=== PATIENT | female | born 1935 | race Caucasian/White ===

== ENCOUNTER 2017-03-23 18:06 | Inpatient (IN) | payer MEDICARE, MEDICAID ==
[~2017-03-23] VITALS: Ht 167.6 cm; Wt 71.2 kg
[2017-03-23 18:52] LABS: BASOPHILS % (AUTO) 0.8 % (0.0-2.0); EOSINOPHILS % (AUTO) 0.3 % (0.0-3.0); MEAN CORPUSCULAR HEMOGLOBIN 31.3 PG (27.0-31.0); MEAN CORPUSCULAR HGB CONC 31.7 G/DL (32.0-36.0); MEAN CORPUSCULAR VOLUME 99 FL (80-99); MEAN PLATELET VOLUME 10.7 FL (6.5-10.1); MONOCYTES % (AUTO) 7.9 % (1.0-10.0); PLATELET COUNT 183 K/UL (150-450); RED BLOOD COUNT 4.87 M/UL (4.20-5.40); RED CELL DISTRIBUTION WIDTH 14.2 % (11.6-14.8); WHITE BLOOD COUNT 17.3 K/UL (4.8-10.8)
[2017-03-23 19:10] LABS: TROPONIN I < 0.30 ng/mL (<=0.30)
--- NOTE | 2017-03-23 19:18 | Emergency Room Report ---
History of Present Illness General Chief Complaint: Dyspnea/Respdistress Source: Medical Record Present Illness HPI 81-year-old female presents ED for evaluation. Patient resides in halfway. Per EMS patient noted to be hypoxic on remainder. O2 sat and EKGs. Patient placed on nasal cannula and then simple mask with O2 saturations improving. EMS noted crackles in both lungs. States that she is currently being treated for pneumonia at the halfway. Upon arrival patient showing no signs of distress. Denies any chest pain or shortness of breath. Denies any fevers or chills. No aggravating or relieving factors. Denies any other associated symptoms Allergies: Coded Allergies: No Known Allergies (Unverified , 03/23/17) Patient History Past Medical History: CHF, AFib Past Surgical History: none Pertinent Family History: none Social History: Denies: alcohol use, drug use, smoking Last Menstrual Period: n/a Now: No Immunizations: UTD Reviewed Nursing Documentation: PMH: Agreed, PSxH: Agreed Nursing Documentation-PMH Past Medical History: No History, Except For Hx Cardiac Problems: Yes - CHF, afib, Hypothyroidism Review of Systems All Other Systems: negative except mentioned in HPI Physical Exam Vital Signs Date Time Temp Pulse Resp B/P Pulse Ox O2 Delivery O2 Flow Rate FiO2 03/23/17 17:58 98.4 93 20 90/63 97 Room Air Sp02 EP Interpretation: reviewed, normal General Appearance: no apparent distress, alert, GCS 15, non-toxic Head: normocephalic Eyes: bilateral eye PERRL, bilateral eye normal inspection ENT: normal ENT inspection Neck: normal inspection Respiratory: crackles Cardiovascular #1: tachycardia Gastrointestinal: normal inspection Rectal: deferred Genitourinary: no CVA tenderness Musculoskeletal: normal inspection Neurologic: alert, oriented x3, responsive, motor strength/tone normal, sensory intact, speech normal Psychiatric: normal inspection Skin: normal inspection Lymphatic: normal inspection Medical Decision Making Diagnostic Impression: Primary Impression: Pneumonia Qualified Codes: J18.1 - Lobar pneumonia, unspecified organism Additional Impressions: Atrial fibrillation Qualified Codes: I48.91 - Unspecified atrial fibrillation CHF (congestive heart failure) Qualified Codes: I50.9 - Heart failure, unspecified ER Course Hospital Course 49-year-old M presenting to ED with crackles, hypoxia Differential diagnoses include: Pneumonia, CHF exacerbation, pneumothorax, fluid overload Clinical course Patient placed on stretcher. On patient monitor with hypoxia on room air and tachycardia. After initial history and physical, I ordered labs, IV fluids, EKG , chest x-ray, blood cultures, UA. Labs -leukocytosis noted, hemoglobin/hematocrit stable, elecrolytes okay, lactate okay, troponins negative, BNP elevated CXR - R middle lobe infiltrate EKG - afib, no ischemic changes Antibiotics given. Patient given Lopressor and IV fluids were tachycardia improving. Patient initially mildly hypotensive improved with IV fluids Case discussed with Dr. Call and he agreed to the patient to his service for further care and support I feel this is a highly complex case requiring extensive working including EKG/ Rhythm strip, Xray/CT/US, Blood/urine lab work, repeat exams while in ED, and administration of strong opiates/narcotics for pain control, admission to hospital or close patient follow up. Diagnosis - pneumonia, atrial fibrillation, CHF Patient admitted to telemetry in serious condition Labs Test 03/23/17 18:30 03/23/17 19:33 White Blood Count 17.3 K/UL (4.8-10.8) Red Blood Count 4.87 M/UL (4.20-5.40) Hemoglobin 15.2 G/DL (12.0-16.0) Hematocrit 48.0 % (37.0-47.0) Mean Corpuscular Volume 99 FL (80-99) Mean Corpuscular Hemoglobin 31.3 PG (27.0-31.0) Mean Corpuscular Hemoglobin Concent 31.7 G/DL (32.0-36.0) Red Cell Distribution Width 14.2 % (11.6-14.8) Platelet Count 183 K/UL (150-450) Mean Platelet Volume 10.7 FL (6.5-10.1) Neutrophils (%) (Auto) 83.0 % (45.0-75.0) Lymphocytes (%) (Auto) 8.0 % (20.0-45.0) Monocytes (%) (Auto) 7.9 % (1.0-10.0) Eosinophils (%) (Auto) 0.3 % (0.0-3.0) Basophils (%) (Auto) 0.8 % (0.0-2.0) Sodium Level 139 mEQ/L (135-145) Potassium Level 5.1 mEQ/L (3.4-4.9) Chloride Level 94 mEQ/L (98-107) Carbon Dioxide Level 30 mEQ/L (20-30) Anion Gap 15 (5-15) Blood Urea Nitrogen 18 mg/dL (7-23) Creatinine 0.9 mg/dL (0.5-0.9) Estimat Glomerular Filtration Rate mL/min (>60) Glucose Level 105 mg/dL (74-106) Lactic Acid Level 1.20 mmol/L (0.66-2.22) Calcium Level 8.9 mg/dL (8.6-10.2) Total Bilirubin 0.8 mg/dL (0.0-1.2) Aspartate Amino Transf (AST/SGOT) 16 U/L (5-40) Alanine Aminotransferase (ALT/SGPT) 6 U/L (3-33) Alkaline Phosphatase 83 U/L (35-104) Total Creatine Kinase 17 U/L (26-140) Creatine Kinase MB 1.0 ng/mL (< 3.8) Creatine Kinase MB Relative Index 5.8 Troponin I < 0.30 ng/mL (<=0.30) Pro-B-Type Natriuretic Peptide 3910 pg/mL (0-450) Total Protein 8.4 g/dL (6.6-8.7) Albumin 3.2 g/dL (3.5-5.2) Globulin 5.2 g/dL Albumin/Globulin Ratio 0.6 (1.0-2.7) Urine Color Yellow Urine Appearance Very cloudy Urine pH 6 (4.5-8.0) Urine Specific [place] 1.015 (1.005-1.035) Urine Protein 2+ (NEGATIVE) Urine Glucose (UA) Negative (NEGATIVE) Urine Ketones Negative (NEGATIVE) Urine Occult Blood 4+ (NEGATIVE) Urine Nitrite Negative (NEGATIVE) Urine Bilirubin Negative (NEGATIVE) Urine Urobilinogen Normal MG/DL (0.0-1.0) Urine Leukocyte Esterase 3+ (NEGATIVE) Urine RBC Tntc /HPF (0 - 2) Urine WBC Tntc /HPF (0 - 2) Urine Squamous Epithelial Cells Moderate /LPF (NONE/OCC) Urine Bacteria Many /HPF (NONE) EKG Diagnostic Results Rate: tachycardiac Rhythm: other - aflutter ST Segments: no acute changes ASA given to the pt in ED: No Rhythm Strip Diag. Results EP Interpretation: yes Rhythm: no PVC's, no ectopy Chest X-Ray Diagnostic Results Chest X-Ray Ordered: Yes # of Views/Limited/Complete: 1 View Interpretation: no pneumothorax, no acute cardiopulmonary disease, other - R mid lung inifltrate Indication: Shortness of Breath Impression: Other - pneumonia Date Electronically Signed: Mar 23, 2017 Time Electronically Signed: 19:17 Interpreting ER Physician: Inocencio Velazquez MD Last Vital Signs Date Time Temp Pulse Resp B/P Pulse Ox O2 Delivery O2 Flow Rate FiO2 03/23/17 17:58 98.4 93 20 90/63 97 Room Air Status: improved Disposition: ADMITTED INPATIENT Condition: Serious INOCENCIO VELAZQUEZ M.D. Mar 23, 2017 19:17
[2017-03-23 19:25] LABS: ALANINE AMINOTRANSFERASE 6 U/L (3-33); ALBUMIN/GLOBULIN RATIO 0.6 (1.0-2.7); ANION GAP 15 (5-15); ASPARTATE AMINO TRANSFERASE 16 U/L (5-40); CALCIUM 8.9 mg/dL (8.6-10.2); CARBON DIOXIDE 30 mEQ/L (20-30); CHLORIDE 94 mEQ/L (98-107); CREATININE 0.9 mg/dL (0.5-0.9); HEMOLYSIS 18; POTASSIUM 5.1 mEQ/L (3.4-4.9); SODIUM 139 mEQ/L (135-145); TOTAL PROTEIN 8.4 g/dL (6.6-8.7)
[2017-03-23 20:00] VITALS: BP 91/76
[2017-03-23] MEDS ORDERED: DuoNeb 0.5-3(2.5)mg/3ml neb HHN PRN (20:30)
[2017-03-23] MEDS ORDERED: Nitroglycerin Subl 0.4mg tab (Bottle Of 25) SL PRN (20:30)
[2017-03-23] MEDS ORDERED: Miralax 17gm pkt ORAL PRN (20:30)
[2017-03-23] MEDS ORDERED: Promethazine/Codeine 5ml UD ORAL PRN (20:30)
[2017-03-23] MEDS ORDERED: Mylanta II UD 30ml ORAL PRN (20:30)
[2017-03-23] MEDS ORDERED: POTASSIUM CHLO10 MEQ ORAL (20:48)
[2017-03-23] MEDS ORDERED: ENALAPRIL MALE2.5 MG ORAL (20:48)
[2017-03-23] MEDS ORDERED: MULTIVITAMINS1 EA14 PO (20:48)
[2017-03-23] MEDS ORDERED: DUONEB 0.5-3(2.53 ML HHN (20:48)
[2017-03-23] MEDS ORDERED: FUROSEMIDE40 MG ORAL (20:48)
[2017-03-23] MEDS ORDERED: METOPROLOL TART50 M1 ORAL (20:48)
[2017-03-23] MEDS ORDERED: LEVOTHYROXINE25 MCG ORAL (20:48)
[2017-03-23] MEDS ORDERED: TYLENOL325 MG ORAL (20:48)
[2017-03-23 20:49] LABS: APPEARANCE,URINE VERY CLOUDY; KETONES,URINE NEGATIVE (NEGATIVE); LEUKOCYTE ESTERASE ,URINE 3+ (NEGATIVE); NITRITE,URINE NEGATIVE (NEGATIVE); PH,URINE 6 (4.5-8.0); PROTEIN,URINE 2+ (NEGATIVE); UROBILINOGEN,URINE NORMAL MG/DL (0.0-1.0)
[2017-03-23] MEDS ORDERED: Metoprolol 5mg/5ml Inj IVP ONE (21:00)
[2017-03-23 21:19] LABS: RBC,URINE TNTC /HPF (0 - 2); WBC,URINE TNTC /HPF (0 - 2)
[2017-03-23 21:20] LABS: BACTERIA,URINE MANY /HPF; SQUAMOUS EPITHELIAL CELL,UR MODERATE /LPF (NONE/OCC)
[2017-03-23 21:44] VITALS: BP 96/78
[2017-03-23] MEDS: Heparin 5000 units/ml inj SUBQ SCH (23:09)
[2017-03-23] MEDS: Vancomycin 1gm/D5W 275ml IVPB SCH ×2 (23:10)
[2017-03-23 23:31] VITALS: BP 95/63
[2017-03-24 01:05] VITALS: BP_SYST 88; BP_SYST 90; BP_DIAS 70; BP_DIAS 71
[2017-03-24 04:00] VITALS: BP 114/65
[2017-03-24] MEDS: Levothyroxine 25mcg tab ORAL SCH (05:50)
[2017-03-24 08:00] VITALS: BP 105/66
[2017-03-24] MEDS: Cefepime HCl 1 GM in D5W 55 ML IV SCH (08:59)
[2017-03-24] MEDS: Metoprolol 50mg tab ORAL SCH ×2 (09:00→20:58)
[2017-03-24] MEDS: Heparin 5000 units/ml inj SUBQ SCH ×2 (09:01→20:58)
--- NOTE | 2017-03-24 09:31 | Diagnostic Imaging Report ---
Indications: SOB Technique: Portable AP chest Findings: Comparison: None Focal irregular airspace opacities are present in the right midlung. Asymmetric soft tissue fullness right hilum. Increased interstitial markings throughout both lungs, most prominent in the bases. Heart size, peripheral pulmonary vasculature within normal limits. No obvious pleural abnormalities. Thoracic aorta calcified, mildly elongated. Bones diffusely demineralized. Thoracic kyphosis is exaggerated. Surgical clips project over abdominal left upper quadrant. Fixation screws bridge old, healed fracture proximal aspect left humerus, incompletely imaged. IMPRESSION: Right midlung airspace opacities, nonspecific, may represent multifocal pneumonia Right hilar soft tissue fullness, nonspecific, may represent prominent pulmonary artery. Mass/adenopathy not excludable. Recommend followup to resolution, contrast-enhanced thoracic CT scan persists Bilateral interstitial disease with bibasal predominance, nonspecific, acuity indeterminate. No supportive evidence of active congestive heart failure. Aortosclerosis Prior ORIF left humerus Prior lower left chest wall/left upper abdominal surgery
[2017-03-24] MEDS ORDERED: Digoxin 0.5mg/2ml Inj IVP ONE (10:15)
[2017-03-24 11:10] LABS: ABG ALLEN TEST POSITIVE; ABG BASE EXCESS 3.2; ABG PCO2 42.3 mmHg (35.0-45.0)
[2017-03-24 11:45] LABS: BASOPHILS % (AUTO) 1.2 % (0.0-2.0); EOSINOPHILS % (AUTO) 0.3 % (0.0-3.0); LYMPHOCYTES % (AUTO) 7.4 % (20.0-45.0); MEAN CORPUSCULAR HEMOGLOBIN 31.5 PG (27.0-31.0); MEAN CORPUSCULAR HGB CONC 31.5 G/DL (32.0-36.0); MEAN CORPUSCULAR VOLUME 100 FL (80-99); MEAN PLATELET VOLUME 10.2 FL (6.5-10.1); MONOCYTES % (AUTO) 7.3 % (1.0-10.0); NEUTROPHILS % (AUTO) 83.8 % (45.0-75.0); PLATELET COUNT 122 K/UL (150-450); RED BLOOD COUNT 4.44 M/UL (4.20-5.40); RED CELL DISTRIBUTION WIDTH 14.1 % (11.6-14.8)
[2017-03-24 12:00] VITALS: BP 107/62
--- NOTE | 2017-03-24 12:06 | History and Physical ---
History of Present Illness General Date patient seen: Mar 24, 2017 Time patient seen: 09:15 Reason for Hospitalization: Dyspnea/Respdistress Present Illness HPI 81-year-old female, resident of SNF, with hx of A fib, CHF, hypothryofiism presented to ED for evaluation. Patient noted to be hypoxemic in SNF. Patient was placed on simple mask with O2 saturations improving. Patient was currently being treated for pneumonia at the residential. Upon arrival hypoxemic, tachycardic, afebrile, blood pressure low-90/63 Workup in ED revealed leukocytosis-17,3. lactic acid WNL stable lytes and GG UA with evidence of UTI CXR -Right midlung airspace opacities, nonspecific, may represent multifocal pneumonia Right hilar soft tissue fullness, nonspecific, may represent prominent pulmonary artery. Mass/adenopathy not excludable ECG with A fib, rate 128 pro BNP -3910 Lopressor IV given IV fluids provided, BP improved with IVF patient pancultured and started on empiric abx patient admitted to tele for further management Allergies: Coded Allergies: No Known Allergies (Unverified , 03/23/17) Medication History Scheduled Enalapril Maleate* (Enalapril Maleate*), 2.5 MG ORAL EVERY 12 HOURS, (Reported) Furosemide* (Lasix*), 40 MG ORAL DAILY, (Reported) Levothyroxine Sodium* (Levothyroxine Sodium*), 25 MCG ORAL DAILY, (Reported) Metoprolol Tartrate* (Metoprolol Tartrate*), 50 MG ORAL EVERY 12 HOURS, ( Reported) Potassium Chloride* (K-Dur*), 10 MEQ ORAL DAILY, (Reported) Scheduled PRN Acetaminophen (Tylenol), 650 MG ORAL Q6H PRN for Prn Pain/Headache/Temp > 101, ( Reported) Miscellaneous Medications Ipratropium/Albuterol Sulfate (DuoNeb 0.5-3(2.5)mg/3ml), 3 ML HHN, (Reported) Multivitamin (Multivitamins), 1 EACH PO, (Reported) Patient History History Provided By: Medical Record Healthcare decision maker N Resuscitation status Full Code Advanced Directive on File No Past Medical/Surgical History Past Medical/Surgical History: (1) Hypothyroidism (2) Atrial fibrillation (3) CHF (congestive heart failure) Review of Systems ROS Narrative unable to obtain due to ALOC Physical Exam General Appearance: other - elderly, bedridden, weak, awake, female in mild distress Lines, tubes and drains: peripheral HEENT: normocephalic, atraumatic, anicteric Neck: non-tender, supple Respiratory/Chest: chest wall non-tender, no accessory muscle use, crackles/ rales, rhonchi - bilaterally - few scattered bialterally Cardiovascular/Chest: normal peripheral pulses, no JVD, other - A flutter 128 Abdomen: normal bowel sounds, non tender, soft Extremities: non-tender Neurologic: abnormal gait, alert, responsive - porrly but follows commands Musculoskeletal: atrophy - BLE Last 24 Hour Vital Signs Date Time Temp Pulse Resp B/P Pulse Ox O2 Delivery O2 Flow Rate FiO2 03/24/17 10:10 127 03/24/17 09:00 109 105/66 03/24/17 08:21 109 24 94 Nasal Cannula 03/24/17 08:15 109 20 94 Nasal Cannula 2.0 03/24/17 08:00 97.3 119 20 105/66 96 Nasal Cannula 2.0 03/24/17 06:47 Nasal Cannula 2.0 03/24/17 06:46 94 Nasal Cannula 2.0 03/24/17 06:45 109 24 Nasal Cannula 2.0 03/24/17 04:00 97.9 112 20 114/65 90 Nasal Cannula 2.5 03/24/17 04:00 115 03/24/17 01:05 97.2 120 20 90/70 96 Nasal Cannula 2.0 03/24/17 00:00 119 03/23/17 23:31 96.3 107 20 95/63 91 Nasal Cannula 2.0 03/23/17 22:02 98.4 118 20 96/78 97 Room Air 03/23/17 21:44 98.4 118 20 96/78 97 Room Air 03/23/17 21:07 120 71/48 03/23/17 20:00 98.4 122 20 91/76 97 Room Air 03/23/17 18:10 122 23 Room Air 03/23/17 17:58 98.4 93 20 90/63 97 Room Air Intake and Output 03/23/17 03/24/17 19:00 07:00 Intake Total 2367.416 ml Balance 2367.416 ml Intake IV Total 367.416 ml Other 2000 ml # Voids 2 Laboratory Tests Test 03/23/17 18:30 03/23/17 19:33 03/24/17 11:05 03/24/17 11:30 White Blood Count 17.3 K/UL (4.8-10.8) H 11.0 K/UL (4.8-10.8) H Red Blood Count 4.87 M/UL (4.20-5.40) 4.44 M/UL (4.20-5.40) Hemoglobin 15.2 G/DL (12.0-16.0) 14.0 G/DL (12.0-16.0) Hematocrit 48.0 % (37.0-47.0) H 44.6 % (37.0-47.0) Mean Corpuscular Volume 99 FL (80-99) 100 FL (80-99) H Mean Corpuscular Hemoglobin 31.3 PG (27.0-31.0) H 31.5 PG (27.0-31.0) H Mean Corpuscular Hemoglobin Concent 31.7 G/DL (32.0-36.0) L 31.5 G/DL (32.0-36.0) L Red Cell Distribution Width 14.2 % (11.6-14.8) 14.1 % (11.6-14.8) Platelet Count 183 K/UL (150-450) 122 K/UL (150-450) L Mean Platelet Volume 10.7 FL (6.5-10.1) H 10.2 FL (6.5-10.1) H Neutrophils (%) (Auto) 83.0 % (45.0-75.0) H 83.8 % (45.0-75.0) H Lymphocytes (%) (Auto) 8.0 % (20.0-45.0) L 7.4 % (20.0-45.0) L Monocytes (%) (Auto) 7.9 % (1.0-10.0) 7.3 % (1.0-10.0) Eosinophils (%) (Auto) 0.3 % (0.0-3.0) 0.3 % (0.0-3.0) Basophils (%) (Auto) 0.8 % (0.0-2.0) 1.2 % (0.0-2.0) Sodium Level 139 mEQ/L (135-145) Potassium Level 5.1 mEQ/L (3.4-4.9) H Chloride Level 94 mEQ/L (98-107) L Carbon Dioxide Level 30 mEQ/L (20-30) Anion Gap 15 (5-15) Blood Urea Nitrogen 18 mg/dL (7-23) Creatinine 0.9 mg/dL (0.5-0.9) Estimat Glomerular Filtration Rate mL/min (>60) Glucose Level 105 mg/dL (74-106) Lactic Acid Level 1.20 mmol/L (0.66-2.22) Calcium Level 8.9 mg/dL (8.6-10.2) Total Bilirubin 0.8 mg/dL (0.0-1.2) Aspartate Amino Transf (AST/SGOT) 16 U/L (5-40) Alanine Aminotransferase (ALT/SGPT) 6 U/L (3-33) Alkaline Phosphatase 83 U/L (35-104) Total Creatine Kinase 17 U/L (26-140) L Creatine Kinase MB 1.0 ng/mL (< 3.8) Creatine Kinase MB Relative Index 5.8 Troponin I < 0.30 ng/mL (<=0.30) Pro-B-Type Natriuretic Peptide 3910 pg/mL (0-450) H Total Protein 8.4 g/dL (6.6-8.7) Albumin 3.2 g/dL (3.5-5.2) L Globulin 5.2 g/dL Albumin/Globulin Ratio 0.6 (1.0-2.7) L Urine Color Yellow Urine Appearance Very cloudy Urine pH 6 (4.5-8.0) Urine Specific [place] 1.015 (1.005-1.035) Urine Protein 2+ (NEGATIVE) H Urine Glucose (UA) Negative (NEGATIVE) Urine Ketones Negative (NEGATIVE) Urine Occult Blood 4+ (NEGATIVE) H Urine Nitrite Negative (NEGATIVE) Urine Bilirubin Negative (NEGATIVE) Urine Urobilinogen Normal MG/DL (0.0-1.0) Urine Leukocyte Esterase 3+ (NEGATIVE) H Urine RBC Tntc /HPF (0 - 2) H Urine WBC Tntc /HPF (0 - 2) H Urine Squamous Epithelial Cells Moderate /LPF (NONE/OCC) H Urine Bacteria Many /HPF (NONE) H Arterial Blood pH 7.435 (7.350-7.450) Arterial Blood Partial Pressure CO2 42.3 mmHg (35.0-45.0) Arterial Blood Partial Pressure O2 60.4 mmHg (75.0-100.0) L Arterial Blood HCO3 27.8 mmol/L (22.0-26.0) H Arterial Blood Oxygen Saturation 91.8 % (92.0-98.0) L Arterial Blood Base Excess 3.2 Tee Test Positive Height (Feet): 5 Height (Inches): 6.00 Weight (Pounds): 130 Medications Current Medications Medications (Trade) Dose Ordered Sig/Rita Route PRN Reason Start Time Stop Time Status Last Admin Dose Admin Acetaminophen (Tylenol) 650 mg Q4H PRN ORAL fever 03/23/17 20:30 04/22/17 20:29 Al Hydroxide/Mg Hydroxide (Mylanta II) 30 ml Q6H PRN ORAL dyspepsia 03/23/17 20:30 04/22/17 20:29 Albuterol/ Ipratropium 3 ml 3 ml EVERY 4 HOURS PRN HHN Shortness of Breath 03/23/17 20:30 03/28/17 20:29 03/24/17 08:15 Cefepime HCl/ Dextrose (Maxipime/D5W) 55 ml @ 110 mls/hr Q24H IV 03/24/17 09:00 03/31/17 08:59 03/24/17 08:59 Heparin Sodium (Porcine) (Heparin 5000 units/ml) 5,000 units EVERY 12 HOURS SUBQ 03/23/17 22:00 04/22/17 21:59 03/24/17 09:01 Levothyroxine Sodium (Synthroid) 25 mcg DAILY@0630 ORAL 03/24/17 06:30 04/23/17 06:29 03/24/17 05:50 Metoprolol Tartrate 50 mg 50 mg EVERY 12 HOURS ORAL 03/24/17 09:00 04/23/17 08:59 Nitroglycerin (Ntg) 0.4 mg Q5M PRN SL Prn Chest Pain 03/23/17 20:30 04/22/17 20:29 Ondansetron HCl (Zofran) 4 mg Q6H PRN IVP Nausea & Vomiting 03/23/17 20:30 04/22/17 20:29 Polyethylene Glycol (Miralax) 17 gm DAILYPRN PRN ORAL Constipation 03/23/17 20:30 04/22/17 20:29 Promethazine HCl/ Codeine (Phenergan with Codeine) 5 ml Q4H PRN ORAL For Cough 03/23/17 20:30 04/22/17 20:29 Temazepam (Restoril) 15 mg HSPRN PRN ORAL Insomnia 03/23/17 20:30 03/30/17 20:29 Vancomycin HCl (Vanco rx to dose) 1 ea DAILY PRN MISC Per rx protocol 03/23/17 20:30 04/22/17 20:29 Vancomycin HCl/ Dextrose (Vancomycin/D5W) 275 ml @ 183.708 mls/hr Q24H IVPB 03/23/17 23:00 03/28/17 22:59 03/23/17 23:10 Assessment/Plan Assessment/Plan ASSESSMENT acute hypoxemic respiratory failure sepsis PNA possible aspiration PNA r/o mass UTI Afib/flutter with RVR CHF hypothyroidism PLAN OF CARE tele o2 HHN to keep sat above 92% ABG with evidence of hypoxemia on NC, placed on VM CXR with evidence of multifocal PNA, possible mass CT chest today swallow eval today ECHO today cardio eval Digoxin 0.125 IVP x 1 if no improvement in HR may need to go to ICU for gtt broad spectrum abx, ID consult fup with cx check TSH DVT prophylaxis venous Duplex BLE case discussed and evaluated by supervising physician Mathew Welsh)Tsiha NP Mar 24, 2017 12:06
[2017-03-24 12:15] LABS: ANION GAP 14 (5-15); CALCIUM 8.2 mg/dL (8.6-10.2); CARBON DIOXIDE 27 mEQ/L (20-30); CHLORIDE 96 mEQ/L (98-107); CREATININE 0.7 mg/dL (0.5-0.9); HEMOLYSIS 3; PHOSPHORUS 2.8 mg/dL (2.5-4.8); POTASSIUM 4.5 mEQ/L (3.4-4.9); SODIUM 137 mEQ/L (135-145)
[2017-03-24] MEDS ORDERED: NS 250 ML IVPB ONE (15:30)
[2017-03-24 16:00] VITALS: BP 119/79
--- NOTE | 2017-03-24 17:48 | Cardiology Progress Note ---
Assessment/Plan Assessment/Plan tachycardia (multifactorial infection , hypoxemia , meds, others realted ) hypotesnion (responded to volume perm afib on anticoagulation respiratory insuf hs fo coaguloapthy due to Coumadin hs of "diastolic dysfunction " dementia hypothyroid hs bb not given due to hypotension bp improved with bolus of ivf to resuem bb watch ofr worsenign of bronchospasm protime in am continue anticoagulation with couamdin I WILL BE AWAY 03/25-03/[address] WILL SEE PT [id number] Objective Last 24 Hour Vital Signs Date Time Temp Pulse Resp B/P Pulse Ox O2 Delivery O2 Flow Rate FiO2 03/24/17 16:00 97.9 127 20 119/79 97 Nasal Cannula 2.0 03/24/17 12:00 97.6 129 20 107/62 92 Nasal Cannula 2.0 03/24/17 10:10 127 03/24/17 09:00 109 105/66 03/24/17 08:21 109 24 94 Nasal Cannula 03/24/17 08:15 109 20 94 Nasal Cannula 2.0 03/24/17 08:00 97.3 119 20 105/66 96 Nasal Cannula 2.0 03/24/17 06:47 Nasal Cannula 2.0 03/24/17 06:46 94 Nasal Cannula 2.0 03/24/17 06:45 109 24 Nasal Cannula 2.0 03/24/17 04:00 97.9 112 20 114/65 90 Nasal Cannula 2.5 03/24/17 04:00 115 03/24/17 01:05 97.2 120 20 90/70 96 Nasal Cannula 2.0 03/24/17 00:00 119 03/23/17 23:31 96.3 107 20 95/63 91 Nasal Cannula 2.0 03/23/17 22:02 98.4 118 20 96/78 97 Room Air 03/23/17 21:44 98.4 118 20 96/78 97 Room Air 03/23/17 21:07 120 71/48 03/23/17 20:00 98.4 122 20 91/76 97 Room Air 03/23/17 18:10 122 23 Room Air 03/23/17 17:58 98.4 93 20 90/63 97 Room Air Intake and Output 03/23/17 03/24/17 19:00 07:00 Intake Total 2367.416 ml Balance 2367.416 ml Intake IV Total 367.416 ml Other 2000 ml # Voids 2 Laboratory Tests Test 03/23/17 18:30 03/23/17 19:33 03/24/17 11:05 03/24/17 11:30 White Blood Count 17.3 K/UL (4.8-10.8) H 11.0 K/UL (4.8-10.8) H Red Blood Count 4.87 M/UL (4.20-5.40) 4.44 M/UL (4.20-5.40) Hemoglobin 15.2 G/DL (12.0-16.0) 14.0 G/DL (12.0-16.0) Hematocrit 48.0 % (37.0-47.0) H 44.6 % (37.0-47.0) Mean Corpuscular Volume 99 FL (80-99) 100 FL (80-99) H Mean Corpuscular Hemoglobin 31.3 PG (27.0-31.0) H 31.5 PG (27.0-31.0) H Mean Corpuscular Hemoglobin Concent 31.7 G/DL (32.0-36.0) L 31.5 G/DL (32.0-36.0) L Red Cell Distribution Width 14.2 % (11.6-14.8) 14.1 % (11.6-14.8) Platelet Count 183 K/UL (150-450) 122 K/UL (150-450) L Mean Platelet Volume 10.7 FL (6.5-10.1) H 10.2 FL (6.5-10.1) H Neutrophils (%) (Auto) 83.0 % (45.0-75.0) H 83.8 % (45.0-75.0) H Lymphocytes (%) (Auto) 8.0 % (20.0-45.0) L 7.4 % (20.0-45.0) L Monocytes (%) (Auto) 7.9 % (1.0-10.0) 7.3 % (1.0-10.0) Eosinophils (%) (Auto) 0.3 % (0.0-3.0) 0.3 % (0.0-3.0) Basophils (%) (Auto) 0.8 % (0.0-2.0) 1.2 % (0.0-2.0) Sodium Level 139 mEQ/L (135-145) 137 mEQ/L (135-145) Potassium Level 5.1 mEQ/L (3.4-4.9) H 4.5 mEQ/L (3.4-4.9) Chloride Level 94 mEQ/L (98-107) L 96 mEQ/L (98-107) L Carbon Dioxide Level 30 mEQ/L (20-30) 27 mEQ/L (20-30) Anion Gap 15 (5-15) 14 (5-15) Blood Urea Nitrogen 18 mg/dL (7-23) 15 mg/dL (7-23) Creatinine 0.9 mg/dL (0.5-0.9) 0.7 mg/dL (0.5-0.9) Estimat Glomerular Filtration Rate mL/min (>60) mL/min (>60) Glucose Level 105 mg/dL (74-106) 93 mg/dL (74-106) Lactic Acid Level 1.20 mmol/L (0.66-2.22) Calcium Level 8.9 mg/dL (8.6-10.2) 8.2 mg/dL (8.6-10.2) L Total Bilirubin 0.8 mg/dL (0.0-1.2) Aspartate Amino Transf (AST/SGOT) 16 U/L (5-40) Alanine Aminotransferase (ALT/SGPT) 6 U/L (3-33) Alkaline Phosphatase 83 U/L (35-104) Total Creatine Kinase 17 U/L (26-140) L Creatine Kinase MB 1.0 ng/mL (< 3.8) Creatine Kinase MB Relative Index 5.8 Troponin I < 0.30 ng/mL (<=0.30) Pro-B-Type Natriuretic Peptide 3910 pg/mL (0-450) H Total Protein 8.4 g/dL (6.6-8.7) Albumin 3.2 g/dL (3.5-5.2) L 2.6 g/dL (3.5-5.2) L Globulin 5.2 g/dL Albumin/Globulin Ratio 0.6 (1.0-2.7) L Urine Color Yellow Urine Appearance Very cloudy Urine pH 6 (4.5-8.0) Urine Specific [place] 1.015 (1.005-1.035) Urine Protein 2+ (NEGATIVE) H Urine Glucose (UA) Negative (NEGATIVE) Urine Ketones Negative (NEGATIVE) Urine Occult Blood 4+ (NEGATIVE) H Urine Nitrite Negative (NEGATIVE) Urine Bilirubin Negative (NEGATIVE) Urine Urobilinogen Normal MG/DL (0.0-1.0) Urine Leukocyte Esterase 3+ (NEGATIVE) H Urine RBC Tntc /HPF (0 - 2) H Urine WBC Tntc /HPF (0 - 2) H Urine Squamous Epithelial Cells Moderate /LPF (NONE/OCC) H Urine Bacteria Many /HPF (NONE) H Arterial Blood pH 7.435 (7.350-7.450) Arterial Blood Partial Pressure CO2 42.3 mmHg (35.0-45.0) Arterial Blood Partial Pressure O2 60.4 mmHg (75.0-100.0) L Arterial Blood HCO3 27.8 mmol/L (22.0-26.0) H Arterial Blood Oxygen Saturation 91.8 % (92.0-98.0) L Arterial Blood Base Excess 3.2 Tee Test Positive Phosphorus Level 2.8 mg/dL (2.5-4.8) TERE BEGUM Mar 24, 2017 17:48
[2017-03-24] MEDS: Levalbuterol Inh UD 1.25mg/0.5ml HHN SCH (19:08)
[2017-03-24 20:00] VITALS: BP 135/67
--- NOTE | 2017-03-24 20:57 | Consultation ---
SB JADE M.D. Mar 24, 2017 20:57
--- NOTE | 2017-03-24 22:30 | Wound Care Consultation ---
Wound Assessment Wound Assessment #1: Wound Present on Admission: Yes New Wound: No Status Change of Wound: No Wound Location Body Site: perineal area - and sacral area Wound Type: chemical burn Rachel Test: Does not Rachel Percent of Wound Starbuck/Red: 50 Percent of Wound Purple/Maroon: 50 Wound Drainage Amount: None Wound Drainage Odor: None/Absent Tissue Surrounding Wound: Erythemic Wound General Appearance: Reddened Wound Assessment #2: Wound Number: #2 Wound Present on Admission: Yes New Wound: No Status Change of Wound: No Wound Location Body Site Modif: mid Wound Location Body Site: sacral Wound Type: pressure ulcer Rachel Test: Does not Rachel Pressure Ulcer Stage: deep tissue injury Wound Thickness: Full Thickness Wound Length: 2.0 Wound Width: 2.0 Wound Depth: utd Percent of Wound Purple/Maroon: 100 Wound Drainage Amount: None Wound Drainage Odor: None/Absent Tissue Surrounding Wound: Erythemic Wound General Appearance: Reddened - purple Wound Assessment #3: Wound Number: #1 Wound Present on Admission: Yes New Wound: No Status Change of Wound: No Wound Location Body Site Modif: right Wound Location Body Site: heel Wound Type: pressure ulcer Rachel Test: Does not Rachel Pressure Ulcer Stage: deep tissue injury Wound Thickness: Full Thickness Wound Length: 3.5 Wound Width: 4.5 Wound Depth: utd Percent of Wound Purple/Maroon: 100 Wound Drainage Amount: None Wound Drainage Odor: None/Absent Tissue Surrounding Wound: Intact Wound General Appearance: Reddened - purple Wound Assessment #4: Wound Number: #4 Wound Present on Admission: Yes New Wound: No Status Change of Wound: No Wound Location Body Site Modif: left Wound Location Body Site: heel Wound Type: pressure ulcer Rachel Test: Does not Rachel Pressure Ulcer Stage: I Wound Length: 2.5 Wound Width: 2.0 Percent of Wound Starbuck/Red: 100 Wound Drainage Amount: None Wound Drainage Odor: None/Absent Tissue Surrounding Wound: Intact Wound General Appearance: Reddened Wound Assessment #5: Wound Number: #5 Wound Present on Admission: Yes New Wound: No Status Change of Wound: No Wound Type: other - red and scaly patches on different parts of Pt's body Rashes: Psoriasis - possible Wound Thickness: Partial Thickness Percent of Wound Starbuck/Red: 100 Wound Drainage Amount: None Wound Drainage Odor: None/Absent Tissue Surrounding Wound: Intact Wound General Appearance: Reddened, Open to air Wound Comment #1 Perineal area chemical burn that extended to sacral area with red and purplish discoloration #2 Right heel DTI pressure ulcer #3 Left heel stage I pressure ulcer #4 Sacral DTI pressure ulcer #5 Rashes on different part of Pt's body with scaly red patches Recommendation -Local wound treatment per protocol -Call MD for dermatology consult -Turn and reposition -Keep clean and dry -Optimize nutrition -Low air loss overlay mattress -Offload both heels -Heel protector on both heels -Assess and f/u accordingly for any changes RADHA TEIXEIRA RN Mar 24, 2017 22:30
--- NOTE | 2017-03-24 22:55 | Consultation ---
Consult Note Consult Note ID Dic # [id number] SB JADE M.D. Mar 24, 2017 22:55
[2017-03-24] MEDS: Vancomycin 1gm/D5W 275ml IVPB SCH ×2 (23:12)
--- NOTE | 2017-03-24 23:45 | Consultation ---
DATE OF CONSULTATION: 03/24/2017 CARDIOLOGY CONSULTATION: REFERRING PHYSICIAN: Jose Angel Call M.D. REASON FOR REFERRAL: Palpitations, tachycardia, and hypotension. HISTORY OF PRESENT ILLNESS: This is an elderly female, somewhat of a poor historian. The patient apparently resides in a facility and transferred to the acute care hospital. The patient with history of dementia and Alzheimer's, who apparently complained of shortness of breath at the facility stating that she had saturation of 88% on nasal cannula. Blood oxygen saturating 90 to 94%, put the patient on face mask prior to transfer to the emergency room, oxygen saturation per paramedics was 97 to 98% at that time. The patient denied any pain. No weakness, dizziness, nausea, or vomiting. The patient's blood pressure was 98/59, down to 90/63 at the time of her presentation to the hospital. The patient does have some chest pain that she can not describe. She indicates she has been having for approximately one year. She does have shortness of breath. Does not have any PND. She cannot describe any exacerbating or relieving factors for the chest pain or nor described pain itself and no where the pain exactly is. She sleeps with head of bed elevated although not completely clear to me if that is accurate. [facility] that she had been complaining of some shortness of breath evaluation yesterday . PAST MEDICAL HISTORY: According to the [facility] records is positive for history of atrial fibrillation, chronic systolic congestive heart failure, sepsis, respiratory failure, pneumonia, dementia, coagulopathy, psoriasis, cystitis, and hypothyroidism. She was recently seen at the [facility]. I believe she does have history of hypertension as well. MEDICATIONS: Nevertheless her medications at the facility include Coumadin, digoxin, enalapril , hydralazine, metoprolol, Remeron, Tylenol, and Lasix. REVIEW OF SYSTEMS: Gastrointestinal: She denies any nausea, vomiting, diarrhea, or constipation. Genitourinary: She denies. Pulmonary: She denies. Constitutional: She denies. Neurologic: She denies. PHYSICAL EXAMINATION: GENERAL: Elderly female in no respiratory distress, kind of confused . VITAL SIGNS: Her blood pressure had been in the 90s when I received a phone call. Administered 250 mL of normal saline apparently, subsequently increased to 119. Her heart rate however remains rapid with heart rates in the 109 to 127, temperature 97.6 degrees, and saturations 92 to 97% on two liters. NECK: Supple. No jugular venous distention. LUNGS: Some inspiratory and expiratory wheezes. No crackles noted. CARDIAC: Irregularly irregular. No RV lift heaves or thrills noted. ABDOMEN: Soft and nontender. Positive bowel sounds. EXTREMITIES: There is no clubbing, cyanosis, nor is there any edema. NEUROLOGICAL: She is awake and responsive, but confused. LABORATORY AND DIAGNOSTIC DATA: Her white count is 11 down from 17.3, hemoglobin 14, and platelet count of 122,000. ABG, pH is 7.4, pCO2 42, pO2 64, bicarb 28, and saturation of 92%. Sodium is 137, potassium 4.5, chloride 96, bicarbonate 27, BUN 15, creatinine 0.7, and glucose of 93. Calcium is 8.3. Troponin at least one occasion less than 0.3 and a proBNP of 3900. Albumin is down to 2. Urinalysis too numerous to count RBCs and WBCs. Her chest x-ray shows right middle lung airspace opacities nonspecific may represent multifocal pneumonia right hilar soft tissue fullness nonspecific bilateral interstitial disease and bilateral prominence is nonspecific, indeterminate, ORIF of left humerus prior lower left chest wall upper abdominal surgery of some reason. EKG shows basically atrial fibrillation/flutter with variable block with nonspecific T-wave changes. Her convalescent hospital records reviewed and notation by a nurse practitioner, Safia indicates that the patient had in the convalescent facility blood pressure of 134/68 with a heart rate of 89 with a 98.2 degrees temperature. ASSESSMENT: 1. Permanent atrial fibrillation. 2. Tachycardia. 3. Respiratory insufficiency. 4. Chronic diastolic dysfunction and failure. 5. Hypothyroidism. 6. Hypertension. Dr. Call, this patient was seen in cardiac consultation. The patient has received some normal saline for hypotension, which she did respond to. Her tachycardia is still present. She had been on beta-blockers, which has not been administered because of hypotension and I suspect once her blood pressure is better, her beta-blockers can be resumed. However, care must be taken as the patient had some bronchospastic component to her respirations to make sure that may not use of beta beta-blockers. She is on empiric antibiotics. Her echocardiogram here has shown normal left ventricular systolic function. The ejection fraction is 60%. She has received some albuterol, which is likely can worsens her tachycardia as well. Set of cardiac enzymes will be ordered and further recommendations depending on how she does over the next few hours. Oh Currie M.D. DR: Melina JOB#: [id number] CC:
--- NOTE | 2017-03-25 | Consultation ---
DATE OF CONSULTATION: INFECTIOUS DISEASE CONSULTATION CONSULTING PHYSICIAN: Rahat Jensen M.D. REQUESTING PHYSICIAN: Jose Angel Call M.D. REASON FOR CONSULTATION: Evaluation of the patient for pneumonia and antibiotic management. HISTORY OF PRESENT ILLNESS: The patient is an 81-year-old female with multiple medical problems, as listed below, who came to the hospital with shortness of breath, however, no significant pneumonia. The patient has been admitted with the impression of pneumonia and an Infectious Disease consultation has been requested for further evaluation of the patient and antibiotic management. PAST MEDICAL HISTORY: 1. Atrial fibrillation. 2. Congestive heart failure. 3. Hyperthyroidism. MEDICATIONS: Cefepime and vancomycin. ALLERGIES: No known drug allergies. SOCIAL HISTORY: The patient lives in a penitentiary. FAMILY HISTORY: Unavailable. REVIEW OF SYSTEMS: Limited. Much of the information I was able to get as mentioned above.HEENT: No recent change in vision or hearing. Pulmonary: As mentioned above. Cardiovascular: No chest pain or palpitations. Gastrointestinal/Abdomen: No nausea or vomiting. Genitourinary: No dysuria. PHYSICAL EXAMINATION: VITAL SIGNS: Temperature 98.1 degrees, blood pressure 135/57, pulse 86, and respiratory rate 18. HEENT: Mild pale conjunctiva. No icterus. NECK: No lymphadenopathy. CHEST: Coarse breathing sounds. HEART: S1 and S2. ABDOMEN: Soft and nontender. EXTREMITIES: No cyanosis. NEUROLOGIC: Awake. LABORATORY DATA: White blood cells 11, at the time of admission was 17, hemoglobin 14, and platelets 122,000. UA, too numerous to count white blood cells and too numerous to count red blood cells. ALT, AST, and alkaline phosphatase are unremarkable. Chest x-ray shows right mid lung air space opacity and right hilar soft tissue fullness. ASSESSMENT: The patient is an 81-year-old female with medical problems as listed below. Also the patient has, 1. Leukocytosis. 2. Sepsis. 3. Pneumonia. PLAN: 1. We will continue the patient on IV vancomycin and Zosyn. 2. Monitor CBC. 3. Monitor BMP. 4. Monitor cultures (blood, sputum, and urine). 5. Monitor chest x-ray. 6. Based on the patient's clinical course and labs, we will do further recommendations. Thank you, Dr. Call, for allowing me to participate in the care of this patient. I will follow the patient with you during this hospitalization. Rahat Jensen M.D. DR: EUGENIA JOB#: [id number] CC:
[2017-03-25 00:04] VITALS: BP 103/66
[2017-03-25 04:00] VITALS: BP 107/74
[2017-03-25] MEDS: Levothyroxine 25mcg tab ORAL SCH (06:32)
[2017-03-25 06:48] LABS: BASOPHILS % (AUTO) 1.6 % (0.0-2.0); EOSINOPHILS % (AUTO) 0.9 % (0.0-3.0); LYMPHOCYTES % (AUTO) 8.3 % (20.0-45.0); MEAN CORPUSCULAR HEMOGLOBIN 33.2 PG (27.0-31.0); MEAN CORPUSCULAR HGB CONC 32.7 G/DL (32.0-36.0); MEAN CORPUSCULAR VOLUME 102 FL (80-99); MEAN PLATELET VOLUME 11.7 FL (6.5-10.1); MONOCYTES % (AUTO) 9.7 % (1.0-10.0); NEUTROPHILS % (AUTO) 79.6 % (45.0-75.0); PLATELET COUNT 146 K/UL (150-450); RED BLOOD COUNT 4.17 M/UL (4.20-5.40); RED CELL DISTRIBUTION WIDTH 14.2 % (11.6-14.8); WHITE BLOOD COUNT 12.3 K/UL (4.8-10.8)
[2017-03-25 07:15] LABS: TROPONIN I < 0.30 ng/mL (<=0.30)
[2017-03-25] MEDS: Levalbuterol Inh UD 1.25mg/0.5ml HHN SCH ×3 (07:22→19:17)
[2017-03-25 07:25] LABS: ANION GAP 12 (5-15); CALCIUM 8.2 mg/dL (8.6-10.2); CARBON DIOXIDE 28 mEQ/L (20-30); CHLORIDE 101 mEQ/L (98-107); CREATININE 0.6 mg/dL (0.5-0.9); HEMOLYSIS 2; POTASSIUM 4.7 mEQ/L (3.4-4.9); SODIUM 141 mEQ/L (135-145)
[2017-03-25 08:00] VITALS: BP 100/75
[2017-03-25] MEDS ORDERED: NS 275ml ONE ×2 (09:07→16:00)
[2017-03-25] MEDS ORDERED: Tubing IV Secondary IV ONE (09:07)
--- NOTE | 2017-03-25 09:22 | Diagnostic Imaging Report ---
Indication: Shortness of breath Technique: CT of the chest utilizing automated exposure control with intravenous contrast. Axial, sagittal and coronal reconstructions were obtained. CT dose: Total DLP 673 mGycm; CTDI vol 16.4 mGy Comparison: Chest x-ray from earlier the same day Findings: There is an area of irregular consolidative opacification involving the right upper lobe which extends to the right hilum. There is also septal thickening and a small area of consolidation within the right lower lobe. Moderate pulmonary emphysema is present. There is atelectasis in the left lower lobe. Trace right pleural fluid is present. Nonspecific mediastinal lymph nodes are seen measuring up to 1.5 cm in the precarinal location. The heart is enlarged. Atherosclerotic changes are present with coronary artery calcifications. There is a tiny hiatal hernia. There is a 2 cm hypodense probable cyst within the left lobe of the liver. A 6 mm hypodensity is also seen within the liver series 5 image 53 2 small to characterize. There is a new left renal cyst in the upper pole. Probable vascular calcification is noted in the left kidney. Degenerative changes of the spine are noted. T12 and T11 compression deformities are present. Impression: Irregular consolidative opacities involving the right upper lobe extending to the right hilum. Although findings may be on the basis of infection/pneumonia, possibility of underlying neoplasm cannot be excluded. Followup to resolution or further evaluation recommended. Interstitial and consolidative probable infectious/inflammatory process also noted in the right lower lobe. Trace right pleural fluid. Bilateral lower lobe atelectasis. Pulmonary emphysema. Cardiomegaly and atherosclerotic changes. Compression deformities of T11 and T12. Other findings as above. The CT scanner at [facility] is accredited by the [employer] and the scans are performed using protocols designed to limit radiation exposure to as low as reasonably achievable to attain images of sufficient resolution adequate for diagnostic evaluation.
[2017-03-25] MEDS: Cefepime HCl 1 GM in D5W 55 ML IV SCH (09:32)
[2017-03-25] MEDS: Metoprolol 50mg tab ORAL SCH ×2 (09:33→21:25)
[2017-03-25] MEDS: Heparin 5000 units/ml inj SUBQ SCH ×2 (09:34→21:25)
--- NOTE | 2017-03-25 09:49 | Diagnostic Imaging Report ---
Indication: Shortness of breath Technique: XRAY CHEST 1 V Comparison: 03/23/17 Findings: Cardiac silhouette is stable. Atherosclerotic changes are seen. Lungs are hyperinflated consistent with emphysema. Right upper lobe/hilar infiltrate or mass are again noted. Interstitial opacities are seen in the right base. Osseous structures are stable. Impression: No significant change from 03/23/17.
[2017-03-25 12:00] VITALS: BP 132/74
--- NOTE | 2017-03-25 14:18 | Pulmonology Progress Note ---
Assessment/Plan Assessment/Plan ASSESSMENT acute hypoxemic respiratory failure sepsis PNA possible aspiration PNA r/o pulmonary mass UTI Afib/flutter with RVR permanent A fib CHF with chronic diastolic dysfunction hypothyroidism hypotension -resolved PLAN OF CARE tele O2 HHN to keep sat above 92% ABG with evidence of hypoxemia on NC, placed on VM CXR with evidence of multifocal PNA, possible mass CT chest noted, possibility of mass not excluded will need follow up CT chest after Rx CXR today 03/25 - again demonstrated hyperinflated lungs , consistent with emphysema. Right upper lobe/hilar infiltrate or mass are again noted. Interstitial opacities are seen in the right base. swallow eval noted diet as per quality of life per ST VSS on Monday strict aspiration precautions ECHO with preserved EF 60% and RVSP of 38 c/w moderate pulmonary HTN, also evidence of moderate TR cardio follows BP initially responded to IVF rate control with BB ( watch respiratory status), BB with holding parameters broad spectrum abx, ID follows fup with cx TSH WNL, continue current dose of Synthroid DVT prophylaxis venous Duplex BLE case discussed and evaluated by supervising physician Subjective Allergies: Coded Allergies: No Known Allergies (Unverified , 03/23/17) Subjective still with leukocytosis, afebrile on O2 via NC, sat stable clinically with some improvement Objective Last 24 Hour Vital Signs Date Time Temp Pulse Resp B/P Pulse Ox O2 Delivery O2 Flow Rate FiO2 03/25/17 13:27 119 22 98 Nasal Cannula 3.0 28 03/25/17 13:17 79 20 90 Nasal Cannula 3.0 03/25/17 12:00 98.2 107 18 132/74 Nasal Cannula 2.0 89 03/25/17 11:50 118 03/25/17 09:33 118 100/75 03/25/17 08:00 97.3 118 20 100/75 94 Room Air 03/25/17 07:39 124 03/25/17 07:31 120 22 92 Nasal Cannula 3.0 28 03/25/17 07:20 124 20 79 Room Air 03/25/17 07:20 Nasal Cannula 3.0 03/25/17 07:18 93 Nasal Cannula 3.0 03/25/17 04:00 116 03/25/17 04:00 97.0 123 24 107/74 95 Nasal Cannula 4.0 03/25/17 00:04 98.1 97 15 103/66 93 Nasal Cannula 3.0 03/25/17 00:00 102 03/24/17 20:58 127 135/67 03/24/17 20:00 128 03/24/17 20:00 98.1 127 36 135/67 94 Nasal Cannula 3.0 03/24/17 19:14 95 24 94 Nasal Cannula 2.0 28 03/24/17 19:09 83 20 92 Nasal Cannula 2.0 03/24/17 19:09 Nasal Cannula 2.0 03/24/17 19:08 92 Nasal Cannula 2.0 03/24/17 19:08 83 22 Nasal Cannula 2.0 03/24/17 16:00 97.9 127 20 119/79 97 Nasal Cannula 2.0 03/24/17 16:00 127 Intake and Output 03/24/17 03/25/17 19:00 07:00 Intake Total 720 ml Balance 720 ml Intake Oral 720 ml # Voids 2 2 Objective General Appearance: elderly, bedridden, weak, awake, female in NAD Lines, tubes and drains: peripheral HEENT: normocephalic, atraumatic, anicteric Neck: non-tender, supple Respiratory/Chest: chest wall non-tender, no accessory muscle use, some crackles at bases, few scattered rhonchi bilaterally Cardiovascular/Chest: normal peripheral pulses, no JVD, A flutter Abdomen: normal bowel sounds, non tender, soft Extremities: non-tender Neurologic: abnormal gait, alert, awake, responsive Musculoskeletal: atrophy - BLE Microbiology Date/Time Source Procedure Growth Status 03/23/17 21:00 Rectum VRE Culture - Final NO VANCOMYCIN RESISTANT ENTEROCOCCUS ... Complete Laboratory Tests 03/25/17 04:30: White Blood Count 12.3H, Red Blood Count 4.17L, Hemoglobin 13.8, Hematocrit 42.4 , Mean Corpuscular Volume 102H, Mean Corpuscular Hemoglobin 33.2H, Mean Corpuscular Hemoglobin Concent 32.7, Red Cell Distribution Width 14.2, Platelet Count 146L, Mean Platelet Volume 11.7H, Neutrophils (%) (Auto) 79.6H, Lymphocytes (%) (Auto) 8.3L, Monocytes (%) (Auto) 9.7, Eosinophils (%) (Auto) 0.9, Basophils (%) (Auto) 1.6, Sodium Level 141, Potassium Level 4.7, Chloride Level 101, Carbon Dioxide Level 28, Anion Gap 12, Blood Urea Nitrogen 13, Creatinine 0.6, Estimat Glomerular Filtration Rate , Glucose Level 85, Calcium Level 8.2L, Troponin I < 0.30, Pro-B-Type Natriuretic Peptide [Pending], Thyroid Stimulating Hormone (TSH) 1.430 Current Medications Medications (Trade) Dose Ordered Sig/Rita Route PRN Reason Start Time Stop Time Status Last Admin Dose Admin Acetaminophen (Tylenol) 650 mg Q4H PRN ORAL fever 03/23/17 20:30 04/22/17 20:29 Al Hydroxide/Mg Hydroxide (Mylanta II) 30 ml Q6H PRN ORAL dyspepsia 03/23/17 20:30 04/22/17 20:29 Cefepime HCl/ Dextrose (Maxipime/D5W) 55 ml @ 110 mls/hr Q24H IV 03/24/17 09:00 03/31/17 08:59 03/25/17 09:32 Clotrimazole (Lotrimin) 1 applic EVERY 12 HOURS TOPIC 03/25/17 09:00 04/24/17 08:59 03/25/17 09:34 Heparin Sodium (Porcine) (Heparin 5000 units/ml) 5,000 units EVERY 12 HOURS SUBQ 03/23/17 22:00 04/22/17 21:59 03/25/17 09:34 Levalbuterol HCl (Xopenex) 1.25 mg TIDRT HHN 03/24/17 19:00 03/29/17 18:59 03/25/17 13:20 Levothyroxine Sodium (Synthroid) 25 mcg DAILY@0630 ORAL 03/24/17 06:30 04/23/17 06:29 03/25/17 06:32 Metoprolol Tartrate 50 mg 50 mg EVERY 12 HOURS ORAL 03/24/17 09:00 04/23/17 08:59 03/25/17 09:33 Nitroglycerin (Ntg) 0.4 mg Q5M PRN SL Prn Chest Pain 03/23/17 20:30 04/22/17 20:29 Ondansetron HCl (Zofran) 4 mg Q6H PRN IVP Nausea & Vomiting 03/23/17 20:30 04/22/17 20:29 Polyethylene Glycol (Miralax) 17 gm DAILYPRN PRN ORAL Constipation 03/23/17 20:30 04/22/17 20:29 Promethazine HCl/ Codeine 5 ml 5 ml Q4H PRN ORAL For Cough 03/23/17 20:30 04/22/17 20:29 Temazepam (Restoril) 15 mg HSPRN PRN ORAL Insomnia 03/23/17 20:30 03/30/17 20:29 Vancomycin HCl (Vanco rx to dose) 1 ea DAILY PRN MISC Per rx protocol 03/23/17 20:30 04/22/17 20:29 Vancomycin HCl/ Dextrose (Vancomycin/D5W) 275 ml @ 183.708 mls/hr Q24H IVPB 03/23/17 23:00 03/28/17 22:59 03/24/17 23:12 Mathew (Riley)Tisha NP Mar 25, 2017 14:17
[2017-03-25 16:00] VITALS: BP 118/90
--- NOTE | 2017-03-25 19:22 | Infectious Diseases Prog Note ---
Assessment/Plan Assessment/Plan A: pt is an 81 yold F aw Pna r/o pulmonary mass sepsis Leukocytosis improving Probable UTI UCx : GNR Afib/flutter CHF hypothyroidism PLAN cont pt on Cefepime and Vanco d# 2 / 7 Monitor CBC Monitor BMP Monitor Cxray Monitor Culture Subjective Allergies: Coded Allergies: No Known Allergies (Unverified , 03/23/17) Subjective SOB improving Objective Vital Signs Last 24 Hour Vital Signs Date Time Temp Pulse Resp B/P Pulse Ox O2 Delivery O2 Flow Rate FiO2 03/25/17 16:00 125 20 118/90 94 Room Air 03/25/17 15:13 122 03/25/17 13:27 119 22 98 Nasal Cannula 3.0 28 03/25/17 13:17 79 20 90 Nasal Cannula 3.0 03/25/17 12:00 98.2 107 18 132/74 Nasal Cannula 2.0 89 03/25/17 11:50 118 03/25/17 09:33 118 100/75 03/25/17 08:00 97.3 118 20 100/75 94 Room Air 03/25/17 07:39 124 03/25/17 07:31 120 22 92 Nasal Cannula 3.0 28 03/25/17 07:20 124 20 79 Room Air 03/25/17 07:20 Nasal Cannula 3.0 03/25/17 07:18 93 Nasal Cannula 3.0 03/25/17 04:00 116 03/25/17 04:00 97.0 123 24 107/74 95 Nasal Cannula 4.0 03/25/17 00:04 98.1 97 15 103/66 93 Nasal Cannula 3.0 03/25/17 00:00 102 03/24/17 20:58 127 135/67 03/24/17 20:00 128 03/24/17 20:00 98.1 127 36 135/67 94 Nasal Cannula 3.0 Height (Feet): 5 Height (Inches): 6.00 Weight (Pounds): 130 HEENT: anicteric Respiratory/Chest: no accessory muscle use Cardiovascular: regularly irregular Abdomen: non distended Microbiology Date/Time Source Procedure Growth Status 03/23/17 18:17 Blood Blood Culture - Preliminary NO GROWTH AFTER 24 HOURS Resulted 03/23/17 18:17 Blood Blood Culture - Preliminary NO GROWTH AFTER 24 HOURS Resulted 03/23/17 21:00 Nasal Nares MRSA Culture - Final Staphylococcus Aureus - Mrsa Complete 03/23/17 19:33 Urine,Clean Catch Urine Culture - Preliminary Gram Negative Bacillus 1 Resulted 03/23/17 21:00 Rectum VRE Culture - Final NO VANCOMYCIN RESISTANT ENTEROCOCCUS ... Complete Laboratory Tests Test 03/25/17 04:30 White Blood Count 12.3 K/UL (4.8-10.8) H Red Blood Count 4.17 M/UL (4.20-5.40) L Hemoglobin 13.8 G/DL (12.0-16.0) Hematocrit 42.4 % (37.0-47.0) Mean Corpuscular Volume 102 FL (80-99) H Mean Corpuscular Hemoglobin 33.2 PG (27.0-31.0) H Mean Corpuscular Hemoglobin Concent 32.7 G/DL (32.0-36.0) Red Cell Distribution Width 14.2 % (11.6-14.8) Platelet Count 146 K/UL (150-450) L Mean Platelet Volume 11.7 FL (6.5-10.1) H Neutrophils (%) (Auto) 79.6 % (45.0-75.0) H Lymphocytes (%) (Auto) 8.3 % (20.0-45.0) L Monocytes (%) (Auto) 9.7 % (1.0-10.0) Eosinophils (%) (Auto) 0.9 % (0.0-3.0) Basophils (%) (Auto) 1.6 % (0.0-2.0) Sodium Level 141 mEQ/L (135-145) Potassium Level 4.7 mEQ/L (3.4-4.9) Chloride Level 101 mEQ/L (98-107) Carbon Dioxide Level 28 mEQ/L (20-30) Anion Gap 12 (5-15) Blood Urea Nitrogen 13 mg/dL (7-23) Creatinine 0.6 mg/dL (0.5-0.9) Estimat Glomerular Filtration Rate mL/min (>60) Glucose Level 85 mg/dL (74-106) Calcium Level 8.2 mg/dL (8.6-10.2) L Troponin I < 0.30 ng/mL (<=0.30) Pro-B-Type Natriuretic Peptide 2762 pg/mL (0-450) H Thyroid Stimulating Hormone (TSH) 1.430 uIU/mL (0.300-4.500) Current Medications Medications (Trade) Dose Ordered Sig/Rita Route PRN Reason Start Time Stop Time Status Last Admin Dose Admin Acetaminophen (Tylenol) 650 mg Q4H PRN ORAL fever 03/23/17 20:30 04/22/17 20:29 Al Hydroxide/Mg Hydroxide (Mylanta II) 30 ml Q6H PRN ORAL dyspepsia 03/23/17 20:30 04/22/17 20:29 Cefepime HCl/ Dextrose (Maxipime/D5W) 55 ml @ 110 mls/hr Q24H IV 03/24/17 09:00 03/31/17 08:59 03/25/17 09:32 Clotrimazole (Lotrimin) 1 applic EVERY 12 HOURS TOPIC 03/25/17 09:00 04/24/17 08:59 03/25/17 09:34 Heparin Sodium (Porcine) (Heparin 5000 units/ml) 5,000 units EVERY 12 HOURS SUBQ 03/23/17 22:00 04/22/17 21:59 03/25/17 09:34 Levalbuterol HCl (Xopenex) 1.25 mg TIDRT HHN 03/24/17 19:00 03/29/17 18:59 03/25/17 13:20 Levothyroxine Sodium (Synthroid) 25 mcg DAILY@0630 ORAL 03/24/17 06:30 04/23/17 06:29 03/25/17 06:32 Metoprolol Tartrate 50 mg 50 mg EVERY 12 HOURS ORAL 03/24/17 09:00 04/23/17 08:59 03/25/17 09:33 Nitroglycerin (Ntg) 0.4 mg Q5M PRN SL Prn Chest Pain 03/23/17 20:30 04/22/17 20:29 Ondansetron HCl (Zofran) 4 mg Q6H PRN IVP Nausea & Vomiting 03/23/17 20:30 04/22/17 20:29 Polyethylene Glycol (Miralax) 17 gm DAILYPRN PRN ORAL Constipation 03/23/17 20:30 04/22/17 20:29 Promethazine HCl/ Codeine 5 ml 5 ml Q4H PRN ORAL For Cough 03/23/17 20:30 04/22/17 20:29 Temazepam (Restoril) 15 mg HSPRN PRN ORAL Insomnia 03/23/17 20:30 03/30/17 20:29 Vancomycin HCl (Vanco rx to dose) 1 ea DAILY PRN MISC Per rx protocol 03/23/17 20:30 04/22/17 20:29 Vancomycin HCl/ Dextrose (Vancomycin/D5W) 275 ml @ 183.708 mls/hr Q24H IVPB 03/23/17 23:00 03/28/17 22:59 03/24/17 23:12 SB JADE M.D. Mar 25, 2017 19:22
[2017-03-25 20:00] VITALS: BP 148/92
--- NOTE | 2017-03-25 21:57 | Cardiology Progress Note ---
Assessment/Plan Problem List: (1) Atrial fibrillation (2) CHF (congestive heart failure) (3) Hypothyroidism (4) Pneumonia Status: stable, progressing Status Narrative Permanent AF - RVR. Pt refusing telemetry CHF - diastolic dysfunction, chronic pneumonia/ aspiration Assessment/Plan Continue metoprolol - inc dose for better rate control Would favor anticoagulation if no contraindication Management of pneumonia per primary team Subjective ROS Limited/Unobtainable: No Subjective c/o being hungry. No dyspnea, chest pain or palpitations Objective Last 24 Hour Vital Signs Date Time Temp Pulse Resp B/P Pulse Ox O2 Delivery O2 Flow Rate FiO2 03/25/17 21:25 100 148/92 03/25/17 20:00 98.2 100 20 148/92 93 Nasal Cannula 3.0 03/25/17 20:00 98.2 100 20 148/92 93 Nasal Cannula 4.0 03/25/17 19:25 84 18 97 Nasal Cannula 3.0 32 03/25/17 19:17 81 18 93 Nasal Cannula 3.0 32 03/25/17 19:16 93 Nasal Cannula 3.0 32 03/25/17 19:16 Nasal Cannula 3.0 32 03/25/17 16:00 125 20 118/90 94 Room Air 03/25/17 15:13 122 03/25/17 13:27 119 22 98 Nasal Cannula 3.0 28 03/25/17 13:17 79 20 90 Nasal Cannula 3.0 03/25/17 12:00 98.2 107 18 132/74 Nasal Cannula 2.0 89 03/25/17 11:50 118 03/25/17 09:33 118 100/75 03/25/17 08:00 97.3 118 20 100/75 94 Room Air 03/25/17 07:39 124 03/25/17 07:31 120 22 92 Nasal Cannula 3.0 28 03/25/17 07:20 124 20 79 Room Air 03/25/17 07:20 Nasal Cannula 3.0 03/25/17 07:18 93 Nasal Cannula 3.0 03/25/17 04:00 116 03/25/17 04:00 97.0 123 24 107/74 95 Nasal Cannula 4.0 03/25/17 00:04 98.1 97 15 103/66 93 Nasal Cannula 3.0 03/25/17 00:00 102 General Appearance: WD/WN, alert EENT: PERRL/EOMI Neck: non-tender, supple, no JVD Rhythm: Afib Cardiovascular: no gallop/murmur, tachycardia, irregularly irregular Respiratory/Chest: lungs clear Abdomen: non tender, soft, no mass Extremities: non-tender, no swelling Intake and Output 03/24/17 03/25/17 19:00 07:00 Intake Total 720 ml Balance 720 ml Intake Oral 720 ml # Voids 2 2 Laboratory Tests Test 03/25/17 04:30 White Blood Count 12.3 K/UL (4.8-10.8) H Red Blood Count 4.17 M/UL (4.20-5.40) L Hemoglobin 13.8 G/DL (12.0-16.0) Hematocrit 42.4 % (37.0-47.0) Mean Corpuscular Volume 102 FL (80-99) H Mean Corpuscular Hemoglobin 33.2 PG (27.0-31.0) H Mean Corpuscular Hemoglobin Concent 32.7 G/DL (32.0-36.0) Red Cell Distribution Width 14.2 % (11.6-14.8) Platelet Count 146 K/UL (150-450) L Mean Platelet Volume 11.7 FL (6.5-10.1) H Neutrophils (%) (Auto) 79.6 % (45.0-75.0) H Lymphocytes (%) (Auto) 8.3 % (20.0-45.0) L Monocytes (%) (Auto) 9.7 % (1.0-10.0) Eosinophils (%) (Auto) 0.9 % (0.0-3.0) Basophils (%) (Auto) 1.6 % (0.0-2.0) Sodium Level 141 mEQ/L (135-145) Potassium Level 4.7 mEQ/L (3.4-4.9) Chloride Level 101 mEQ/L (98-107) Carbon Dioxide Level 28 mEQ/L (20-30) Anion Gap 12 (5-15) Blood Urea Nitrogen 13 mg/dL (7-23) Creatinine 0.6 mg/dL (0.5-0.9) Estimat Glomerular Filtration Rate mL/min (>60) Glucose Level 85 mg/dL (74-106) Calcium Level 8.2 mg/dL (8.6-10.2) L Troponin I < 0.30 ng/mL (<=0.30) Pro-B-Type Natriuretic Peptide 2762 pg/mL (0-450) H Thyroid Stimulating Hormone (TSH) 1.430 uIU/mL (0.300-4.500) Microbiology Date/Time Source Procedure Growth Status 03/23/17 18:17 Blood Blood Culture - Preliminary NO GROWTH AFTER 24 HOURS Resulted 03/23/17 18:17 Blood Blood Culture - Preliminary NO GROWTH AFTER 24 HOURS Resulted 03/23/17 21:00 Nasal Nares MRSA Culture - Final Staphylococcus Aureus - Mrsa Complete 03/23/17 19:33 Urine,Clean Catch Urine Culture - Preliminary Gram Negative Bacillus 1 Resulted 03/23/17 21:00 Rectum VRE Culture - Final NO VANCOMYCIN RESISTANT ENTEROCOCCUS ... Complete KERRIE DAWSON Mar 25, 2017 21:57
[2017-03-25] MEDS: Vancomycin 1gm/D5W 275ml IVPB SCH ×2 (23:19)
[2017-03-26] VITALS (7 sets, daily range): BP systolic 95–124; BP diastolic 50–85
[2017-03-26] MEDS: Levothyroxine 25mcg tab ORAL SCH (05:52)
[2017-03-26 07:15] LABS: ANION GAP 11 (5-15); CALCIUM 8.3 mg/dL (8.6-10.2); CARBON DIOXIDE 27 mEQ/L (20-30); CHLORIDE 101 mEQ/L (98-107); CREATININE 0.6 mg/dL (0.5-0.9); HEMOLYSIS 3; POTASSIUM 4.3 mEQ/L (3.4-4.9); SODIUM 139 mEQ/L (135-145)
[2017-03-26 07:24] LABS: BASOPHILS % (AUTO) 1.7 % (0.0-2.0); EOSINOPHILS % (AUTO) 1.1 % (0.0-3.0); LYMPHOCYTES % (AUTO) 10.1 % (20.0-45.0); MEAN CORPUSCULAR HEMOGLOBIN 31.9 PG (27.0-31.0); MEAN CORPUSCULAR HGB CONC 31.8 G/DL (32.0-36.0); MEAN CORPUSCULAR VOLUME 101 FL (80-99); MEAN PLATELET VOLUME 10.1 FL (6.5-10.1); MONOCYTES % (AUTO) 8.4 % (1.0-10.0); NEUTROPHILS % (AUTO) 78.7 % (45.0-75.0); PLATELET COUNT 140 K/UL (150-450); RED BLOOD COUNT 4.41 M/UL (4.20-5.40); WHITE BLOOD COUNT 11.2 K/UL (4.8-10.8)
[2017-03-26] MEDS: Levalbuterol Inh UD 1.25mg/0.5ml HHN SCH ×3 (07:42→19:00)
[2017-03-26] MEDS ORDERED: Metoprolol 25mg tab ORAL SCH (09:00)
[2017-03-26] MEDS ORDERED: Metoprolol 50mg tab ORAL SCH (09:00)
[2017-03-26] MEDS: Cefepime HCl 1 GM in D5W 55 ML IV SCH (09:37)
[2017-03-26] MEDS: Heparin 5000 units/ml inj SUBQ SCH ×2 (09:38→21:54)
--- NOTE | 2017-03-26 09:39 | Infectious Diseases Prog Note ---
Assessment/Plan Assessment/Plan A; Sepsis UTI Pneumonia/ lung mass Emphysema MRSA colonization AF P: Continue Cefepime & Vancomycin Subjective ROS Limited/Unobtainable: Yes Respiratory: Reports: dry cough Neurologic: Reports: confusion Allergies: Coded Allergies: No Known Allergies (Unverified , 03/23/17) Objective Vital Signs Last 24 Hour Vital Signs Date Time Temp Pulse Resp B/P Pulse Ox O2 Delivery O2 Flow Rate FiO2 03/26/17 08:28 97.0 128 20 124/85 97 Nasal Cannula 3.0 03/26/17 07:49 Nasal Cannula 3.0 32 03/26/17 07:48 128 22 96 Nasal Cannula 3.0 32 03/26/17 07:36 122 25 81 Room Air 21 03/26/17 07:35 81 Room Air 21 03/26/17 04:00 97.9 60 20 102/63 99 Nasal Cannula 3.0 03/26/17 04:00 125 03/26/17 00:00 112 03/26/17 00:00 98.0 100 20 98/60 91 Nasal Cannula 3.0 03/25/17 21:25 100 148/92 03/25/17 20:00 98.2 100 20 148/92 93 Nasal Cannula 3.0 03/25/17 20:00 98.2 100 20 148/92 93 Nasal Cannula 4.0 03/25/17 19:25 84 18 97 Nasal Cannula 3.0 32 03/25/17 19:17 81 18 93 Nasal Cannula 3.0 32 03/25/17 19:16 93 Nasal Cannula 3.0 32 03/25/17 19:16 Nasal Cannula 3.0 32 03/25/17 16:00 125 20 118/90 94 Room Air 03/25/17 15:13 122 03/25/17 13:27 119 22 98 Nasal Cannula 3.0 28 03/25/17 13:17 79 20 90 Nasal Cannula 3.0 03/25/17 12:00 98.2 107 18 132/74 Nasal Cannula 2.0 89 03/25/17 11:50 118 Height (Feet): 5 Height (Inches): 6.00 Weight (Pounds): 130 HEENT: mucous membranes moist Respiratory/Chest: decreased breath sounds, other - O2 by cannula Cardiovascular: tachycardia Abdomen: soft, non tender Extremities: no edema Neurologic/Psychiatric: disoriented Microbiology Date/Time Source Procedure Growth Status 03/23/17 18:17 Blood Blood Culture - Preliminary NO GROWTH AFTER 48 HOURS Resulted 03/23/17 18:17 Blood Blood Culture - Preliminary NO GROWTH AFTER 48 HOURS Resulted 03/23/17 21:00 Nasal Nares MRSA Culture - Final Staphylococcus Aureus - Mrsa Complete 03/23/17 19:33 Urine,Clean Catch Urine Culture - Final Providencia Stuartii Complete 03/23/17 21:00 Rectum VRE Culture - Final NO VANCOMYCIN RESISTANT ENTEROCOCCUS ... Complete Laboratory Tests Test 03/26/17 06:10 White Blood Count 11.2 K/UL (4.8-10.8) H Red Blood Count 4.41 M/UL (4.20-5.40) Hemoglobin 14.1 G/DL (12.0-16.0) Hematocrit 44.3 % (37.0-47.0) Mean Corpuscular Volume 101 FL (80-99) H Mean Corpuscular Hemoglobin 31.9 PG (27.0-31.0) H Mean Corpuscular Hemoglobin Concent 31.8 G/DL (32.0-36.0) L Red Cell Distribution Width 14.0 % (11.6-14.8) Platelet Count 140 K/UL (150-450) L Mean Platelet Volume 10.1 FL (6.5-10.1) Neutrophils (%) (Auto) 78.7 % (45.0-75.0) H Lymphocytes (%) (Auto) 10.1 % (20.0-45.0) L Monocytes (%) (Auto) 8.4 % (1.0-10.0) Eosinophils (%) (Auto) 1.1 % (0.0-3.0) Basophils (%) (Auto) 1.7 % (0.0-2.0) Sodium Level 139 mEQ/L (135-145) Potassium Level 4.3 mEQ/L (3.4-4.9) Chloride Level 101 mEQ/L (98-107) Carbon Dioxide Level 27 mEQ/L (20-30) Anion Gap 11 (5-15) Blood Urea Nitrogen 13 mg/dL (7-23) Creatinine 0.6 mg/dL (0.5-0.9) Estimat Glomerular Filtration Rate mL/min (>60) Glucose Level 92 mg/dL (74-106) Calcium Level 8.3 mg/dL (8.6-10.2) L Current Medications Medications (Trade) Dose Ordered Sig/Rita Route PRN Reason Start Time Stop Time Status Last Admin Dose Admin Acetaminophen (Tylenol) 650 mg Q4H PRN ORAL fever 03/23/17 20:30 04/22/17 20:29 Al Hydroxide/Mg Hydroxide (Mylanta II) 30 ml Q6H PRN ORAL dyspepsia 03/23/17 20:30 04/22/17 20:29 Cefepime HCl/ Dextrose (Maxipime/D5W) 55 ml @ 110 mls/hr Q24H IV 03/24/17 09:00 03/31/17 08:59 03/25/17 09:32 Clotrimazole (Lotrimin) 1 applic EVERY 12 HOURS TOPIC 03/25/17 09:00 04/24/17 08:59 03/25/17 21:26 Heparin Sodium (Porcine) (Heparin 5000 units/ml) 5,000 units EVERY 12 HOURS SUBQ 03/23/17 22:00 04/22/17 21:59 03/25/17 21:25 Levalbuterol HCl (Xopenex) 1.25 mg TIDRT HHN 03/24/17 19:00 03/29/17 18:59 03/26/17 07:42 Levothyroxine Sodium 25 mcg 25 mcg DAILY@0630 ORAL 03/24/17 06:30 04/23/17 06:29 03/26/17 05:52 Metoprolol Tartrate (Lopressor) 25 mg Q12HR ORAL 03/26/17 09:00 04/25/17 08:59 Metoprolol Tartrate (Lopressor) 50 mg EVERY 12 HOURS ORAL 03/26/17 09:00 04/25/17 08:59 Nitroglycerin (Ntg) 0.4 mg Q5M PRN SL Prn Chest Pain 03/23/17 20:30 04/22/17 20:29 Ondansetron HCl (Zofran) 4 mg Q6H PRN IVP Nausea & Vomiting 03/23/17 20:30 04/22/17 20:29 Polyethylene Glycol (Miralax) 17 gm DAILYPRN PRN ORAL Constipation 03/23/17 20:30 04/22/17 20:29 Promethazine HCl/ Codeine 5 ml 5 ml Q4H PRN ORAL For Cough 03/23/17 20:30 04/22/17 20:29 Temazepam (Restoril) 15 mg HSPRN PRN ORAL Insomnia 03/23/17 20:30 03/30/17 20:29 Vancomycin HCl (Vanco rx to dose) 1 ea DAILY PRN MISC Per rx protocol 03/23/17 20:30 04/22/17 20:29 Vancomycin HCl/ Dextrose (Vancomycin/D5W) 275 ml @ 183.708 mls/hr Q24H IVPB 03/23/17 23:00 03/28/17 22:59 03/25/17 23:19 ANA MARIA SALAZAR Mar 26, 2017 09:39
--- NOTE | 2017-03-26 10:19 | Pulmonology Progress Note ---
Assessment/Plan Assessment/Plan ASSESSMENT acute hypoxemic respiratory failure sepsis PNA possible aspiration PNA r/o pulmonary mass UTI Afib/flutter with RVR permanent A fib CHF with chronic diastolic dysfunction hypothyroidism hypotension -resolved PLAN OF CARE keep on tele sicne rate still not controlled O2 HHN to keep sat above 92% ABG with evidence of hypoxemia on NC, placed on VM CXR with evidence of multifocal PNA, possible mass CT chest noted, possibility of mass not excluded will need follow up CT chest after Rx CXR 03/25 - again demonstrated hyperinflated lungs , consistent with emphysema. Right upper lobe/hilar infiltrate or mass are again noted. Interstitial opacities are seen in the right base. swallow eval noted diet as per quality of life per ST VSS on Monday strict aspiration precautions ECHO with preserved EF 60% and RVSP of 38 c/w moderate pulmonary HTN, also evidence of moderate TR cardio follows BP initially responded to IVF rate control with BB ( watch respiratory status), BB with holding parameters , decrease dose to 12.5 ( JAQUI on the low side) abx, ID follows urine cx + Providencia, blood cx prelaminary negative TSH WNL, continue current dose of Synthroid DVT prophylaxis venous Duplex BLE case discussed and evaluated by supervising physician Subjective Allergies: Coded Allergies: No Known Allergies (Unverified , 03/23/17) Subjective still with mild leukocytosis, afebrile on O2 3L via NC, sat stable clinically with some improvement HR still in 130-140 Objective Last 24 Hour Vital Signs Date Time Temp Pulse Resp B/P Pulse Ox O2 Delivery O2 Flow Rate FiO2 03/26/17 08:28 97.0 128 20 124/85 97 Nasal Cannula 3.0 03/26/17 07:49 Nasal Cannula 3.0 32 03/26/17 07:48 128 22 96 Nasal Cannula 3.0 32 03/26/17 07:36 122 25 81 Room Air 21 03/26/17 07:35 81 Room Air 21 03/26/17 04:00 97.9 60 20 102/63 99 Nasal Cannula 3.0 03/26/17 04:00 125 03/26/17 00:00 112 03/26/17 00:00 98.0 100 20 98/60 91 Nasal Cannula 3.0 03/25/17 21:25 100 148/92 03/25/17 20:00 98.2 100 20 148/92 93 Nasal Cannula 3.0 03/25/17 20:00 98.2 100 20 148/92 93 Nasal Cannula 4.0 03/25/17 19:25 84 18 97 Nasal Cannula 3.0 32 03/25/17 19:17 81 18 93 Nasal Cannula 3.0 32 03/25/17 19:16 93 Nasal Cannula 3.0 32 03/25/17 19:16 Nasal Cannula 3.0 32 03/25/17 16:00 125 20 118/90 94 Room Air 03/25/17 15:13 122 03/25/17 13:27 119 22 98 Nasal Cannula 3.0 28 03/25/17 13:17 79 20 90 Nasal Cannula 3.0 03/25/17 12:00 98.2 107 18 132/74 Nasal Cannula 2.0 89 03/25/17 11:50 118 Intake and Output 03/25/17 03/26/17 19:00 07:00 Intake Total 55 ml 275 ml Balance 55 ml 275 ml IV Total 55 ml 275 ml # Voids 2 Objective General Appearance: elderly, bedridden, weak, awake, female in NAD Lines, tubes and drains: peripheral HEENT: normocephalic, atraumatic, anicteric Neck: non-tender, supple Respiratory/Chest: chest wall non-tender, no accessory muscle use, some crackles at bases, few scattered rhonchi bilaterally Cardiovascular/Chest: normal peripheral pulses, no JVD, regular irregular with RVR Abdomen: normal bowel sounds, non tender, soft Extremities: non-tender Neurologic: abnormal gait, alert, awake, responsive Musculoskeletal: atrophy - BLE Microbiology Date/Time Source Procedure Growth Status 03/23/17 18:17 Blood Blood Culture - Preliminary NO GROWTH AFTER 48 HOURS Resulted 03/23/17 18:17 Blood Blood Culture - Preliminary NO GROWTH AFTER 48 HOURS Resulted 03/23/17 21:00 Nasal Nares MRSA Culture - Final Staphylococcus Aureus - Mrsa Complete 03/23/17 19:33 Urine,Clean Catch Urine Culture - Final Providencia Stuartii Complete 03/23/17 21:00 Rectum VRE Culture - Final NO VANCOMYCIN RESISTANT ENTEROCOCCUS ... Complete Laboratory Tests 03/26/17 06:10: White Blood Count 11.2H, Red Blood Count 4.41, Hemoglobin 14.1, Hematocrit 44.3 , Mean Corpuscular Volume 101H, Mean Corpuscular Hemoglobin 31.9H, Mean Corpuscular Hemoglobin Concent 31.8L, Red Cell Distribution Width 14.0, Platelet Count 140L, Mean Platelet Volume 10.1, Neutrophils (%) (Auto) 78.7H, Lymphocytes (%) (Auto) 10.1L, Monocytes (%) (Auto) 8.4, Eosinophils (%) (Auto) 1.1, Basophils (%) (Auto) 1.7, Sodium Level 139, Potassium Level 4.3, Chloride Level 101, Carbon Dioxide Level 27, Anion Gap 11, Blood Urea Nitrogen 13, Creatinine 0.6, Estimat Glomerular Filtration Rate , Glucose Level 92, Calcium Level 8.3L Current Medications Medications (Trade) Dose Ordered Sig/Rita Route PRN Reason Start Time Stop Time Status Last Admin Dose Admin Acetaminophen (Tylenol) 650 mg Q4H PRN ORAL fever 03/23/17 20:30 04/22/17 20:29 Al Hydroxide/Mg Hydroxide (Mylanta II) 30 ml Q6H PRN ORAL dyspepsia 03/23/17 20:30 04/22/17 20:29 Cefepime HCl/ Dextrose (Maxipime/D5W) 55 ml @ 110 mls/hr Q24H IV 03/24/17 09:00 03/31/17 08:59 03/26/17 09:37 Clotrimazole (Lotrimin) 1 applic EVERY 12 HOURS TOPIC 03/25/17 09:00 04/24/17 08:59 03/26/17 09:36 Heparin Sodium (Porcine) (Heparin 5000 units/ml) 5,000 units EVERY 12 HOURS SUBQ 03/23/17 22:00 04/22/17 21:59 03/25/17 21:25 Levalbuterol HCl (Xopenex) 1.25 mg TIDRT HHN 03/24/17 19:00 03/29/17 18:59 03/26/17 07:42 Levothyroxine Sodium 25 mcg 25 mcg DAILY@0630 ORAL 03/24/17 06:30 04/23/17 06:29 03/26/17 05:52 Metoprolol Tartrate (Lopressor) 25 mg Q12HR ORAL 03/26/17 09:00 04/25/17 08:59 Metoprolol Tartrate (Lopressor) 50 mg EVERY 12 HOURS ORAL 03/26/17 09:00 04/25/17 08:59 Nitroglycerin (Ntg) 0.4 mg Q5M PRN SL Prn Chest Pain 03/23/17 20:30 04/22/17 20:29 Ondansetron HCl (Zofran) 4 mg Q6H PRN IVP Nausea & Vomiting 03/23/17 20:30 04/22/17 20:29 Polyethylene Glycol (Miralax) 17 gm DAILYPRN PRN ORAL Constipation 03/23/17 20:30 04/22/17 20:29 Promethazine HCl/ Codeine 5 ml 5 ml Q4H PRN ORAL For Cough 03/23/17 20:30 04/22/17 20:29 Temazepam (Restoril) 15 mg HSPRN PRN ORAL Insomnia 03/23/17 20:30 03/30/17 20:29 Vancomycin HCl (Vanco rx to dose) 1 ea DAILY PRN MISC Per rx protocol 03/23/17 20:30 04/22/17 20:29 Vancomycin HCl/ Dextrose (Vancomycin/D5W) 275 ml @ 183.708 mls/hr Q24H IVPB 03/23/17 23:00 03/28/17 22:59 03/25/17 23:19 Mathew (Riley)Tihsa NP Mar 26, 2017 10:19
[2017-03-26] MEDS ORDERED: Metoprolol Tartrate 12.5mg TAB ORAL SCH (12:00)
--- NOTE | 2017-03-26 13:23 | Cardiology Progress Note ---
Assessment/Plan Problem List: (1) Atrial fibrillation (2) CHF (congestive heart failure) (3) Hypothyroidism (4) Pneumonia Status: stable, unchanged Status Narrative Permanent AF - RVR. Pt now back on telemetry. Rapid ventricular rates, to the 120s noted. She also has expir wheezes CHF - diastolic dysfunction, chronic pneumonia/ aspiration Assessment/Plan Will change metoprolol to diltiazem, given wheezing and inability to titrate b blockers due to bP will also give digoxin x1 today for rate control ? anticoagulation. Subjective ROS Limited/Unobtainable: No Subjective Ms. Maloney is alert/ confused. No c/o dyspnea or palpitations Objective Last 24 Hour Vital Signs Date Time Temp Pulse Resp B/P Pulse Ox O2 Delivery O2 Flow Rate FiO2 03/26/17 12:42 119 22 99 Nasal Cannula 3.0 32 03/26/17 12:34 118 22 96 Nasal Cannula 3.0 32 03/26/17 11:53 125 121/65 03/26/17 11:38 97.5 119 20 104/75 98 Nasal Cannula 3.0 03/26/17 08:28 97.0 128 20 124/85 97 Nasal Cannula 3.0 03/26/17 07:49 Nasal Cannula 3.0 32 03/26/17 07:48 128 22 96 Nasal Cannula 3.0 32 03/26/17 07:36 122 25 81 Room Air 21 03/26/17 07:35 81 Room Air 21 03/26/17 04:00 97.9 60 20 102/63 99 Nasal Cannula 3.0 03/26/17 04:00 125 03/26/17 00:00 112 03/26/17 00:00 98.0 100 20 98/60 91 Nasal Cannula 3.0 03/25/17 21:25 100 148/92 03/25/17 20:00 98.2 100 20 148/92 93 Nasal Cannula 3.0 03/25/17 20:00 98.2 100 20 148/92 93 Nasal Cannula 4.0 03/25/17 19:25 84 18 97 Nasal Cannula 3.0 32 03/25/17 19:17 81 18 93 Nasal Cannula 3.0 32 03/25/17 19:16 93 Nasal Cannula 3.0 32 03/25/17 19:16 Nasal Cannula 3.0 32 03/25/17 16:00 125 20 118/90 94 Room Air 03/25/17 15:13 122 03/25/17 13:27 119 22 98 Nasal Cannula 3.0 28 General Appearance: WD/WN, no apparent distress, alert EENT: PERRL/EOMI Neck: non-tender, supple, no JVD Rhythm: Afib Cardiovascular: no gallop/murmur, tachycardia, irregularly irregular Respiratory/Chest: other - few expir wheezes bilat Abdomen: normal bowel sounds, non tender, soft Extremities: no swelling Intake and Output 03/25/17 03/26/17 19:00 07:00 Intake Total 55 ml 275 ml Balance 55 ml 275 ml IV Total 55 ml 275 ml # Voids 2 Laboratory Tests Test 03/26/17 06:10 White Blood Count 11.2 K/UL (4.8-10.8) H Red Blood Count 4.41 M/UL (4.20-5.40) Hemoglobin 14.1 G/DL (12.0-16.0) Hematocrit 44.3 % (37.0-47.0) Mean Corpuscular Volume 101 FL (80-99) H Mean Corpuscular Hemoglobin 31.9 PG (27.0-31.0) H Mean Corpuscular Hemoglobin Concent 31.8 G/DL (32.0-36.0) L Red Cell Distribution Width 14.0 % (11.6-14.8) Platelet Count 140 K/UL (150-450) L Mean Platelet Volume 10.1 FL (6.5-10.1) Neutrophils (%) (Auto) 78.7 % (45.0-75.0) H Lymphocytes (%) (Auto) 10.1 % (20.0-45.0) L Monocytes (%) (Auto) 8.4 % (1.0-10.0) Eosinophils (%) (Auto) 1.1 % (0.0-3.0) Basophils (%) (Auto) 1.7 % (0.0-2.0) Sodium Level 139 mEQ/L (135-145) Potassium Level 4.3 mEQ/L (3.4-4.9) Chloride Level 101 mEQ/L (98-107) Carbon Dioxide Level 27 mEQ/L (20-30) Anion Gap 11 (5-15) Blood Urea Nitrogen 13 mg/dL (7-23) Creatinine 0.6 mg/dL (0.5-0.9) Estimat Glomerular Filtration Rate mL/min (>60) Glucose Level 92 mg/dL (74-106) Calcium Level 8.3 mg/dL (8.6-10.2) L Microbiology Date/Time Source Procedure Growth Status 03/23/17 18:17 Blood Blood Culture - Preliminary NO GROWTH AFTER 48 HOURS Resulted 03/23/17 18:17 Blood Blood Culture - Preliminary NO GROWTH AFTER 48 HOURS Resulted 03/23/17 21:00 Nasal Nares MRSA Culture - Final Staphylococcus Aureus - Mrsa Complete 03/23/17 19:33 Urine,Clean Catch Urine Culture - Final Providencia Stuartii Complete 03/23/17 21:00 Rectum VRE Culture - Final NO VANCOMYCIN RESISTANT ENTEROCOCCUS ... Complete KERRIE DAWSON Mar 26, 2017 13:23
[2017-03-26] MEDS ORDERED: Digoxin 0.5mg/2ml Inj IVP ONE (13:30)
--- NOTE | 2017-03-26 18:06 | Cardiology Report ---
APPROVED REPORT EXAM: Two-dimensional and M-mode echocardiogram with Doppler and color Doppler. INDICATION Left Ventricular Function. Technically difficult study due to poor parasternal acoustical windows. M-mode measurements of left ventricle not obtainable due to cardiac position (angle) Normal left ventricular chamber size, systolic function and wall motion to extent visualized. Left ventricular ejection fraction estimated to be 60%. Study quality precludes accurate assessment of regional wall motion. Left ventricular hypertrophy. No evidence of pericardial effusion. Anterior Echo-free space, may be due to pericardial fat or effusion. Left atrial enlargement. Right atrial enlargement. Right ventricular chamber sizes are within normal limits. Moderate focal aortic valve sclerosis with adequate cusp excursion. Thickened mitral valve leaflets with normal excursion. Mitral annulus and aortic root calcification. Pulmonic valve not well visualized. Normal tricuspid valve structure. IVC at normal size with physiologic collapse. A color flow and spectral Doppler study was performed and revealed: No aortic regurgitation. Mild mitral regurgitation. Mitral diastolic velocities suggest reduced left ventricular relaxation c/w impaired relaxation grade one diastolic dysfunction. Moderate tricuspid regurgitation. Tricuspid systolic velocities suggests peak right ventricular systolic pressure of 38mmHg consistent with moderate, pulmonary hypertension.
--- NOTE | 2017-03-26 18:36 | Cardiology Report ---
APPROVED REPORT EKG Measurement Heart [id number] P100 [id number] Atrial flutter with variable AV block Nonspecific ST and T wave abnormality Abnormal ECG
[2017-03-26] MEDS ORDERED: Ipratropium 0.02% Inh Soln 2.5ml UD ONE (20:43)
[2017-03-27] VITALS (15 sets, daily range): BP systolic 87–118; BP diastolic 50–94
[2017-03-27] MEDS: Vancomycin 1gm/D5W 275ml IVPB SCH ×2 (00:24)
[2017-03-27] MEDS: Levothyroxine 25mcg tab ORAL SCH (06:02)
[2017-03-27] MEDS: Levalbuterol Inh UD 1.25mg/0.5ml HHN SCH ×2 (07:45→13:32)
[2017-03-27] MEDS: Cefepime HCl 1 GM in D5W 55 ML IV SCH (08:34)
--- NOTE | 2017-03-27 08:42 | Diagnostic Imaging Report ---
Indications: Shortness of breath Technique: Portable AP chest Findings: Comparison: 03/25/17 Focal mixed interstitial and alveolar opacity persists in the right upper lung. Upward retraction of the right minor fissure suggesting right upper lobe volume loss persists. Increased interstitial markings persist in both lung bases, questionably more prominent on the right. Heart size, peripheral pulmonary vasculature remain within normal limits. Mild blunting of right costophrenic angle persists; left remain sharp. IMPRESSION: Stable right upper lung opacity with volume loss, may be chronic in nature. Superimposed pneumonia must be suspected, however. Questionable increase in parenchymal opacity right lung base may be due to difference in positioning. Focal infiltrate not excludable. Stable background bibasal interstitial prominence, nonspecific, likely chronic Stable suggestion of small right pleural effusion versus thickening
[2017-03-27 08:54] LABS: BASOPHILS % (AUTO) 1.1 % (0.0-2.0); EOSINOPHILS % (AUTO) 1.3 % (0.0-3.0); LYMPHOCYTES % (AUTO) 8.4 % (20.0-45.0); MEAN CORPUSCULAR HEMOGLOBIN 31.4 PG (27.0-31.0); MEAN CORPUSCULAR HGB CONC 31.7 G/DL (32.0-36.0); MEAN CORPUSCULAR VOLUME 99 FL (80-99); MONOCYTES % (AUTO) 8.1 % (1.0-10.0); NEUTROPHILS % (AUTO) 81.1 % (45.0-75.0); PLATELET COUNT 160 K/UL (150-450); RED BLOOD COUNT 4.54 M/UL (4.20-5.40); RED CELL DISTRIBUTION WIDTH 13.6 % (11.6-14.8); WHITE BLOOD COUNT 10.9 K/UL (4.8-10.8)
--- NOTE | 2017-03-27 09:08 | Infectious Diseases Prog Note ---
Assessment/Plan Assessment/Plan A: pt is an 81 yold F aw Pna 03/27 : cxray : Stable right upper lung opacity with volume loss r/o pulmonary mass Sepsis Leukocytosis , SP Probable UTI UCx : [facility] st. Afebrile Afib/flutter CHF hypothyroidism PLAN cont pt on Cefepime and Vanco d# 4 / 7 Monitor CBC Monitor BMP Monitor Cxray Subjective Allergies: Coded Allergies: No Known Allergies (Unverified , 03/23/17) Subjective feeling better Objective Vital Signs Last 24 Hour Vital Signs Date Time Temp Pulse Resp B/P Pulse Ox O2 Delivery O2 Flow Rate FiO2 03/27/17 08:30 102 91/55 03/27/17 08:00 97.9 66 18 88/54 Nasal Cannula 2.0 93 03/27/17 07:49 90 20 95 Nasal Cannula 2.0 28 03/27/17 07:44 89 20 95 Nasal Cannula 3.0 03/27/17 07:44 95 Nasal Cannula 3.0 32 03/27/17 07:44 Nasal Cannula 3.0 32 03/27/17 06:03 107 118/67 03/27/17 04:00 88 03/27/17 03:43 96.5 107 19 118/67 95 Room Air 03/27/17 00:25 114 109/74 03/27/17 00:00 102 03/26/17 23:22 98.2 114 21 109/74 96 Room Air 03/26/17 20:00 81 03/26/17 19:53 97.9 84 20 105/50 94 Room Air 03/26/17 19:30 Nasal Cannula 3.0 32 03/26/17 19:30 Nasal Cannula 3.0 32 03/26/17 19:30 88 Nasal Cannula 3.0 32 03/26/17 19:30 125 03/26/17 18:06 107 109/70 03/26/17 16:00 118 03/26/17 15:34 97.3 125 20 95/59 97 Nasal Cannula 3.0 03/26/17 14:45 118 03/26/17 12:42 119 22 99 Nasal Cannula 3.0 32 03/26/17 12:34 118 22 96 Nasal Cannula 3.0 32 03/26/17 12:00 128 03/26/17 11:53 125 121/65 03/26/17 11:38 97.5 119 20 104/75 98 Nasal Cannula 3.0 Height (Feet): 5 Height (Inches): 6.00 Weight (Pounds): 130 HEENT: anicteric Respiratory/Chest: normal breath sounds Cardiovascular: regularly irregular Abdomen: non distended Laboratory Tests Test 03/26/17 21:15 03/27/17 08:35 Vancomycin Level Trough 13.1 ug/mL (5.0-12.0) H White Blood Count 10.9 K/UL (4.8-10.8) H Red Blood Count 4.54 M/UL (4.20-5.40) Hemoglobin 14.3 G/DL (12.0-16.0) Hematocrit 45.0 % (37.0-47.0) Mean Corpuscular Volume 99 FL (80-99) Mean Corpuscular Hemoglobin 31.4 PG (27.0-31.0) H Mean Corpuscular Hemoglobin Concent 31.7 G/DL (32.0-36.0) L Red Cell Distribution Width 13.6 % (11.6-14.8) Platelet Count 160 K/UL (150-450) Mean Platelet Volume 11.0 FL (6.5-10.1) H Neutrophils (%) (Auto) 81.1 % (45.0-75.0) H Lymphocytes (%) (Auto) 8.4 % (20.0-45.0) L Monocytes (%) (Auto) 8.1 % (1.0-10.0) Eosinophils (%) (Auto) 1.3 % (0.0-3.0) Basophils (%) (Auto) 1.1 % (0.0-2.0) Sodium Level Pending Potassium Level Pending Chloride Level Pending Carbon Dioxide Level Pending Blood Urea Nitrogen Pending Creatinine Pending Estimat Glomerular Filtration Rate Pending Glucose Level Pending Calcium Level Pending Current Medications Medications (Trade) Dose Ordered Sig/Rita Route PRN Reason Start Time Stop Time Status Last Admin Dose Admin Acetaminophen (Tylenol) 650 mg Q4H PRN ORAL fever 03/23/17 20:30 04/22/17 20:29 Al Hydroxide/Mg Hydroxide (Mylanta II) 30 ml Q6H PRN ORAL dyspepsia 03/23/17 20:30 04/22/17 20:29 Cefepime HCl/ Dextrose (Maxipime/D5W) 55 ml @ 110 mls/hr Q24H IV 03/24/17 09:00 03/31/17 08:59 03/27/17 08:34 Clotrimazole (Lotrimin) 1 applic EVERY 12 HOURS TOPIC 03/25/17 09:00 04/24/17 08:59 03/27/17 08:34 Diltiazem HCl (Cardizem) 30 mg EVERY 6 HOURS ORAL 03/26/17 18:00 04/25/17 17:59 03/27/17 06:03 Heparin Sodium (Porcine) (Heparin 5000 units/ml) 5,000 units EVERY 12 HOURS SUBQ 03/23/17 22:00 04/22/17 21:59 03/26/17 21:54 Levalbuterol HCl (Xopenex) 1.25 mg TIDRT HHN 03/24/17 19:00 03/29/17 18:59 03/27/17 07:45 Levothyroxine Sodium 25 mcg 25 mcg DAILY@0630 ORAL 03/24/17 06:30 04/23/17 06:29 03/27/17 06:02 Nitroglycerin (Ntg) 0.4 mg Q5M PRN SL Prn Chest Pain 03/23/17 20:30 04/22/17 20:29 Ondansetron HCl (Zofran) 4 mg Q6H PRN IVP Nausea & Vomiting 03/23/17 20:30 04/22/17 20:29 Polyethylene Glycol (Miralax) 17 gm DAILYPRN PRN ORAL Constipation 03/23/17 20:30 04/22/17 20:29 Promethazine HCl/ Codeine 5 ml 5 ml Q4H PRN ORAL For Cough 03/23/17 20:30 04/22/17 20:29 Temazepam (Restoril) 15 mg HSPRN PRN ORAL Insomnia 03/23/17 20:30 03/30/17 20:29 Vancomycin HCl (Vanco rx to dose) 1 ea DAILY PRN MISC Per rx protocol 03/23/17 20:30 04/22/17 20:29 Vancomycin HCl/ Dextrose (Vancomycin/D5W) 275 ml @ 183.708 mls/hr Q24H IVPB 03/23/17 23:00 03/28/17 22:59 03/27/17 00:24 SB JADE M.D. Mar 27, 2017 09:08
[2017-03-27] MEDS: Heparin 5000 units/ml inj SUBQ SCH ×2 (09:14→20:55)
[2017-03-27 09:21] LABS: ANION GAP 13 (5-15); CALCIUM 8.1 mg/dL (8.6-10.2); CARBON DIOXIDE 24 mEQ/L (20-30); CHLORIDE 99 mEQ/L (98-107); CREATININE 0.6 mg/dL (0.5-0.9); HEMOLYSIS 99; POTASSIUM 4.9 mEQ/L (3.4-4.9); SODIUM 136 mEQ/L (135-145)
--- NOTE | 2017-03-27 14:06 | Pulmonolgy Critical Care Note ---
Critical Care - Asmt/Plan Problems: (1) Sepsis (2) Acute encephalopathy (3) Atrial fibrillation (4) Hypothyroidism (5) CHF (congestive heart failure) Respiratory: monitor respiratory rate, adjust FIO2, CXR Cardiac: continue to monitor HR/BP Renal: F/U I&O Infectious Disease: check cultures Gastrointestinal: continue feedings/current rate Endocrine: monitor blood sugar Hematologic: monitor H/H Neurologic: PRN Ativan Notes Reviewed: cardio, ID Discussed with: nurses, consultants, machine adjuster leader case trimmanager human capital - Objective Last 24 Hour Vital Signs Date Time Temp Pulse Resp B/P Pulse Ox O2 Delivery O2 Flow Rate FiO2 03/27/17 13:32 84 18 95 Nasal Cannula 3.0 03/27/17 12:00 97.7 111 18 87/51 96 Nasal Cannula 2.0 03/27/17 12:00 111 87/51 03/27/17 08:30 102 91/55 03/27/17 08:00 97.9 66 18 88/54 Nasal Cannula 2.0 93 03/27/17 08:00 73 03/27/17 07:49 90 20 95 Nasal Cannula 2.0 28 03/27/17 07:44 89 20 95 Nasal Cannula 3.0 03/27/17 07:44 95 Nasal Cannula 3.0 32 03/27/17 07:44 Nasal Cannula 3.0 32 03/27/17 06:03 107 118/67 03/27/17 04:00 88 03/27/17 03:43 96.5 107 19 118/67 95 Room Air 03/27/17 00:25 114 109/74 03/27/17 00:00 102 03/26/17 23:22 98.2 114 21 109/74 96 Room Air 03/26/17 20:00 81 03/26/17 19:53 97.9 84 20 105/50 94 Room Air 03/26/17 19:30 Nasal Cannula 3.0 32 03/26/17 19:30 Nasal Cannula 3.0 32 03/26/17 19:30 88 Nasal Cannula 3.0 32 03/26/17 19:30 125 03/26/17 18:06 107 109/70 03/26/17 16:00 118 03/26/17 15:34 97.3 125 20 95/59 97 Nasal Cannula 3.0 03/26/17 14:45 118 Status: awake Condition: critical Neck: full ROM Lungs: clear Heart: HR/BP unstable Abdomen: soft, non-tender Extremities: no C/C/E, edema Critical Care - Subjective ROS Limited/Unobtainable: No ICU Day: 1 Intubation Day: 1 Condition: critical EKG Rhythm: Atrial Fibrillation FI02: 93 Sputum Amount: None I&O: Intake and Output 03/26/17 03/27/17 19:00 07:00 Intake Total 415 ml 275 ml Balance 415 ml 275 ml Intake Oral 360 ml IV Total 55 ml 275 ml # Voids 3 3 CXR: RUL infiltrate unchanged. Labs: Laboratory Tests Test 03/26/17 21:15 03/27/17 08:35 Vancomycin Level Trough 13.1 ug/mL (5.0-12.0) H White Blood Count 10.9 K/UL (4.8-10.8) H Red Blood Count 4.54 M/UL (4.20-5.40) Hemoglobin 14.3 G/DL (12.0-16.0) Hematocrit 45.0 % (37.0-47.0) Mean Corpuscular Volume 99 FL (80-99) Mean Corpuscular Hemoglobin 31.4 PG (27.0-31.0) H Mean Corpuscular Hemoglobin Concent 31.7 G/DL (32.0-36.0) L Red Cell Distribution Width 13.6 % (11.6-14.8) Platelet Count 160 K/UL (150-450) Mean Platelet Volume 11.0 FL (6.5-10.1) H Neutrophils (%) (Auto) 81.1 % (45.0-75.0) H Lymphocytes (%) (Auto) 8.4 % (20.0-45.0) L Monocytes (%) (Auto) 8.1 % (1.0-10.0) Eosinophils (%) (Auto) 1.3 % (0.0-3.0) Basophils (%) (Auto) 1.1 % (0.0-2.0) Sodium Level 136 mEQ/L (135-145) Potassium Level 4.9 mEQ/L (3.4-4.9) Chloride Level 99 mEQ/L (98-107) Carbon Dioxide Level 24 mEQ/L (20-30) Anion Gap 13 (5-15) Blood Urea Nitrogen 9 mg/dL (7-23) Creatinine 0.6 mg/dL (0.5-0.9) Estimat Glomerular Filtration Rate mL/min (>60) Glucose Level 95 mg/dL (74-106) Calcium Level 8.1 mg/dL (8.6-10.2) LIU BELL Mar 27, 2017 14:06
[2017-03-27] MEDS ORDERED: Digoxin 0.5mg/2ml Inj IVP ONE (17:30)
[2017-03-27] MEDS ORDERED: Nitroglycerin Subl 0.4mg tab (Bottle Of 25) SL PRN (18:15)
[2017-03-27] MEDS ORDERED: Amiodarone 900 MG in D5W 500ml 482 ML IV SCH ×4 (18:30)
[2017-03-27] MEDS ORDERED: Promethazine/Codeine 5ml UD ORAL PRN (20:30)
[2017-03-27] MEDS ORDERED: Mylanta II UD 30ml ORAL PRN (20:30)
[2017-03-27] MEDS ORDERED: Miralax 17gm pkt ORAL PRN (20:30)
--- NOTE | 2017-03-27 21:48 | Cardiology Progress Note ---
Assessment/Plan Assessment/Plan atrial flutter/fib with RVR acute CHF, diastolic Hypotension emp[hysema and lung lesions, uncertain if there is pneumonia heart rate control will be achieved by IV Digoxin and Amiodarone there is very low change of cardioversion with IV amiodarone and pt is not anticoagulated will administer amiodarone in order to control the rate issue of antiocagulation will be addressed with PCP stop respiratory therapy to avoid futher HR acceleation Subjective Subjective the patient was transferred to ICU because of fast HR she is a fib/flutter she is confused has wheezing and has chest pain Objective Last 24 Hour Vital Signs Date Time Temp Pulse Resp B/P Pulse Ox O2 Delivery O2 Flow Rate FiO2 03/27/17 21:30 108 28 91/66 96 Nasal Cannula 4.0 03/27/17 21:00 100 25 105/50 96 Nasal Cannula 4.0 03/27/17 20:36 98 03/27/17 20:30 95 28 93/58 95 Nasal Cannula 4.0 03/27/17 20:19 Nasal Cannula 4.0 03/27/17 20:18 92 Nasal Cannula 4.0 03/27/17 20:00 98.8 98 30 95/61 93 Nasal Cannula 4.0 03/27/17 18:03 145 117/94 03/27/17 18:00 146 21 117/94 96 Nasal Cannula 2.0 03/27/17 17:49 147 03/27/17 17:00 145 28 100/53 97 Nasal Cannula 2.0 03/27/17 16:00 98.6 144 28 100/78 90 Nasal Cannula 3.0 03/27/17 13:32 84 18 95 Nasal Cannula 3.0 03/27/17 12:00 97.7 111 18 87/51 96 Nasal Cannula 2.0 03/27/17 12:00 111 87/51 03/27/17 12:00 126 03/27/17 08:30 102 91/55 03/27/17 08:00 97.9 66 18 88/54 Nasal Cannula 2.0 93 03/27/17 08:00 73 03/27/17 07:49 90 20 95 Nasal Cannula 2.0 28 03/27/17 07:44 89 20 95 Nasal Cannula 3.0 03/27/17 07:44 95 Nasal Cannula 3.0 32 03/27/17 07:44 Nasal Cannula 3.0 32 03/27/17 06:03 107 118/67 03/27/17 04:00 88 03/27/17 03:43 96.5 107 19 118/67 95 Room Air 03/27/17 00:25 114 109/74 03/27/17 00:00 102 03/26/17 23:22 98.2 114 21 109/74 96 Room Air General Appearance: severe distress, agitated EENT: PERRL/EOMI Neck: JVD Rhythm: Afib - RVR Cardiovascular: tachycardia Respiratory/Chest: rhonchi - bilaterally, expiratory wheezing, inspiratory wheezing Abdomen: soft Extremities: trace edema Intake and Output 03/26/17 03/27/17 19:00 07:00 Intake Total 415 ml 275 ml Balance 415 ml 275 ml Intake Oral 360 ml IV Total 55 ml 275 ml # Voids 3 3 Laboratory Tests Test 03/27/17 08:35 White Blood Count 10.9 K/UL (4.8-10.8) H Red Blood Count 4.54 M/UL (4.20-5.40) Hemoglobin 14.3 G/DL (12.0-16.0) Hematocrit 45.0 % (37.0-47.0) Mean Corpuscular Volume 99 FL (80-99) Mean Corpuscular Hemoglobin 31.4 PG (27.0-31.0) H Mean Corpuscular Hemoglobin Concent 31.7 G/DL (32.0-36.0) L Red Cell Distribution Width 13.6 % (11.6-14.8) Platelet Count 160 K/UL (150-450) Mean Platelet Volume 11.0 FL (6.5-10.1) H Neutrophils (%) (Auto) 81.1 % (45.0-75.0) H Lymphocytes (%) (Auto) 8.4 % (20.0-45.0) L Monocytes (%) (Auto) 8.1 % (1.0-10.0) Eosinophils (%) (Auto) 1.3 % (0.0-3.0) Basophils (%) (Auto) 1.1 % (0.0-2.0) Sodium Level 136 mEQ/L (135-145) Potassium Level 4.9 mEQ/L (3.4-4.9) Chloride Level 99 mEQ/L (98-107) Carbon Dioxide Level 24 mEQ/L (20-30) Anion Gap 13 (5-15) Blood Urea Nitrogen 9 mg/dL (7-23) Creatinine 0.6 mg/dL (0.5-0.9) Estimat Glomerular Filtration Rate mL/min (>60) Glucose Level 95 mg/dL (74-106) Calcium Level 8.1 mg/dL (8.6-10.2) HOMA WHIPPLE Mar 27, 2017 21:48
--- NOTE | 2017-03-27 22:41 | Diagnostic Imaging Report ---
APPROVED REPORT CPT Code: 21013 Present Symptoms Comments: Pain RIGHT LEG: Venous imaging reveals a patent deep venous system. There is no evidence of thrombus within the femoral or tibial segments. The greater saphenous vein is also within normal limits. Doppler indicates normal spontaneous flow within these segments. The right popliteal vein was not imaged, due pain. LEFT LEG: Venous imaging reveals a patent deep venous system. There is no evidence of thrombus within the femoral, popliteal or tibial segments. The greater saphenous vein is also within normal limits. Doppler indicates normal spontaneous flow within these segments.
[2017-03-28] VITALS (27 sets, daily range): BP systolic 75–129; BP diastolic 44–93
[2017-03-28 04:55] LABS: EOSINOPHILS % (AUTO) 2.1 % (0.0-3.0); LYMPHOCYTES % (AUTO) 7.7 % (20.0-45.0); MEAN CORPUSCULAR HEMOGLOBIN 31.5 PG (27.0-31.0); MEAN CORPUSCULAR HGB CONC 31.5 G/DL (32.0-36.0); MEAN CORPUSCULAR VOLUME 100 FL (80-99); MEAN PLATELET VOLUME 9.4 FL (6.5-10.1); MONOCYTES % (AUTO) 12.2 % (1.0-10.0); NEUTROPHILS % (AUTO) 76.1 % (45.0-75.0); PLATELET COUNT 158 K/UL (150-450); RED BLOOD COUNT 4.03 M/UL (4.20-5.40); RED CELL DISTRIBUTION WIDTH 13.5 % (11.6-14.8); WHITE BLOOD COUNT 10.1 K/UL (4.8-10.8)
[2017-03-28 05:18] LABS: ALANINE AMINOTRANSFERASE 7 U/L (3-33); ALBUMIN/GLOBULIN RATIO 0.4 (1.0-2.7); ANION GAP 14 (5-15); ASPARTATE AMINO TRANSFERASE 15 U/L (5-40); CALCIUM 8.1 mg/dL (8.6-10.2); CARBON DIOXIDE 25 mEQ/L (20-30); CHLORIDE 97 mEQ/L (98-107); CREATININE 0.5 mg/dL (0.5-0.9); HEMOLYSIS 2; POTASSIUM 4.1 mEQ/L (3.4-4.9); SODIUM 136 mEQ/L (135-145); TOTAL PROTEIN 6.2 g/dL (6.6-8.7)
[2017-03-28] MEDS ORDERED: Levothyroxine 25mcg tab ORAL SCH (06:30)
[2017-03-28] MEDS ORDERED: Cefepime HCl 1 GM in D5W 55 ML IV SCH (09:00)
[2017-03-28] MEDS: Heparin 5000 units/ml inj SUBQ SCH (09:02)
--- NOTE | 2017-03-28 09:13 | Pulmonolgy Critical Care Note ---
Critical Care - Asmt/Plan Problems: (1) Atrial fibrillation (2) Sepsis (3) Acute encephalopathy (4) Lung mass (5) CHF (congestive heart failure) (6) Hypothyroidism Respiratory: monitor respiratory rate, adjust FIO2, CXR, other - CT chest to evaluate RUL mass Cardiac: continue to monitor HR/BP Renal: F/U I&O, check electrolytes Infectious Disease: check cultures Gastrointestinal: continue feedings/current rate Endocrine: monitor blood sugar, continue sliding scale insulin Hematologic: monitor H/H, transfuse if hgb<8.5 Neurologic: PRN Ativan, PRN Morphine, keep patient comfortable Affect: PRN ativan Time Spent (Minutes): 40 Notes Reviewed: cardio, ID Discussed with: nurses, consultants, supervisor case loadingassistant merchandise manager - Objective Last 24 Hour Vital Signs Date Time Temp Pulse Resp B/P Pulse Ox O2 Delivery O2 Flow Rate FiO2 03/28/17 08:00 79 23 112/84 95 Nasal Cannula 4.0 03/28/17 08:00 73 03/28/17 05:30 76 27 88/59 97 Nasal Cannula 4.0 03/28/17 05:15 86 110/51 03/28/17 05:00 86 27 110/51 97 Nasal Cannula 4.0 03/28/17 04:30 81 27 97/49 97 Nasal Cannula 4.0 03/28/17 04:00 78 27 97/49 96 Nasal Cannula 4.0 03/28/17 04:00 76 03/28/17 04:00 78 26 104/81 97 Nasal Cannula 4.0 03/28/17 03:30 98.4 82 28 97/45 95 Nasal Cannula 4.0 03/28/17 03:30 76 28 100/47 9 Nasal Cannula 4.0 03/28/17 03:00 76 28 100/47 97 Nasal Cannula 4.0 03/28/17 02:30 76 28 75/52 98 Nasal Cannula 4.0 03/28/17 02:00 76 28 96/52 97 Nasal Cannula 4.0 03/28/17 01:30 81 23 95/65 97 Nasal Cannula 4.0 03/28/17 01:00 82 23 96/61 97 Nasal Cannula 4.0 03/28/17 00:30 80 24 99/44 97 Nasal Cannula 4.0 03/28/17 00:00 98.7 101 25 104/65 97 Nasal Cannula 4.0 03/28/17 00:00 99 97/70 03/28/17 00:00 113 03/27/17 23:30 101 21 97/70 97 Nasal Cannula 4.0 03/27/17 23:00 100 22 95/72 95 Nasal Cannula 4.0 03/27/17 22:30 115 26 101/61 96 Nasal Cannula 4.0 03/27/17 22:00 115 25 94/68 94 Nasal Cannula 4.0 03/27/17 21:30 108 28 91/66 96 Nasal Cannula 4.0 03/27/17 21:00 100 25 105/50 96 Nasal Cannula 4.0 03/27/17 20:36 98 03/27/17 20:30 95 28 93/58 95 Nasal Cannula 4.0 03/27/17 20:19 Nasal Cannula 4.0 03/27/17 20:18 92 Nasal Cannula 4.0 03/27/17 20:00 98.8 98 30 95/61 93 Nasal Cannula 4.0 03/27/17 18:03 145 117/94 03/27/17 18:00 146 21 117/94 96 Nasal Cannula 2.0 03/27/17 17:49 147 03/27/17 17:00 145 28 100/53 97 Nasal Cannula 2.0 03/27/17 16:00 98.6 144 28 100/78 90 Nasal Cannula 3.0 03/27/17 13:32 84 18 95 Nasal Cannula 3.0 03/27/17 12:00 97.7 111 18 87/51 96 Nasal Cannula 2.0 03/27/17 12:00 111 87/51 03/27/17 12:00 126 Status: awake Condition: critical, improving HEENT: atraumatic Neck: full ROM Lungs: rales, rhonchi, wheezing Heart: irregular Abdomen: soft, non-tender, active bowel sounds, feeding tube Extremities: edema Decubiti: location Critical Care - Subjective ROS Limited/Unobtainable: No ICU Day: 2 Condition: critical EKG Rhythm: Sinus Rhythm FI02: 93 Sputum Amount: None Secretions: small Drips: amiodarone drip I&O: Intake and Output 03/27/17 03/28/17 19:00 07:00 Intake Total 350 ml 617.366 ml Output Total 0 ml 0 ml Balance 350 ml 617.366 ml Intake Oral 240 ml 0 ml IV Total 110 ml 617.366 ml Output Urine Total 0 ml 0 ml # Voids 2 4 CXR: RUL mass Labs: Laboratory Tests Test 03/28/17 04:05 White Blood Count 10.1 K/UL (4.8-10.8) Red Blood Count 4.03 M/UL (4.20-5.40) L Hemoglobin 12.7 G/DL (12.0-16.0) Hematocrit 40.3 % (37.0-47.0) Mean Corpuscular Volume 100 FL (80-99) H Mean Corpuscular Hemoglobin 31.5 PG (27.0-31.0) H Mean Corpuscular Hemoglobin Concent 31.5 G/DL (32.0-36.0) L Red Cell Distribution Width 13.5 % (11.6-14.8) Platelet Count 158 K/UL (150-450) Mean Platelet Volume 9.4 FL (6.5-10.1) Neutrophils (%) (Auto) 76.1 % (45.0-75.0) H Lymphocytes (%) (Auto) 7.7 % (20.0-45.0) L Monocytes (%) (Auto) 12.2 % (1.0-10.0) H Eosinophils (%) (Auto) 2.1 % (0.0-3.0) Basophils (%) (Auto) 2.0 % (0.0-2.0) Sodium Level 136 mEQ/L (135-145) Potassium Level 4.1 mEQ/L (3.4-4.9) Chloride Level 97 mEQ/L (98-107) L Carbon Dioxide Level 25 mEQ/L (20-30) Anion Gap 14 (5-15) Blood Urea Nitrogen 8 mg/dL (7-23) Creatinine 0.5 mg/dL (0.5-0.9) Estimat Glomerular Filtration Rate mL/min (>60) Glucose Level 90 mg/dL (74-106) Calcium Level 8.1 mg/dL (8.6-10.2) L Total Bilirubin 0.6 mg/dL (0.0-1.2) Aspartate Amino Transf (AST/SGOT) 15 U/L (5-40) Alanine Aminotransferase (ALT/SGPT) 7 U/L (3-33) Alkaline Phosphatase 71 U/L (35-104) Pro-B-Type Natriuretic Peptide 3015 pg/mL (0-450) H Total Protein 6.2 g/dL (6.6-8.7) L Albumin 2.0 g/dL (3.5-5.2) L Globulin 4.2 g/dL Albumin/Globulin Ratio 0.4 (1.0-2.7) L LIU HYDE Mar 28, 2017 09:13
--- NOTE | 2017-03-28 11:35 | Diagnostic Imaging Report ---
Indication: DYSPNEA Technique: One view of the chest Comparison: 03/27/2017 Findings: Right upper lobe airspace and reticular interstitial opacity persists, unchanged. CT of the right infrahilar opacity is likewise persists, unchanged. Left lung and pleural space are clear. Heart size is normal. There is thoracic scoliotic deformity. There are left upper quadrant surgical clips Impression: Unchanged, over one day, findings as above.
--- NOTE | 2017-03-28 13:06 | Infectious Diseases Prog Note ---
Assessment/Plan Assessment/Plan A: pt is an 81 yold F aw Pna 03/27 : cxray : Stable right upper lung opacity with volume loss r/o pulmonary mass Sepsis Leukocytosis , SP Probable UTI UCx : Provid[facility] st. Afebrile Afib/flutter CHF hypothyroidism PLAN cont pt on Cefepime and Vanco d# 5 / 7 Monitor CBC Monitor BMP Monitor Cxray Subjective Constitutional: Denies: anorexia, chills, drenching sweats, fatigue, fever, no symptoms, other Allergies: Coded Allergies: No Known Allergies (Unverified , 03/23/17) Subjective transferred to ICU due RVR Objective Vital Signs Last 24 Hour Vital Signs Date Time Temp Pulse Resp B/P Pulse Ox O2 Delivery O2 Flow Rate FiO2 03/28/17 12:11 81 129/59 03/28/17 12:00 98.6 80 19 129/59 100 Nasal Cannula 4.0 03/28/17 12:00 80 03/28/17 10:00 66 27 98/70 100 Nasal Cannula 4.0 03/28/17 09:00 63 26 112/84 99 Nasal Cannula 4.0 03/28/17 08:00 79 23 112/84 95 Nasal Cannula 4.0 03/28/17 08:00 73 03/28/17 05:30 76 27 88/59 97 Nasal Cannula 4.0 03/28/17 05:15 86 110/51 03/28/17 05:00 86 27 110/51 97 Nasal Cannula 4.0 03/28/17 04:30 81 27 97/49 97 Nasal Cannula 4.0 03/28/17 04:00 78 27 97/49 96 Nasal Cannula 4.0 03/28/17 04:00 76 03/28/17 04:00 78 26 104/81 97 Nasal Cannula 4.0 03/28/17 03:30 98.4 82 28 97/45 95 Nasal Cannula 4.0 03/28/17 03:30 76 28 100/47 9 Nasal Cannula 4.0 03/28/17 03:00 76 28 100/47 97 Nasal Cannula 4.0 03/28/17 02:30 76 28 75/52 98 Nasal Cannula 4.0 03/28/17 02:00 76 28 96/52 97 Nasal Cannula 4.0 03/28/17 01:30 81 23 95/65 97 Nasal Cannula 4.0 03/28/17 01:00 82 23 96/61 97 Nasal Cannula 4.0 03/28/17 00:30 80 24 99/44 97 Nasal Cannula 4.0 03/28/17 00:00 98.7 101 25 104/65 97 Nasal Cannula 4.0 03/28/17 00:00 99 97/70 03/28/17 00:00 113 03/27/17 23:30 101 21 97/70 97 Nasal Cannula 4.0 03/27/17 23:00 100 22 95/72 95 Nasal Cannula 4.0 03/27/17 22:30 115 26 101/61 96 Nasal Cannula 4.0 03/27/17 22:00 115 25 94/68 94 Nasal Cannula 4.0 03/27/17 21:30 108 28 91/66 96 Nasal Cannula 4.0 03/27/17 21:00 100 25 105/50 96 Nasal Cannula 4.0 03/27/17 20:36 98 03/27/17 20:30 95 28 93/58 95 Nasal Cannula 4.0 03/27/17 20:19 Nasal Cannula 4.0 03/27/17 20:18 92 Nasal Cannula 4.0 03/27/17 20:00 98.8 98 30 95/61 93 Nasal Cannula 4.0 03/27/17 18:03 145 117/94 03/27/17 18:00 146 21 117/94 96 Nasal Cannula 2.0 03/27/17 17:49 147 03/27/17 17:00 145 28 100/53 97 Nasal Cannula 2.0 03/27/17 16:00 98.6 144 28 100/78 90 Nasal Cannula 3.0 03/27/17 13:32 84 18 95 Nasal Cannula 3.0 Height (Feet): 5 Height (Inches): 6.00 Weight (Pounds): 151 HEENT: anicteric Respiratory/Chest: normal breath sounds Cardiovascular: regular rhythm Abdomen: no organomegaly Laboratory Tests Test 03/28/17 04:05 White Blood Count 10.1 K/UL (4.8-10.8) Red Blood Count 4.03 M/UL (4.20-5.40) L Hemoglobin 12.7 G/DL (12.0-16.0) Hematocrit 40.3 % (37.0-47.0) Mean Corpuscular Volume 100 FL (80-99) H Mean Corpuscular Hemoglobin 31.5 PG (27.0-31.0) H Mean Corpuscular Hemoglobin Concent 31.5 G/DL (32.0-36.0) L Red Cell Distribution Width 13.5 % (11.6-14.8) Platelet Count 158 K/UL (150-450) Mean Platelet Volume 9.4 FL (6.5-10.1) Neutrophils (%) (Auto) 76.1 % (45.0-75.0) H Lymphocytes (%) (Auto) 7.7 % (20.0-45.0) L Monocytes (%) (Auto) 12.2 % (1.0-10.0) H Eosinophils (%) (Auto) 2.1 % (0.0-3.0) Basophils (%) (Auto) 2.0 % (0.0-2.0) Sodium Level 136 mEQ/L (135-145) Potassium Level 4.1 mEQ/L (3.4-4.9) Chloride Level 97 mEQ/L (98-107) L Carbon Dioxide Level 25 mEQ/L (20-30) Anion Gap 14 (5-15) Blood Urea Nitrogen 8 mg/dL (7-23) Creatinine 0.5 mg/dL (0.5-0.9) Estimat Glomerular Filtration Rate mL/min (>60) Glucose Level 90 mg/dL (74-106) Calcium Level 8.1 mg/dL (8.6-10.2) L Total Bilirubin 0.6 mg/dL (0.0-1.2) Aspartate Amino Transf (AST/SGOT) 15 U/L (5-40) Alanine Aminotransferase (ALT/SGPT) 7 U/L (3-33) Alkaline Phosphatase 71 U/L (35-104) Pro-B-Type Natriuretic Peptide 3015 pg/mL (0-450) H Total Protein 6.2 g/dL (6.6-8.7) L Albumin 2.0 g/dL (3.5-5.2) L Globulin 4.2 g/dL Albumin/Globulin Ratio 0.4 (1.0-2.7) L Current Medications Medications (Trade) Dose Ordered Sig/Rita Route PRN Reason Start Time Stop Time Status Last Admin Dose Admin Acetaminophen (Tylenol) 650 mg Q4H PRN ORAL fever 03/27/17 20:30 04/26/17 20:29 Al Hydroxide/Mg Hydroxide (Mylanta II) 30 ml Q6H PRN ORAL dyspepsia 03/27/17 20:30 04/26/17 20:29 Amiodarone HCl 900 mg/Dextrose 500 ml @ 0 mls/hr Q24H IV 03/27/17 18:30 03/28/17 18:29 03/27/17 19:10 Cefepime HCl 1 gm/ Dextrose 55 ml @ 110 mls/hr Q24H IV 03/28/17 09:00 04/04/17 08:59 03/28/17 08:30 Clotrimazole (Lotrimin) 1 applic EVERY 12 HOURS TOPIC 03/27/17 21:00 04/26/17 20:59 03/28/17 08:30 Diltiazem HCl (Cardizem) 30 mg EVERY 6 HOURS ORAL 03/28/17 00:00 04/27/17 00:00 03/28/17 12:11 Heparin Sodium (Porcine) (Heparin 5000 units/ml) 5,000 units EVERY 12 HOURS SUBQ 03/27/17 21:00 04/26/17 20:59 03/28/17 09:02 Levothyroxine Sodium (Synthroid) 25 mcg DAILY@0630 ORAL 03/28/17 06:30 04/27/17 06:29 03/28/17 05:15 Nitroglycerin (Ntg) 0.4 mg Q5M PRN SL Prn Chest Pain 03/27/17 18:15 04/26/17 18:14 Ondansetron HCl (Zofran) 4 mg Q6H PRN IVP Nausea & Vomiting 03/27/17 20:30 04/26/17 20:29 Pantoprazole (Protonix) 40 mg EVERY 12 HOURS ORAL 03/28/17 10:30 04/27/17 10:29 03/28/17 10:30 Polyethylene Glycol (Miralax) 17 gm DAILYPRN PRN ORAL Constipation 03/27/17 20:30 04/26/17 20:29 Promethazine HCl/ Codeine (Phenergan with Codeine) 5 ml Q4H PRN ORAL For Cough 03/27/17 20:30 04/26/17 20:29 Temazepam (Restoril) 15 mg HSPRN PRN ORAL Insomnia 03/27/17 20:30 04/03/17 20:29 Vancomycin HCl (Vanco rx to dose) 1 ea DAILY PRN MISC Per rx protocol 03/28/17 09:00 04/27/17 08:59 Vancomycin HCl/ Dextrose (Vancomycin/D5W) 275 ml @ 183.708 mls/hr Q24H IVPB 03/27/17 23:00 04/01/17 22:59 03/28/17 00:00 SB JADE M.D. Mar 28, 2017 13:06
[2017-03-28 17:21] LABS: INR 2.2 (0.9-1.1); PROTHROMBIN TIME 23.6 SEC (9.30-11.50)
[2017-03-28] MEDS ORDERED: Warfarin Sodium 2mg ORAL SCH (19:30)
[2017-03-28] MEDS ORDERED: Amiodarone 150mg/ml 3ml Amp IVPB ONE (20:00)
[2017-03-28] MEDS ORDERED: Amiodarone 900 MG in D5W 500ml 482 ML IV SCH (20:30)
[2017-03-28] MEDS ORDERED: Enoxaparin Sodium 300mg/3ml vial SUBQ SCH (21:00)
--- NOTE | 2017-03-28 22:23 | Cardiology Progress Note ---
Assessment/Plan Problem List: (1) Atrial fibrillation (2) CHF (congestive heart failure) (3) Hypothyroidism (4) Pneumonia Status: stable, progressing Status Narrative Permanent AF - RVR w/ CHF requiring ICU transfer yesterday Now on IV amiodarone w/ reasonable rate control. Assessment/Plan Continue iv amiodarone today, and change to po tomorow if stable. Start lovenox/ warfarin for CVA prevention in AF Can transfer to telemetry. Subjective ROS Limited/Unobtainable: No Subjective Cardiology for Dr. Currie Events noted. Pt transferred to ICU for rapid AF and CHF. Diuresed and rate- controlled w/ amiodarone IV No c/o of palpitations, chest pain currently. Objective Last 24 Hour Vital Signs Date Time Temp Pulse Resp B/P Pulse Ox O2 Delivery O2 Flow Rate FiO2 03/28/17 22:00 98 28 102/72 93 Nasal Cannula 4.0 03/28/17 21:00 96 27 100/61 93 Nasal Cannula 4.0 03/28/17 20:00 98.2 100 27 105/56 93 Nasal Cannula 4.0 03/28/17 20:00 103 03/28/17 19:59 Nasal Cannula 4.0 03/28/17 19:58 96 Nasal Cannula 4.0 03/28/17 19:00 100 27 98/52 96 Nasal Cannula 4.0 03/28/17 18:01 129 114/93 03/28/17 18:00 129 27 117/93 96 Nasal Cannula 4.0 03/28/17 17:00 115 23 108/78 96 Nasal Cannula 4.0 03/28/17 16:00 97.5 98 25 122/83 98 Nasal Cannula 4.0 03/28/17 16:00 117 03/28/17 15:00 117 25 106/57 97 Nasal Cannula 4.0 03/28/17 14:00 74 27 121/52 97 Nasal Cannula 4.0 03/28/17 13:00 88 27 113/64 95 Nasal Cannula 4.0 03/28/17 12:11 81 129/59 03/28/17 12:00 98.6 80 19 129/59 100 Nasal Cannula 4.0 03/28/17 12:00 80 03/28/17 10:00 66 27 98/70 100 Nasal Cannula 4.0 03/28/17 09:00 63 26 112/84 99 Nasal Cannula 4.0 03/28/17 08:00 79 23 112/84 95 Nasal Cannula 4.0 03/28/17 08:00 73 03/28/17 05:30 76 27 88/59 97 Nasal Cannula 4.0 03/28/17 05:15 86 110/51 03/28/17 05:00 86 27 110/51 97 Nasal Cannula 4.0 03/28/17 04:30 81 27 97/49 97 Nasal Cannula 4.0 03/28/17 04:00 78 27 97/49 96 Nasal Cannula 4.0 03/28/17 04:00 76 03/28/17 04:00 78 26 104/81 97 Nasal Cannula 4.0 03/28/17 03:30 98.4 82 28 97/45 95 Nasal Cannula 4.0 03/28/17 03:30 76 28 100/47 9 Nasal Cannula 4.0 03/28/17 03:00 76 28 100/47 97 Nasal Cannula 4.0 03/28/17 02:30 76 28 75/52 98 Nasal Cannula 4.0 03/28/17 02:00 76 28 96/52 97 Nasal Cannula 4.0 03/28/17 01:30 81 23 95/65 97 Nasal Cannula 4.0 03/28/17 01:00 82 23 96/61 97 Nasal Cannula 4.0 03/28/17 00:30 80 24 99/44 97 Nasal Cannula 4.0 03/28/17 00:00 98.7 101 25 104/65 97 Nasal Cannula 4.0 03/28/17 00:00 99 97/70 03/28/17 00:00 113 03/27/17 23:30 101 21 97/70 97 Nasal Cannula 4.0 03/27/17 23:00 100 22 95/72 95 Nasal Cannula 4.0 03/27/17 22:30 115 26 101/61 96 Nasal Cannula 4.0 General Appearance: WD/WN, alert EENT: PERRL/EOMI Neck: supple, no JVD Rhythm: Afib Cardiovascular: tachycardia, irregularly irregular Respiratory/Chest: rhonchi - bilaterally, expiratory wheezing Abdomen: normal bowel sounds Extremities: no swelling Intake and Output 03/27/17 03/28/17 19:00 07:00 Intake Total 350 ml 617.366 ml Output Total 0 ml 0 ml Balance 350 ml 617.366 ml Intake Oral 240 ml 0 ml IV Total 110 ml 617.366 ml Output Urine Total 0 ml 0 ml # Voids 2 4 Laboratory Tests Test 03/28/17 04:05 03/28/17 16:53 White Blood Count 10.1 K/UL (4.8-10.8) Red Blood Count 4.03 M/UL (4.20-5.40) L Hemoglobin 12.7 G/DL (12.0-16.0) Hematocrit 40.3 % (37.0-47.0) Mean Corpuscular Volume 100 FL (80-99) H Mean Corpuscular Hemoglobin 31.5 PG (27.0-31.0) H Mean Corpuscular Hemoglobin Concent 31.5 G/DL (32.0-36.0) L Red Cell Distribution Width 13.5 % (11.6-14.8) Platelet Count 158 K/UL (150-450) Mean Platelet Volume 9.4 FL (6.5-10.1) Neutrophils (%) (Auto) 76.1 % (45.0-75.0) H Lymphocytes (%) (Auto) 7.7 % (20.0-45.0) L Monocytes (%) (Auto) 12.2 % (1.0-10.0) H Eosinophils (%) (Auto) 2.1 % (0.0-3.0) Basophils (%) (Auto) 2.0 % (0.0-2.0) Sodium Level 136 mEQ/L (135-145) Potassium Level 4.1 mEQ/L (3.4-4.9) Chloride Level 97 mEQ/L (98-107) L Carbon Dioxide Level 25 mEQ/L (20-30) Anion Gap 14 (5-15) Blood Urea Nitrogen 8 mg/dL (7-23) Creatinine 0.5 mg/dL (0.5-0.9) Estimat Glomerular Filtration Rate mL/min (>60) Glucose Level 90 mg/dL (74-106) Calcium Level 8.1 mg/dL (8.6-10.2) L Total Bilirubin 0.6 mg/dL (0.0-1.2) Aspartate Amino Transf (AST/SGOT) 15 U/L (5-40) Alanine Aminotransferase (ALT/SGPT) 7 U/L (3-33) Alkaline Phosphatase 71 U/L (35-104) Pro-B-Type Natriuretic Peptide 3015 pg/mL (0-450) H Total Protein 6.2 g/dL (6.6-8.7) L Albumin 2.0 g/dL (3.5-5.2) L Globulin 4.2 g/dL Albumin/Globulin Ratio 0.4 (1.0-2.7) L Prothrombin Time 23.6 SEC (9.30-11.50) H Prothromb Time International Ratio 2.2 (0.9-1.1) H KERRIE DAWSON Mar 28, 2017 22:23
[2017-03-28] MEDS: Vancomycin 1 GM in D5W 275 ML IVPB SCH ×3 (22:58)
[2017-03-29] VITALS (8 sets, daily range): BP systolic 93–121; BP diastolic 44–69
[2017-03-29] MEDS ORDERED: Nitroglycerin Subl 0.4mg tab (Bottle Of 25) SL PRN (03:15)
[2017-03-29] MEDS ORDERED: Mylanta II UD 30ml ORAL PRN (03:29)
[2017-03-29] MEDS ORDERED: Miralax 17gm pkt ORAL PRN (03:31)
[2017-03-29] MEDS ORDERED: Promethazine/Codeine 5ml UD ORAL PRN (03:32)
[2017-03-29] MEDS ORDERED: Amiodarone 900 MG in D5W 500ml 482 ML IV SCH ×2 (04:10→11:00)
[2017-03-29] MEDS ORDERED: Levothyroxine 25mcg tab ORAL SCH (06:30)
[2017-03-29] MEDS ORDERED: Cefepime HCl 1 GM in D5W 55 ML IV SCH (09:00)
[2017-03-29] MEDS ORDERED: Enoxaparin Sodium 300mg/3ml vial SUBQ SCH (09:00)
--- NOTE | 2017-03-29 12:55 | Pulmonology Progress Note ---
Assessment/Plan Problems: (1) Acute encephalopathy (2) Sepsis (3) Pneumonia (4) Hypothyroidism (5) CHF (congestive heart failure) (6) Atrial fibrillation (7) Aspiration pneumonia (8) Lung mass Assessment/Plan improving heart rate controlled ct of chest pending one more day of abx transfer to telemetry. Subjective Interval Events: no new complains Allergies: Coded Allergies: No Known Allergies (Unverified , 03/23/17) Objective Last 24 Hour Vital Signs Date Time Temp Pulse Resp B/P Pulse Ox O2 Delivery O2 Flow Rate FiO2 03/29/17 12:34 95 121/55 03/29/17 08:00 92 03/29/17 08:00 97.2 70 20 102/58 92 Nasal Cannula 03/29/17 07:53 95 Nasal Cannula 4.0 03/29/17 07:53 Nasal Cannula 4.0 03/29/17 06:29 112 141/70 03/29/17 04:15 88 03/29/17 04:00 98.9 98 20 98/65 97 Room Air 03/29/17 02:00 85 30 106/59 97 Nasal Cannula 4.0 03/29/17 01:00 83 26 101/49 96 Nasal Cannula 4.0 03/29/17 00:00 93 03/29/17 00:00 98.1 92 21 103/53 94 Nasal Cannula 4.0 03/29/17 00:00 96 85/49 03/28/17 23:00 91 30 106/53 92 Nasal Cannula 4.0 03/28/17 22:00 98 28 102/72 93 Nasal Cannula 4.0 03/28/17 21:00 96 27 100/61 93 Nasal Cannula 4.0 03/28/17 20:00 98.2 100 27 105/56 93 Nasal Cannula 4.0 03/28/17 20:00 103 03/28/17 19:59 Nasal Cannula 4.0 03/28/17 19:58 96 Nasal Cannula 4.0 03/28/17 19:00 100 27 98/52 96 Nasal Cannula 4.0 03/28/17 18:01 129 114/93 03/28/17 18:00 129 27 117/93 96 Nasal Cannula 4.0 03/28/17 17:00 115 23 108/78 96 Nasal Cannula 4.0 03/28/17 16:00 97.5 98 25 122/83 98 Nasal Cannula 4.0 03/28/17 16:00 117 03/28/17 15:00 117 25 106/57 97 Nasal Cannula 4.0 03/28/17 14:00 74 27 121/52 97 Nasal Cannula 4.0 03/28/17 13:00 88 27 113/64 95 Nasal Cannula 4.0 Intake and Output 03/28/17 03/29/17 19:00 07:00 Intake Total 889.86 ml 583.550 ml Output Total 1 ml Balance 889.86 ml 582.550 ml Intake Oral 590 ml 150 ml IV Total 299.86 ml 433.550 ml Output Urine Total 1 ml # Voids 1 1 General Appearance: WD/WN HEENT: normocephalic, atraumatic Respiratory/Chest: chest wall non-tender, lungs clear Cardiovascular: normal peripheral pulses, normal rate Abdomen: normal bowel sounds, no organomegaly Extremities: no cyanosis Skin: no rash, no lesions Laboratory Tests 03/28/17 16:53: Prothrombin Time 23.6H, Prothromb Time International Ratio 2.2H Current Medications Medications (Trade) Dose Ordered Sig/Rita Route PRN Reason Start Time Stop Time Status Last Admin Dose Admin Acetaminophen (Tylenol) 650 mg Q4H PRN ORAL fever 03/29/17 03:29 04/28/17 03:28 Al Hydroxide/Mg Hydroxide (Mylanta II) 30 ml Q6H PRN ORAL dyspepsia 03/29/17 03:29 04/28/17 03:28 Amiodarone HCl/ Dextrose (Cordarone/D5W 500ml) 500 ml @ 16.66 mls/ hr Q24H IV 03/29/17 11:00 03/30/17 10:59 03/29/17 12:33 Cefepime HCl 1 gm/ Dextrose 55 ml @ 110 mls/hr Q24H IV 03/29/17 09:00 04/05/17 08:59 03/29/17 08:57 Clotrimazole (Lotrimin) 1 applic EVERY 12 HOURS TOPIC 03/29/17 09:00 04/28/17 08:59 03/29/17 08:58 Diltiazem HCl (Cardizem) 30 mg EVERY 6 HOURS ORAL 03/29/17 06:00 04/28/17 05:59 03/29/17 12:34 Enoxaparin Sodium (Lovenox) 70 mg EVERY 12 HOURS SUBQ 03/29/17 09:00 04/28/17 08:59 03/29/17 09:02 Levothyroxine Sodium (Synthroid) 25 mcg DAILY@0630 ORAL 03/29/17 06:30 04/28/17 06:29 03/29/17 06:29 Nitroglycerin (Ntg) 0.4 mg Q5M PRN SL Prn Chest Pain 03/29/17 03:15 04/28/17 03:14 Ondansetron HCl (Zofran) 4 mg Q6H PRN IVP Nausea & Vomiting 03/29/17 03:31 04/28/17 03:30 Pantoprazole (Protonix) 40 mg EVERY 12 HOURS ORAL 03/29/17 09:00 04/28/17 08:59 03/29/17 08:57 Polyethylene Glycol (Miralax) 17 gm DAILYPRN PRN ORAL Constipation 03/29/17 03:31 04/28/17 03:30 Promethazine HCl/ Codeine (Phenergan with Codeine) 5 ml Q4H PRN ORAL For Cough 03/29/17 03:32 04/28/17 03:31 Temazepam (Restoril) 15 mg HSPRN PRN ORAL Insomnia 03/29/17 03:32 04/05/17 03:31 Vancomycin HCl (Vanco rx to dose) 1 ea DAILY PRN MISC Per rx protocol 03/29/17 09:00 04/28/17 08:59 Vancomycin HCl/ Dextrose (Vancomycin/D5W) 275 ml @ 183.708 mls/hr Q24H IVPB 03/29/17 23:00 04/03/17 22:59 Warfarin Sodium 1 ea 1 ea DAILY PRN MISC Per rx protocol 03/29/17 09:00 04/28/17 08:59 LIU HYDE Mar 29, 2017 12:55
--- NOTE | 2017-03-29 13:07 | Infectious Diseases Prog Note ---
Assessment/Plan Assessment/Plan A: pt is an 81 yold F aw Pna 03/27 : cxray : Stable right upper lung opacity with volume loss r/o pulmonary mass Sepsis Leukocytosis , SP Probable UTI UCx : [facility]. Afebrile Afib/flutter CHF hypothyroidism PLAN cont pt on Cefepime and Vanco d# 6 / 7 Monitor CBC Monitor BMP Monitor Cxray Subjective Constitutional: Denies: anorexia, chills, drenching sweats, fatigue, fever, no symptoms, other Allergies: Coded Allergies: No Known Allergies (Unverified , 03/23/17) Subjective transferred out of ICU Objective Vital Signs Last 24 Hour Vital Signs Date Time Temp Pulse Resp B/P Pulse Ox O2 Delivery O2 Flow Rate FiO2 03/29/17 12:34 95 121/55 03/29/17 08:00 92 03/29/17 08:00 97.2 70 20 102/58 92 Nasal Cannula 03/29/17 07:53 95 Nasal Cannula 4.0 03/29/17 07:53 Nasal Cannula 4.0 03/29/17 06:29 112 141/70 03/29/17 04:15 88 03/29/17 04:00 98.9 98 20 98/65 97 Room Air 03/29/17 02:00 85 30 106/59 97 Nasal Cannula 4.0 03/29/17 01:00 83 26 101/49 96 Nasal Cannula 4.0 03/29/17 00:00 93 03/29/17 00:00 98.1 92 21 103/53 94 Nasal Cannula 4.0 03/29/17 00:00 96 85/49 03/28/17 23:00 91 30 106/53 92 Nasal Cannula 4.0 03/28/17 22:00 98 28 102/72 93 Nasal Cannula 4.0 03/28/17 21:00 96 27 100/61 93 Nasal Cannula 4.0 03/28/17 20:00 98.2 100 27 105/56 93 Nasal Cannula 4.0 03/28/17 20:00 103 03/28/17 19:59 Nasal Cannula 4.0 03/28/17 19:58 96 Nasal Cannula 4.0 03/28/17 19:00 100 27 98/52 96 Nasal Cannula 4.0 03/28/17 18:01 129 114/93 03/28/17 18:00 129 27 117/93 96 Nasal Cannula 4.0 03/28/17 17:00 115 23 108/78 96 Nasal Cannula 4.0 03/28/17 16:00 97.5 98 25 122/83 98 Nasal Cannula 4.0 03/28/17 16:00 117 03/28/17 15:00 117 25 106/57 97 Nasal Cannula 4.0 03/28/17 14:00 74 27 121/52 97 Nasal Cannula 4.0 Height (Feet): 5 Height (Inches): 6.00 Weight (Pounds): 157 HEENT: anicteric Respiratory/Chest: normal breath sounds Cardiovascular: regular rhythm Abdomen: no organomegaly Laboratory Tests Test 03/28/17 16:53 Prothrombin Time 23.6 SEC (9.30-11.50) H Prothromb Time International Ratio 2.2 (0.9-1.1) H Current Medications Medications (Trade) Dose Ordered Sig/Rita Route PRN Reason Start Time Stop Time Status Last Admin Dose Admin Acetaminophen (Tylenol) 650 mg Q4H PRN ORAL fever 03/29/17 03:29 04/28/17 03:28 Al Hydroxide/Mg Hydroxide (Mylanta II) 30 ml Q6H PRN ORAL dyspepsia 03/29/17 03:29 04/28/17 03:28 Amiodarone HCl/ Dextrose (Cordarone/D5W 500ml) 500 ml @ 16.66 mls/ hr Q24H IV 03/29/17 11:00 03/30/17 10:59 03/29/17 12:33 Cefepime HCl 1 gm/ Dextrose 55 ml @ 110 mls/hr Q24H IV 03/29/17 09:00 04/05/17 08:59 03/29/17 08:57 Clotrimazole (Lotrimin) 1 applic EVERY 12 HOURS TOPIC 03/29/17 09:00 04/28/17 08:59 03/29/17 08:58 Diltiazem HCl (Cardizem) 30 mg EVERY 6 HOURS ORAL 03/29/17 06:00 04/28/17 05:59 03/29/17 12:34 Enoxaparin Sodium (Lovenox) 70 mg EVERY 12 HOURS SUBQ 03/29/17 09:00 04/28/17 08:59 03/29/17 09:02 Levothyroxine Sodium (Synthroid) 25 mcg DAILY@0630 ORAL 03/29/17 06:30 04/28/17 06:29 03/29/17 06:29 Nitroglycerin (Ntg) 0.4 mg Q5M PRN SL Prn Chest Pain 03/29/17 03:15 04/28/17 03:14 Ondansetron HCl (Zofran) 4 mg Q6H PRN IVP Nausea & Vomiting 03/29/17 03:31 04/28/17 03:30 Pantoprazole (Protonix) 40 mg EVERY 12 HOURS ORAL 03/29/17 09:00 04/28/17 08:59 03/29/17 08:57 Polyethylene Glycol (Miralax) 17 gm DAILYPRN PRN ORAL Constipation 03/29/17 03:31 04/28/17 03:30 Promethazine HCl/ Codeine (Phenergan with Codeine) 5 ml Q4H PRN ORAL For Cough 03/29/17 03:32 04/28/17 03:31 Temazepam (Restoril) 15 mg HSPRN PRN ORAL Insomnia 03/29/17 03:32 04/05/17 03:31 Vancomycin HCl (Vanco rx to dose) 1 ea DAILY PRN MISC Per rx protocol 03/29/17 09:00 04/28/17 08:59 Vancomycin HCl/ Dextrose (Vancomycin/D5W) 275 ml @ 183.708 mls/hr Q24H IVPB 03/29/17 23:00 04/03/17 22:59 Warfarin Sodium 1 ea 1 ea DAILY PRN MISC Per rx protocol 03/29/17 09:00 04/28/17 08:59 SB JADE M.D. Mar 29, 2017 13:07
--- NOTE | 2017-03-29 15:34 | Cardiology Report ---
APPROVED REPORT EKG Measurement Heart [id number] Atrial flutter with variable AV block Nonspecific ST and T wave abnormality Abnormal ECG
[2017-03-29] MEDS ORDERED: Tubing IV Secondary IV ONE (16:32)
[2017-03-29] MEDS ORDERED: NS 275ml ONE (16:32)
--- NOTE | 2017-03-29 21:18 | Cardiology Progress Note ---
Assessment/Plan Problem List: (1) Atrial fibrillation (2) CHF (congestive heart failure) (3) Hypothyroidism (4) Pneumonia Status: stable, progressing Status Narrative Permanent AF - RVR w/ CHF Treated w/ iv amiodarone w/ good rate control Warfarin started yesterday - INR in therapeutic range currently Assessment/Plan will change amiodarone to po Low dose warfarin followup labs,, including coags, in am Subjective ROS Limited/Unobtainable: No Subjective Cardiology for Dr. Currie Events noted. :Pt transferred out of ICU c/o fatigue. no palpitations Objective Last 24 Hour Vital Signs Date Time Temp Pulse Resp B/P Pulse Ox O2 Delivery O2 Flow Rate FiO2 03/29/17 17:54 100 119/69 03/29/17 16:00 98.2 100 22 119/69 96 Nasal Cannula 3.0 03/29/17 16:00 96 03/29/17 12:34 95 121/55 03/29/17 12:00 97.5 95 20 121/55 92 Nasal Cannula 03/29/17 12:00 92 03/29/17 08:00 92 03/29/17 08:00 97.2 70 20 102/58 92 Nasal Cannula 03/29/17 07:53 95 Nasal Cannula 4.0 03/29/17 07:53 Nasal Cannula 4.0 03/29/17 06:29 112 141/70 03/29/17 04:15 88 03/29/17 04:00 98.9 98 20 98/65 97 Room Air 03/29/17 02:00 85 30 106/59 97 Nasal Cannula 4.0 03/29/17 01:00 83 26 101/49 96 Nasal Cannula 4.0 03/29/17 00:00 93 03/29/17 00:00 98.1 92 21 103/53 94 Nasal Cannula 4.0 03/29/17 00:00 96 85/49 03/28/17 23:00 91 30 106/53 92 Nasal Cannula 4.0 03/28/17 22:00 98 28 102/72 93 Nasal Cannula 4.0 General Appearance: WD/WN, no apparent distress, alert EENT: PERRL/EOMI Neck: supple, no JVD Rhythm: Afib Cardiovascular: normal rate, no gallop/murmur, irregularly irregular Respiratory/Chest: lungs clear Abdomen: non tender, soft Extremities: no swelling Intake and Output 03/28/17 03/29/17 19:00 07:00 Intake Total 889.86 ml 583.550 ml Output Total 1 ml Balance 889.86 ml 582.550 ml Intake Oral 590 ml 150 ml IV Total 299.86 ml 433.550 ml Output Urine Total 1 ml # Voids 1 1 KERRIE DAWSON Mar 29, 2017 21:18
[2017-03-29] MEDS ORDERED: Amiodarone 200mg tab ORAL SCH (21:30)
[2017-03-29] MEDS ORDERED: Vancomycin 1 GM in D5W 275 ML IVPB SCH (23:00)
[2017-03-30] VITALS (7 sets, daily range): BP systolic 88–151; BP diastolic 36–67
[2017-03-30] MEDS ORDERED: Nitroglycerin Subl 0.4mg tab (Bottle Of 25) SL PRN (02:00)
[2017-03-30] MEDS ORDERED: Mylanta II UD 30ml ORAL PRN (03:30)
[2017-03-30] MEDS ORDERED: Promethazine/Codeine 5ml UD ORAL PRN (03:45)
[2017-03-30] MEDS ORDERED: Miralax 17gm pkt ORAL PRN (03:45)
[2017-03-30 06:23] LABS: PROTHROMBIN TIME 32.2 SEC (9.30-11.50)
[2017-03-30] MEDS ORDERED: Levothyroxine 25mcg tab ORAL SCH (06:30)
[2017-03-30] MEDS ORDERED: Amiodarone 200mg tab ORAL SCH (09:00)
[2017-03-30] MEDS ORDERED: Cefepime HCl 1 GM in D5W 55 ML IV SCH (09:00)
[2017-03-30 09:15] LABS: LYMPHOCYTES % (AUTO) 7.9 % (20.0-45.0); MEAN CORPUSCULAR HGB CONC 31.7 G/DL (32.0-36.0); MEAN CORPUSCULAR VOLUME 101 FL (80-99); MEAN PLATELET VOLUME 8.6 FL (6.5-10.1); MONOCYTES % (AUTO) 10.6 % (1.0-10.0); NEUTROPHILS % (AUTO) 78.5 % (45.0-75.0); PLATELET COUNT 214 K/UL (150-450); RED BLOOD COUNT 4.39 M/UL (4.20-5.40); RED CELL DISTRIBUTION WIDTH 13.4 % (11.6-14.8); WHITE BLOOD COUNT 10.9 K/UL (4.8-10.8)
[2017-03-30 09:26] LABS: ALANINE AMINOTRANSFERASE 7 U/L (3-33); ALBUMIN/GLOBULIN RATIO 0.7 (1.0-2.7); ANION GAP 12 (5-15); ASPARTATE AMINO TRANSFERASE 16 U/L (5-40); CALCIUM 8.4 mg/dL (8.6-10.2); CARBON DIOXIDE 26 mEQ/L (20-30); CHLORIDE 95 mEQ/L (98-107); CREATININE 0.7 mg/dL (0.5-0.9); HEMOLYSIS 14; POTASSIUM 4.7 mEQ/L (3.4-4.9); SODIUM 133 mEQ/L (135-145); TOTAL PROTEIN 6.1 g/dL (6.6-8.7)
--- NOTE | 2017-03-30 10:26 | Diagnostic Imaging Report ---
Indications: Shortness of breath, lung mass Technique: Continuous helical CT imaging of the thorax and upper abdomen was performed with automatic exposure control following intravenous administration of nonionic iodine contrast, on a Siemens sensation [address] scanner. Axial, coronal, and sagittal images were reconstructed at 5 mm slice thickness. CTDI volume(s): 8, 122, 23 mGy Total DLP: 936 mGy-cm Findings: Comparison: 03/24/17 Parenchymal consolidative opacities have increased and become more confluent in the right upper and lower lobes. Subsegmental parenchymal consolidation and volume loss in left lung base has also mildly increased. Background bilateral emphysematous changes, right lung base calcified granuloma unchanged. Small right pleural effusion has increased. Heart remains enlarged with particular enlargement of the atria. Enlargement of the central pulmonary arteries again noted. No obvious central intraluminal filling defects, unchanged. Prominent arterial mural calcifications again noted, including coronary artery involvement. Fixation hardware in proximal aspect of left humerus diffuse vertebral degenerative changes, T11 and T12 vertebral body compression fractures with kyphotic angulation deformity, left hepatic lobe cyst, left renal cortical cysts and several nonobstructing stone versus sinus vascular calcification all again noted. IMPRESSION: Increase in right upper and lower lobe parenchymal consolidation compatible with progression of pneumonia. Underlying neoplasm not excludable. Consider bronchoscopy for further evaluation. Increased in associated small right pleural effusion Increase in left lung base subsegmental atelectasis Stable chronic changes as described
--- NOTE | 2017-03-30 13:09 | Pulmonology Progress Note ---
Assessment/Plan Problems: (1) Acute encephalopathy (2) Sepsis (3) Pneumonia (4) Hypothyroidism (5) CHF (congestive heart failure) (6) Atrial fibrillation (7) Aspiration pneumonia (8) Lung mass Assessment/Plan improving heart rate controlled ct of chest showed increasing infiltrate, possible malignancy d/w Dr. Jensen, he will adjust the abx d/w Dr. Cartagena, he wants the pt be transferred to [facility], Heart rate controlled. Subjective ROS Limited/Unobtainable: No Constitutional: Reports: no symptoms HEENT: Repors: no symptoms Respiratory: Reports: no symptoms Cardiovascular: Reports: no symptoms Allergies: Coded Allergies: No Known Allergies (Unverified , 03/23/17) Objective Last 24 Hour Vital Signs Date Time Temp Pulse Resp B/P Pulse Ox O2 Delivery O2 Flow Rate FiO2 03/30/17 12:54 81 105/36 03/30/17 12:00 96.6 81 18 105/36 Nasal Cannula 03/30/17 08:00 69 03/30/17 08:00 96.0 67 18 111/57 Nasal Cannula 2.0 89 03/30/17 06:21 84 112/63 03/30/17 04:00 71 03/30/17 04:00 98.2 78 22 127/65 97 Nasal Cannula 2.0 03/30/17 02:00 97.2 116 22 113/67 93 Nasal Cannula 2.0 03/30/17 00:00 84 03/30/17 00:00 97.7 91 22 151/55 94 Nasal Cannula 3.0 03/29/17 23:24 91 151/55 03/29/17 20:18 Nasal Cannula 3.0 32 03/29/17 20:18 96 Nasal Cannula 3.0 32 03/29/17 20:00 97.9 90 22 93/44 94 Nasal Cannula 3.0 03/29/17 20:00 93 03/29/17 17:54 100 119/69 03/29/17 16:00 98.2 100 22 119/69 96 Nasal Cannula 3.0 03/29/17 16:00 96 Intake and Output 03/29/17 03/30/17 19:00 07:00 Intake Total 1086.4 ml 275.003 ml Balance 1086.4 ml 275.003 ml Intake Oral 1020 ml IV Total 66.4 ml 275.003 ml # Voids 2 General Appearance: WD/WN HEENT: normocephalic, anicteric Respiratory/Chest: chest wall non-tender, normal breath sounds Breasts: no masses Cardiovascular: normal peripheral pulses, normal rate Abdomen: normal bowel sounds, no organomegaly Genitourinary: normal external genitalia Extremities: no cyanosis 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 Lymphatic: no neck adenopathy Laboratory Tests 03/30/17 05:15: White Blood Count 10.9H, Red Blood Count 4.39, Hemoglobin 14.0, Hematocrit 44.4 , Mean Corpuscular Volume 101H, Mean Corpuscular Hemoglobin 32.0H, Mean Corpuscular Hemoglobin Concent 31.7L, Red Cell Distribution Width 13.4, Platelet Count 214, Mean Platelet Volume 8.6, Neutrophils (%) (Auto) 78.5H, Lymphocytes (%) (Auto) 7.9L, Monocytes (%) (Auto) 10.6H, Eosinophils (%) (Auto) 2.0, Basophils (%) (Auto) 1.0, Prothrombin Time 32.2H, Prothromb Time International Ratio 3.0H, Sodium Level 133L, Potassium Level 4.7, Chloride Level 95L, Carbon Dioxide Level 26, Anion Gap 12, Blood Urea Nitrogen 12, Creatinine 0.7, Estimat Glomerular Filtration Rate , Glucose Level 86, Calcium Level 8.4L, Total Bilirubin 0.5, Aspartate Amino Transf (AST/SGOT) 16, Alanine Aminotransferase (ALT/SGPT) 7, Alkaline Phosphatase 79, Total Protein 6.1L, Albumin 2.6L, Globulin 3.5, Albumin/Globulin Ratio 0.7L Current Medications Medications (Trade) Dose Ordered Sig/Rita Route PRN Reason Start Time Stop Time Status Last Admin Dose Admin Acetaminophen (Tylenol) 650 mg Q4H PRN ORAL fever 03/30/17 03:30 04/29/17 03:29 Al Hydroxide/Mg Hydroxide (Mylanta II) 30 ml Q6H PRN ORAL dyspepsia 03/30/17 03:30 04/29/17 03:29 Amiodarone HCl (Cordarone) 200 mg EVERY 12 HOURS ORAL 03/30/17 09:00 04/29/17 08:59 03/30/17 08:29 Cefepime HCl 1 gm/ Dextrose 55 ml @ 110 mls/hr Q24H IV 03/30/17 09:00 03/30/17 23:59 03/30/17 08:41 Clotrimazole (Lotrimin) 1 applic EVERY 12 HOURS TOPIC 03/30/17 09:00 04/29/17 08:59 03/30/17 08:40 Diltiazem HCl (Cardizem) 30 mg EVERY 6 HOURS ORAL 03/30/17 06:00 04/29/17 05:59 03/30/17 12:54 Levothyroxine Sodium (Synthroid) 25 mcg DAILY@0630 ORAL 03/30/17 06:30 04/29/17 06:29 03/30/17 06:21 Nitroglycerin (Ntg) 0.4 mg Q5M PRN SL Prn Chest Pain 03/30/17 02:00 04/29/17 01:59 Ondansetron HCl (Zofran) 4 mg Q6H PRN IVP Nausea & Vomiting 03/30/17 03:45 04/29/17 03:44 Pantoprazole (Protonix) 40 mg EVERY 12 HOURS ORAL 03/30/17 09:00 04/29/17 08:59 03/30/17 08:30 Polyethylene Glycol (Miralax) 17 gm DAILYPRN PRN ORAL Constipation 03/30/17 03:45 04/29/17 03:44 Promethazine HCl/ Codeine (Phenergan with Codeine) 5 ml Q4H PRN ORAL For Cough 03/30/17 03:45 04/29/17 03:44 Temazepam (Restoril) 15 mg HSPRN PRN ORAL Insomnia 03/30/17 03:45 04/06/17 03:44 Vancomycin HCl (Vanco rx to dose) 1 ea DAILY PRN MISC Per rx protocol 03/30/17 09:00 04/29/17 08:59 Vancomycin HCl/ Dextrose (Vancomycin/D5W) 275 ml @ 183.708 mls/hr Q24H IVPB 03/30/17 23:00 03/30/17 23:59 Warfarin Sodium (Coumadin per pharmacy) 1 ea DAILY PRN MISC Per rx protocol 03/30/17 09:00 04/29/17 08:59 LIU HYDE Mar 30, 2017 13:09
[2017-03-30] MEDS ORDERED: MEROPENEM1 GM IV (16:18)
[2017-03-30] MEDS ORDERED: PACERONE200 MG ORAL (16:18)
[2017-03-30] MEDS ORDERED: CARDIZEM30 MG ORAL (16:18)
[2017-03-30] MEDS ORDERED: NS 275ml ONE (19:50)
[2017-03-30] MEDS ORDERED: Vancomycin 1 GM in D5W 275 ML IVPB SCH (23:00)
--- NOTE | 2017-03-31 11:50 | Discharge Summary ---
Discharge Summary Hospital Course Date of Admission Mar 23, 2017 at 19:36 Date of Discharge Mar 30, 2017 at 19:51 Admitting Diagnosis SOB/pneumonia HPI Kaelyn Maloney is a 81 year old female who was admitted on Mar 23, 2017 at 19: 36 for Shortness Of Breath,Pneumonia Hospital Course [id number] Discharge Discharge Disposition Patient was discharged to SNF/Subacute Facility(03) Discharge Diagnoses: Veronica Andrews NP Mar 31, 2017 11:50
[2017-03-31] MEDS ORDERED: COLACE100 MG ORAL (16:14)
[2017-03-31] MEDS ORDERED: PROTONIX40 MG ORAL (16:14)
[2017-03-31] MEDS ORDERED: ECOTRIN325 MG ORAL (16:14)
--- NOTE | 2017-04-01 01:00 | Discharge Summary 2 SIG ---
DATE OF ADMISSION: 03/23/2017 DATE OF DISCHARGE: 03/30/2017 CONSULTANTS: 1. Rahat Jensen M.D. 2. Oh Currie M.D. BRIEF HOSPITAL COURSE: The patient is an 81-year-old female, who is a [facility] with history of atrial fibrillation, congestive heart failure, and hypothyroidism, presented to ED for evaluation as the patient was noted to be hypoxemic at the [facility]. The patient is currently being treated for pneumonia at the SNF, however, continued to desaturate. On evaluation at ED, laboratories showed elevated WBC. BNP was elevated to 3910. Chest x-ray revealed right middle lobe infiltrate. She was initially mildly hypotensive, but improved with IV fluids. Tachycardia improved and was started on IV antibiotics. She was then admitted to telemetry for pneumonia, atrial fibrillation, and congestive heart failure. Chest CT done showed irregular opacities on the right upper lobe extending to the right hilum. She was started on IV vancomycin and Zosyn. Urine culture showed growth of Providencia. ABG done showed evidence of hypoxemia on nasal cannula. She was placed on Ventimask. Subsequent chest x-rays demonstrated hyperinflated lungs and a right upper lobe/hilar infiltrate or mass. She continued to have rapid ventricular rates. Metoprolol was changed to diltiazem. She was also given a dose of digoxin. The patient continued to have rapid heart rate and was eventually transferred to ICU and was placed on amiodarone drip. She was also eventually started on anticoagulation with Lovenox and warfarin. Heart rate improved. Amiodarone was changed to p.o. Chest CT with contrast done showed increase in right upper and lower lobe parenchymal consolidation and possible malignancy. The patient was planned to transfer to LTAC, however, family refused. She was eventually discharged back to [facility]. FINAL DIAGNOSES: 1. Sepsis. 2. Pneumonia. 3. Possible pulmonary mass. 4. Probable urinary tract infection. 5. Permanent atrial fibrillation with rapid ventricular response and congestive heart failure. 6. Hypothyroidism 7. Acute on chronic diastolic congestive heart failure. 8. Emphysema. 9. Aspiration pneumonia. 10. Acute metabolic encephalopathy. 11. Acute hypoxemic respiratory failure. Jose Angel Call M.D. I have been assigned to dictate discharge summary on this account and I was not involved in the patient's management. Veronica Andrews N.P. DR: ROSI JOB#: [id number] CC: ROGERS
== END 2017-03-30 19:51 | DRG 871 ==
LOC: EDBD 18:06 → EMR 18:40 → 2E 19:36 → EDBEDREQ 20:15 → ICU 03-27 16:06 → 2W 03-29 03:00 → 2E 03-30 01:58
DX: A41.9 Sepsis, unspecified organism (principal); J69.0 Pneumonitis due to inhalation of food and vomit; J96.01 Acute respiratory failure with hypoxia; J18.9 Pneumonia, unspecified organism; I50.33 Acute on chronic diastolic (congestive) heart failure; G93.41 Metabolic encephalopathy; I48.92 Unspecified atrial flutter; N39.0 Urinary tract infection, site not specified; G30.9 Alzheimer's disease, unspecified; F02.80 Dementia in other diseases classified elsewhere, unspecified severity, without behavioral disturbance, psychotic disturbance, mood disturbance, and anxiety; E03.9 Hypothyroidism, unspecified; Z79.01 Long term (current) use of anticoagulants; I48.2 Chronic atrial fibrillation; I10 Essential (primary) hypertension; Z22.322 Carrier or suspected carrier of Methicillin resistant Staphylococcus aureus; J43.9 Emphysema, unspecified
CPT/HCPCS: 36415; 36600; 71010; 71260; 80048; 80053; 80069; 80202; 81003; 82378; 82550; 82553; 82803; 83605; 83880; 84443; 84484; 85025; 85610; 87040; 87070; 87081; 87086; 87181; 87205; 93005; 93306; 93970; 94640; 94664; 94760; J7620

== ENCOUNTER 2017-03-31 15:25 | Inpatient (IN) | payer MEDICARE, MEDICAID ==
[~2017-03-31] VITALS: Ht 165.1 cm; Wt 72.6 kg
[~2017-03-31 15:25] MED LIST: CARDIZEM30 MG ORAL; DUONEB 0.5-3(2.53 ML HHN; ENALAPRIL MALE2.5 MG ORAL; FUROSEMIDE40 MG ORAL; LEVOTHYROXINE25 MCG ORAL; MEROPENEM1 GM IV; METOPROLOL TART50 M1 ORAL; MULTIVITAMINS1 EA14 PO; PACERONE200 MG ORAL; POTASSIUM CHLO10 MEQ ORAL; TYLENOL325 MG ORAL
--- NOTE | 2017-03-31 15:40 | Emergency Room Report ---
History of Present Illness General Chief Complaint: Dyspnea/Respdistress Source: Patient, EMS Present Illness HPI The [facility] his her oxygen saturation dropped to 80%. She was discharged yesterday from this facility with diagnosis of pneumonia. She is currently on IV antibiotics. She is a history of lung mass and congestive heart failure in addition to the diagnosis of pneumonia. The patient denies any complaints. She initially refused to come to the hospital but then was convinced to come in and out. She denies any chest pain or shortness of breath. She is coughing. Paramedics she saturation of 95% on 10 L by mask. The rhonchi and did not treated with albuterol. POLST is full code. This is a problem list before she was discharged: Problems: (1) Acute encephalopathy (2) Sepsis (3) Pneumonia (4) Hypothyroidism (5) CHF (congestive heart failure) (6) Atrial fibrillation (7) Aspiration pneumonia (8) Lung mass Allergies: Coded Allergies: No Known Allergies (Unverified , 03/23/17) Patient History Limited by: medical condition Past Medical History: see triage record, old chart reviewed Social History Narrative SNF, born in [place] Reviewed Nursing Documentation: PMH: Agreed, PSxH: Agreed Nursing Documentation-PMH Past Medical History: No History, Except For Hx Cardiac Problems: Yes - CHF, afib, Hypothyroidism Hx Cancer: No Review of Systems All Other Systems: negative except mentioned in HPI Physical Exam Vital Signs Date Time Temp Pulse Resp B/P Pulse Ox O2 Delivery O2 Flow Rate FiO2 03/31/17 15:25 98.2 62 20 113/74 97 Non-Rebreather 12.0 Sp02 EP Interpretation: reviewed, normal General Appearance: well appearing, mild distress, other - GCS = 14, Chronically Ill Head: normocephalic, atraumatic, other - wig Eyes: bilateral eye normal inspection ENT: moist mucus membranes Neck: supple Respiratory: crackles, rales, wheezing, expiration, other - tachypnea Cardiovascular #1: regular rate, rhythm Cardiovascular #2: 2+ radial (R) Gastrointestinal: normal inspection, normal bowel sounds, non tender, no mass, non-distended Genitourinary: no CVA tenderness Musculoskeletal: back normal, no calf tenderness Neurologic: alert, oriented - X1 Psychiatric: depressed affect Skin: normal inspection, warm/dry Medical Decision Making Diagnostic Impression: Primary Impression: Pneumonia Qualified Codes: J18.1 - Lobar pneumonia, unspecified organism Additional Impressions: Sepsis Qualified Codes: A41.9 - Sepsis, unspecified organism Lung mass ER Course Patient discharged yesterday with pneumonia presenting with significant hypoxia. DDx: pneumonia, mass, pneumothorax, bronchospasm. Sats helped with O2 and albuterol. Evaluated and treated for sepsis with labs, EKG and CXR. IV hydration gentle and h/o CHF. Antibiotics begun. Labs with leukocytosis, elevated INR, min renal insufficiency. Xray with RUL infiltrate. Improved with treatment. Admit tele Dr. Call. Laboratory Tests Test 03/31/17 16:55 White Blood Count 14.6 K/UL (4.8-10.8) H Red Blood Count 4.42 M/UL (4.20-5.40) Hemoglobin 14.1 G/DL (12.0-16.0) Hematocrit 44.2 % (37.0-47.0) Mean Corpuscular Volume 100 FL (80-99) H Mean Corpuscular Hemoglobin 31.9 PG (27.0-31.0) H Mean Corpuscular Hemoglobin Concent 32.0 G/DL (32.0-36.0) Red Cell Distribution Width 13.8 % (11.6-14.8) Platelet Count 239 K/UL (150-450) Mean Platelet Volume 8.3 FL (6.5-10.1) Neutrophils (%) (Auto) % (45.0-75.0) Lymphocytes (%) (Auto) % (20.0-45.0) Monocytes (%) (Auto) % (1.0-10.0) Eosinophils (%) (Auto) % (0.0-3.0) Basophils (%) (Auto) % (0.0-2.0) Differential Total Cells Counted 100 Neutrophils % (Manual) 88 % (45-75) H Lymphocytes % (Manual) 3 % (20-45) L Monocytes % (Manual) 9 % (1-10) Eosinophils % (Manual) 0 % (0-3) Basophils % (Manual) 0 % (0-2) Band Neutrophils 0 % (0-8) Platelet Estimate Adequate Platelet Morphology Normal Red Blood Cell Morphology Normal Prothrombin Time 43.2 SEC (9.30-11.50) H Prothrombin Time INR 4.1 (0.9-1.1) H PTT 47 SEC (23-33) H Sodium Level 134 mEQ/L (135-145) L Potassium Level 4.2 mEQ/L (3.4-4.9) Chloride Level 92 mEQ/L (98-107) L Carbon Dioxide Level 25 mEQ/L (20-30) Anion Gap 17 (5-15) H Blood Urea Nitrogen 15 mg/dL (7-23) Creatinine 1.0 mg/dL (0.5-0.9) H Estimate Glomerular Filtration Rate mL/min (>60) Glucose Level 118 mg/dL (74-106) H Lactic Acid Level 2.20 mmol/L (0.66-2.22) Calcium Level 8.8 mg/dL (8.6-10.2) Total Bilirubin 0.4 mg/dL (0.0-1.2) Aspartate Amino Transferase (AST) 18 U/L (5-40) Alanine Aminotransferase (ALT) 7 U/L (3-33) Alkaline Phosphatase 79 U/L (35-104) Total Creatine Kinase 19 U/L (26-140) L Troponin I < 0.30 ng/mL (<=0.30) Pro-B-Type Natriuretic Peptide 5952 pg/mL (0-450) H Total Protein 7.0 g/dL (6.6-8.7) Albumin 2.5 g/dL (3.5-5.2) L Globulin 4.5 g/dL Albumin/Globulin Ratio 0.5 (1.0-2.7) L EKG Diagnostic Results Rate: normal Rhythm: other - a flutter with variable block ST Segments: no acute changes Rhythm Strip Diag. Results EP Interpretation: yes Rhythm: no PVC's, no ectopy, other - a flutter with variable block Chest X-Ray Diagnostic Results Chest X-Ray Ordered: Yes # of Views/Limited/Complete: 1 View EP Interpretation: Yes Interpretation: no effusion, no pneumothorax, other - RUL infiltrate Indication: Shortness of Breath Impression: Other Interpreting ER Provider: van Last Vital Signs Date Time Temp Pulse Resp B/P Pulse Ox O2 Delivery O2 Flow Rate FiO2 03/31/17 15:25 98.2 62 20 113/74 97 Non-Rebreather 12.0 Status: improved Disposition: ADMITTED INPATIENT Condition: Serious Van,Reg M.D. Mar 31, 2017 15:40
[2017-03-31] MEDS ORDERED: Albuterol ud Inhalation HHN ONE (15:45)
[2017-03-31] MEDS ORDERED: Ipratropium 0.02% Inh Soln 2.5ml UD HHN ONE (15:45)
[2017-03-31] MEDS ORDERED: Piperacillin/Tazobactam 4.5 GM in NS 110 ML IV ONE (15:45)
[2017-03-31] MEDS ORDERED: Vancomycin 1 GM in NS 275 ML IV ONE (15:45)
[2017-03-31] MEDS ORDERED: COLACE100 MG ORAL (16:14)
[2017-03-31] MEDS ORDERED: ECOTRIN325 MG ORAL (16:14)
[2017-03-31] MEDS ORDERED: PROTONIX40 MG ORAL (16:14)
--- NOTE | 2017-03-31 16:43 | Diagnostic Imaging Report ---
Indication: COUGH, shortness of breath Technique: One view of the chest Comparison: 03/28/2017 Findings: There is increasing infiltrate in the right upper lobe. Persistent interstitial opacities are seen in the right lower lobe. There is increasing reticulonodular disease in the left upper lobe. The left lung and pleural space remain clear except for some left basilar atelectasis. Heart size is normal. Surgical hardware seen in the left shoulder Impression: Increasing right upper lobe infiltrate, consistent with pneumonia Increasing left upper lobe reticulonodular disease, may indicate developing infiltrates Persistent nonspecific right lower lobe interstitial disease
[2017-03-31] MEDS ORDERED: Zosyn 4.5gm inj ONE (17:33)
[2017-03-31 17:40] LABS: ALANINE AMINOTRANSFERASE 7 U/L (3-33); ALBUMIN/GLOBULIN RATIO 0.5 (1.0-2.7); ANION GAP 17 (5-15); ASPARTATE AMINO TRANSFERASE 18 U/L (5-40); CALCIUM 8.8 mg/dL (8.6-10.2); CARBON DIOXIDE 25 mEQ/L (20-30); CHLORIDE 92 mEQ/L (98-107); HEMOLYSIS 11; MEAN CORPUSCULAR HEMOGLOBIN 31.9 PG (27.0-31.0); MEAN CORPUSCULAR VOLUME 100 FL (80-99); MEAN PLATELET VOLUME 8.3 FL (6.5-10.1); PLATELET COUNT 239 K/UL (150-450); POTASSIUM 4.2 mEQ/L (3.4-4.9); RED BLOOD COUNT 4.42 M/UL (4.20-5.40); RED CELL DISTRIBUTION WIDTH 13.8 % (11.6-14.8); SODIUM 134 mEQ/L (135-145); TROPONIN I < 0.30 ng/mL (<=0.30); WHITE BLOOD COUNT 14.6 K/UL (4.8-10.8)
[2017-03-31 17:45] LABS: REFLEX LACTIC ACID YES OR NO YES
[2017-03-31 17:52] LABS: INR 4.1 (0.9-1.1); PROTHROMBIN TIME 43.2 SEC (9.30-11.50)
[2017-03-31] MEDS ORDERED: Vancomycin 1gm inj IVPB ONE (17:53)
[2017-03-31 17:59] LABS: BAND NEUTROPHILS % (MANUAL) 0 % (0-8); BASOPHILS % (MANUAL) 0 % (0-2); EOSINOPHILS % (MANUAL) 0 % (0-3); LYMPHOCYTES % (MANUAL) 3 % (20-45); NEUTROPHILS % (MANUAL) 88 % (45-75); PLATELET ESTIMATE ADEQUATE; PLATELET MORPHOLOGY NORMAL; TOTAL CELLS COUNTED 100
[2017-03-31 19:00] VITALS: BP 91/61
[2017-03-31] MEDS ORDERED: DuoNeb 0.5-3(2.5)mg/3ml neb HHN PRN (19:00)
[2017-03-31] MEDS ORDERED: Miralax 17gm pkt ORAL PRN (19:00)
[2017-03-31] MEDS ORDERED: LORazepam Inj 2mg/ml 1ml IV PRN (19:00)
[2017-03-31] MEDS ORDERED: Morphine Sulfate 4mg/ml Inj IVP PRN (19:00)
[2017-03-31 21:05] VITALS: BP 117/61
[2017-03-31] MEDS: Amiodarone 200mg tab ORAL SCH (21:44)
[2017-03-31] MEDS: Heparin 5000 units/ml inj SUBQ SCH (21:49)
[2017-03-31] MEDS ORDERED: Cefepime HCl 2 GM in D5W 110 ML IV SCH (22:30)
--- NOTE | 2017-03-31 22:57 | History and Physical ---
History of Present Illness General Reason for Hospitalization: Dyspnea/Respdistress Present Illness Allergies: Coded Allergies: No Known Allergies (Unverified , 03/23/17) Medication History Scheduled Amiodarone Hcl* (Pacerone*), 200 MG ORAL EVERY 12 HOURS Aspirin* (Ecotrin*), 81 MG ORAL DAILY, (Reported) Diltiazem HCl (Diltiazem 12Hr ER), 30 MG ORAL EVERY 6 HOURS Docusate Sodium* (Colace*), 100 MG ORAL DAILY, (Reported) Enalapril Maleate* (Enalapril Maleate*), 2.5 MG ORAL EVERY 12 HOURS, (Reported) Furosemide* (Lasix*), 40 MG ORAL DAILY, (Reported) Levothyroxine Sodium* (Levothyroxine Sodium*), 25 MCG ORAL DAILY, (Reported) Meropenem (Meropenem), 1 GM IV DAILY Metoprolol Tartrate* (Metoprolol Tartrate*), 50 MG ORAL EVERY 12 HOURS, ( Reported) Pantoprazole* (Protonix*), 40 MG ORAL DAILY, (Reported) Potassium Chloride* (K-Dur*), 10 MEQ ORAL DAILY, (Reported) Scheduled PRN Acetaminophen (Tylenol), 650 MG ORAL Q6H PRN for Prn Pain/Headache/Temp > 101, ( Reported) Miscellaneous Medications Ipratropium/Albuterol Sulfate (DuoNeb 0.5-3(2.5)mg/3ml), 3 ML HHN, (Reported) Multivitamin (Multivitamins), 1 EACH PO, (Reported) Patient History Healthcare decision maker N Resuscitation status Advanced Directive on File Physical Exam Last 24 Hour Vital Signs Date Time Temp Pulse Resp B/P Pulse Ox O2 Delivery O2 Flow Rate FiO2 03/31/17 21:05 98.6 103 20 117/61 96 Non-Rebreather 15.0 03/31/17 19:55 95 19 95/63 95 Nasal Cannula 4.0 03/31/17 19:00 98.2 105 20 91/61 95 Nasal Cannula 4.0 03/31/17 16:21 97 18 97 Nasal Cannula 3.0 03/31/17 16:20 96 19 97 Simple Mask 15.0 03/31/17 16:00 65 20 Non-Rebreather 12.0 03/31/17 15:25 98.2 62 20 113/74 97 Non-Rebreather 12.0 Laboratory Tests Test 03/31/17 16:55 White Blood Count 14.6 K/UL (4.8-10.8) H Red Blood Count 4.42 M/UL (4.20-5.40) Hemoglobin 14.1 G/DL (12.0-16.0) Hematocrit 44.2 % (37.0-47.0) Mean Corpuscular Volume 100 FL (80-99) H Mean Corpuscular Hemoglobin 31.9 PG (27.0-31.0) H Mean Corpuscular Hemoglobin Concent 32.0 G/DL (32.0-36.0) Red Cell Distribution Width 13.8 % (11.6-14.8) Platelet Count 239 K/UL (150-450) Mean Platelet Volume 8.3 FL (6.5-10.1) Neutrophils (%) (Auto) % (45.0-75.0) Lymphocytes (%) (Auto) % (20.0-45.0) Monocytes (%) (Auto) % (1.0-10.0) Eosinophils (%) (Auto) % (0.0-3.0) Basophils (%) (Auto) % (0.0-2.0) Differential Total Cells Counted 100 Neutrophils % (Manual) 88 % (45-75) H Lymphocytes % (Manual) 3 % (20-45) L Monocytes % (Manual) 9 % (1-10) Eosinophils % (Manual) 0 % (0-3) Basophils % (Manual) 0 % (0-2) Band Neutrophils 0 % (0-8) Platelet Estimate Adequate Platelet Morphology Normal Red Blood Cell Morphology Normal Prothrombin Time 43.2 SEC (9.30-11.50) H Prothromb Time International Ratio 4.1 (0.9-1.1) H Activated Partial Thromboplast Time 47 SEC (23-33) H Sodium Level 134 mEQ/L (135-145) L Potassium Level 4.2 mEQ/L (3.4-4.9) Chloride Level 92 mEQ/L (98-107) L Carbon Dioxide Level 25 mEQ/L (20-30) Anion Gap 17 (5-15) H Blood Urea Nitrogen 15 mg/dL (7-23) Creatinine 1.0 mg/dL (0.5-0.9) H Estimat Glomerular Filtration Rate mL/min (>60) Glucose Level 118 mg/dL (74-106) H Lactic Acid Level 2.20 mmol/L (0.66-2.22) Calcium Level 8.8 mg/dL (8.6-10.2) Total Bilirubin 0.4 mg/dL (0.0-1.2) Aspartate Amino Transf (AST/SGOT) 18 U/L (5-40) Alanine Aminotransferase (ALT/SGPT) 7 U/L (3-33) Alkaline Phosphatase 79 U/L (35-104) Total Creatine Kinase 19 U/L (26-140) L Troponin I < 0.30 ng/mL (<=0.30) Pro-B-Type Natriuretic Peptide 5952 pg/mL (0-450) H Total Protein 7.0 g/dL (6.6-8.7) Albumin 2.5 g/dL (3.5-5.2) L Globulin 4.5 g/dL Albumin/Globulin Ratio 0.5 (1.0-2.7) L Height (Feet): 5 Height (Inches): 5.00 Weight (Pounds): 160 Medications Current Medications Medications (Trade) Dose Ordered Sig/Rita Route PRN Reason Start Time Stop Time Status Last Admin Dose Admin Acetaminophen (Tylenol) 650 mg Q4H PRN ORAL FEVER 03/31/17 19:00 04/30/17 18:59 Albuterol/ Ipratropium 3 ml 3 ml Q4H PRN HHN Shortness of Breath 03/31/17 19:00 04/05/17 18:59 Amiodarone HCl (Cordarone) 200 mg EVERY 12 HOURS ORAL 03/31/17 21:00 04/30/17 20:59 03/31/17 21:44 Cefepime HCl 2 gm/ Dextrose 110 ml @ 220 mls/hr Q24H IV 03/31/17 22:30 04/07/17 22:29 Dextrose STAT PRN IV Hypoglycemia 03/31/17 19:00 04/30/17 18:59 Diltiazem HCl (Cardizem) 30 mg EVERY 6 HOURS ORAL 04/01/17 00:00 05/01/17 00:00 Heparin Sodium (Porcine) (Heparin 5000 units/ml) 5,000 units EVERY 12 HOURS SUBQ 03/31/17 21:00 04/30/17 20:59 03/31/17 21:49 Levothyroxine Sodium 25 mcg 25 mcg ACBREAKFAST ORAL 04/01/17 06:30 05/01/17 06:29 Lorazepam (Ativan 2mg/ml 1ml) 2 mg Q2H PRN IV For Anxiety 03/31/17 19:00 04/07/17 18:59 Meropenem/Sodium Chloride (Merrem/Sodium Chloride) 110 ml @ 220 mls/hr ONCE ONCE IVPB 03/31/17 23:30 03/31/17 23:59 Morphine Sulfate (Morphine Sulfate) 4 mg Q4H PRN IVP Severe Pain (Pain Scale 7-10) 03/31/17 19:00 04/07/17 18:59 Ondansetron HCl (Zofran) 4 mg Q6H PRN IVP Nausea & Vomiting 03/31/17 19:00 04/30/17 18:59 Polyethylene Glycol (Miralax) 17 gm DAILYPRN PRN ORAL Constipation 03/31/17 19:00 04/30/17 18:59 Sodium Chloride (0.45% NS 1000ml) 1,000 ml @ 50 mls/hr Q20H IV 03/31/17 20:30 04/30/17 20:29 03/31/17 21:44 Vancomycin HCl/ Dextrose (Vancomycin/D5W) 275 ml @ 183.3 mls/ hr Q24H IVPB 04/01/17 18:00 04/06/17 17:59 LIU HYDE Mar 31, 2017 22:57
[2017-03-31] MEDS ORDERED: Meropenem 1 GM in NS 110 ML IVPB ONE (23:30)
[2017-04-01] VITALS (14 sets, daily range): BP systolic 90–117; BP diastolic 54–74
[2017-04-01] MEDS ORDERED: Cefepime 2gm ONE (01:23)
[2017-04-01] MEDS: Levothyroxine 25mcg tab ORAL SCH ×2 (06:22→06:30)
[2017-04-01 08:33] LABS: BASOPHILS % (AUTO) 0.6 % (0.0-2.0); EOSINOPHILS % (AUTO) 0.9 % (0.0-3.0); LYMPHOCYTES % (AUTO) 4.7 % (20.0-45.0); MEAN CORPUSCULAR HEMOGLOBIN 32.4 PG (27.0-31.0); MEAN CORPUSCULAR HGB CONC 31.6 G/DL (32.0-36.0); MEAN CORPUSCULAR VOLUME 103 FL (80-99); MONOCYTES % (AUTO) 11.3 % (1.0-10.0); NEUTROPHILS % (AUTO) 82.6 % (45.0-75.0); PLATELET COUNT 226 K/UL (150-450); RED BLOOD COUNT 3.94 M/UL (4.20-5.40); RED CELL DISTRIBUTION WIDTH 14.1 % (11.6-14.8); WHITE BLOOD COUNT 14.2 K/UL (4.8-10.8)
[2017-04-01 08:46] LABS: ANION GAP 16 (5-15); CALCIUM 8.6 mg/dL (8.6-10.2); CARBON DIOXIDE 25 mEQ/L (20-30); CHLORIDE 98 mEQ/L (98-107); CREATININE 0.8 mg/dL (0.5-0.9); HEMOLYSIS 6; PHOSPHORUS 4.4 mg/dL (2.5-4.8); POTASSIUM 4.4 mEQ/L (3.4-4.9); SODIUM 139 mEQ/L (135-145)
[2017-04-01] MEDS: Amiodarone 200mg tab ORAL SCH ×2 (10:10→20:55)
[2017-04-01] MEDS: Heparin 5000 units/ml inj SUBQ SCH ×2 (10:11→20:59)
--- NOTE | 2017-04-01 11:48 | Cardiology Progress Note ---
Subjective Subjective [id number] Objective Last 24 Hour Vital Signs Date Time Temp Pulse Resp B/P Pulse Ox O2 Delivery O2 Flow Rate FiO2 04/01/17 10:30 102 20 96 Facial 80 04/01/17 08:51 122 26 97 Nasal Cannula 4.0 04/01/17 08:40 118 26 94 Nasal Cannula 4.0 04/01/17 08:00 98.2 123 17 99/54 98 Room Air 04/01/17 07:55 118 26 Nasal Cannula 4.0 04/01/17 07:54 Nasal Cannula 4.0 04/01/17 07:53 94 Nasal Cannula 4.0 04/01/17 06:00 123 99/72 04/01/17 04:00 98.1 123 28 99/72 96 Non-Rebreather 15.0 04/01/17 03:54 122 04/01/17 00:00 109 94/67 04/01/17 00:00 97.5 100 26 94/67 97 Simple Mask 03/31/17 23:50 118 03/31/17 21:05 98.6 103 20 117/61 96 Non-Rebreather 15.0 03/31/17 19:55 95 19 95/63 95 Nasal Cannula 4.0 03/31/17 19:00 98.2 105 20 91/61 95 Nasal Cannula 4.0 03/31/17 16:21 97 18 97 Nasal Cannula 3.0 03/31/17 16:20 96 19 97 Simple Mask 15.0 03/31/17 16:00 65 20 Non-Rebreather 12.0 03/31/17 15:25 98.2 62 20 113/74 97 Non-Rebreather 12.0 Intake and Output 03/31/17 04/01/17 19:00 07:00 Intake Total 659 ml Balance 659 ml Intake IV Total 659 ml Other 0 ml Laboratory Tests Test 03/31/17 16:55 04/01/17 07:20 White Blood Count 14.6 K/UL (4.8-10.8) H 14.2 K/UL (4.8-10.8) H Red Blood Count 4.42 M/UL (4.20-5.40) 3.94 M/UL (4.20-5.40) L Hemoglobin 14.1 G/DL (12.0-16.0) 12.8 G/DL (12.0-16.0) Hematocrit 44.2 % (37.0-47.0) 40.4 % (37.0-47.0) Mean Corpuscular Volume 100 FL (80-99) H 103 FL (80-99) H Mean Corpuscular Hemoglobin 31.9 PG (27.0-31.0) H 32.4 PG (27.0-31.0) H Mean Corpuscular Hemoglobin Concent 32.0 G/DL (32.0-36.0) 31.6 G/DL (32.0-36.0) L Red Cell Distribution Width 13.8 % (11.6-14.8) 14.1 % (11.6-14.8) Platelet Count 239 K/UL (150-450) 226 K/UL (150-450) Mean Platelet Volume 8.3 FL (6.5-10.1) 8.0 FL (6.5-10.1) Neutrophils (%) (Auto) % (45.0-75.0) 82.6 % (45.0-75.0) H Lymphocytes (%) (Auto) % (20.0-45.0) 4.7 % (20.0-45.0) L Monocytes (%) (Auto) % (1.0-10.0) 11.3 % (1.0-10.0) H Eosinophils (%) (Auto) % (0.0-3.0) 0.9 % (0.0-3.0) Basophils (%) (Auto) % (0.0-2.0) 0.6 % (0.0-2.0) Differential Total Cells Counted 100 Neutrophils % (Manual) 88 % (45-75) H Lymphocytes % (Manual) 3 % (20-45) L Monocytes % (Manual) 9 % (1-10) Eosinophils % (Manual) 0 % (0-3) Basophils % (Manual) 0 % (0-2) Band Neutrophils 0 % (0-8) Platelet Estimate Adequate Platelet Morphology Normal Red Blood Cell Morphology Normal Prothrombin Time 43.2 SEC (9.30-11.50) H Prothromb Time International Ratio 4.1 (0.9-1.1) H Activated Partial Thromboplast Time 47 SEC (23-33) H Sodium Level 134 mEQ/L (135-145) L 139 mEQ/L (135-145) Potassium Level 4.2 mEQ/L (3.4-4.9) 4.4 mEQ/L (3.4-4.9) Chloride Level 92 mEQ/L (98-107) L 98 mEQ/L (98-107) Carbon Dioxide Level 25 mEQ/L (20-30) 25 mEQ/L (20-30) Anion Gap 17 (5-15) H 16 (5-15) H Blood Urea Nitrogen 15 mg/dL (7-23) 14 mg/dL (7-23) Creatinine 1.0 mg/dL (0.5-0.9) H 0.8 mg/dL (0.5-0.9) Estimat Glomerular Filtration Rate mL/min (>60) mL/min (>60) Glucose Level 118 mg/dL (74-106) H 90 mg/dL (74-106) Lactic Acid Level 2.20 mmol/L (0.66-2.22) Calcium Level 8.8 mg/dL (8.6-10.2) 8.6 mg/dL (8.6-10.2) Total Bilirubin 0.4 mg/dL (0.0-1.2) Aspartate Amino Transf (AST/SGOT) 18 U/L (5-40) Alanine Aminotransferase (ALT/SGPT) 7 U/L (3-33) Alkaline Phosphatase 79 U/L (35-104) Total Creatine Kinase 19 U/L (26-140) L Troponin I < 0.30 ng/mL (<=0.30) Pro-B-Type Natriuretic Peptide 5952 pg/mL (0-450) H Total Protein 7.0 g/dL (6.6-8.7) Albumin 2.5 g/dL (3.5-5.2) L 2.1 g/dL (3.5-5.2) L Globulin 4.5 g/dL Albumin/Globulin Ratio 0.5 (1.0-2.7) L Phosphorus Level 4.4 mg/dL (2.5-4.8) HOMA MONREAL Apr 01, 2017 11:48
[2017-04-01 11:58] LABS: ABG PCO2 63.5 mmHg (35.0-45.0)
[2017-04-01 11:59] LABS: ABG ALLEN TEST POSITIVE
[2017-04-01] MEDS ORDERED: Digoxin 0.5mg/2ml Inj IVP ONE (12:00)
[2017-04-01 12:22] LABS: INR 3.6 (0.9-1.1); PROTHROMBIN TIME 38.1 SEC (9.30-11.50)
[2017-04-01] MEDS ORDERED: Metoprolol 5mg/5ml Inj IVPB SCH (14:00)
[2017-04-01] MEDS ORDERED: LORazepam Inj 2mg/ml 1ml IV PRN (15:00)
[2017-04-01] MEDS ORDERED: Miralax 17gm pkt ORAL PRN (15:00)
[2017-04-01] MEDS ORDERED: DuoNeb 0.5-3(2.5)mg/3ml neb HHN PRN (15:00)
[2017-04-01] MEDS ORDERED: Morphine Sulfate 4mg/ml Inj IVP PRN (15:00)
[2017-04-01] MEDS ORDERED: DOPamine 400mg/250ml 250 ML IV ONE (15:53)
--- NOTE | 2017-04-01 16:45 | Consultation ---
DATE OF CONSULTATION: 04/01/2017 CARDIOLOGY CONSULTATION IDENTIFICATION DATA: This is an 81-year-old female. REASON FOR ADMISSION: Altered mental status and rapid atrial fibrillation. HISTORY OF PRESENT ILLNESS: The patient was actually readmitted. She was here last week. She came in with rapid atrial fibrillation. She has also had questionable massive infiltrate on a chest x-ray, and she was treated with heart rate control and also amiodarone had to be added for the rate control, not for the rhythm control, and she apparently was discharged and she came back with lethargy and elevated white count. It is difficult to get the full history from the patient. She at the present time is lethargic and has a BiPAP on. The patient is unable to give the history. She is arousable for a couple of minutes and then she falls back asleep. So, it is hard to tell whether she has chest pain or shortness of breath. She apparently came from a custodial facility. She was discharged with diagnosis of pneumonia. PAST MEDICAL HISTORY: Significant for hypothyroidism. As I mentioned, a lesion in her right lung. She probably has baseline dementia and now she is encephalopathic. She had rapid ventricular rate with atrial fibrillation last week. The patient is not answering the question whether she was a smoker. The patient again unclear whether she was a smoker or drinker. PHYSICAL EXAMINATION: GENERAL: The patient is lethargic. She has a BiPAP on. She is arousable and then she goes back to lethargy and she is not answering appropriately to the questions. VITAL SIGNS: Her blood pressure was 100/60, the heart rate was 120, her temperature was 98.2, her oxygen saturation is 100% and on BiPAP is 99%. HEENT: PERRLA. EOMI. NECK: Neck veins are approximately 8 cm. She has a supple neck. LUNGS: She has scattered wheezing. HEART: Irregular with accentuated P2. BREASTS: No masses. ABDOMEN: Soft and nontender. Bowel sounds are present. EXTREMITIES: Lower extremities, no edema. Distal pulses palpable. Extremities are warm with good capillary refill. NEUROLOGIC: She is not answering appropriate questions. She appears to move all extremities. She withdrawals to pain and she has good reflexes. DIAGNOSTIC AND LABORATORY DATA: Her EKG shows atrial flutter with a rate about 100 beats per minute without acute ST or T elevation. Her chest x-ray show that she has persistent right middle lobe infiltrate and she also has probably new infiltrate in the right upper lobe. Right upper lobe has a infiltrate and left upper lobe probably also has some shadow. Her laboratory data significant for white count 14.2 today, hemoglobin 12.8, and platelets 226,000. Her electrolytes significant for anion gap 16, otherwise unremarkable. Her INR yesterday is 4.1, and on 03/30/2017 it was 3, and on 03/28/2017 it was 2.2. Her medications prior to admission reviewed, but I do not see presence of Coumadin on these medications, so I am not sure whether she was taking Coumadin or not. They are not on discharge medications. IMPRESSION AND RECOMMENDATION: 1. Atrial fibrillation with rapid ventricular rate. The patient received amiodarone earlier. The heart rate is running somewhere between 100 and 120 not as fast as she used to run on previous admission. We are going to give her IV metoprolol p.r.n. and also limit amount of bronchodilators and give her one dose of digoxin. 2. INR elevated. I am pretty sure that she was taking Coumadin. I do not see it in the previous orders however and we are going to check INR today and if it is still elevated she probably need vitamin K because she has a high risk of bleeding in the setting of being very elderly and multiple medical problems. 3. She does not seem like she is in acute heart failure. It is more towards her fluid depletion, actually she received a bolus today and we are going to just watch her volume status by physical assessment and chest x-ray. Troponin is going to be traced. So far one troponin was negative. 4. The patient also probably has pneumonia and sepsis and she is going to be treated by primary and Pulmonology for that. Thank you very much for your consultation. I will follow this patient with you. Marlee Hollingsworth M.D. DR: MACY JOB#: [id number] CC:
[2017-04-01] MEDS ORDERED: Vancomycin 1 GM in D5W 275 ML IVPB SCH (18:00)
[2017-04-01] MEDS: Vancomycin 1 GM in D5W 275 ML IVPB SCH (18:03)
--- NOTE | 2017-04-01 18:52 | Pulmonolgy Critical Care Note ---
Critical Care - Asmt/Plan Problems: (1) Acute encephalopathy (2) Sepsis (3) Pneumonia (4) Lung mass (5) Aspiration pneumonia (6) Atrial fibrillation Respiratory: monitor respiratory rate, adjust FIO2 Cardiac: continue to monitor HR/BP Renal: F/U I&O Infectious Disease: check cultures, continue antibiotics Gastrointestinal: hold feedings Endocrine: monitor blood sugar Hematologic: monitor H/H Neurologic: PRN Ativan Affect: PRN ativan Prophylaxis: Protonix Disposition: keep in ICU Discussed with: nurses, consultants, case repaireraccounting office manager - Objective Last 24 Hour Vital Signs Date Time Temp Pulse Resp B/P Pulse Ox O2 Delivery O2 Flow Rate FiO2 04/01/17 18:03 83 110/62 04/01/17 18:00 88 20 110/62 99 Nasal Cannula 4.0 04/01/17 17:00 84 20 102/57 99 Nasal Cannula 4.0 04/01/17 16:00 98.0 87 20 90/62 99 Nasal Cannula 4.0 04/01/17 15:00 85 20 91/58 99 Bi-pap 50 04/01/17 14:20 04/01/17 14:01 80 113/71 04/01/17 14:00 71 20 91/59 99 Bi-pap 50 04/01/17 13:21 90 04/01/17 13:20 98.1 81 17 104/66 98 Non-Rebreather 100 04/01/17 13:19 92 21 100 Facial 50 04/01/17 12:04 50 04/01/17 12:00 96 04/01/17 11:56 97 04/01/17 10:30 102 20 96 Facial 80 04/01/17 08:51 122 26 97 Nasal Cannula 4.0 04/01/17 08:40 118 26 94 Nasal Cannula 4.0 04/01/17 08:00 124 04/01/17 08:00 98.2 123 17 99/54 98 Room Air 04/01/17 07:55 118 26 Nasal Cannula 4.0 04/01/17 07:54 Nasal Cannula 4.0 04/01/17 07:53 94 Nasal Cannula 4.0 04/01/17 06:00 123 99/72 04/01/17 04:00 98.1 123 28 99/72 96 Non-Rebreather 15.0 04/01/17 03:54 122 04/01/17 00:00 109 94/67 04/01/17 00:00 97.5 100 26 94/67 97 Simple Mask 03/31/17 23:50 118 03/31/17 21:05 98.6 103 20 117/61 96 Non-Rebreather 15.0 03/31/17 19:55 95 19 95/63 95 Nasal Cannula 4.0 03/31/17 19:00 98.2 105 20 91/61 95 Nasal Cannula 4.0 Status: awake Condition: critical HEENT: atraumatic Lungs: clear Heart: HR/BP stable Abdomen: soft, non-tender Extremities: no C/C/E, edema Critical Care - Subjective ROS Limited/Unobtainable: Yes ICU Day: 1 Interval Events: on and off bipap EKG Rhythm: Sinus Rhythm FI02: 50 Sputum Amount: Small I&O: Intake and Output 03/31/17 04/01/17 19:00 07:00 Intake Total 659 ml Balance 659 ml IV Total 659 ml Other 0 ml CXR: unchanged Labs: Laboratory Tests Test 04/01/17 07:20 04/01/17 11:45 04/01/17 11:50 White Blood Count 14.2 K/UL (4.8-10.8) H Red Blood Count 3.94 M/UL (4.20-5.40) L Hemoglobin 12.8 G/DL (12.0-16.0) Hematocrit 40.4 % (37.0-47.0) Mean Corpuscular Volume 103 FL (80-99) H Mean Corpuscular Hemoglobin 32.4 PG (27.0-31.0) H Mean Corpuscular Hemoglobin Concent 31.6 G/DL (32.0-36.0) L Red Cell Distribution Width 14.1 % (11.6-14.8) Platelet Count 226 K/UL (150-450) Mean Platelet Volume 8.0 FL (6.5-10.1) Neutrophils (%) (Auto) 82.6 % (45.0-75.0) H Lymphocytes (%) (Auto) 4.7 % (20.0-45.0) L Monocytes (%) (Auto) 11.3 % (1.0-10.0) H Eosinophils (%) (Auto) 0.9 % (0.0-3.0) Basophils (%) (Auto) 0.6 % (0.0-2.0) Sodium Level 139 mEQ/L (135-145) Potassium Level 4.4 mEQ/L (3.4-4.9) Chloride Level 98 mEQ/L (98-107) Carbon Dioxide Level 25 mEQ/L (20-30) Anion Gap 16 (5-15) H Blood Urea Nitrogen 14 mg/dL (7-23) Creatinine 0.8 mg/dL (0.5-0.9) Estimat Glomerular Filtration Rate mL/min (>60) Glucose Level 90 mg/dL (74-106) Calcium Level 8.6 mg/dL (8.6-10.2) Phosphorus Level 4.4 mg/dL (2.5-4.8) Albumin 2.1 g/dL (3.5-5.2) L Prothrombin Time 38.1 SEC (9.30-11.50) H Prothromb Time International Ratio 3.6 (0.9-1.1) H Arterial Blood pH 7.319 (7.350-7.450) Arterial Blood Partial Pressure CO2 63.5 mmHg (35.0-45.0) *H Arterial Blood Partial Pressure O2 92.3 mmHg (75.0-100.0) Arterial Blood HCO3 31.9 mmol/L (22.0-26.0) H Arterial Blood Oxygen Saturation 96.5 % (92.0-98.0) Arterial Blood Base Excess 4.0 Tee Test Positive LIU HYDE Apr 01, 2017 18:52
[2017-04-01] MEDS: Metoprolol 5mg/5ml Inj IVPB SCH (22:19)
[2017-04-01] MEDS: Meropenem 1 GM in NS 110 ML IVPB SCH (22:30)
--- NOTE | 2017-04-01 22:30 | Consultation ---
Consult Note Consult Note [id number] Assessment/Plan A: pt is an 81 yold F aw Pna : cxray : worsening of Pna r/o pulmonary mass Sepsis Leukocytosis hx of UTI UCx : [facility]. Afebrile Afib/flutter CHF hypothyroidism PLAN cot pt on IV Vanco , Merrem and Levaquin d# 1 / 7 03/29 SP Cefepime and Vanco d# 6 Monitor CBC Monitor BMP Monitor Cxray monitor Cx ( Bl, Ur ,SP ) BiPAP legionella Ag, Ab SB JADE M.D. Apr 01, 2017 22:30
[2017-04-01] MEDS ORDERED: Cefepime HCl 2 GM in D5W 110 ML IV SCH (23:00)
[2017-04-02] VITALS (24 sets, daily range): BP systolic 88–118; BP diastolic 40–79
--- NOTE | 2017-04-02 02:15 | Consultation ---
DATE OF CONSULTATION: INFECTIOUS DISEASES CONSULTATION CONSULTING PHYSICIAN: Rahat Jensen M.D. REQUESTING PHYSICIAN: Jose Angel Call M.D. REASON FOR CONSULTATION: Evaluation of the patient for sepsis, pneumonia, and antibiotic management. HISTORY OF PRESENT ILLNESS: The patient is an 81-year-old female, who was admitted to this medical center, was treated for pneumonia. The patient was transferred to the SNF. However, the patient was brought back due to desaturation and the patient was placed on BiPAP and transferred to ICU. Infectious Disease consultation has been requested for further evaluation of the patient and antibiotic management. The patient has also recent CT scan that showed increased right upper and lower lobe parenchymal consolidation and underlying cancer could be ruled out. PAST MEDICAL HISTORY: 1. History of recent pneumonia. 2. History of recent sepsis. 3. History of urinary tract infection. 4. Atrial fibrillation. 5. Atrial flutter. 6. CHF. 7. Hypothyroidism. MEDICATIONS: Cefepime and IV vancomycin. FAMILY HISTORY: Noncontributory. REVIEW OF SYSTEMS: Limited because the patient is on BiPAP. Much of the information I was able to gather is as mentioned above. PHYSICAL EXAMINATION: VITAL SIGNS: Temperature 98 degrees, blood pressure 94/60, pulse 86, and respirations 18. HEENT: Mild pale conjunctivae. No icterus. NECK: No lymphadenopathy. CHEST: Coarse breathing sounds. HEART: S1 and S2. ABDOMEN: Soft and nontender. EXTREMITIES: No cyanosis at this time. NEUROLOGIC: Awake and alert. LABORATORY AND DIAGNOSTIC DATA: White blood cells 14.2, hemoglobin 12, and platelets 226,000. UA from a week ago shows too numerous red blood cells, too numerous to count white blood cells. BUN 14, creatinine 0.8. ALT, AST, and alkaline phosphatase are unremarkable. ASSESSMENT: 1. The patient is an 81-year-old female, who was admitted to this medical center due to shortness of breath and progression of the infiltrates, multiple pneumonia. 2. Sepsis. 3. Leukocytosis. PLAN: 1. We will continue the patient on IV vancomycin, meropenem, Levaquin, day #10/15. 2. Monitor CBC. 3. Monitor BMP. 4. Monitor cultures (sputum and blood). 5. Monitor chest x-ray. 6. Continue ventilator support. 7. Based on the patient's clinical course and laboratories, we will defer recommendation. Thank you, Dr. Call, for allowing me to participate in the care of this patient. I will follow the patient with you during this hospitalization. Rahat Jensen M.D. DR: Georgina JOB#: [id number] CC:
[2017-04-02] MEDS ORDERED: Meropenem 1gm vial ONE (05:10)
[2017-04-02] MEDS: Metoprolol 5mg/5ml Inj IVPB SCH ×3 (06:00→21:42)
[2017-04-02] MEDS: Meropenem 1 GM in NS 110 ML IVPB SCH ×3 (06:02→21:39)
[2017-04-02] MEDS: Levothyroxine 25mcg tab ORAL SCH (06:02)
[2017-04-02 07:42] LABS: BASOPHILS % (AUTO) 0.9 % (0.0-2.0); LYMPHOCYTES % (AUTO) 5.6 % (20.0-45.0); MEAN CORPUSCULAR HEMOGLOBIN 32.1 PG (27.0-31.0); MEAN CORPUSCULAR HGB CONC 31.4 G/DL (32.0-36.0); MEAN CORPUSCULAR VOLUME 102 FL (80-99); MEAN PLATELET VOLUME 8.8 FL (6.5-10.1); NEUTROPHILS % (AUTO) 81.5 % (45.0-75.0); PLATELET COUNT 215 K/UL (150-450); RED BLOOD COUNT 4.08 M/UL (4.20-5.40); RED CELL DISTRIBUTION WIDTH 13.8 % (11.6-14.8); WHITE BLOOD COUNT 10.7 K/UL (4.8-10.8)
--- NOTE | 2017-04-02 08:01 | Infectious Diseases Prog Note ---
Assessment/Plan Assessment/Plan ASSESSMENT: 81 y/o female with: Multilobar PNA - SCx, UAgs pending - CXR 03/31: Increasing RUL infiltrate, consistent with pneumonia. Increasing ZENA reticulonodular disease, may indicate developing infiltrates. Persistent nonspecific RLL interstitial disease Sepsis Leukocytosis, afebrile - repeat CBC pending hx of UTI UCx : P.stuartii Acute hypoxic respiratory failure / BiPAP--> high flow oxygen Lethargy ?hypercarbia Afib/flutter CHF hypothyroidism ID resident NKDA Full Code PLAN: continue empiric IV Vanco , Merrem and Levaquin d# 2 / 7 ( 03/29 SP Cefepime and Vanco d# 6 ) check ABG f/u cultures, UAgs Monitor CBC, temperatures Monitor BMP Monitor Cxray BiPAP prn Subjective Allergies: Coded Allergies: No Known Allergies (Unverified , 03/23/17) Subjective remains afebrile on high flow O2 Objective Vital Signs Last 24 Hour Vital Signs Date Time Temp Pulse Resp B/P Pulse Ox O2 Delivery O2 Flow Rate FiO2 04/02/17 07:24 86 26 Non-Rebreather 100 04/02/17 07:24 Non-Rebreather 100 04/02/17 06:03 85 98/47 04/02/17 06:00 81 98/46 04/02/17 06:00 83 20 101/53 98 Non-Rebreather 100 04/02/17 05:00 80 20 98/47 95 Non-Rebreather 100 04/02/17 04:00 98.4 84 20 110/55 95 Non-Rebreather 100 04/02/17 04:00 94 04/02/17 03:00 83 22 107/49 100 Non-Rebreather 100 04/02/17 02:00 75 20 107/49 94 Bi-pap 4.0 50 04/02/17 01:09 79 20 97 Facial 50 04/02/17 01:00 90 20 96/62 98 Bi-pap 50 04/02/17 00:00 50 04/02/17 00:00 92 04/02/17 00:00 98.4 95 20 110/76 98 Bi-pap 50 04/01/17 23:59 95 109/59 04/01/17 23:01 88 20 98 Facial 50 04/01/17 23:00 97 20 109/59 99 Bi-pap 50 04/01/17 22:19 92 105/66 04/01/17 22:00 92 20 108/66 99 Nasal Cannula 4.0 04/01/17 21:00 92 20 117/74 99 Bi-pap 50 04/01/17 20:51 85 20 98 Facial 50 04/01/17 20:00 50 04/01/17 20:00 93 04/01/17 20:00 98.0 98 20 94/60 99 Bi-pap 50 04/01/17 19:32 96 26 96 Facial 50 04/01/17 19:30 Bi-pap 50 04/01/17 19:29 92 28 Nasal Cannula 4.0 36 04/01/17 19:00 98 20 94/62 99 Nasal Cannula 4.0 04/01/17 18:03 83 110/62 04/01/17 18:00 88 20 110/62 99 Nasal Cannula 4.0 04/01/17 17:00 84 20 102/57 99 Nasal Cannula 4.0 04/01/17 16:00 98.0 87 20 90/62 99 Nasal Cannula 4.0 04/01/17 15:00 85 20 91/58 99 Bi-pap 50 04/01/17 14:20 04/01/17 14:01 80 113/71 04/01/17 14:00 71 20 91/59 99 Bi-pap 50 04/01/17 13:21 90 04/01/17 13:20 98.1 81 17 104/66 98 Non-Rebreather 100 04/01/17 13:19 92 21 100 Facial 50 04/01/17 12:04 50 04/01/17 12:00 96 04/01/17 11:56 97 04/01/17 10:30 102 20 96 Facial 80 04/01/17 08:51 122 26 97 Nasal Cannula 4.0 04/01/17 08:40 118 26 94 Nasal Cannula 4.0 04/01/17 08:00 124 04/01/17 08:00 98.2 123 17 99/54 98 Room Air 04/01/17 07:55 118 26 Nasal Cannula 4.0 Height (Feet): 5 Height (Inches): 5.00 Weight (Pounds): 160 General Appearance: no acute distress Respiratory/Chest: decreased breath sounds Cardiovascular: normal rate, regular rhythm Abdomen: normal bowel sounds, soft, non tender, non distended Microbiology Date/Time Source Procedure Growth Status 03/31/17 16:55 Blood Blood Culture - Preliminary NO GROWTH AFTER 24 HOURS Resulted 03/31/17 16:40 Blood Blood Culture - Preliminary NO GROWTH AFTER 24 HOURS Resulted Laboratory Tests Test 04/01/17 11:45 04/01/17 11:50 04/02/17 04:29 Prothrombin Time 38.1 SEC (9.30-11.50) H Prothromb Time International Ratio 3.6 (0.9-1.1) H Arterial Blood pH 7.319 (7.350-7.450) Arterial Blood Partial Pressure CO2 63.5 mmHg (35.0-45.0) *H Arterial Blood Partial Pressure O2 92.3 mmHg (75.0-100.0) Arterial Blood HCO3 31.9 mmol/L (22.0-26.0) H Arterial Blood Oxygen Saturation 96.5 % (92.0-98.0) Arterial Blood Base Excess 4.0 Tee Test Positive White Blood Count Pending Red Blood Count Pending Hemoglobin Pending Hematocrit Pending Mean Corpuscular Volume Pending Mean Corpuscular Hemoglobin Pending Mean Corpuscular Hemoglobin Concent Pending Red Cell Distribution Width Pending Platelet Count Pending Mean Platelet Volume Pending Neutrophils (%) (Auto) Pending Lymphocytes (%) (Auto) Pending Monocytes (%) (Auto) Pending Eosinophils (%) (Auto) Pending Basophils (%) (Auto) Pending Sodium Level Pending Potassium Level Pending Chloride Level Pending Carbon Dioxide Level Pending Blood Urea Nitrogen Pending Creatinine Pending Estimat Glomerular Filtration Rate Pending Glucose Level Pending Calcium Level Pending Phosphorus Level Pending Magnesium Level Pending Total Bilirubin Pending Aspartate Amino Transf (AST/SGOT) Pending Alanine Aminotransferase (ALT/SGPT) Pending Alkaline Phosphatase Pending Total Protein Pending Albumin Pending Globulin Pending Current Medications Medications (Trade) Dose Ordered Sig/Rita Route PRN Reason Start Time Stop Time Status Last Admin Dose Admin Acetaminophen (Tylenol) 650 mg Q4H PRN ORAL FEVER 04/01/17 15:00 05/01/17 14:59 Albuterol/ Ipratropium (DuoNeb 0.5-3(2.5)mg/3ml) 3 ml BIDPRN PRN HHN Shortness of Breath 04/01/17 15:00 04/06/17 14:59 Amiodarone HCl (Cordarone) 200 mg EVERY 12 HOURS ORAL 04/01/17 21:00 05/01/17 20:59 04/01/17 20:55 Dextrose (Dextrose 50%) STAT PRN IV Hypoglycemia 04/01/17 15:00 05/01/17 14:59 Diltiazem HCl (Cardizem) 30 mg EVERY 6 HOURS ORAL 04/01/17 18:00 05/01/17 17:59 04/02/17 06:03 Heparin Sodium (Porcine) (Heparin 5000 units/ml) 5,000 units EVERY 12 HOURS SUBQ 04/01/17 21:00 05/01/17 20:59 04/01/17 20:59 Levofloxacin 150 ml @ 100 mls/hr Q24H IVPB 04/01/17 22:30 04/08/17 22:29 04/01/17 22:30 Levothyroxine Sodium (Synthroid) 25 mcg ACBREAKFAST ORAL 04/02/17 06:30 05/02/17 06:29 04/02/17 06:02 Lorazepam (Ativan 2mg/ml 1ml) 2 mg Q2H PRN IV For Anxiety 04/01/17 15:00 04/08/17 14:59 Meropenem/Sodium Chloride (Merrem/Sodium Chloride) 110 ml @ 220 mls/hr Q8HR IVPB 04/01/17 22:30 04/06/17 22:29 04/02/17 06:02 Metoprolol Tartrate (Lopressor) 2.5 mg EVERY 8 HOURS IVPB 04/01/17 22:00 05/01/17 21:59 04/02/17 06:00 Morphine Sulfate (Morphine Sulfate) 4 mg Q4H PRN IVP Severe Pain (Pain Scale 7-10) 04/01/17 15:00 04/08/17 14:59 Ondansetron HCl (Zofran) 4 mg Q6H PRN IVP Nausea & Vomiting 04/01/17 15:00 05/01/17 14:59 Polyethylene Glycol (Miralax) 17 gm DAILYPRN PRN ORAL Constipation 04/01/17 15:00 05/01/17 14:59 Sodium Chloride 1,000 ml @ 50 mls/hr Q20H IV 04/01/17 15:00 05/01/17 14:59 04/01/17 16:46 Vancomycin HCl 1 ea 1 ea DAILY PRN MISC PER RX PROTOCOL 04/01/17 19:30 05/01/17 19:29 Vancomycin HCl/ Dextrose (Vancomycin/D5W) 275 ml @ 183.3 mls/ hr Q24H IVPB 04/01/17 18:00 04/06/17 17:59 04/01/17 18:03 JULIA HILL Apr 02, 2017 08:01
[2017-04-02 08:02] LABS: ALANINE AMINOTRANSFERASE 5 U/L (3-33); ALBUMIN/GLOBULIN RATIO 0.5 (1.0-2.7); ANION GAP 12 (5-15); ASPARTATE AMINO TRANSFERASE 13 U/L (5-40); CALCIUM 8.6 mg/dL (8.6-10.2); CARBON DIOXIDE 28 mEQ/L (20-30); CHLORIDE 96 mEQ/L (98-107); CREATININE 0.6 mg/dL (0.5-0.9); HEMOLYSIS 4; MAGNESIUM 1.6 mg/dL (1.7-2.5); PHOSPHORUS 2.7 mg/dL (2.5-4.8); POTASSIUM 3.8 mEQ/L (3.4-4.9); SODIUM 136 mEQ/L (135-145)
[2017-04-02 08:39] LABS: ABG ALLEN TEST POSITIVE; ABG BASE EXCESS -6.8
[2017-04-02] MEDS: Heparin 5000 units/ml inj SUBQ SCH ×2 (08:41→20:42)
[2017-04-02] MEDS: Amiodarone 200mg tab ORAL SCH ×2 (08:43→20:40)
[2017-04-02] MEDS ORDERED: Tubing IV Secondary IV ONE ×2 (09:37→10:04)
[2017-04-02] MEDS ORDERED: 1/2 NS 1000ml IV ONE ×2 (09:37→10:04)
--- NOTE | 2017-04-02 10:51 | Diagnostic Imaging Report ---
Indications: DYSPNEA Technique: Portable AP chest Findings: Comparison: 03/31/17 Right upper lobe consolidative opacity persists. Increased interstitial markings persist in both lower lungs. Discrete curvilinear density interface has developed over the left hilar and infrahilar regions. Mild blunting of the costophrenic angles persists. IMPRESSION: Stable right upper lobe opacity compatible with but not specific for pneumonia Stable nonspecific bibasal interstitial disease/infiltrates Small bibasal pleural effusions not excludable Development of left hilar/infrahilar density interface may represent atelectasis
[2017-04-02] MEDS ORDERED: DuoNeb 0.5-3(2.5)mg/3ml neb HHN PRN (12:00)
--- NOTE | 2017-04-02 12:01 | Pulmonolgy Critical Care Note ---
Critical Care - Asmt/Plan Problems: (1) Acute encephalopathy (2) Sepsis (3) Pneumonia (4) Lung mass (5) Aspiration pneumonia (6) Atrial fibrillation Respiratory: monitor respiratory rate, adjust FIO2, CXR Cardiac: continue to monitor HR/BP Renal: F/U I&O, keep IV fluid Infectious Disease: check cultures Gastrointestinal: continue feedings/current rate Endocrine: monitor blood sugar Neurologic: PRN Ativan Affect: PRN ativan Prophylaxis: Protonix, Heparin Notes Reviewed: ID Discussed with: nurses, consultants, pillowcase cleanerresource efficiency manager - Objective Last 24 Hour Vital Signs Date Time Temp Pulse Resp B/P Pulse Ox O2 Delivery O2 Flow Rate FiO2 04/02/17 11:23 84 21 98 Facial 50 04/02/17 11:00 83 17 100/79 99 Non-Rebreather 100 04/02/17 10:00 64 23 91/54 98 Non-Rebreather 100 04/02/17 09:13 92 21 97 Facial 50 04/02/17 09:10 50 04/02/17 09:00 86 23 91/42 98 Non-Rebreather 100 04/02/17 08:00 98.2 88 20 88/40 98 Non-Rebreather 100 04/02/17 08:00 88 04/02/17 07:24 86 26 Non-Rebreather 100 04/02/17 07:24 Non-Rebreather 100 04/02/17 07:00 86 20 90/48 98 Non-Rebreather 100 04/02/17 06:03 85 98/47 04/02/17 06:00 81 98/46 04/02/17 06:00 83 20 101/53 98 Non-Rebreather 100 04/02/17 05:00 80 20 98/47 95 Non-Rebreather 100 04/02/17 04:00 98.4 84 20 110/55 95 Non-Rebreather 100 04/02/17 04:00 94 04/02/17 03:00 83 22 107/49 100 Non-Rebreather 100 04/02/17 02:00 75 20 107/49 94 Bi-pap 4.0 50 04/02/17 01:09 79 20 97 Facial 50 04/02/17 01:00 90 20 96/62 98 Bi-pap 50 04/02/17 00:00 50 04/02/17 00:00 92 04/02/17 00:00 98.4 95 20 110/76 98 Bi-pap 50 04/01/17 23:59 95 109/59 04/01/17 23:01 88 20 98 Facial 50 04/01/17 23:00 97 20 109/59 99 Bi-pap 50 04/01/17 22:19 92 105/66 04/01/17 22:00 92 20 108/66 99 Nasal Cannula 4.0 04/01/17 21:00 92 20 117/74 99 Bi-pap 50 04/01/17 20:51 85 20 98 Facial 50 04/01/17 20:00 50 04/01/17 20:00 93 04/01/17 20:00 98.0 98 20 94/60 99 Bi-pap 50 04/01/17 19:32 96 26 96 Facial 50 04/01/17 19:30 Bi-pap 50 04/01/17 19:29 92 28 Nasal Cannula 4.0 36 04/01/17 19:00 98 20 94/62 99 Nasal Cannula 4.0 04/01/17 18:03 83 110/62 04/01/17 18:00 88 20 110/62 99 Nasal Cannula 4.0 04/01/17 17:00 84 20 102/57 99 Nasal Cannula 4.0 04/01/17 16:00 98.0 87 20 90/62 99 Nasal Cannula 4.0 04/01/17 15:00 85 20 91/58 99 Bi-pap 50 04/01/17 14:20 04/01/17 14:01 80 113/71 04/01/17 14:00 71 20 91/59 99 Bi-pap 50 04/01/17 13:21 90 04/01/17 13:20 98.1 81 17 104/66 98 Non-Rebreather 100 04/01/17 13:19 92 21 100 Facial 50 04/01/17 12:04 50 Status: awake Condition: critical HEENT: atraumatic Neck: full ROM Lungs: clear Heart: HR/BP stable, HR/BP unstable Abdomen: soft, active bowel sounds, feeding tube Extremities: no C/C/E Decubiti: location, stage Micro: Microbiology Date/Time Source Procedure Growth Status 03/31/17 16:55 Blood Blood Culture - Preliminary NO GROWTH AFTER 24 HOURS Resulted 03/31/17 16:40 Blood Blood Culture - Preliminary NO GROWTH AFTER 24 HOURS Resulted Critical Care - Subjective ROS Limited/Unobtainable: Yes ICU Day: 2 Intubation Day: on bipap Interval Events: couldn't tolerate off bipap FI02: 50 Sputum Amount: None I&O: Intake and Output 04/01/17 04/02/17 19:00 07:00 Intake Total 125 ml 920 ml Balance 125 ml 920 ml Intake Oral 0 ml 0 ml IV Total 125 ml 920 ml # Voids 180 530 CXR: no change Labs: Laboratory Tests Test 04/02/17 04:29 04/02/17 08:04 White Blood Count 10.7 K/UL (4.8-10.8) Red Blood Count 4.08 M/UL (4.20-5.40) L Hemoglobin 13.1 G/DL (12.0-16.0) Hematocrit 41.8 % (37.0-47.0) Mean Corpuscular Volume 102 FL (80-99) H Mean Corpuscular Hemoglobin 32.1 PG (27.0-31.0) H Mean Corpuscular Hemoglobin Concent 31.4 G/DL (32.0-36.0) L Red Cell Distribution Width 13.8 % (11.6-14.8) Platelet Count 215 K/UL (150-450) Mean Platelet Volume 8.8 FL (6.5-10.1) Neutrophils (%) (Auto) 81.5 % (45.0-75.0) H Lymphocytes (%) (Auto) 5.6 % (20.0-45.0) L Monocytes (%) (Auto) 10.0 % (1.0-10.0) Eosinophils (%) (Auto) 2.0 % (0.0-3.0) Basophils (%) (Auto) 0.9 % (0.0-2.0) Sodium Level 136 mEQ/L (135-145) Potassium Level 3.8 mEQ/L (3.4-4.9) Chloride Level 96 mEQ/L (98-107) L Carbon Dioxide Level 28 mEQ/L (20-30) Anion Gap 12 (5-15) Blood Urea Nitrogen 13 mg/dL (7-23) Creatinine 0.6 mg/dL (0.5-0.9) Estimat Glomerular Filtration Rate mL/min (>60) Glucose Level 75 mg/dL (74-106) Calcium Level 8.6 mg/dL (8.6-10.2) Phosphorus Level 2.7 mg/dL (2.5-4.8) Magnesium Level 1.6 mg/dL (1.7-2.5) L Total Bilirubin 0.5 mg/dL (0.0-1.2) Aspartate Amino Transf (AST/SGOT) 13 U/L (5-40) Alanine Aminotransferase (ALT/SGPT) 5 U/L (3-33) Alkaline Phosphatase 68 U/L (35-104) Total Protein 6.0 g/dL (6.6-8.7) L Albumin 2.1 g/dL (3.5-5.2) L Globulin 3.9 g/dL Albumin/Globulin Ratio 0.5 (1.0-2.7) L Arterial Blood pH 7.310 (7.350-7.450) Arterial Blood Partial Pressure CO2 39.0 mmHg (35.0-45.0) Arterial Blood Partial Pressure O2 58.2 mmHg (75.0-100.0) L Arterial Blood HCO3 19.0 mmol/L (22.0-26.0) L Arterial Blood Oxygen Saturation 89.0 % (92.0-98.0) L Arterial Blood Base Excess -6.8 Tee Test Positive LIU HYDE Apr 02, 2017 12:01
[2017-04-02] MEDS: Vancomycin 1 GM in D5W 275 ML IVPB SCH (17:21)
[2017-04-02] MEDS ORDERED: D5 1/2NS 1000ml IV ONE (18:50)
[2017-04-03] VITALS (24 sets, daily range): BP systolic 88–116; BP diastolic 39–94
[2017-04-03] MEDS: Meropenem 1 GM in NS 110 ML IVPB SCH ×2 (05:38→17:37)
[2017-04-03] MEDS: Metoprolol 5mg/5ml Inj IVPB SCH ×2 (05:53→13:36)
[2017-04-03] MEDS: Levothyroxine 25mcg tab ORAL SCH (05:54)
[2017-04-03 06:13] LABS: BASOPHILS % (AUTO) 1.1 % (0.0-2.0); EOSINOPHILS % (AUTO) 3.3 % (0.0-3.0); LYMPHOCYTES % (AUTO) 5.5 % (20.0-45.0); MEAN CORPUSCULAR HEMOGLOBIN 32.8 PG (27.0-31.0); MEAN CORPUSCULAR HGB CONC 32.3 G/DL (32.0-36.0); MEAN CORPUSCULAR VOLUME 102 FL (80-99); MEAN PLATELET VOLUME 8.2 FL (6.5-10.1); MONOCYTES % (AUTO) 9.2 % (1.0-10.0); NEUTROPHILS % (AUTO) 80.9 % (45.0-75.0); PLATELET COUNT 234 K/UL (150-450); RED BLOOD COUNT 4.12 M/UL (4.20-5.40); RED CELL DISTRIBUTION WIDTH 13.6 % (11.6-14.8); WHITE BLOOD COUNT 10.2 K/UL (4.8-10.8)
[2017-04-03 06:30] LABS: ALANINE AMINOTRANSFERASE 6 U/L (3-33); ALBUMIN/GLOBULIN RATIO 0.5 (1.0-2.7); ANION GAP 15 (5-15); ASPARTATE AMINO TRANSFERASE 16 U/L (5-40); CALCIUM 8.7 mg/dL (8.6-10.2); CARBON DIOXIDE 26 mEQ/L (20-30); CHLORIDE 93 mEQ/L (98-107); CREATININE 0.5 mg/dL (0.5-0.9); HEMOLYSIS 3; POTASSIUM 3.7 mEQ/L (3.4-4.9); SODIUM 134 mEQ/L (135-145)
[2017-04-03] MEDS: Amiodarone 200mg tab ORAL SCH (08:57)
[2017-04-03] MEDS: Heparin 5000 units/ml inj SUBQ SCH ×2 (09:02→21:07)
--- NOTE | 2017-04-03 11:10 | Pulmonolgy Critical Care Note ---
Critical Care - Asmt/Plan Problems: (1) Acute encephalopathy (2) Sepsis (3) Pneumonia (4) Lung mass (5) Aspiration pneumonia (6) Atrial fibrillation Respiratory: monitor respiratory rate, adjust FIO2, CXR Cardiac: continue to monitor HR/BP Renal: F/U I&O, keep IV fluid Infectious Disease: check cultures, continue antibiotics - meropenem, amikacin and levofloxancin Gastrointestinal: hold feedings Endocrine: monitor blood sugar, continue sliding scale insulin Hematologic: monitor H/H, transfuse if hgb<8.5 Neurologic: PRN Ativan, PRN Morphine Affect: PRN ativan Disposition: keep in ICU Notes Reviewed: raisin washer Discussed with: nurses, consultants, continuous pillowcase cuttermanager filter - Objective Last 24 Hour Vital Signs Date Time Temp Pulse Resp B/P Pulse Ox O2 Delivery O2 Flow Rate FiO2 04/03/17 10:00 97.2 104 23 99/63 94 100 04/03/17 09:00 87 21 109/84 95 100 04/03/17 08:00 87 20 105/63 95 100 04/03/17 08:00 87 04/03/17 07:12 100 Non-Rebreather 15.0 100 04/03/17 07:12 Non-Rebreather 15.0 100 04/03/17 07:11 69 22 Non-Rebreather 100 04/03/17 07:00 70 22 101/65 99 Non-Rebreather 99 04/03/17 06:00 84 21 93/39 97 Non-Rebreather 100 04/03/17 05:53 94 94/40 04/03/17 05:40 84 94/40 04/03/17 05:00 98.0 80 22 95/56 97 Non-Rebreather 100 04/03/17 04:08 64 21 99/54 97 Non-Rebreather 100 04/03/17 04:00 85 04/03/17 04:00 85 23 103/80 93 Non-Rebreather 100 04/03/17 03:00 83 21 90/62 97 Non-Rebreather 100 04/03/17 02:00 64 21 99/54 97 Non-Rebreather 100 04/03/17 01:00 83 21 106/69 97 Non-Rebreather 100 04/03/17 00:23 84 116/94 04/03/17 00:00 98.0 79 21 115/94 100 Non-Rebreather 100 04/03/17 00:00 71 04/02/17 23:00 62 22 106/50 100 Non-Rebreather 100 04/02/17 22:00 79 22 103/62 96 Non-Rebreather 100 04/02/17 21:42 89 99/55 04/02/17 21:00 70 22 100/54 99 Non-Rebreather 100 04/02/17 20:00 98.4 68 22 99/55 100 Non-Rebreather 100 04/02/17 20:00 69 04/02/17 19:55 96 24 Non-Rebreather 100 04/02/17 19:55 Non-Rebreather 15.0 100 04/02/17 19:00 63 15 106/48 99 Non-Rebreather 100 04/02/17 18:00 83 18 92/53 99 Non-Rebreather 100 04/02/17 17:31 82 103/41 04/02/17 17:00 86 18 115/56 99 Non-Rebreather 100 04/02/17 16:00 63 04/02/17 16:00 98.2 83 18 99/57 99 Non-Rebreather 100 04/02/17 15:00 65 15 102/58 99 Non-Rebreather 100 04/02/17 14:00 62 18 90/51 99 Non-Rebreather 100 04/02/17 13:52 75 92/44 04/02/17 13:29 87 25 94 04/02/17 13:00 76 18 92/44 99 Non-Rebreather 100 04/02/17 12:29 92 118/70 04/02/17 12:00 98.3 86 17 118/67 99 Bi-pap 50 04/02/17 12:00 50 04/02/17 12:00 86 04/02/17 11:23 84 21 98 Facial 50 Status: sedated Condition: critical HEENT: atraumatic Neck: full ROM Lungs: clear Heart: HR/BP stable, HR/BP unstable Abdomen: soft, non-tender, feeding tube Extremities: no C/C/E, edema Decubiti: stage Micro: Microbiology Date/Time Source Procedure Growth Status 03/31/17 16:55 Blood Blood Culture - Preliminary NO GROWTH AFTER 48 HOURS Resulted 03/31/17 16:40 Blood Blood Culture - Preliminary NO GROWTH AFTER 48 HOURS Resulted Critical Care - Subjective ROS Limited/Unobtainable: Yes ICU Day: 3 Intubation Day: on and off biapap Condition: critical EKG Rhythm: Atrial Fibrillation FI02: 100 Sputum Amount: None I&O: Intake and Output 04/02/17 04/03/17 19:00 07:00 Intake Total 1536.6 ml 870 ml Balance 1536.6 ml 870 ml Intake Oral 250 ml 50 ml IV Total 1286.6 ml 820 ml # Voids 435 470 CXR: increasing infiltrate Labs: Laboratory Tests Test 04/03/17 05:10 White Blood Count 10.2 K/UL (4.8-10.8) Red Blood Count 4.12 M/UL (4.20-5.40) L Hemoglobin 13.5 G/DL (12.0-16.0) Hematocrit 41.9 % (37.0-47.0) Mean Corpuscular Volume 102 FL (80-99) H Mean Corpuscular Hemoglobin 32.8 PG (27.0-31.0) H Mean Corpuscular Hemoglobin Concent 32.3 G/DL (32.0-36.0) Red Cell Distribution Width 13.6 % (11.6-14.8) Platelet Count 234 K/UL (150-450) Mean Platelet Volume 8.2 FL (6.5-10.1) Neutrophils (%) (Auto) 80.9 % (45.0-75.0) H Lymphocytes (%) (Auto) 5.5 % (20.0-45.0) L Monocytes (%) (Auto) 9.2 % (1.0-10.0) Eosinophils (%) (Auto) 3.3 % (0.0-3.0) H Basophils (%) (Auto) 1.1 % (0.0-2.0) Sodium Level 134 mEQ/L (135-145) L Potassium Level 3.7 mEQ/L (3.4-4.9) Chloride Level 93 mEQ/L (98-107) L Carbon Dioxide Level 26 mEQ/L (20-30) Anion Gap 15 (5-15) Blood Urea Nitrogen 12 mg/dL (7-23) Creatinine 0.5 mg/dL (0.5-0.9) Estimat Glomerular Filtration Rate mL/min (>60) Glucose Level 84 mg/dL (74-106) Calcium Level 8.7 mg/dL (8.6-10.2) Total Bilirubin 0.5 mg/dL (0.0-1.2) Aspartate Amino Transf (AST/SGOT) 16 U/L (5-40) Alanine Aminotransferase (ALT/SGPT) 6 U/L (3-33) Alkaline Phosphatase 75 U/L (35-104) Pro-B-Type Natriuretic Peptide 5226 pg/mL (0-450) H Total Protein 6.0 g/dL (6.6-8.7) L Albumin 2.0 g/dL (3.5-5.2) L Globulin 4.0 g/dL Albumin/Globulin Ratio 0.5 (1.0-2.7) L LIU HYDE Apr 03, 2017 11:10
--- NOTE | 2017-04-03 11:28 | Diagnostic Imaging Report ---
Indication: DYSPNEA Technique: One view of the chest Comparison: 6] 17 Findings: Right upper lobe infiltrate persists. There is increasing infiltrate in the right lower lobe. There is suggestion of small right pleural effusion, stable. There is evidence of new or increased pleural fluid on the left, as well as increasing left basilar interstitial disease. Left upper lung remains clear. Left shoulder hardware is again demonstrated Impression: Increased infiltrate at the right lung base Increased left pleural effusion, over one day Possibly increased interstitial infiltrates at the left lung base as well. Other findings as noted
[2017-04-03] MEDS: METOPROLOL TARTRATE IVPB SCH ×2 (13:34→22:00)
[2017-04-03] MEDS: NS IVPB SCH ×2 (13:34→22:00)
[2017-04-03] MEDS ORDERED: 1/2 NS 1000ml IV ONE (13:49)
[2017-04-03] MEDS: Vancomycin 1 GM in D5W 275 ML IVPB SCH (18:03)
--- NOTE | 2017-04-03 20:19 | Cardiology Report ---
APPROVED REPORT EKG Measurement Heart [id number] Atrial fibrillation Nonspecific T wave abnormality Abnormal ECG
--- NOTE | 2017-04-03 20:32 | Cardiology Progress Note ---
Assessment/Plan Status: not improved, unchanged Status Narrative Extensive R lung infiltrate - ? aspiration pneumonia, ? malignancy, ? amiodarone pulm toxicity ? baseline COPD Permanent AF Assessment/Plan Continue diltiazem for rate control. ? anticoagulation. Will dc amiodarone as appears that pt in permanent AF and has b eleuterio component - may inc bronchospasm. continue iv abx, respir rx , suppl o2 per Dr. Call Subjective ROS Limited/Unobtainable: Yes Subjective Pt on nrb mask oxygen. awake/confused, unable to give much hx. Objective Last 24 Hour Vital Signs Date Time Temp Pulse Resp B/P Pulse Ox O2 Delivery O2 Flow Rate FiO2 04/03/17 18:15 92 90/67 04/03/17 18:00 23 101/48 100 100 04/03/17 16:00 97.2 26 90/67 94 100 04/03/17 16:00 92 04/03/17 15:00 22 112/65 98 100 04/03/17 14:01 23 101/63 93 100 04/03/17 13:36 95 95/68 04/03/17 13:34 95 95/68 04/03/17 13:00 24 104/65 95 100 04/03/17 12:00 21 116/83 94 100 04/03/17 12:00 95 04/03/17 12:00 95 95/68 04/03/17 11:00 97.2 95 24 95/68 95 100 04/03/17 10:00 97.2 104 23 99/63 94 100 04/03/17 09:00 87 21 109/84 95 100 04/03/17 08:00 87 20 105/63 95 100 04/03/17 08:00 87 04/03/17 07:12 100 Non-Rebreather 15.0 100 04/03/17 07:12 Non-Rebreather 15.0 100 04/03/17 07:11 69 22 Non-Rebreather 100 04/03/17 07:00 70 22 101/65 99 Non-Rebreather 99 04/03/17 06:00 84 21 93/39 97 Non-Rebreather 100 04/03/17 05:53 94 94/40 04/03/17 05:40 84 94/40 04/03/17 05:00 98.0 80 22 95/56 97 Non-Rebreather 100 04/03/17 04:08 64 21 99/54 97 Non-Rebreather 100 04/03/17 04:00 85 04/03/17 04:00 85 23 103/80 93 Non-Rebreather 100 04/03/17 03:00 83 21 90/62 97 Non-Rebreather 100 04/03/17 02:00 64 21 99/54 97 Non-Rebreather 100 04/03/17 01:00 83 21 106/69 97 Non-Rebreather 100 04/03/17 00:23 84 116/94 04/03/17 00:00 98.0 79 21 115/94 100 Non-Rebreather 100 04/03/17 00:00 71 04/02/17 23:00 62 22 106/50 100 Non-Rebreather 100 04/02/17 22:00 79 22 103/62 96 Non-Rebreather 100 04/02/17 21:42 89 99/55 04/02/17 21:00 70 22 100/54 99 Non-Rebreather 100 General Appearance: WD/WN, no apparent distress, alert EENT: PERRL/EOMI Neck: no JVD Rhythm: Afib Cardiovascular: normal rate, no gallop/murmur, irregularly irregular Respiratory/Chest: other - dec BS bilat. few expir wheezes bilat Abdomen: normal bowel sounds, soft Extremities: no swelling Intake and Output 04/02/17 04/03/17 19:00 07:00 Intake Total 1536.6 ml 920 ml Balance 1536.6 ml 920 ml Intake Oral 250 ml 50 ml IV Total 1286.6 ml 870 ml # Voids 435 470 Laboratory Tests Test 04/03/17 05:10 04/03/17 17:00 White Blood Count 10.2 K/UL (4.8-10.8) Red Blood Count 4.12 M/UL (4.20-5.40) L Hemoglobin 13.5 G/DL (12.0-16.0) Hematocrit 41.9 % (37.0-47.0) Mean Corpuscular Volume 102 FL (80-99) H Mean Corpuscular Hemoglobin 32.8 PG (27.0-31.0) H Mean Corpuscular Hemoglobin Concent 32.3 G/DL (32.0-36.0) Red Cell Distribution Width 13.6 % (11.6-14.8) Platelet Count 234 K/UL (150-450) Mean Platelet Volume 8.2 FL (6.5-10.1) Neutrophils (%) (Auto) 80.9 % (45.0-75.0) H Lymphocytes (%) (Auto) 5.5 % (20.0-45.0) L Monocytes (%) (Auto) 9.2 % (1.0-10.0) Eosinophils (%) (Auto) 3.3 % (0.0-3.0) H Basophils (%) (Auto) 1.1 % (0.0-2.0) Sodium Level 134 mEQ/L (135-145) L Potassium Level 3.7 mEQ/L (3.4-4.9) Chloride Level 93 mEQ/L (98-107) L Carbon Dioxide Level 26 mEQ/L (20-30) Anion Gap 15 (5-15) Blood Urea Nitrogen 12 mg/dL (7-23) Creatinine 0.5 mg/dL (0.5-0.9) Estimat Glomerular Filtration Rate mL/min (>60) Glucose Level 84 mg/dL (74-106) Calcium Level 8.7 mg/dL (8.6-10.2) Total Bilirubin 0.5 mg/dL (0.0-1.2) Aspartate Amino Transf (AST/SGOT) 16 U/L (5-40) Alanine Aminotransferase (ALT/SGPT) 6 U/L (3-33) Alkaline Phosphatase 75 U/L (35-104) Pro-B-Type Natriuretic Peptide 5226 pg/mL (0-450) H Total Protein 6.0 g/dL (6.6-8.7) L Albumin 2.0 g/dL (3.5-5.2) L Globulin 4.0 g/dL Albumin/Globulin Ratio 0.5 (1.0-2.7) L Vancomycin Level Trough 15.0 ug/mL (5.0-12.0) H KERRIE DAWSON Apr 03, 2017 20:32
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
[2017-04-04] VITALS (24 sets, daily range): BP systolic 85–127; BP diastolic 37–84
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
[2017-04-04 05:12] LABS: BASOPHILS % (AUTO) 0.7 % (0.0-2.0); EOSINOPHILS % (AUTO) 2.6 % (0.0-3.0); LYMPHOCYTES % (AUTO) 6.7 % (20.0-45.0); MEAN CORPUSCULAR HEMOGLOBIN 31.7 PG (27.0-31.0); MEAN CORPUSCULAR HGB CONC 31.3 G/DL (32.0-36.0); MEAN CORPUSCULAR VOLUME 102 FL (80-99); MEAN PLATELET VOLUME 8.7 FL (6.5-10.1); MONOCYTES % (AUTO) 9.4 % (1.0-10.0); NEUTROPHILS % (AUTO) 80.6 % (45.0-75.0); PLATELET COUNT 235 K/UL (150-450); RED BLOOD COUNT 4.08 M/UL (4.20-5.40); RED CELL DISTRIBUTION WIDTH 13.6 % (11.6-14.8); WHITE BLOOD COUNT 9.2 K/UL (4.8-10.8)
[2017-04-04 05:36] LABS: ALANINE AMINOTRANSFERASE 6 U/L (3-33); ALBUMIN/GLOBULIN RATIO 0.4 (1.0-2.7); ANION GAP 14 (5-15); ASPARTATE AMINO TRANSFERASE 15 U/L (5-40); CALCIUM 8.6 mg/dL (8.6-10.2); CARBON DIOXIDE 25 mEQ/L (20-30); CHLORIDE 93 mEQ/L (98-107); CREATININE 0.5 mg/dL (0.5-0.9); HEMOLYSIS 10; POTASSIUM 3.6 mEQ/L (3.4-4.9); SODIUM 132 mEQ/L (135-145); TOTAL PROTEIN 6.4 g/dL (6.6-8.7)
[2017-04-04] MEDS ORDERED: Sodium Bicarbonate 4% 2.4meq/5ml vial INJ ONE (06:00)
[2017-04-04] MEDS ORDERED: Heparin 2000 units/Ns 1000ml INJ ONE (06:00)
[2017-04-04] MEDS ORDERED: Lidocaine 1% Plain 30 ml INJ ONE (06:00)
[2017-04-04] MEDS: NS IVPB SCH ×3 (06:10→22:08)
[2017-04-04] MEDS: METOPROLOL TARTRATE IVPB SCH ×3 (06:10→22:08)
[2017-04-04] MEDS: Meropenem 1 GM in NS 110 ML IVPB SCH ×2 (06:11→17:29)
[2017-04-04] MEDS: Levothyroxine 25mcg tab ORAL SCH (06:11)
[2017-04-04] MEDS: Heparin 5000 units/ml inj SUBQ SCH (08:11)
--- NOTE | 2017-04-04 08:35 | Diagnostic Imaging Report ---
Indications: DYSPNEA Technique: Portable AP chest Findings: Comparison: 04/03/17 Dense alveolar consolidation persists in right upper lobe. Patchy alveolar consolidation persists in both lung bases. Diffuse bilateral interstitial infiltrates, bibasal pleural effusions persist. No new abnormality identified. IMPRESSION: No change from one day prior
--- NOTE | 2017-04-04 09:56 | Pulmonolgy Critical Care Note ---
Critical Care - Asmt/Plan Problems: (1) Acute encephalopathy (2) Sepsis (3) Pneumonia (4) Lung mass (5) Aspiration pneumonia (6) Atrial fibrillation Respiratory: monitor respiratory rate, adjust FIO2 Cardiac: continue to monitor HR/BP Renal: keep IV fluid Infectious Disease: check cultures Gastrointestinal: hold feedings, other - swallow study Hematologic: monitor H/H, transfuse if hgb<8.5 Neurologic: PRN Ativan, PRN Morphine, keep patient comfortable Affect: PRN ativan Prophylaxis: Protonix Notes Reviewed: cardio, renal Discussed with: nurses, consultants Critical Care - Objective Last 24 Hour Vital Signs Date Time Temp Pulse Resp B/P Pulse Ox O2 Delivery O2 Flow Rate FiO2 04/04/17 09:00 85 30 102/69 89 Nasal Cannula 4.0 04/04/17 08:00 80 04/04/17 08:00 97.8 77 22 90/74 99 Non-Rebreather 100 04/04/17 07:11 98 26 Non-Rebreather 15.0 100 04/04/17 07:11 100 Non-Rebreather 15.0 100 04/04/17 07:11 Non-Rebreather 15.0 100 04/04/17 07:00 77 23 101/53 99 100 04/04/17 06:11 80 94/75 04/04/17 06:10 78 94/75 04/04/17 06:00 83 22 94/75 97 100 04/04/17 05:00 80 22 92/50 100 100 04/04/17 04:00 97.6 75 22 91/46 100 100 04/04/17 04:00 75 04/04/17 03:00 80 19 91/37 100 100 04/04/17 02:00 75 18 101/49 100 100 04/04/17 01:00 72 20 85/61 100 100 04/04/17 00:00 99 04/04/17 00:00 97.4 99 20 98/48 100 100 04/03/17 23:58 97 91/52 04/03/17 23:00 94 21 88/57 100 100 04/03/17 22:00 84 88/57 04/03/17 22:00 83 21 88/57 100 100 04/03/17 21:00 82 22 91/51 100 100 04/03/17 20:00 97.3 21 89/62 99 100 04/03/17 20:00 84 04/03/17 19:30 100 Non-Rebreather 15.0 100 04/03/17 19:30 80 20 Non-Rebreather 15.0 100 04/03/17 19:30 Non-Rebreather 15.0 100 04/03/17 19:00 22 89/60 99 100 04/03/17 18:15 92 90/67 04/03/17 18:00 23 101/48 100 100 04/03/17 16:00 97.2 26 90/67 94 100 04/03/17 16:00 92 04/03/17 15:00 22 112/65 98 100 04/03/17 14:01 23 101/63 93 100 04/03/17 13:36 95 95/68 04/03/17 13:34 95 95/68 04/03/17 13:00 24 104/65 95 100 04/03/17 12:00 21 116/83 94 100 04/03/17 12:00 95 04/03/17 12:00 95 95/68 04/03/17 11:00 97.2 95 24 95/68 95 100 04/03/17 10:00 97.2 104 23 99/63 94 100 Status: awake Condition: critical HEENT: atraumatic Lungs: clear Heart: HR/BP stable Abdomen: soft, non-tender, feeding tube Extremities: no C/C/E, edema Decubiti: location Critical Care - Subjective ROS Limited/Unobtainable: Yes ICU Day: 4 Condition: critical EKG Rhythm: Atrial Fibrillation FI02: 100 Sputum Amount: None I&O: Intake and Output 04/03/17 04/04/17 19:00 07:00 Intake Total 780 ml 692.5 ml Output Total 50 ml Balance 780 ml 642.5 ml Intake Oral 330 ml 0 ml IV Total 450 ml 692.5 ml Output Urine Total 50 ml # Voids 495 390 CXR: worsening of infiltrate Labs: Laboratory Tests Test 04/03/17 17:00 04/04/17 04:25 Vancomycin Level Trough 15.0 ug/mL (5.0-12.0) H White Blood Count 9.2 K/UL (4.8-10.8) Red Blood Count 4.08 M/UL (4.20-5.40) L Hemoglobin 12.9 G/DL (12.0-16.0) Hematocrit 41.4 % (37.0-47.0) Mean Corpuscular Volume 102 FL (80-99) H Mean Corpuscular Hemoglobin 31.7 PG (27.0-31.0) H Mean Corpuscular Hemoglobin Concent 31.3 G/DL (32.0-36.0) L Red Cell Distribution Width 13.6 % (11.6-14.8) Platelet Count 235 K/UL (150-450) Mean Platelet Volume 8.7 FL (6.5-10.1) Neutrophils (%) (Auto) 80.6 % (45.0-75.0) H Lymphocytes (%) (Auto) 6.7 % (20.0-45.0) L Monocytes (%) (Auto) 9.4 % (1.0-10.0) Eosinophils (%) (Auto) 2.6 % (0.0-3.0) Basophils (%) (Auto) 0.7 % (0.0-2.0) Sodium Level 132 mEQ/L (135-145) L Potassium Level 3.6 mEQ/L (3.4-4.9) Chloride Level 93 mEQ/L (98-107) L Carbon Dioxide Level 25 mEQ/L (20-30) Anion Gap 14 (5-15) Blood Urea Nitrogen 10 mg/dL (7-23) Creatinine 0.5 mg/dL (0.5-0.9) Estimat Glomerular Filtration Rate mL/min (>60) Glucose Level 79 mg/dL (74-106) Calcium Level 8.6 mg/dL (8.6-10.2) Total Bilirubin 0.5 mg/dL (0.0-1.2) Aspartate Amino Transf (AST/SGOT) 15 U/L (5-40) Alanine Aminotransferase (ALT/SGPT) 6 U/L (3-33) Alkaline Phosphatase 67 U/L (35-104) Pro-B-Type Natriuretic Peptide 4392 pg/mL (0-450) H Total Protein 6.4 g/dL (6.6-8.7) L Albumin 2.1 g/dL (3.5-5.2) L Globulin 4.3 g/dL Albumin/Globulin Ratio 0.4 (1.0-2.7) L LIU HYDE Apr 04, 2017 09:56
--- NOTE | 2017-04-04 16:56 | Cardiology Progress Note ---
Subjective Subjective [id number] Objective Last 24 Hour Vital Signs Date Time Temp Pulse Resp B/P Pulse Ox O2 Delivery O2 Flow Rate FiO2 04/04/17 16:00 98.0 76 24 90/63 96 Non-Rebreather 100 04/04/17 15:42 77 04/04/17 15:00 75 26 97/84 96 Non-Rebreather 100 04/04/17 14:00 73 25 95/53 96 Non-Rebreather 100 04/04/17 13:21 82 97/58 04/04/17 13:00 81 26 97/58 96 Non-Rebreather 100 04/04/17 12:00 83 04/04/17 12:00 98.1 88 25 89/53 95 Non-Rebreather 100 04/04/17 11:50 82 116/76 04/04/17 11:00 86 26 100/76 95 Non-Rebreather 100 04/04/17 10:00 82 28 102/69 95 Non-Rebreather 100 04/04/17 09:00 85 30 102/69 89 Nasal Cannula 4.0 04/04/17 08:00 81 04/04/17 08:00 97.8 77 22 90/74 99 Non-Rebreather 100 04/04/17 07:11 98 26 Non-Rebreather 15.0 100 04/04/17 07:11 100 Non-Rebreather 15.0 100 04/04/17 07:11 Non-Rebreather 15.0 100 04/04/17 07:00 77 23 101/53 99 100 04/04/17 06:11 80 94/75 04/04/17 06:10 78 94/75 04/04/17 06:00 83 22 94/75 97 100 04/04/17 05:00 80 22 92/50 100 100 04/04/17 04:00 97.6 75 22 91/46 100 100 04/04/17 04:00 75 04/04/17 03:00 80 19 91/37 100 100 04/04/17 02:00 75 18 101/49 100 100 04/04/17 01:00 72 20 85/61 100 100 04/04/17 00:00 99 04/04/17 00:00 97.4 99 20 98/48 100 100 04/03/17 23:58 97 91/52 04/03/17 23:00 94 21 88/57 100 100 04/03/17 22:00 84 88/57 04/03/17 22:00 83 21 88/57 100 100 04/03/17 21:00 82 22 91/51 100 100 04/03/17 20:00 97.3 21 89/62 99 100 04/03/17 20:00 84 04/03/17 19:30 100 Non-Rebreather 15.0 100 04/03/17 19:30 80 20 Non-Rebreather 15.0 100 04/03/17 19:30 Non-Rebreather 15.0 100 04/03/17 19:00 22 89/60 99 100 04/03/17 18:15 92 90/67 04/03/17 18:00 23 101/48 100 100 Intake and Output 04/03/17 04/04/17 19:00 07:00 Intake Total 780 ml 692.5 ml Output Total 50 ml Balance 780 ml 642.5 ml Intake Oral 330 ml 0 ml IV Total 450 ml 692.5 ml Output Urine Total 50 ml # Voids 495 390 Laboratory Tests Test 04/03/17 17:00 04/04/17 04:25 Vancomycin Level Trough 15.0 ug/mL (5.0-12.0) H White Blood Count 9.2 K/UL (4.8-10.8) Red Blood Count 4.08 M/UL (4.20-5.40) L Hemoglobin 12.9 G/DL (12.0-16.0) Hematocrit 41.4 % (37.0-47.0) Mean Corpuscular Volume 102 FL (80-99) H Mean Corpuscular Hemoglobin 31.7 PG (27.0-31.0) H Mean Corpuscular Hemoglobin Concent 31.3 G/DL (32.0-36.0) L Red Cell Distribution Width 13.6 % (11.6-14.8) Platelet Count 235 K/UL (150-450) Mean Platelet Volume 8.7 FL (6.5-10.1) Neutrophils (%) (Auto) 80.6 % (45.0-75.0) H Lymphocytes (%) (Auto) 6.7 % (20.0-45.0) L Monocytes (%) (Auto) 9.4 % (1.0-10.0) Eosinophils (%) (Auto) 2.6 % (0.0-3.0) Basophils (%) (Auto) 0.7 % (0.0-2.0) Sodium Level 132 mEQ/L (135-145) L Potassium Level 3.6 mEQ/L (3.4-4.9) Chloride Level 93 mEQ/L (98-107) L Carbon Dioxide Level 25 mEQ/L (20-30) Anion Gap 14 (5-15) Blood Urea Nitrogen 10 mg/dL (7-23) Creatinine 0.5 mg/dL (0.5-0.9) Estimat Glomerular Filtration Rate mL/min (>60) Glucose Level 79 mg/dL (74-106) Calcium Level 8.6 mg/dL (8.6-10.2) Total Bilirubin 0.5 mg/dL (0.0-1.2) Aspartate Amino Transf (AST/SGOT) 15 U/L (5-40) Alanine Aminotransferase (ALT/SGPT) 6 U/L (3-33) Alkaline Phosphatase 67 U/L (35-104) Pro-B-Type Natriuretic Peptide 4392 pg/mL (0-450) H Total Protein 6.4 g/dL (6.6-8.7) L Albumin 2.1 g/dL (3.5-5.2) L Globulin 4.3 g/dL Albumin/Globulin Ratio 0.4 (1.0-2.7) HOMA WHIPPLE Apr 04, 2017 16:56
[2017-04-04] MEDS: Vancomycin 1 GM in D5W 275 ML IVPB SCH (17:30)
--- NOTE | 2017-04-04 19:47 | Infectious Diseases Prog Note ---
Assessment/Plan Assessment/Plan ASSESSMENT: 81 y/o female with: Multilobar PNA - SCx, UAgs pending - CXR 04/03: Increased infiltrate at the right lung base. Increased left pleural effusion, over one day. Possibly increased interstitial infiltrates at the left lung base as well. Sepsis Leukocytosis - resolved, afebrile hx of UTI UCx : P.stuartii Acute hypoxic respiratory failure / BiPAP--> high flow oxygen Lethargy - improved Afib/flutter CHF hypothyroidism [facility] resident NKDA Full Code PLAN: continue empiric IV Vanco , Merrem and Levaquin d# 4 / 7 ( 03/29 SP Cefepime and Vanco d# 6 ) f/u cultures, UAgs Monitor CBC, temperatures Monitor BMP Monitor Cxray BiPAP prn Subjective Allergies: Coded Allergies: No Known Allergies (Unverified , 03/23/17) Subjective remains afebrile. remains hypoxic Objective Vital Signs Last 24 Hour Vital Signs Date Time Temp Pulse Resp B/P Pulse Ox O2 Delivery O2 Flow Rate FiO2 04/04/17 19:00 82 35 91/51 94 Non-Rebreather 100 04/04/17 18:00 85 35 90/47 94 Non-Rebreather 100 04/04/17 18:00 84 90/47 04/04/17 17:00 78 25 94/39 96 Non-Rebreather 100 04/04/17 16:00 98.0 76 24 90/63 96 Non-Rebreather 100 04/04/17 15:42 77 04/04/17 15:00 75 26 97/84 96 Non-Rebreather 100 04/04/17 14:00 73 25 95/53 96 Non-Rebreather 100 04/04/17 13:21 82 97/58 04/04/17 13:00 81 26 97/58 96 Non-Rebreather 100 04/04/17 12:00 83 04/04/17 12:00 98.1 88 25 89/53 95 Non-Rebreather 100 04/04/17 11:50 82 116/76 04/04/17 11:00 86 26 100/76 95 Non-Rebreather 100 04/04/17 10:00 82 28 102/69 95 Non-Rebreather 100 04/04/17 09:00 85 30 102/69 89 Nasal Cannula 4.0 04/04/17 08:00 81 04/04/17 08:00 97.8 77 22 90/74 99 Non-Rebreather 100 04/04/17 07:11 98 26 Non-Rebreather 15.0 100 04/04/17 07:11 100 Non-Rebreather 15.0 100 04/04/17 07:11 Non-Rebreather 15.0 100 04/04/17 07:00 77 23 101/53 99 100 04/04/17 06:11 80 94/75 04/04/17 06:10 78 94/75 04/04/17 06:00 83 22 94/75 97 100 04/04/17 05:00 80 22 92/50 100 100 04/04/17 04:00 97.6 75 22 91/46 100 100 04/04/17 04:00 75 04/04/17 03:00 80 19 91/37 100 100 04/04/17 02:00 75 18 101/49 100 100 04/04/17 01:00 72 20 85/61 100 100 04/04/17 00:00 99 04/04/17 00:00 97.4 99 20 98/48 100 100 04/03/17 23:58 97 91/52 04/03/17 23:00 94 21 88/57 100 100 04/03/17 22:00 84 88/57 04/03/17 22:00 83 21 88/57 100 100 04/03/17 21:00 82 22 91/51 100 100 04/03/17 20:00 97.3 21 89/62 99 100 04/03/17 20:00 84 Height (Feet): 5 Height (Inches): 5.00 Weight (Pounds): 160 General Appearance: no acute distress Respiratory/Chest: decreased breath sounds Cardiovascular: normal rate, regular rhythm Abdomen: normal bowel sounds, soft, non tender, non distended Laboratory Tests Test 04/04/17 04:25 White Blood Count 9.2 K/UL (4.8-10.8) Red Blood Count 4.08 M/UL (4.20-5.40) L Hemoglobin 12.9 G/DL (12.0-16.0) Hematocrit 41.4 % (37.0-47.0) Mean Corpuscular Volume 102 FL (80-99) H Mean Corpuscular Hemoglobin 31.7 PG (27.0-31.0) H Mean Corpuscular Hemoglobin Concent 31.3 G/DL (32.0-36.0) L Red Cell Distribution Width 13.6 % (11.6-14.8) Platelet Count 235 K/UL (150-450) Mean Platelet Volume 8.7 FL (6.5-10.1) Neutrophils (%) (Auto) 80.6 % (45.0-75.0) H Lymphocytes (%) (Auto) 6.7 % (20.0-45.0) L Monocytes (%) (Auto) 9.4 % (1.0-10.0) Eosinophils (%) (Auto) 2.6 % (0.0-3.0) Basophils (%) (Auto) 0.7 % (0.0-2.0) Sodium Level 132 mEQ/L (135-145) L Potassium Level 3.6 mEQ/L (3.4-4.9) Chloride Level 93 mEQ/L (98-107) L Carbon Dioxide Level 25 mEQ/L (20-30) Anion Gap 14 (5-15) Blood Urea Nitrogen 10 mg/dL (7-23) Creatinine 0.5 mg/dL (0.5-0.9) Estimat Glomerular Filtration Rate mL/min (>60) Glucose Level 79 mg/dL (74-106) Calcium Level 8.6 mg/dL (8.6-10.2) Total Bilirubin 0.5 mg/dL (0.0-1.2) Aspartate Amino Transf (AST/SGOT) 15 U/L (5-40) Alanine Aminotransferase (ALT/SGPT) 6 U/L (3-33) Alkaline Phosphatase 67 U/L (35-104) Pro-B-Type Natriuretic Peptide 4392 pg/mL (0-450) H Total Protein 6.4 g/dL (6.6-8.7) L Albumin 2.1 g/dL (3.5-5.2) L Globulin 4.3 g/dL Albumin/Globulin Ratio 0.4 (1.0-2.7) L Current Medications Medications (Trade) Dose Ordered Sig/Rita Route PRN Reason Start Time Stop Time Status Last Admin Dose Admin Acetaminophen (Tylenol) 650 mg Q4H PRN ORAL FEVER 04/01/17 15:00 7/24/17 14:59 Albuterol/ Ipratropium (DuoNeb 0.5-3(2.5)mg/3ml) 3 ml BIDPRN PRN HHN Shortness of Breath 04/01/17 15:00 04/06/17 14:59 Chlorhexidine Gluconate (Joana-Hex 2%) 1 applic QHS TOPIC 04/04/17 21:00 05/04/17 20:59 Clotrimazole (Lotrimin) 1 applic EVERY 12 HOURS TOPIC 04/04/17 09:00 05/04/17 08:59 04/04/17 08:10 Dextrose (Dextrose 50%) STAT PRN IV Hypoglycemia 04/01/17 15:00 05/01/17 14:59 Diltiazem HCl (Cardizem) 30 mg EVERY 6 HOURS ORAL 04/01/17 18:00 05/01/17 17:59 04/04/17 11:50 Heparin Sodium (Porcine) (Heparin 5000 units/ml) 5,000 units EVERY 12 HOURS SUBQ 04/01/17 21:00 05/01/17 20:59 04/04/17 08:11 Levofloxacin 150 ml @ 100 mls/hr Q48H IVPB 04/04/17 22:00 04/11/17 21:59 Levothyroxine Sodium (Synthroid) 25 mcg ACBREAKFAST ORAL 04/02/17 06:30 05/02/17 06:29 04/04/17 06:11 Lorazepam (Ativan 2mg/ml 1ml) 2 mg Q2H PRN IV For Anxiety 04/01/17 15:00 04/08/17 14:59 Meropenem/Sodium Chloride (Merrem/Sodium Chloride) 110 ml @ 220 mls/hr Q12HR@0600,1800 IVPB 04/03/17 18:00 04/08/17 17:59 04/04/17 17:29 Metoprolol Tartrate 2.5 mg/ Sodium Chloride 57.5 ml @ 115 mls/hr Q8HR IVPB 04/03/17 14:00 05/03/17 13:59 04/04/17 13:21 Morphine Sulfate (Morphine Sulfate) 4 mg Q4H PRN IVP Severe Pain (Pain Scale 7-10) 04/01/17 15:00 04/08/17 14:59 Ondansetron HCl (Zofran) 4 mg Q6H PRN IVP Nausea & Vomiting 04/01/17 15:00 05/01/17 14:59 Polyethylene Glycol (Miralax) 17 gm DAILYPRN PRN ORAL Constipation 04/01/17 15:00 05/01/17 14:59 Sodium Chloride 1,000 ml @ 50 mls/hr Q20H IV 04/01/17 15:00 05/01/17 14:59 04/04/17 04:36 Vancomycin HCl 1 ea 1 ea DAILY PRN MISC PER RX PROTOCOL 04/01/17 19:30 05/01/17 19:29 Vancomycin HCl/ Dextrose (Vancomycin/D5W) 275 ml @ 183.3 mls/ hr Q24H IVPB 04/01/17 18:00 04/06/17 17:59 04/04/17 17:30 JULIA HILL Apr 04, 2017 19:47
--- NOTE | 2017-04-04 20:31 | Cardiology Progress Note ---
Assessment/Plan Status: stable, unchanged Status Narrative Extensive R lung infiltrate - ? aspiration pneumonia, ? malignancy ? baseline COPD AF - She is now in SR w/ ventricular rate 80s Assessment/Plan Continue diltiazem for rate control. Will start anticoagulation w/ lovenox for CVA prevention in AF. amiodarone will be held for now. continue iv abx, respir rx , suppl o2 for pneumonia per Dr. Call Subjective ROS Limited/Unobtainable: Yes Subjective Pt on face mask o2 alert/ confused. No respiratory distress Objective Last 24 Hour Vital Signs Date Time Temp Pulse Resp B/P Pulse Ox O2 Delivery O2 Flow Rate FiO2 04/04/17 19:47 Non-Rebreather 15.0 100 04/04/17 19:46 93 Non-Rebreather 15.0 100 04/04/17 19:30 82 20 Non-Rebreather 15.0 100 04/04/17 19:00 82 35 91/51 94 Non-Rebreather 100 04/04/17 18:00 85 35 90/47 94 Non-Rebreather 100 04/04/17 18:00 84 90/47 04/04/17 17:00 78 25 94/39 96 Non-Rebreather 100 04/04/17 16:00 98.0 76 24 90/63 96 Non-Rebreather 100 04/04/17 15:42 77 04/04/17 15:00 75 26 97/84 96 Non-Rebreather 100 04/04/17 14:00 73 25 95/53 96 Non-Rebreather 100 04/04/17 13:21 82 97/58 04/04/17 13:00 81 26 97/58 96 Non-Rebreather 100 04/04/17 12:00 83 04/04/17 12:00 98.1 88 25 89/53 95 Non-Rebreather 100 04/04/17 11:50 82 116/76 04/04/17 11:00 86 26 100/76 95 Non-Rebreather 100 04/04/17 10:00 82 28 102/69 95 Non-Rebreather 100 04/04/17 09:00 85 30 102/69 89 Nasal Cannula 4.0 04/04/17 08:00 81 04/04/17 08:00 97.8 77 22 90/74 99 Non-Rebreather 100 04/04/17 07:11 98 26 Non-Rebreather 15.0 100 04/04/17 07:11 100 Non-Rebreather 15.0 100 04/04/17 07:11 Non-Rebreather 15.0 100 04/04/17 07:00 77 23 101/53 99 100 04/04/17 06:11 80 94/75 04/04/17 06:10 78 94/75 04/04/17 06:00 83 22 94/75 97 100 04/04/17 05:00 80 22 92/50 100 100 04/04/17 04:00 97.6 75 22 91/46 100 100 04/04/17 04:00 75 04/04/17 03:00 80 19 91/37 100 100 04/04/17 02:00 75 18 101/49 100 100 04/04/17 01:00 72 20 85/61 100 100 04/04/17 00:00 99 04/04/17 00:00 97.4 99 20 98/48 100 100 04/03/17 23:58 97 91/52 04/03/17 23:00 94 21 88/57 100 100 04/03/17 22:00 84 88/57 04/03/17 22:00 83 21 88/57 100 100 04/03/17 21:00 82 22 91/51 100 100 General Appearance: no apparent distress, alert Neck: supple, no JVD Rhythm: NSR Cardiovascular: normal rate, regular rhythm, no gallop/murmur Respiratory/Chest: rhonchi - bilaterally Abdomen: non tender, soft Extremities: no swelling Intake and Output 04/03/17 04/04/17 19:00 07:00 Intake Total 780 ml 692.5 ml Output Total 50 ml Balance 780 ml 642.5 ml Intake Oral 330 ml 0 ml IV Total 450 ml 692.5 ml Output Urine Total 50 ml # Voids 495 390 Laboratory Tests Test 04/04/17 04:25 White Blood Count 9.2 K/UL (4.8-10.8) Red Blood Count 4.08 M/UL (4.20-5.40) L Hemoglobin 12.9 G/DL (12.0-16.0) Hematocrit 41.4 % (37.0-47.0) Mean Corpuscular Volume 102 FL (80-99) H Mean Corpuscular Hemoglobin 31.7 PG (27.0-31.0) H Mean Corpuscular Hemoglobin Concent 31.3 G/DL (32.0-36.0) L Red Cell Distribution Width 13.6 % (11.6-14.8) Platelet Count 235 K/UL (150-450) Mean Platelet Volume 8.7 FL (6.5-10.1) Neutrophils (%) (Auto) 80.6 % (45.0-75.0) H Lymphocytes (%) (Auto) 6.7 % (20.0-45.0) L Monocytes (%) (Auto) 9.4 % (1.0-10.0) Eosinophils (%) (Auto) 2.6 % (0.0-3.0) Basophils (%) (Auto) 0.7 % (0.0-2.0) Sodium Level 132 mEQ/L (135-145) L Potassium Level 3.6 mEQ/L (3.4-4.9) Chloride Level 93 mEQ/L (98-107) L Carbon Dioxide Level 25 mEQ/L (20-30) Anion Gap 14 (5-15) Blood Urea Nitrogen 10 mg/dL (7-23) Creatinine 0.5 mg/dL (0.5-0.9) Estimat Glomerular Filtration Rate mL/min (>60) Glucose Level 79 mg/dL (74-106) Calcium Level 8.6 mg/dL (8.6-10.2) Total Bilirubin 0.5 mg/dL (0.0-1.2) Aspartate Amino Transf (AST/SGOT) 15 U/L (5-40) Alanine Aminotransferase (ALT/SGPT) 6 U/L (3-33) Alkaline Phosphatase 67 U/L (35-104) Pro-B-Type Natriuretic Peptide 4392 pg/mL (0-450) H Total Protein 6.4 g/dL (6.6-8.7) L Albumin 2.1 g/dL (3.5-5.2) L Globulin 4.3 g/dL Albumin/Globulin Ratio 0.4 (1.0-2.7) L KERRIE DAWSON Apr 04, 2017 20:31
[2017-04-04] MEDS: Dyna-Hex 2% Top Sol 8oz TOPIC SCH (20:42)
[2017-04-04] MEDS: Enoxaparin Sodium 300mg/3ml vial SUBQ SCH (22:09)
[2017-04-05] VITALS (24 sets, daily range): BP systolic 82–130; BP diastolic 36–90
--- NOTE | 2017-04-05 01:45 | Progress Note ---
DATE: 04/02/2017 ICU VISIT SUBJECTIVE: The patient was transferred to intensive care unit because of abnormal blood gas. She is lethargic. She is intermittently arousable. She is confused. On arousal, she complains of some shortness of breath. She denies any chest pain. No palpitations. PHYSICAL EXAMINATION: VITAL SIGNS: She is lethargic, sitting in semi-cerrato position in the bed and BiPAP is on. VITAL SIGNS: Her blood pressure this morning was 91/54, and her heart rate was 70 to 80, she is in atrial fibrillation. Respiratory rate was 23, and temperature was normal 98.3 axillary. She is on BiPAP. Oxygen saturation on BiPAP on 50% was 98%. HEENT: PERRLA. Extraocular muscles intact. NECK: Neck veins are approximately at 6 cm, not really elevated. She has carotid upstroke bilaterally palpable without any bruits. Her neck is supple. LUNGS: She has scattered rales on the right side posteriorly and anteriorly. No wheezing, but decreased air movement. HEART: Irregular with extended P2. BREAST: No significant masses. ABDOMEN: Soft and nontender. EXTREMITIES: Lower extremities, she has brownish skin discoloration. Distal pulses palpable. NEUROLOGIC: She appears to be delirious and confused, but she does not have evidence of stroke. She moves all extremities. There is no facial droop. Neurologic exam is limited due to the patient's condition. Her intakes and outputs are noted and her intakes and outputs were as follows. She got one liter of urine out and she had approximately Marlee Hollingsworth M.D. DR: KYLEE JOB#: [id number] CC:
--- NOTE | 2017-04-05 01:45 | Progress Note ---
DATE: 04/02/2017 Second part of my evaluation in intensive care unit on 04/02/2017. It was interrupted. Eyes and nose Were approximately equal. Laboratory data all reviewed including blood gas which showed this morning pH 7.3, pCO2 39, pO2 58, and saturation 89%. She had lower extremity venous duplex which was negative for DVT. She had a chest x-ray done which revealed presence of right middle lobe infiltrate, right upper lobe infiltrate, bibasilar interstitial disease, and small pleural effusions. EKG shows atrial fibrillation with decreased voltage without evidence of ST or T changes. Other laboratories were all reviewed, white count actually normalized this morning 10.7, hemoglobin 13.1, and platelets were 215,000. Chemistry revealed negative troponin but the BNP level was up. INCOMPLETE DICTATION Marlee Hollingsworth M.D. DR: Darian JOB#: [id number] CC:
--- NOTE | 2017-04-05 03:15 | Progress Note ---
DATE: 04/02/2017 IMPRESSION AND RECOMMENDATION: 1. Atrial fibrillation and rapid ventricular response, improved on amiodarone and beta-blockers and calcium-channel blockers. So, we are going to continue current management. 2. She is not on anticoagulation due to her dementia and unstable status. 3. Pulmonary disease, it is not of cardiac etiology. She probably has some ongoing pneumonia or some other processes and is going to be managed by bank vault clerk, Dr. Honeycutt, and also she is encephalopathic, most likely due to hypoxemia and sepsis and that also is going to be managed mostly by bank vault clerk. The echocardiogram has been reviewed. There is no evidence of congestive heart failure at the present time. Total condition is critical and I spent approximately one hour evaluating this patient in ICU on 04/02/2017. Marlee Hollingsworth M.D. DR: Sher JOB#: [id number] CC:
[2017-04-05] MEDS: Meropenem 1 GM in NS 110 ML IVPB SCH ×2 (05:36→17:42)
[2017-04-05 05:51] LABS: EOSINOPHILS % (AUTO) 1.7 % (0.0-3.0); LYMPHOCYTES % (AUTO) 8.6 % (20.0-45.0); MEAN CORPUSCULAR HEMOGLOBIN 32.2 PG (27.0-31.0); MEAN CORPUSCULAR HGB CONC 31.4 G/DL (32.0-36.0); MEAN CORPUSCULAR VOLUME 103 FL (80-99); MEAN PLATELET VOLUME 7.5 FL (6.5-10.1); MONOCYTES % (AUTO) 9.6 % (1.0-10.0); NEUTROPHILS % (AUTO) 79.1 % (45.0-75.0); PLATELET COUNT 246 K/UL (150-450); RED BLOOD COUNT 3.44 M/UL (4.20-5.40); WHITE BLOOD COUNT 10.6 K/UL (4.8-10.8)
[2017-04-05] MEDS: NS IVPB SCH ×2 (06:00→14:00)
[2017-04-05] MEDS: METOPROLOL TARTRATE IVPB SCH ×2 (06:00→14:00)
[2017-04-05] MEDS: Levothyroxine 25mcg tab ORAL SCH (06:20)
[2017-04-05 07:21] LABS: ALANINE AMINOTRANSFERASE 6 U/L (3-33); ALBUMIN/GLOBULIN RATIO 0.4 (1.0-2.7); ANION GAP 21 (5-15); ASPARTATE AMINO TRANSFERASE 20 U/L (5-40); CALCIUM 8.8 mg/dL (8.6-10.2); CARBON DIOXIDE 17 mEQ/L (20-30); CHLORIDE 96 mEQ/L (98-107); CREATININE 0.6 mg/dL (0.5-0.9); HEMOLYSIS 64; MAGNESIUM 1.7 mg/dL (1.7-2.5); PHOSPHORUS 2.4 mg/dL (2.5-4.8); POTASSIUM 3.9 mEQ/L (3.4-4.9); SODIUM 134 mEQ/L (135-145); TOTAL PROTEIN 6.2 g/dL (6.6-8.7)
--- NOTE | 2017-04-05 09:05 | Diagnostic Imaging Report ---
APPROVED REPORT CPT Code: 41295 Present Symptoms Shortness of breath Comments: Hx CHF, A-FIB. BILATERAL: Imaging reveals a patent deep venous system bilaterally. There is no evidence of thrombus within the femoral, popliteal or tibial segments. The greater saphenous veins are also within normal limits. Doppler indicates normal spontaneous flow within these segments. The tibial veins were not well visualized bilaterally.
[2017-04-05 09:11] LABS: ABG ALLEN TEST POSITIVE; ABG BASE EXCESS -2.5; ABG PCO2 52.4 mmHg (35.0-45.0)
[2017-04-05] MEDS: Enoxaparin Sodium 300mg/3ml vial SUBQ SCH ×2 (09:27→21:21)
--- NOTE | 2017-04-05 10:44 | Pulmonolgy Critical Care Note ---
Critical Care - Asmt/Plan Problems: (1) Acute encephalopathy (2) Sepsis (3) Pneumonia (4) Lung mass (5) Aspiration pneumonia (6) Atrial fibrillation Respiratory: monitor respiratory rate, adjust FIO2, CXR Cardiac: continue to monitor HR/BP Renal: F/U I&O, other - lasix Infectious Disease: check cultures Gastrointestinal: continue feedings/current rate Endocrine: monitor blood sugar, continue sliding scale insulin Hematologic: monitor H/H, transfuse if hgb<8.5 Neurologic: PRN Ativan, PRN Morphine, keep patient comfortable Affect: PRN ativan Prophylaxis: Protonix, Heparin Notes Reviewed: database support, cardio Discussed with: nurses, consultants, case operatorbrokerage manager - Objective Last 24 Hour Vital Signs Date Time Temp Pulse Resp B/P Pulse Ox O2 Delivery O2 Flow Rate FiO2 04/05/17 10:00 80 24 100/45 94 Non-Rebreather 100 04/05/17 09:00 79 21 100/47 93 Nasal Cannula 4.0 04/05/17 08:00 97.6 85 20 90/58 92 Nasal Cannula 4.0 04/05/17 08:00 88 04/05/17 07:00 82 21 94/62 93 Non-Rebreather 100 04/05/17 06:40 Non-Rebreather 15.0 95 04/05/17 06:40 Non-Rebreather 15.0 95 04/05/17 06:40 95 Non-Rebreather 15.0 100 04/05/17 06:21 81 90/54 04/05/17 06:00 79 22 83/54 93 Non-Rebreather 100 04/05/17 06:00 81 88/60 04/05/17 05:00 75 20 88/36 95 Non-Rebreather 100 04/05/17 04:00 98.4 76 20 93/46 95 Non-Rebreather 100 04/05/17 04:00 76 04/05/17 03:00 74 20 104/53 94 Non-Rebreather 100 04/05/17 02:00 68 21 91/38 93 Non-Rebreather 100 04/05/17 01:00 81 25 111/63 98 Non-Rebreather 100 04/05/17 00:22 82 130/68 04/05/17 00:00 85 04/05/17 00:00 98.0 82 25 130/68 93 Non-Rebreather 100 04/04/17 23:00 82 23 127/65 90 Non-Rebreather 100 04/04/17 22:08 83 125/61 04/04/17 22:00 82 25 125/61 91 Non-Rebreather 100 04/04/17 21:00 84 24 127/82 94 Non-Rebreather 100 04/04/17 20:00 98.2 85 24 109/80 94 Non-Rebreather 100 04/04/17 20:00 80 04/04/17 19:47 Non-Rebreather 15.0 100 04/04/17 19:46 93 Non-Rebreather 15.0 100 04/04/17 19:30 82 20 Non-Rebreather 15.0 100 04/04/17 19:00 82 35 91/51 94 Non-Rebreather 100 04/04/17 18:00 85 35 90/47 94 Non-Rebreather 100 04/04/17 18:00 84 90/47 04/04/17 17:00 78 25 94/39 96 Non-Rebreather 100 04/04/17 16:00 98.0 76 24 90/63 96 Non-Rebreather 100 04/04/17 15:42 77 04/04/17 15:00 75 26 97/84 96 Non-Rebreather 100 04/04/17 14:00 73 25 95/53 96 Non-Rebreather 100 04/04/17 13:21 82 97/58 04/04/17 13:00 81 26 97/58 96 Non-Rebreather 100 04/04/17 12:00 83 04/04/17 12:00 98.1 88 25 89/53 95 Non-Rebreather 100 04/04/17 11:50 82 116/76 04/04/17 11:00 86 26 100/76 95 Non-Rebreather 100 Status: awake Condition: critical HEENT: atraumatic Neck: full ROM Lungs: chest wall tender Abdomen: soft, non-tender Extremities: no C/C/E Decubiti: location Critical Care - Subjective ROS Limited/Unobtainable: No ICU Day: 5 Condition: critical EKG Rhythm: Sinus Rhythm FI02: 100 Sputum Amount: None Fluids: 1/2 NS 50 cc.hour I&O: Intake and Output 6/27/17 6/28/17 19:00 07:00 Intake Total 992.5 ml 600 ml Output Total 490 ml 600 ml Balance 502.5 ml 0 ml IV Total 992.5 ml 600 ml Output Urine Total 490 ml 600 ml CXR: increasing congestion Labs: Laboratory Tests Test 04/05/17 04:45 04/05/17 08:54 White Blood Count 10.6 K/UL (4.8-10.8) Red Blood Count 3.44 M/UL (4.20-5.40) L Hemoglobin 11.1 G/DL (12.0-16.0) L Hematocrit 35.2 % (37.0-47.0) L Mean Corpuscular Volume 103 FL (80-99) H Mean Corpuscular Hemoglobin 32.2 PG (27.0-31.0) H Mean Corpuscular Hemoglobin Concent 31.4 G/DL (32.0-36.0) L Red Cell Distribution Width 14.0 % (11.6-14.8) Platelet Count 246 K/UL (150-450) Mean Platelet Volume 7.5 FL (6.5-10.1) Neutrophils (%) (Auto) 79.1 % (45.0-75.0) H Lymphocytes (%) (Auto) 8.6 % (20.0-45.0) L Monocytes (%) (Auto) 9.6 % (1.0-10.0) Eosinophils (%) (Auto) 1.7 % (0.0-3.0) Basophils (%) (Auto) 1.0 % (0.0-2.0) Sodium Level 134 mEQ/L (135-145) L Potassium Level 3.9 mEQ/L (3.4-4.9) Chloride Level 96 mEQ/L (98-107) L Carbon Dioxide Level 17 mEQ/L (20-30) L Anion Gap 21 (5-15) H Blood Urea Nitrogen 9 mg/dL (7-23) Creatinine 0.6 mg/dL (0.5-0.9) Estimat Glomerular Filtration Rate mL/min (>60) Glucose Level 79 mg/dL (74-106) Calcium Level 8.8 mg/dL (8.6-10.2) Phosphorus Level 2.4 mg/dL (2.5-4.8) L Magnesium Level 1.7 mg/dL (1.7-2.5) Total Bilirubin 0.4 mg/dL (0.0-1.2) Aspartate Amino Transf (AST/SGOT) 20 U/L (5-40) Alanine Aminotransferase (ALT/SGPT) 6 U/L (3-33) Alkaline Phosphatase 65 U/L (35-104) Total Protein 6.2 g/dL (6.6-8.7) L Albumin 1.9 g/dL (3.5-5.2) L Globulin 4.3 g/dL Albumin/Globulin Ratio 0.4 (1.0-2.7) L Arterial Blood pH 7.290 (7.350-7.450) Arterial Blood Partial Pressure CO2 52.4 mmHg (35.0-45.0) H Arterial Blood Partial Pressure O2 67.9 mmHg (75.0-100.0) L Arterial Blood HCO3 24.6 mmol/L (22.0-26.0) Arterial Blood Oxygen Saturation 92.8 % (92.0-98.0) Arterial Blood Base Excess -2.5 Tee Test Positive LIU HYDE Apr 05, 2017 10:44
[2017-04-05] MEDS: Albuterol ud Inhalation HHN SCH ×3 (11:37→19:16)
[2017-04-05] MEDS ORDERED: Acetylcysteine 20% Soln 4ml HHN PRN (11:45)
--- NOTE | 2017-04-05 12:09 | Infectious Diseases Prog Note ---
Assessment/Plan Assessment/Plan ASSESSMENT: 81 y/o female with: Multilobar PNA - SCx, UAgs pending - CXR 04/03: Increased infiltrate at the right lung base. Increased left pleural effusion, over one day. Possibly increased interstitial infiltrates at the left lung base as well. Sepsis Leukocytosis - resolved, afebrile hx of UTI UCx : P.stuartii Acute hypoxic respiratory failure / BiPAP--> high flow oxygen Lethargy - improved Afib/flutter CHF hypothyroidism [facility] resident NKDA Full Code PLAN: continue empiric IV Vanco , Merrem and Levaquin d# 5 / 7 ( 03/29 SP Cefepime and Vanco d# 6 ) f/u cultures, UAgs Monitor CBC, temperatures Monitor BMP Monitor Cxray BiPAP prn Subjective Constitutional: Denies: anorexia, chills, drenching sweats, fatigue, fever, no symptoms, other Allergies: Coded Allergies: No Known Allergies (Unverified , 03/23/17) Subjective on no NRB FM Objective Vital Signs Last 24 Hour Vital Signs Date Time Temp Pulse Resp B/P Pulse Ox O2 Delivery O2 Flow Rate FiO2 04/05/17 11:46 88 20 94 Non-Rebreather 15.0 100 04/05/17 11:38 82 18 96 Non-Rebreather 15.0 100 04/05/17 11:38 100 04/05/17 11:00 84 24 101/55 94 Non-Rebreather 100 04/05/17 10:00 80 24 100/45 94 Non-Rebreather 100 04/05/17 09:00 79 21 100/47 93 Nasal Cannula 4.0 04/05/17 08:00 97.6 85 20 90/58 92 Nasal Cannula 4.0 04/05/17 08:00 88 04/05/17 07:00 82 21 94/62 93 Non-Rebreather 100 04/05/17 06:40 Non-Rebreather 15.0 95 04/05/17 06:40 Non-Rebreather 15.0 95 04/05/17 06:40 95 Non-Rebreather 15.0 100 04/05/17 06:21 81 90/54 04/05/17 06:00 79 22 83/54 93 Non-Rebreather 100 04/05/17 06:00 81 88/60 04/05/17 05:00 75 20 88/36 95 Non-Rebreather 100 04/05/17 04:00 98.4 76 20 93/46 95 Non-Rebreather 100 04/05/17 04:00 76 04/05/17 03:00 74 20 104/53 94 Non-Rebreather 100 04/05/17 02:00 68 21 91/38 93 Non-Rebreather 100 04/05/17 01:00 81 25 111/63 98 Non-Rebreather 100 04/05/17 00:22 82 130/68 04/05/17 00:00 85 04/05/17 00:00 98.0 82 25 130/68 93 Non-Rebreather 100 04/04/17 23:00 82 23 127/65 90 Non-Rebreather 100 04/04/17 22:08 83 125/61 04/04/17 22:00 82 25 125/61 91 Non-Rebreather 100 04/04/17 21:00 84 24 127/82 94 Non-Rebreather 100 04/04/17 20:00 98.2 85 24 109/80 94 Non-Rebreather 100 04/04/17 20:00 80 04/04/17 19:47 Non-Rebreather 15.0 100 04/04/17 19:46 93 Non-Rebreather 15.0 100 04/04/17 19:30 82 20 Non-Rebreather 15.0 100 04/04/17 19:00 82 35 91/51 94 Non-Rebreather 100 04/04/17 18:00 85 35 90/47 94 Non-Rebreather 100 04/04/17 18:00 84 90/47 04/04/17 17:00 78 25 94/39 96 Non-Rebreather 100 04/04/17 16:00 98.0 76 24 90/63 96 Non-Rebreather 100 04/04/17 15:42 77 04/04/17 15:00 75 26 97/84 96 Non-Rebreather 100 04/04/17 14:00 73 25 95/53 96 Non-Rebreather 100 04/04/17 13:21 82 97/58 04/04/17 13:00 81 26 97/58 96 Non-Rebreather 100 Height (Feet): 5 Height (Inches): 5.00 Weight (Pounds): 160 HEENT: anicteric Respiratory/Chest: decreased breath sounds Cardiovascular: regularly irregular Abdomen: no scars Laboratory Tests Test 04/05/17 04:45 04/05/17 08:54 White Blood Count 10.6 K/UL (4.8-10.8) Red Blood Count 3.44 M/UL (4.20-5.40) L Hemoglobin 11.1 G/DL (12.0-16.0) L Hematocrit 35.2 % (37.0-47.0) L Mean Corpuscular Volume 103 FL (80-99) H Mean Corpuscular Hemoglobin 32.2 PG (27.0-31.0) H Mean Corpuscular Hemoglobin Concent 31.4 G/DL (32.0-36.0) L Red Cell Distribution Width 14.0 % (11.6-14.8) Platelet Count 246 K/UL (150-450) Mean Platelet Volume 7.5 FL (6.5-10.1) Neutrophils (%) (Auto) 79.1 % (45.0-75.0) H Lymphocytes (%) (Auto) 8.6 % (20.0-45.0) L Monocytes (%) (Auto) 9.6 % (1.0-10.0) Eosinophils (%) (Auto) 1.7 % (0.0-3.0) Basophils (%) (Auto) 1.0 % (0.0-2.0) Sodium Level 134 mEQ/L (135-145) L Potassium Level 3.9 mEQ/L (3.4-4.9) Chloride Level 96 mEQ/L (98-107) L Carbon Dioxide Level 17 mEQ/L (20-30) L Anion Gap 21 (5-15) H Blood Urea Nitrogen 9 mg/dL (7-23) Creatinine 0.6 mg/dL (0.5-0.9) Estimat Glomerular Filtration Rate mL/min (>60) Glucose Level 79 mg/dL (74-106) Calcium Level 8.8 mg/dL (8.6-10.2) Phosphorus Level 2.4 mg/dL (2.5-4.8) L Magnesium Level 1.7 mg/dL (1.7-2.5) Total Bilirubin 0.4 mg/dL (0.0-1.2) Aspartate Amino Transf (AST/SGOT) 20 U/L (5-40) Alanine Aminotransferase (ALT/SGPT) 6 U/L (3-33) Alkaline Phosphatase 65 U/L (35-104) Total Protein 6.2 g/dL (6.6-8.7) L Albumin 1.9 g/dL (3.5-5.2) L Globulin 4.3 g/dL Albumin/Globulin Ratio 0.4 (1.0-2.7) L Arterial Blood pH 7.290 (7.350-7.450) Arterial Blood Partial Pressure CO2 52.4 mmHg (35.0-45.0) H Arterial Blood Partial Pressure O2 67.9 mmHg (75.0-100.0) L Arterial Blood HCO3 24.6 mmol/L (22.0-26.0) Arterial Blood Oxygen Saturation 92.8 % (92.0-98.0) Arterial Blood Base Excess -2.5 Tee Test Positive Current Medications Medications (Trade) Dose Ordered Sig/Rita Route PRN Reason Start Time Stop Time Status Last Admin Dose Admin Acetaminophen (Tylenol) 650 mg Q4H PRN ORAL FEVER 04/01/17 15:00 05/01/17 14:59 Acetylcysteine (Mucomyst) 200 mg EVERY 4 HOURS PRN HHN dry secretion 04/05/17 11:45 05/05/17 11:44 UNV Acetylcysteine (Mucomyst) 200 mg Q6HRT N 04/05/17 13:00 05/05/17 12:59 UNV Albuterol Sulfate (Proventil) 2.5 mg Q4HRT N 04/05/17 11:00 04/10/17 10:59 04/05/17 11:37 Albuterol/ Ipratropium (DuoNeb 0.5-3(2.5)mg/3ml) 3 ml BIDPRN PRN HHN Shortness of Breath 04/01/17 15:00 04/06/17 14:59 Chlorhexidine Gluconate (Joana-Hex 2%) 1 applic QHS TOPIC 04/04/17 21:00 05/04/17 20:59 04/04/17 20:42 Clotrimazole (Lotrimin) 1 applic EVERY 12 HOURS TOPIC 04/04/17 09:00 05/04/17 08:59 04/05/17 09:26 Dextrose (Dextrose 50%) STAT PRN IV Hypoglycemia 04/01/17 15:00 05/01/17 14:59 Diltiazem HCl (Cardizem) 30 mg EVERY 6 HOURS ORAL 04/01/17 18:00 05/01/17 17:59 04/05/17 06:21 Enoxaparin Sodium (Lovenox) 70 mg Q12HR SUBQ 04/04/17 22:00 05/04/17 21:59 04/05/17 09:27 Furosemide (Lasix) 20 mg ONCE ONCE IV 04/05/17 11:15 04/05/17 11:16 UNV Levofloxacin 150 ml @ 100 mls/hr Q48H IVPB 04/04/17 22:00 04/11/17 21:59 04/04/17 22:07 Levothyroxine Sodium (Synthroid) 25 mcg ACBREAKFAST ORAL 04/02/17 06:30 05/02/17 06:29 04/05/17 06:20 Lorazepam (Ativan 2mg/ml 1ml) 2 mg Q2H PRN IV For Anxiety 04/01/17 15:00 04/08/17 14:59 Meropenem/Sodium Chloride (Merrem/Sodium Chloride) 110 ml @ 220 mls/hr Q12HR@0600,1800 IVPB 04/03/17 18:00 04/08/17 17:59 04/05/17 05:36 Metoprolol Tartrate 2.5 mg/ Sodium Chloride 57.5 ml @ 115 mls/hr Q8HR IVPB 04/03/17 14:00 05/03/17 13:59 04/04/17 22:08 Morphine Sulfate (Morphine Sulfate) 4 mg Q4H PRN IVP Severe Pain (Pain Scale 7-10) 04/01/17 15:00 04/08/17 14:59 04/05/17 01:19 Ondansetron HCl (Zofran) 4 mg Q6H PRN IVP Nausea & Vomiting 04/01/17 15:00 05/01/17 14:59 Polyethylene Glycol (Miralax) 17 gm DAILYPRN PRN ORAL Constipation 04/01/17 15:00 05/01/17 14:59 Sodium Chloride 1,000 ml @ 50 mls/hr Q20H IV 04/01/17 15:00 05/01/17 14:59 04/05/17 05:36 Vancomycin HCl 1 ea 1 ea DAILY PRN MISC PER RX PROTOCOL 04/01/17 19:30 05/01/17 19:29 Vancomycin HCl/ Dextrose (Vancomycin/D5W) 275 ml @ 183.3 mls/ hr Q24H IVPB 04/01/17 18:00 04/06/17 17:59 04/04/17 17:30 SB JADE M.D. Apr 05, 2017 12:08
--- NOTE | 2017-04-05 14:06 | Diagnostic Imaging Report ---
Indication: DYSPNEA Technique: One view of the chest Comparison: 04/04/2017 Findings: Again demonstrated is dense right upper lobe consolidation as well as generalized diffuse bilateral interstitial edema. There are bilateral pleural effusions again demonstrated, largely unchanged. Heart size is normal Impression: Unchanged, over one day, findings as above.
[2017-04-05] MEDS: Vancomycin 1 GM in D5W 275 ML IVPB SCH (17:42)
[2017-04-05] MEDS: Acetylcysteine 20% Soln 4ml HHN SCH (19:00)
[2017-04-05] MEDS: Amiodarone 200mg tab ORAL SCH (19:58)
[2017-04-05] MEDS ORDERED: Famotidine 20 MG/ 2ML VIAL IVP SCH (21:00)
[2017-04-05] MEDS: Dyna-Hex 2% Top Sol 8oz TOPIC SCH (21:19)
--- NOTE | 2017-04-05 22:26 | Cardiology Progress Note ---
Assessment/Plan Assessment/Plan CXR pulmonary edema ECG sinus rhythm will diujrese monitor lytes condition is serious ICU level of care Subjective Subjective The patient is coughing and has loud rhonchi head without auscultation she is confused and does not understand questions Objective Last 24 Hour Vital Signs Date Time Temp Pulse Resp B/P Pulse Ox O2 Delivery O2 Flow Rate FiO2 04/05/17 19:30 81 20 Non-Rebreather 15.0 100 04/05/17 19:15 75 22 Non-Rebreather 15.0 100 04/05/17 19:14 75 22 97 Non-Rebreather 15.0 100 04/05/17 19:14 97 Non-Rebreather 15.0 100 04/05/17 19:14 Non-Rebreather 15.0 100 04/05/17 19:00 96 20 92/56 95 Non-Rebreather 100 04/05/17 18:00 94 19 90/56 95 Non-Rebreather 100 04/05/17 17:45 93 110/55 04/05/17 17:00 98.1 95 24 110/55 92 Nasal Cannula 6.0 04/05/17 16:00 97 24 110/55 92 Nasal Cannula 6.0 04/05/17 16:00 96 04/05/17 15:00 91 25 88/39 92 Nasal Cannula 6.0 04/05/17 14:44 91 20 96 Nasal Cannula 5.0 40 04/05/17 14:36 40 04/05/17 14:36 92 18 94 Nasal Cannula 5.0 40 04/05/17 14:00 90 82/61 04/05/17 14:00 96 22 91/52 94 Nasal Cannula 6.0 04/05/17 13:00 89 22 101/52 94 Non-Rebreather 100 04/05/17 12:00 89 82/65 04/05/17 12:00 97.9 88 23 82/65 92 Non-Rebreather 100 04/05/17 12:00 87 04/05/17 11:46 88 20 94 Non-Rebreather 15.0 100 04/05/17 11:38 82 18 96 Non-Rebreather 15.0 100 04/05/17 11:38 100 04/05/17 11:00 84 24 101/55 94 Non-Rebreather 100 04/05/17 10:00 80 24 100/45 94 Non-Rebreather 100 04/05/17 09:00 79 21 100/47 93 Nasal Cannula 4.0 04/05/17 08:00 97.6 85 20 90/58 92 Nasal Cannula 4.0 04/05/17 08:00 88 04/05/17 07:00 82 21 94/62 93 Non-Rebreather 100 04/05/17 06:40 Non-Rebreather 15.0 95 04/05/17 06:40 Non-Rebreather 15.0 95 04/05/17 06:40 95 Non-Rebreather 15.0 100 04/05/17 06:21 81 90/54 04/05/17 06:00 79 22 83/54 93 Non-Rebreather 100 04/05/17 06:00 81 88/60 04/05/17 05:00 75 20 88/36 95 Non-Rebreather 100 04/05/17 04:00 98.4 76 20 93/46 95 Non-Rebreather 100 04/05/17 04:00 76 04/05/17 03:00 74 20 104/53 94 Non-Rebreather 100 04/05/17 02:00 68 21 91/38 93 Non-Rebreather 100 04/05/17 01:00 81 25 111/63 98 Non-Rebreather 100 04/05/17 00:22 82 130/68 04/05/17 00:00 85 04/05/17 00:00 98.0 82 25 130/68 93 Non-Rebreather 100 04/04/17 23:00 82 23 127/65 90 Non-Rebreather 100 General Appearance: moderate distress, other - severely dyspneic Neck: JVD Rhythm: NSR, PACs Cardiovascular: tachycardia Respiratory/Chest: crackles/rales - ould anterior and posterior Abdomen: soft Extremities: non-tender Intake and Output 04/04/17 04/05/17 19:00 07:00 Intake Total 992.5 ml 600 ml Output Total 490 ml 600 ml Balance 502.5 ml 0 ml IV Total 992.5 ml 600 ml Output Urine Total 490 ml 600 ml Laboratory Tests Test 04/05/17 04:45 04/05/17 08:54 White Blood Count 10.6 K/UL (4.8-10.8) Red Blood Count 3.44 M/UL (4.20-5.40) L Hemoglobin 11.1 G/DL (12.0-16.0) L Hematocrit 35.2 % (37.0-47.0) L Mean Corpuscular Volume 103 FL (80-99) H Mean Corpuscular Hemoglobin 32.2 PG (27.0-31.0) H Mean Corpuscular Hemoglobin Concent 31.4 G/DL (32.0-36.0) L Red Cell Distribution Width 14.0 % (11.6-14.8) Platelet Count 246 K/UL (150-450) Mean Platelet Volume 7.5 FL (6.5-10.1) Neutrophils (%) (Auto) 79.1 % (45.0-75.0) H Lymphocytes (%) (Auto) 8.6 % (20.0-45.0) L Monocytes (%) (Auto) 9.6 % (1.0-10.0) Eosinophils (%) (Auto) 1.7 % (0.0-3.0) Basophils (%) (Auto) 1.0 % (0.0-2.0) Sodium Level 134 mEQ/L (135-145) L Potassium Level 3.9 mEQ/L (3.4-4.9) Chloride Level 96 mEQ/L (98-107) L Carbon Dioxide Level 17 mEQ/L (20-30) L Anion Gap 21 (5-15) H Blood Urea Nitrogen 9 mg/dL (7-23) Creatinine 0.6 mg/dL (0.5-0.9) Estimat Glomerular Filtration Rate mL/min (>60) Glucose Level 79 mg/dL (74-106) Calcium Level 8.8 mg/dL (8.6-10.2) Phosphorus Level 2.4 mg/dL (2.5-4.8) L Magnesium Level 1.7 mg/dL (1.7-2.5) Total Bilirubin 0.4 mg/dL (0.0-1.2) Aspartate Amino Transf (AST/SGOT) 20 U/L (5-40) Alanine Aminotransferase (ALT/SGPT) 6 U/L (3-33) Alkaline Phosphatase 65 U/L (35-104) Total Protein 6.2 g/dL (6.6-8.7) L Albumin 1.9 g/dL (3.5-5.2) L Globulin 4.3 g/dL Albumin/Globulin Ratio 0.4 (1.0-2.7) L Arterial Blood pH 7.290 (7.350-7.450) Arterial Blood Partial Pressure CO2 52.4 mmHg (35.0-45.0) H Arterial Blood Partial Pressure O2 67.9 mmHg (75.0-100.0) L Arterial Blood HCO3 24.6 mmol/L (22.0-26.0) Arterial Blood Oxygen Saturation 92.8 % (92.0-98.0) Arterial Blood Base Excess -2.5 Tee Test Positive HOMA MONREAL Apr 05, 2017 22:26
[2017-04-06] VITALS (34 sets, daily range): BP systolic 42–143; BP diastolic 17–95
[2017-04-06] MEDS: Albuterol ud Inhalation HHN SCH ×4 (00:50→19:08)
[2017-04-06] MEDS: Acetylcysteine 20% Soln 4ml HHN SCH ×2 (01:12→07:30)
[2017-04-06 05:10] LABS: BASOPHILS % (AUTO) 1.5 % (0.0-2.0); EOSINOPHILS % (AUTO) 0.1 % (0.0-3.0); LYMPHOCYTES % (AUTO) 3.7 % (20.0-45.0); MEAN CORPUSCULAR HEMOGLOBIN 32.7 PG (27.0-31.0); MEAN CORPUSCULAR HGB CONC 32.3 G/DL (32.0-36.0); MEAN CORPUSCULAR VOLUME 101 FL (80-99); MEAN PLATELET VOLUME 8.5 FL (6.5-10.1); MONOCYTES % (AUTO) 10.1 % (1.0-10.0); NEUTROPHILS % (AUTO) 84.6 % (45.0-75.0); PLATELET COUNT 149 K/UL (150-450); RED BLOOD COUNT 3.09 M/UL (4.20-5.40); RED CELL DISTRIBUTION WIDTH 13.7 % (11.6-14.8); WHITE BLOOD COUNT 8.1 K/UL (4.8-10.8)
[2017-04-06] MEDS: Meropenem 1 GM in NS 110 ML IVPB SCH ×2 (05:40→17:27)
[2017-04-06 05:50] LABS: ALANINE AMINOTRANSFERASE 5 U/L (3-33); ALBUMIN/GLOBULIN RATIO 0.5 (1.0-2.7); ANION GAP 17 (5-15); ASPARTATE AMINO TRANSFERASE 14 U/L (5-40); CALCIUM 7.3 mg/dL (8.6-10.2); CARBON DIOXIDE 21 mEQ/L (20-30); CHLORIDE 90 mEQ/L (98-107); CREATININE 0.6 mg/dL (0.5-0.9); HEMOLYSIS 9; POTASSIUM 3.1 mEQ/L (3.4-4.9); SODIUM 128 mEQ/L (135-145)
[2017-04-06] MEDS: Levothyroxine 25mcg tab ORAL SCH (06:25)
--- NOTE | 2017-04-06 08:46 | Pre-Procedure Note/Attestation ---
Pre-Procedure Note/Attestation Complete Prior to Procedure Planned Procedure: not applicable Procedure Narrative: plAcement of triple lumen catheter Indications for Procedure Pre-Operative Diagnosis: hypotension poor venous access Attestation I attest that I discussed the nature of the procedure; its benefits; risks and complications; and alternatives (and the risks and benefits of such alternatives ), prior to the procedure, with the patient (or the patient's legal solar sales representative). I attest that, if there was a reasonable possibility of needing a blood transfusion, the patient (or the patient's legal solar sales representative) was given the [facility] standardized written summary, pursuant to the Herrera Bian[employer] Blood Safety Act ([place] Health and Safety Code # 1645, as amended). I attest that I re-evaluated the patient just prior to the surgery and that there has been no change in the patient's H&P, except as documented below:none MADHU MORILLO Apr 06, 2017 08:46
--- NOTE | 2017-04-06 08:47 | Brief Operative Note ---
Immediate Post Operative Note Operative Note Pre-op Diagnosis: hypotension poor venous access Procedure: placement triple lumen catheter Post-op Diagnosis: same Surgeon: laura Anesthesia: local Specimen: none Complications: none Condition: stable Estimated Blood Loss: minimal Drains: none Implant(s) used?: Yes - dtriple lumen catheter MADHU MORILLO Apr 06, 2017 08:47
[2017-04-06] MEDS ORDERED: DOPamine 400mg/250ml 250 ML IV SCH ×2 (09:00→10:35)
[2017-04-06] MEDS: Amiodarone 200mg tab ORAL SCH (09:00)
--- NOTE | 2017-04-06 09:03 | Consultation ---
Consult Note Consult Note asked to evaluate for low Na Examined- Data reviewed Discussed with RN Meds reviewed Assessment/Plan conditions: (1) Acute encephalopathy (2) Sepsis (3) Pneumonia (4) Lung mass (5) Aspiration pneumonia (6) Atrial fibrillation Low Na; likely Hypotonic solution administration Other points: Low Alb , Low K , Anemia , normal BUN and Cr , no Ua Available Plan; DC Hypotonic Solution U na U Os TSH , Phos Uric Acid Further comments when labs available ELLIOT ROCHE Apr 06, 2017 09:02
[2017-04-06] MEDS: Enoxaparin Sodium 300mg/3ml vial SUBQ SCH (09:20)
--- NOTE | 2017-04-06 10:40 | Pulmonolgy Critical Care Note ---
Critical Care - Asmt/Plan Problems: (1) Acute respiratory failure (2) Acute encephalopathy (3) Sepsis (4) Pneumonia (5) Lung mass (6) Aspiration pneumonia (7) Atrial fibrillation Respiratory: monitor respiratory rate, adjust FIO2, CXR, other Cardiac: continue pressors, continue to monitor HR/BP Renal: F/U I&O, keep IV fluid, check electrolytes Infectious Disease: check cultures, continue antibiotics Gastrointestinal: hold feedings Endocrine: monitor blood sugar Neurologic: PRN Morphine Affect: PRN ativan Prophylaxis: Protonix, Heparin Discussed with: nurses, consultants, protective services case worker, family member - left a message for daughter, talked with executive secretary social welfarenathan. Pt needs to be intubated or put on comfort meds. Critical Care - Objective Last 24 Hour Vital Signs Date Time Temp Pulse Resp B/P Pulse Ox O2 Delivery O2 Flow Rate FiO2 04/06/17 10:10 92/63 04/06/17 10:00 84 22 92/63 95 Non-Rebreather 100 04/06/17 09:30 81 22 96/59 95 Non-Rebreather 100 04/06/17 09:00 87 22 42/26 95 Non-Rebreather 100 04/06/17 08:30 91 25 86/60 86 Non-Rebreather 100 04/06/17 08:00 89 8 57/54 87 Non-Rebreather 100 04/06/17 08:00 97.4 04/06/17 08:00 89 04/06/17 07:47 89 22 96 Non-Rebreather 15.0 100 04/06/17 07:41 89 29 Non-Rebreather 15.0 100 04/06/17 07:38 Non-Rebreather 15.0 100 04/06/17 07:37 97 Non-Rebreather 15.0 100 04/06/17 07:35 89 23 Non-Rebreather 15.0 100 04/06/17 07:30 90 25 47/17 90 Non-Rebreather 100 04/06/17 07:23 88 24 97 Non-Rebreather 15.0 100 04/06/17 07:00 94 22 84/59 91 Non-Rebreather 100 04/06/17 06:54 90 22 55/34 91 Non-Rebreather 100 04/06/17 06:30 88 21 86/60 92 Non-Rebreather 100 04/06/17 06:17 90 22 55/34 91 Non-Rebreather 100 04/06/17 06:00 79 22 80/52 91 Non-Rebreather 100 04/06/17 05:30 80 22 83/65 91 Non-Rebreather 100 04/06/17 05:00 89 24 53/35 91 Non-Rebreather 100 04/06/17 04:00 97.8 90 24 63/42 91 Non-Rebreather 100 04/06/17 04:00 89 04/06/17 03:00 90 24 80/67 92 Non-Rebreather 100 04/06/17 02:00 90 25 104/55 92 Non-Rebreather 100 04/06/17 01:00 92 20 95 Non-Rebreather 15.0 100 04/06/17 01:00 89 22 103/73 94 Non-Rebreather 100 04/06/17 00:49 89 22 94 Non-Rebreather 15.0 100 04/06/17 00:00 93 04/06/17 00:00 98.4 90 23 130/82 93 Non-Rebreather 100 04/05/17 23:00 93 23 109/90 93 Non-Rebreather 100 04/05/17 22:00 95 22 97/49 94 Non-Rebreather 100 04/05/17 21:00 96 24 96/62 95 Non-Rebreather 100 04/05/17 20:00 98.0 97 20 90/52 95 Non-Rebreather 100 04/05/17 20:00 95 04/05/17 19:30 81 20 Non-Rebreather 15.0 100 04/05/17 19:15 75 22 Non-Rebreather 15.0 100 04/05/17 19:14 75 22 97 Non-Rebreather 15.0 100 04/05/17 19:14 97 Non-Rebreather 15.0 100 04/05/17 19:14 Non-Rebreather 15.0 100 04/05/17 19:00 96 20 92/56 95 Non-Rebreather 100 04/05/17 18:00 94 19 90/56 95 Non-Rebreather 100 04/05/17 17:45 93 110/55 04/05/17 17:00 98.1 95 24 110/55 92 Nasal Cannula 6.0 04/05/17 16:00 97 24 110/55 92 Nasal Cannula 6.0 04/05/17 16:00 96 04/05/17 15:00 91 25 88/39 92 Nasal Cannula 6.0 04/05/17 14:44 91 20 96 Nasal Cannula 5.0 40 04/05/17 14:36 40 04/05/17 14:36 92 18 94 Nasal Cannula 5.0 40 04/05/17 14:00 90 82/61 04/05/17 14:00 96 22 91/52 94 Nasal Cannula 6.0 04/05/17 13:00 89 22 101/52 94 Non-Rebreather 100 04/05/17 12:00 89 82/65 04/05/17 12:00 97.9 88 23 82/65 92 Non-Rebreather 100 04/05/17 12:00 87 04/05/17 11:46 88 20 94 Non-Rebreather 15.0 100 04/05/17 11:38 82 18 96 Non-Rebreather 15.0 100 04/05/17 11:38 100 04/05/17 11:00 84 24 101/55 94 Non-Rebreather 100 Status: awake Condition: critical HEENT: atraumatic Neck: full ROM Heart: HR/BP unstable Abdomen: soft, non-tender Extremities: no C/C/E, edema Critical Care - Subjective ROS Limited/Unobtainable: Yes ICU Day: 6 Interval Events: became hypotensive last night, was started on dopamin, got a central line. desaturating to 80% on fio2 of 100% NRM FI02: 100 Sputum Amount: Moderate Drips: dopamin I&O: Intake and Output 04/05/17 04/06/17 19:00 07:00 Intake Total 793.3 ml 1050 ml Output Total 550 ml 660 ml Balance 243.3 ml 390 ml IV Total 793.3 ml 1050 ml Output Urine Total 550 ml 660 ml CXR: RUL infiltrate unchanged. Labs: Laboratory Tests Test 04/06/17 04:20 04/06/17 09:30 White Blood Count 8.1 K/UL (4.8-10.8) Red Blood Count 3.09 M/UL (4.20-5.40) L Hemoglobin 10.1 G/DL (12.0-16.0) L Hematocrit 31.2 % (37.0-47.0) L Mean Corpuscular Volume 101 FL (80-99) H Mean Corpuscular Hemoglobin 32.7 PG (27.0-31.0) H Mean Corpuscular Hemoglobin Concent 32.3 G/DL (32.0-36.0) Red Cell Distribution Width 13.7 % (11.6-14.8) Platelet Count 149 K/UL (150-450) L Mean Platelet Volume 8.5 FL (6.5-10.1) Neutrophils (%) (Auto) 84.6 % (45.0-75.0) H Lymphocytes (%) (Auto) 3.7 % (20.0-45.0) L Monocytes (%) (Auto) 10.1 % (1.0-10.0) H Eosinophils (%) (Auto) 0.1 % (0.0-3.0) Basophils (%) (Auto) 1.5 % (0.0-2.0) Sodium Level 128 mEQ/L (135-145) L Potassium Level 3.1 mEQ/L (3.4-4.9) L Chloride Level 90 mEQ/L (98-107) L Carbon Dioxide Level 21 mEQ/L (20-30) Anion Gap 17 (5-15) H Blood Urea Nitrogen 10 mg/dL (7-23) Creatinine 0.6 mg/dL (0.5-0.9) Estimat Glomerular Filtration Rate mL/min (>60) Glucose Level 89 mg/dL (74-106) Calcium Level 7.3 mg/dL (8.6-10.2) L Total Bilirubin 0.3 mg/dL (0.0-1.2) Aspartate Amino Transf (AST/SGOT) 14 U/L (5-40) Alanine Aminotransferase (ALT/SGPT) 5 U/L (3-33) Alkaline Phosphatase 49 U/L (35-104) Total Protein 5.0 g/dL (6.6-8.7) L Albumin 1.8 g/dL (3.5-5.2) L Globulin 3.2 g/dL Albumin/Globulin Ratio 0.5 (1.0-2.7) L Plasma/Serum Osmolality Pending Uric Acid Pending Phosphorus Level Pending Magnesium Level Pending Triglycerides Level Pending Cholesterol Level Pending LDL Cholesterol Pending HDL Cholesterol Pending Cholesterol/HDL Ratio Pending Thyroid Stimulating Hormone (TSH) Pending LIU HYDE Apr 06, 2017 10:40
[2017-04-06 10:47] LABS: CHOLESTEROL/HDL RATIO 3.6 (3.3-4.4); MAGNESIUM 1.5 mg/dL (1.7-2.5); PHOSPHORUS 2.2 mg/dL (2.5-4.8); URIC ACID 6.4 mg/dL (3.0-7.5)
[2017-04-06 10:50] LABS: APPEARANCE,URINE CLEAR; KETONES,URINE 2+ (NEGATIVE); LEUKOCYTE ESTERASE ,URINE 2+ (NEGATIVE); NITRITE,URINE NEGATIVE (NEGATIVE); PH,URINE 5 (4.5-8.0); PROTEIN,URINE 1+ (NEGATIVE); UROBILINOGEN,URINE NORMAL MG/DL (0.0-1.0)
[2017-04-06 10:57] LABS: THYROID STIMULATING HORMONE 5.1 uIU/mL (0.300-4.500)
[2017-04-06 11:13] LABS: BACTERIA,URINE FEW /HPF; FINE GRANULAR CASTS,URINE 0-2 /LPF; SQUAMOUS EPITHELIAL CELL,UR FEW /LPF (NONE/OCC); YEAST,URINE MANY /HPF
--- NOTE | 2017-04-06 11:46 | Discharge Summary ---
DATE OF ADMISSION: 03/31/2017 PREOPERATIVE DIAGNOSIS: Hypotension, poor venous access. POSTOPERATIVE DIAGNOSIS: Hypotension, poor venous access. SURGEON: West Powers M.D. ANESTHESIA: Local by surgeon. PROCEDURE: Placement of triple-lumen catheter. INDICATION: This 81-year-old, woman patient of Dr. Call, admitted to the intensive care unit at [facility]. The patient has been hypotensive and has very poor venous access. Her blood pressure recently had been 73/35. The patient had been previously scheduled for triple-lumen catheter, but this had not been performed. I was requested to replace it emergently for better access. Consent had been previously obtained. PROCEDURE IN DETAIL: The patient was identified and placed in supine position. The right chest wall was prepped and draped in a sterile manner. Time-out performed confirming the patient's position, procedure, anesthesia, antibiotic, and allergy status. Local infiltration with total of 5 mL of 1% lidocaine. The right subclavian vein was easily cannulated with a hollow needle through which was passed a guidewire needle removed. The aperture was enlarged. Dilator was passed over the guidewire then removed the triple-lumen catheter, which had been previously irrigated with saline was passed through the guidewire into the same situation position and the guidewire removed. All 3 ports were checked for leaks and bidirectional flow, irrigated with heparinized saline and capped. Sutured the skin with interrupted 3-0 silk sutures and covered with dry sterile dressing. Blood loss for the entire procedure was less than 2 mL. Chest x-ray was ordered to confirm correct position. West Powers M.D. DR: Myrna JOB#: [id number] CC: West Powers M.D.; Fax#: [phone]. Jose Angel Call M.D.; Fax#: [phone]
--- NOTE | 2017-04-06 12:11 | General Progress Note ---
Progress Note Progress Note D/w pts daughter, Lacie about plan of care. she knows that her condition gotten worse. He wants comfort care, avoiding any artificial breathing, feeding, pressors etc. I will dc dopamin drip and transfer her to a private room. LIU HYDE Apr 06, 2017 12:11
[2017-04-06] MEDS ORDERED: KCl 20mEq 100ml Premix IVPB ONE (16:30)
--- NOTE | 2017-04-06 19:49 | Cardiology Progress Note ---
Assessment/Plan Status: not improved, deteriorating Status Narrative Extensive R upper lung infiltrate - pneumonia and ? malignancy Pulmonary edema. Respiratory status deteriorating AF - She is now in SR w/ ventricular rate 80s Assessment/Plan d/w RN - pt now DNR/DNI Will give lasix iv w/ kcl supplement for pulm edema. Continue antibiotics, respir rx and suppl o2 per Dr. Call, for pneumonia. Overall prognosis poor. Subjective ROS Limited/Unobtainable: Yes Subjective Mrs. Maloney is on non-rebreather mask. Tachypneic/ diaphoretic. Objective Last 24 Hour Vital Signs Date Time Temp Pulse Resp B/P Pulse Ox O2 Delivery O2 Flow Rate FiO2 04/06/17 19:18 94 24 85 Non-Rebreather 15.0 100 04/06/17 19:08 86 23 85 Non-Rebreather 15.0 100 04/06/17 19:08 85 Non-Rebreather 15.0 100 04/06/17 19:08 Non-Rebreather 15.0 100 04/06/17 19:00 89 23 108/61 95 Non-Rebreather 100 04/06/17 18:00 86 24 121/63 94 Non-Rebreather 100 04/06/17 17:00 84 24 140/58 96 Non-Rebreather 100 04/06/17 16:00 87 04/06/17 16:00 97.1 88 24 103/55 95 Non-Rebreather 100 04/06/17 15:00 86 24 101/56 95 Non-Rebreather 100 04/06/17 14:00 88 26 88/57 95 Non-Rebreather 100 04/06/17 13:00 88 24 90/57 95 Non-Rebreather 100 04/06/17 12:53 90 20 86 Bi-pap 100 04/06/17 12:47 88 26 89 Non-Rebreather 15.0 100 04/06/17 12:30 84 24 95/42 95 Non-Rebreather 100 04/06/17 12:00 81 04/06/17 12:00 97.0 85 22 107/74 95 Non-Rebreather 100 04/06/17 11:30 91 24 143/95 95 Non-Rebreather 100 04/06/17 11:00 91 23 123/95 95 Non-Rebreather 100 04/06/17 10:43 92/64 04/06/17 10:30 120 22 80/51 95 Non-Rebreather 100 04/06/17 10:10 92/63 04/06/17 10:00 84 22 92/63 95 Non-Rebreather 100 04/06/17 09:30 81 22 96/59 95 Non-Rebreather 100 04/06/17 09:00 87 22 42/26 95 Non-Rebreather 100 04/06/17 08:30 91 25 86/60 86 Non-Rebreather 100 04/06/17 08:00 89 8 57/54 87 Non-Rebreather 100 04/06/17 08:00 97.4 04/06/17 08:00 89 04/06/17 07:47 89 22 96 Non-Rebreather 15.0 100 04/06/17 07:41 89 29 Non-Rebreather 15.0 100 04/06/17 07:38 Non-Rebreather 15.0 100 04/06/17 07:37 97 Non-Rebreather 15.0 100 04/06/17 07:35 89 23 Non-Rebreather 15.0 100 04/06/17 07:30 90 25 47/17 90 Non-Rebreather 100 04/06/17 07:23 88 24 97 Non-Rebreather 15.0 100 04/06/17 07:00 94 22 84/59 91 Non-Rebreather 100 04/06/17 06:54 90 22 55/34 91 Non-Rebreather 100 04/06/17 06:30 88 21 86/60 92 Non-Rebreather 100 04/06/17 06:17 90 22 55/34 91 Non-Rebreather 100 04/06/17 06:00 79 22 80/52 91 Non-Rebreather 100 04/06/17 05:30 80 22 83/65 91 Non-Rebreather 100 04/06/17 05:00 89 24 53/35 91 Non-Rebreather 100 04/06/17 04:00 97.8 90 24 63/42 91 Non-Rebreather 100 04/06/17 04:00 89 04/06/17 03:00 90 24 80/67 92 Non-Rebreather 100 04/06/17 02:00 90 25 104/55 92 Non-Rebreather 100 04/06/17 01:00 92 20 95 Non-Rebreather 15.0 100 04/06/17 01:00 89 22 103/73 94 Non-Rebreather 100 04/06/17 00:49 89 22 94 Non-Rebreather 15.0 100 04/06/17 00:00 93 04/06/17 00:00 98.4 90 23 130/82 93 Non-Rebreather 100 04/05/17 23:00 93 23 109/90 93 Non-Rebreather 100 04/05/17 22:00 95 22 97/49 94 Non-Rebreather 100 04/05/17 21:00 96 24 96/62 95 Non-Rebreather 100 04/05/17 20:00 98.0 97 20 90/52 95 Non-Rebreather 100 04/05/17 20:00 95 General Appearance: WD/WN, alert, moderate distress EENT: PERRL/EOMI Neck: other - + JVD to angle of jaw Rhythm: NSR Cardiovascular: normal rate, regular rhythm, no gallop/murmur Respiratory/Chest: rhonchi - bilaterally, other - shallow respirations Abdomen: non tender, soft Extremities: trace edema Intake and Output 04/05/17 04/06/17 19:00 07:00 Intake Total 793.3 ml 1050 ml Output Total 550 ml 660 ml Balance 243.3 ml 390 ml IV Total 793.3 ml 1050 ml Output Urine Total 550 ml 660 ml Laboratory Tests Test 04/06/17 04:20 04/06/17 09:30 White Blood Count 8.1 K/UL (4.8-10.8) Red Blood Count 3.09 M/UL (4.20-5.40) L Hemoglobin 10.1 G/DL (12.0-16.0) L Hematocrit 31.2 % (37.0-47.0) L Mean Corpuscular Volume 101 FL (80-99) H Mean Corpuscular Hemoglobin 32.7 PG (27.0-31.0) H Mean Corpuscular Hemoglobin Concent 32.3 G/DL (32.0-36.0) Red Cell Distribution Width 13.7 % (11.6-14.8) Platelet Count 149 K/UL (150-450) L Mean Platelet Volume 8.5 FL (6.5-10.1) Neutrophils (%) (Auto) 84.6 % (45.0-75.0) H Lymphocytes (%) (Auto) 3.7 % (20.0-45.0) L Monocytes (%) (Auto) 10.1 % (1.0-10.0) H Eosinophils (%) (Auto) 0.1 % (0.0-3.0) Basophils (%) (Auto) 1.5 % (0.0-2.0) Sodium Level 128 mEQ/L (135-145) L Potassium Level 3.1 mEQ/L (3.4-4.9) L Chloride Level 90 mEQ/L (98-107) L Carbon Dioxide Level 21 mEQ/L (20-30) Anion Gap 17 (5-15) H Blood Urea Nitrogen 10 mg/dL (7-23) Creatinine 0.6 mg/dL (0.5-0.9) Estimat Glomerular Filtration Rate mL/min (>60) Glucose Level 89 mg/dL (74-106) Calcium Level 7.3 mg/dL (8.6-10.2) L Total Bilirubin 0.3 mg/dL (0.0-1.2) Aspartate Amino Transf (AST/SGOT) 14 U/L (5-40) Alanine Aminotransferase (ALT/SGPT) 5 U/L (3-33) Alkaline Phosphatase 49 U/L (35-104) Total Protein 5.0 g/dL (6.6-8.7) L Albumin 1.8 g/dL (3.5-5.2) L Globulin 3.2 g/dL Albumin/Globulin Ratio 0.5 (1.0-2.7) L Urine Color Pale yellow Urine Appearance Clear Urine pH 5 (4.5-8.0) Urine Specific [place] 1.010 (1.005-1.035) Urine Protein 1+ (NEGATIVE) H Urine Glucose (UA) Negative (NEGATIVE) Urine Ketones 2+ (NEGATIVE) H Urine Occult Blood 4+ (NEGATIVE) H Urine Nitrite Negative (NEGATIVE) Urine Bilirubin Negative (NEGATIVE) Urine Urobilinogen Normal MG/DL (0.0-1.0) Urine Leukocyte Esterase 2+ (NEGATIVE) H Urine RBC 2-4 /HPF (0 - 2) H Urine WBC 5-10 /HPF (0 - 2) H Urine Squamous Epithelial Cells Few /LPF (NONE/OCC) Urine Bacteria Few /HPF (NONE) Urine Fine Granular Casts 0-2 /LPF (NONE) H Urine Yeast Many /HPF (NONE) H Urine Random Sodium 48 mmol/L Miscellaneous Test 2 Osmo ser:see comment Uric Acid 6.4 mg/dL (3.0-7.5) Phosphorus Level 2.2 mg/dL (2.5-4.8) L Magnesium Level 1.5 mg/dL (1.7-2.5) L Triglycerides Level 105 mg/dL (< 150) Cholesterol Level 137 mg/dL (< 200) LDL Cholesterol 78 mg/dL (60-99) HDL Cholesterol 38 mg/dL (> 60) Cholesterol/HDL Ratio 3.6 (3.3-4.4) Thyroid Stimulating Hormone (TSH) 5.100 uIU/mL (0.300-4.500) KERRIE DAWSON Apr 06, 2017 19:49
[2017-04-06] MEDS: Dyna-Hex 2% Top Sol 8oz TOPIC SCH (20:59)
--- NOTE | 2017-04-06 22:13 | Infectious Diseases Prog Note ---
Assessment/Plan Assessment/Plan ASSESSMENT: 81 y/o female with: Multilobar PNA - SCx, UAgs pending - CXR 04/03: Increased infiltrate at the right lung base. Increased left pleural effusion, over one day. Possibly increased interstitial infiltrates at the left lung base as well. Sepsis Leukocytosis - resolved, afebrile hx of UTI UCx : P.stuartii Acute hypoxic respiratory failure / BiPAP--> high flow oxygen Lethargy - improved Afib/flutter CHF hypothyroidism [place] resident NKDA Full Code PLAN: continue empiric IV Vanco , Merrem and Levaquin d# 6 / 7 ( 03/29 SP Cefepime and Vanco d# 6 ) f/u cultures, UAgs Monitor CBC, temperatures Monitor BMP Monitor Cxray BiPAP prn Subjective Constitutional: Denies: anorexia, chills, drenching sweats, fatigue, fever, no symptoms, other Allergies: Coded Allergies: No Known Allergies (Unverified , 03/23/17) Subjective on no NRB FM Objective Vital Signs Last 24 Hour Vital Signs Date Time Temp Pulse Resp B/P Pulse Ox O2 Delivery O2 Flow Rate FiO2 04/06/17 21:00 86 25 85/71 81 Non-Rebreather 100 04/06/17 20:00 97.1 86 24 99/64 83 Non-Rebreather 100 04/06/17 19:18 94 24 85 Non-Rebreather 15.0 100 04/06/17 19:08 86 23 85 Non-Rebreather 15.0 100 04/06/17 19:08 85 Non-Rebreather 15.0 100 04/06/17 19:08 Non-Rebreather 15.0 100 04/06/17 19:00 89 23 108/61 95 Non-Rebreather 100 04/06/17 18:00 86 24 121/63 94 Non-Rebreather 100 04/06/17 17:00 84 24 140/58 96 Non-Rebreather 100 04/06/17 16:00 87 04/06/17 16:00 97.1 88 24 103/55 95 Non-Rebreather 100 04/06/17 15:00 86 24 101/56 95 Non-Rebreather 100 04/06/17 14:00 88 26 88/57 95 Non-Rebreather 100 04/06/17 13:00 88 24 90/57 95 Non-Rebreather 100 04/06/17 12:53 90 20 86 Bi-pap 100 04/06/17 12:47 88 26 89 Non-Rebreather 15.0 100 04/06/17 12:30 84 24 95/42 95 Non-Rebreather 100 04/06/17 12:00 81 04/06/17 12:00 97.0 85 22 107/74 95 Non-Rebreather 100 04/06/17 11:30 91 24 143/95 95 Non-Rebreather 100 04/06/17 11:00 91 23 123/95 95 Non-Rebreather 100 04/06/17 10:43 92/64 04/06/17 10:30 120 22 80/51 95 Non-Rebreather 100 04/06/17 10:10 92/63 04/06/17 10:00 84 22 92/63 95 Non-Rebreather 100 04/06/17 09:30 81 22 96/59 95 Non-Rebreather 100 04/06/17 09:00 87 22 42/26 95 Non-Rebreather 100 04/06/17 08:30 91 25 86/60 86 Non-Rebreather 100 04/06/17 08:00 89 8 57/54 87 Non-Rebreather 100 04/06/17 08:00 97.4 04/06/17 08:00 89 04/06/17 07:47 89 22 96 Non-Rebreather 15.0 100 04/06/17 07:41 89 29 Non-Rebreather 15.0 100 04/06/17 07:38 Non-Rebreather 15.0 100 04/06/17 07:37 97 Non-Rebreather 15.0 100 04/06/17 07:35 89 23 Non-Rebreather 15.0 100 04/06/17 07:30 90 25 47/17 90 Non-Rebreather 100 04/06/17 07:23 88 24 97 Non-Rebreather 15.0 100 04/06/17 07:00 94 22 84/59 91 Non-Rebreather 100 04/06/17 06:54 90 22 55/34 91 Non-Rebreather 100 04/06/17 06:30 88 21 86/60 92 Non-Rebreather 100 04/06/17 06:17 90 22 55/34 91 Non-Rebreather 100 04/06/17 06:00 79 22 80/52 91 Non-Rebreather 100 04/06/17 05:30 80 22 83/65 91 Non-Rebreather 100 04/06/17 05:00 89 24 53/35 91 Non-Rebreather 100 04/06/17 04:00 97.8 90 24 63/42 91 Non-Rebreather 100 04/06/17 04:00 89 04/06/17 03:00 90 24 80/67 92 Non-Rebreather 100 04/06/17 02:00 90 25 104/55 92 Non-Rebreather 100 04/06/17 01:00 92 20 95 Non-Rebreather 15.0 100 04/06/17 01:00 89 22 103/73 94 Non-Rebreather 100 04/06/17 00:49 89 22 94 Non-Rebreather 15.0 100 04/06/17 00:00 93 04/06/17 00:00 98.4 90 23 130/82 93 Non-Rebreather 100 04/05/17 23:00 93 23 109/90 93 Non-Rebreather 100 Height (Feet): 5 Height (Inches): 5.00 Weight (Pounds): 160 HEENT: anicteric Respiratory/Chest: no accessory muscle use Cardiovascular: normal rate Abdomen: non distended Laboratory Tests Test 04/06/17 04:20 04/06/17 09:30 White Blood Count 8.1 K/UL (4.8-10.8) Red Blood Count 3.09 M/UL (4.20-5.40) L Hemoglobin 10.1 G/DL (12.0-16.0) L Hematocrit 31.2 % (37.0-47.0) L Mean Corpuscular Volume 101 FL (80-99) H Mean Corpuscular Hemoglobin 32.7 PG (27.0-31.0) H Mean Corpuscular Hemoglobin Concent 32.3 G/DL (32.0-36.0) Red Cell Distribution Width 13.7 % (11.6-14.8) Platelet Count 149 K/UL (150-450) L Mean Platelet Volume 8.5 FL (6.5-10.1) Neutrophils (%) (Auto) 84.6 % (45.0-75.0) H Lymphocytes (%) (Auto) 3.7 % (20.0-45.0) L Monocytes (%) (Auto) 10.1 % (1.0-10.0) H Eosinophils (%) (Auto) 0.1 % (0.0-3.0) Basophils (%) (Auto) 1.5 % (0.0-2.0) Sodium Level 128 mEQ/L (135-145) L Potassium Level 3.1 mEQ/L (3.4-4.9) L Chloride Level 90 mEQ/L (98-107) L Carbon Dioxide Level 21 mEQ/L (20-30) Anion Gap 17 (5-15) H Blood Urea Nitrogen 10 mg/dL (7-23) Creatinine 0.6 mg/dL (0.5-0.9) Estimat Glomerular Filtration Rate mL/min (>60) Glucose Level 89 mg/dL (74-106) Calcium Level 7.3 mg/dL (8.6-10.2) L Total Bilirubin 0.3 mg/dL (0.0-1.2) Aspartate Amino Transf (AST/SGOT) 14 U/L (5-40) Alanine Aminotransferase (ALT/SGPT) 5 U/L (3-33) Alkaline Phosphatase 49 U/L (35-104) Total Protein 5.0 g/dL (6.6-8.7) L Albumin 1.8 g/dL (3.5-5.2) L Globulin 3.2 g/dL Albumin/Globulin Ratio 0.5 (1.0-2.7) L Urine Color Pale yellow Urine Appearance Clear Urine pH 5 (4.5-8.0) Urine Specific [place] 1.010 (1.005-1.035) Urine Protein 1+ (NEGATIVE) H Urine Glucose (UA) Negative (NEGATIVE) Urine Ketones 2+ (NEGATIVE) H Urine Occult Blood 4+ (NEGATIVE) H Urine Nitrite Negative (NEGATIVE) Urine Bilirubin Negative (NEGATIVE) Urine Urobilinogen Normal MG/DL (0.0-1.0) Urine Leukocyte Esterase 2+ (NEGATIVE) H Urine RBC 2-4 /HPF (0 - 2) H Urine WBC 5-10 /HPF (0 - 2) H Urine Squamous Epithelial Cells Few /LPF (NONE/OCC) Urine Bacteria Few /HPF (NONE) Urine Fine Granular Casts 0-2 /LPF (NONE) H Urine Yeast Many /HPF (NONE) H Urine Random Sodium 48 mmol/L Miscellaneous Test 2 Osmo ser:see comment Uric Acid 6.4 mg/dL (3.0-7.5) Phosphorus Level 2.2 mg/dL (2.5-4.8) L Magnesium Level 1.5 mg/dL (1.7-2.5) L Triglycerides Level 105 mg/dL (< 150) Cholesterol Level 137 mg/dL (< 200) LDL Cholesterol 78 mg/dL (60-99) HDL Cholesterol 38 mg/dL (> 60) Cholesterol/HDL Ratio 3.6 (3.3-4.4) Thyroid Stimulating Hormone (TSH) 5.100 uIU/mL (0.300-4.500) Current Medications Medications (Trade) Dose Ordered Sig/Rita Route PRN Reason Start Time Stop Time Status Last Admin Dose Admin Acetaminophen (Tylenol) 650 mg Q4H PRN ORAL FEVER 04/01/17 15:00 05/01/17 14:59 Albuterol Sulfate 2.5 mg 2.5 mg Q6HRT HHN 04/05/17 19:00 04/10/17 18:59 04/06/17 19:08 Chlorhexidine Gluconate (Joana-Hex 2%) 1 applic QHS TOPIC 04/04/17 21:00 05/04/17 20:59 04/06/17 20:59 Clotrimazole (Lotrimin) 1 applic EVERY 12 HOURS TOPIC 04/04/17 09:00 05/04/17 08:59 04/06/17 20:55 Dextrose (Dextrose 50%) STAT PRN IV Hypoglycemia 04/01/17 15:00 05/01/17 14:59 Levofloxacin 150 ml @ 100 mls/hr Q48H IVPB 04/04/17 22:00 04/11/17 21:59 04/06/17 22:05 Levothyroxine Sodium (Synthroid) 25 mcg ACBREAKFAST ORAL 04/02/17 06:30 05/02/17 06:29 04/05/17 06:20 Lorazepam (Ativan 2mg/ml 1ml) 2 mg Q2H PRN IV For Anxiety 04/01/17 15:00 04/08/17 14:59 04/05/17 23:41 Meropenem/Sodium Chloride (Merrem/Sodium Chloride) 110 ml @ 220 mls/hr Q12HR@0600,1800 IVPB 04/03/17 18:00 04/08/17 17:59 04/06/17 17:27 Morphine Sulfate 4 mg 4 mg Q4H PRN IVP Severe Pain (Pain Scale 7-10) 04/01/17 15:00 04/08/17 14:59 04/05/17 01:19 Potassium Chloride (KCl 10mEq/100ml Premix) 100 ml @ 100 mls/hr Q1HR IVPB 04/06/17 20:00 04/06/17 23:59 04/06/17 21:00 SB JADE M.D. Apr 06, 2017 22:13
[2017-04-07] VITALS (10 sets, daily range): BP systolic 57–135; BP diastolic 35–77
[2017-04-07] MEDS: Albuterol ud Inhalation HHN SCH ×4 (01:11→19:19)
[2017-04-07] MEDS: Meropenem 1 GM in NS 110 ML IVPB SCH ×3 (05:18→18:41)
[2017-04-07] MEDS ORDERED: Levothyroxine 25mcg tab ORAL SCH (06:30)
[2017-04-07] MEDS ORDERED: Morphine Sulfate 4mg/ml Inj IVP PRN (07:00)
[2017-04-07] MEDS ORDERED: LORazepam Inj 2mg/ml 1ml IV PRN (07:00)
--- NOTE | 2017-04-07 07:27 | Pulmonology Progress Note ---
Assessment/Plan Assessment/Plan ASSESSMENT sepsis aspiration PNA ( extensive and persistent RUL infiltrate) possible lung mass acute hypoxemic hypercapnic respiratory failure acute toxic metabolic encephalopathy 2 to sepsis Afib with RVR CHF with diastolic dysfunction pulmonary edema electrolyte abnormalities ( hypo K, hypo Mg, hypo P) hypothyroidism with elevated TSH hypoalbuminemia moderate pulmonary HTN PLAN OF CARE initially in ICU on 100% NRM ABG with acute respiratory acidosis and hypercapnia CXR with RUL infiltrate hemodynamic support with pressor ( Dopamine) Venous Duplex BLE negative abx ID follows blood cx preliminary negative ,sputum cx not collected cardiology follows on Amiodarone, initially on BB and CCB as well but BB and CCB dc due to hypotension no a/coagulation 2 to unstable status ECHO with EF n60% and RVSP of 38 c/w moderate pulmonary HTN , moderate TR and diastolic dysfunction s/p Lasix x 1 nephro follows e/lyte replaced hypo Na due to hypotonic solution, , off hypotonic solution Synthroid dose increased s/p Albumin x 1 fup CXR s with persistent RUL PNA , worsening, pulmonary edema long discussion with family who decided against intubation and choose comfort measures/palliative care code status changed to DNR/DNI pressor discontinue transferred to private room [place] floor for comfort measures O2 via 100 NNM suction prn pulmonary toilet s/p diuretic today pain management, comfort measures DNR/DNI status case discussed and evaluated by supervising physician Subjective Allergies: Coded Allergies: No Known Allergies (Unverified , 03/23/17) Subjective transferred to [place] floor DNR/DNI status now e/lyte imbalance ( low K, Mg, P, Ca) Objective Last 24 Hour Vital Signs Date Time Temp Pulse Resp B/P Pulse Ox O2 Delivery O2 Flow Rate FiO2 04/07/17 05:00 84 22 57/43 95 Non-Rebreather 100 04/07/17 04:00 97.1 83 23 88/70 98 Non-Rebreather 100 04/07/17 04:00 86 04/07/17 03:00 83 23 74/49 82 Non-Rebreather 100 04/07/17 02:00 83 24 74/55 88 Non-Rebreather 100 04/07/17 01:18 82 19 92 Non-Rebreather 15.0 100 04/07/17 01:10 84 25 93 Non-Rebreather 15.0 100 04/07/17 01:00 81 28 78/35 96 Non-Rebreather 100 04/07/17 00:00 97.1 80 26 112/69 78 Non-Rebreather 100 04/07/17 00:00 81 04/06/17 23:00 84 22 93/62 84 Non-Rebreather 100 04/06/17 22:00 86 24 93/45 84 Non-Rebreather 100 04/06/17 21:00 86 25 85/71 81 Non-Rebreather 100 04/06/17 20:00 87 04/06/17 20:00 97.1 86 24 99/64 83 Non-Rebreather 100 04/06/17 19:18 94 24 85 Non-Rebreather 15.0 100 04/06/17 19:08 86 23 85 Non-Rebreather 15.0 100 04/06/17 19:08 85 Non-Rebreather 15.0 100 04/06/17 19:08 Non-Rebreather 15.0 100 04/06/17 19:00 89 23 108/61 95 Non-Rebreather 100 04/06/17 18:00 86 24 121/63 94 Non-Rebreather 100 04/06/17 17:00 84 24 140/58 96 Non-Rebreather 100 04/06/17 16:00 87 04/06/17 16:00 97.1 88 24 103/55 95 Non-Rebreather 100 04/06/17 15:00 86 24 101/56 95 Non-Rebreather 100 04/06/17 14:00 88 26 88/57 95 Non-Rebreather 100 04/06/17 13:00 88 24 90/57 95 Non-Rebreather 100 04/06/17 12:53 90 20 86 Bi-pap 100 04/06/17 12:47 88 26 89 Non-Rebreather 15.0 100 04/06/17 12:30 84 24 95/42 95 Non-Rebreather 100 04/06/17 12:00 81 04/06/17 12:00 97.0 85 22 107/74 95 Non-Rebreather 100 04/06/17 11:30 91 24 143/95 95 Non-Rebreather 100 04/06/17 11:00 91 23 123/95 95 Non-Rebreather 100 04/06/17 10:43 92/64 04/06/17 10:30 120 22 80/51 95 Non-Rebreather 100 04/06/17 10:10 92/63 04/06/17 10:00 84 22 92/63 95 Non-Rebreather 100 04/06/17 09:30 81 22 96/59 95 Non-Rebreather 100 04/06/17 09:00 87 22 42/26 95 Non-Rebreather 100 04/06/17 08:30 91 25 86/60 86 Non-Rebreather 100 04/06/17 08:00 89 8 57/54 87 Non-Rebreather 100 04/06/17 08:00 97.4 04/06/17 08:00 89 04/06/17 07:47 89 22 96 Non-Rebreather 15.0 100 04/06/17 07:41 89 29 Non-Rebreather 15.0 100 04/06/17 07:38 Non-Rebreather 15.0 100 04/06/17 07:37 97 Non-Rebreather 15.0 100 04/06/17 07:35 89 23 Non-Rebreather 15.0 100 04/06/17 07:30 90 25 47/17 90 Non-Rebreather 100 Intake and Output 04/06/17 04/07/17 19:00 07:00 Intake Total 160 ml 450 ml Output Total 440 ml 975 ml Balance -280 ml -525 ml IV Total 160 ml 450 ml Output Urine Total 440 ml 975 ml General Appearance: other - elderly, weak, letahrgic bedridden female in mild respiratory distress HEENT: normocephalic, atraumatic, other - 100% NRM on Respiratory/Chest: rhonchi - bilaterally, more on the right side, other - tachypneic Cardiovascular: normal peripheral pulses, normal rate, irregularly irregular, other - CL R subclavian Abdomen: soft, non tender Extremities: other - trace edema BLE Neurologic/Psychiatric: abnormal gait - bedridden , other - lethargic Musculoskeletal: atrophy - BLE Laboratory Tests 04/06/17 09:30: Urine Color Pale yellow, Urine Appearance Clear, Urine pH 5, Urine Specific [place] 1.010, Urine Protein 1+H, Urine Glucose (UA) Negative, Urine Ketones 2+H , Urine Occult Blood 4+H, Urine Nitrite Negative, Urine Bilirubin Negative, Urine Urobilinogen Normal, Urine Leukocyte Esterase 2+H, Urine RBC 2-4H, Urine WBC 5-10H, Urine Squamous Epithelial Cells Few, Urine Bacteria Few, Urine Fine Granular Casts 0-2H, Urine Yeast ManyH, Urine Random Sodium 48, Miscellaneous Test 2 Osmo ser:see comment, Uric Acid 6.4, Phosphorus Level 2.2L, Magnesium Level 1.5L, Triglycerides Level 105, Cholesterol Level 137, LDL Cholesterol 78, HDL Cholesterol 38, Cholesterol/HDL Ratio 3.6, Thyroid Stimulating Hormone (TSH ) 5.100H Current Medications Medications (Trade) Dose Ordered Sig/Rita Route PRN Reason Start Time Stop Time Status Last Admin Dose Admin Acetaminophen (Tylenol) 650 mg Q4H PRN ORAL FEVER 04/07/17 07:00 05/07/17 06:59 Albuterol Sulfate (Proventil) 2.5 mg Q6HRT HHN 04/07/17 07:00 04/12/17 06:59 Chlorhexidine Gluconate (Joana-Hex 2%) 1 applic QHS TOPIC 04/07/17 21:00 05/07/17 20:59 Clotrimazole (Lotrimin) 1 applic EVERY 12 HOURS TOPIC 04/07/17 09:00 05/07/17 08:59 Dextrose (Dextrose 50%) STAT PRN IV Hypoglycemia 04/07/17 15:00 05/07/17 14:59 Levofloxacin 150 ml @ 100 mls/hr Q48H IVPB 04/08/17 22:00 04/11/17 21:59 Levothyroxine Sodium (Synthroid) 25 mcg ACBREAKFAST ORAL 04/07/17 06:30 05/07/17 06:29 Lorazepam (Ativan 2mg/ml 1ml) 2 mg Q2H PRN IV For Anxiety 04/07/17 07:00 04/14/17 06:59 Meropenem/Sodium Chloride (Merrem/Sodium Chloride) 110 ml @ 220 mls/hr Q12HR@0600,1800 IVPB 04/07/17 06:00 04/12/17 05:59 04/07/17 06:00 Morphine Sulfate (Morphine Sulfate) 4 mg Q4H PRN IVP Severe Pain (Pain Scale 7-10) 04/07/17 07:00 04/14/17 06:59 [place] ([facility]),Tisha JOHANSEN Apr 07, 2017 07:27
--- NOTE | 2017-04-07 08:24 | Diagnostic Imaging Report ---
Indication: Status post central line placement Technique: One view of the chest Comparison: 04/05/2017 Findings: There are placement right subclavian venous catheter, tip projects at level the cavoatrial junction. No gross pneumothorax. Dense consolidation in the right upper lobe persists. Interstitial disease throughout both lungs is unchanged. Bilateral pleural effusions persists. Left shoulder hardware again demonstrated Impression: Satisfactory placement of right subclavian central venous catheter, no radiographic evidence complication Other stable findings as described
--- NOTE | 2017-04-07 09:32 | Infectious Diseases Prog Note ---
Assessment/Plan Assessment/Plan ASSESSMENT: 81 y/o female with: Multilobar PNA - SCx, UAgs pending - CXR 04/03: Increased infiltrate at the right lung base. Increased left pleural effusion, over one day. Possibly increased interstitial infiltrates at the left lung base as well. Sepsis improved Leukocytosis - resolved, afebrile hx of UTI UCx : P.stuartii Acute hypoxic respiratory failure / BiPAP--> high flow oxygen Lethargy - improved Afib/flutter CHF hypothyroidism [place] resident NKDA Full Code PLAN: DC IV Vanco , Merrem and Levaquin d# 7 / 7 and monitor pt off of AB Rx ( 03/29 SP Cefepime and Vanco d# 6 ) f/u cultures, Urine Monitor CBC, temperatures Monitor BMP Monitor Cxray Subjective Allergies: Coded Allergies: No Known Allergies (Unverified , 03/23/17) Subjective pt is DNR/ DNI Objective Vital Signs Last 24 Hour Vital Signs Date Time Temp Pulse Resp B/P Pulse Ox O2 Delivery O2 Flow Rate FiO2 04/07/17 08:09 96.5 84 19 95/58 84 Non-Rebreather 15.0 04/07/17 07:49 84 20 83 Non-Rebreather 15.0 100 04/07/17 07:43 86 20 92 Non-Rebreather 15.0 100 04/07/17 07:43 92 Non-Rebreather 15.0 100 04/07/17 07:43 Non-Rebreather 15.0 100 04/07/17 05:00 84 22 57/43 95 Non-Rebreather 100 04/07/17 04:00 97.1 83 23 88/70 98 Non-Rebreather 100 04/07/17 04:00 86 04/07/17 03:00 83 23 74/49 82 Non-Rebreather 100 04/07/17 02:00 83 24 74/55 88 Non-Rebreather 100 04/07/17 01:18 82 19 92 Non-Rebreather 15.0 100 04/07/17 01:10 84 25 93 Non-Rebreather 15.0 100 04/07/17 01:00 81 28 78/35 96 Non-Rebreather 100 04/07/17 00:00 97.1 80 26 112/69 78 Non-Rebreather 100 04/07/17 00:00 81 04/06/17 23:00 84 22 93/62 84 Non-Rebreather 100 04/06/17 22:00 86 24 93/45 84 Non-Rebreather 100 04/06/17 21:00 86 25 85/71 81 Non-Rebreather 100 04/06/17 20:00 87 04/06/17 20:00 97.1 86 24 99/64 83 Non-Rebreather 100 04/06/17 19:18 94 24 85 Non-Rebreather 15.0 100 04/06/17 19:08 86 23 85 Non-Rebreather 15.0 100 04/06/17 19:08 85 Non-Rebreather 15.0 100 04/06/17 19:08 Non-Rebreather 15.0 100 04/06/17 19:00 89 23 108/61 95 Non-Rebreather 100 04/06/17 18:00 86 24 121/63 94 Non-Rebreather 100 04/06/17 17:00 84 24 140/58 96 Non-Rebreather 100 04/06/17 16:00 87 04/06/17 16:00 97.1 88 24 103/55 95 Non-Rebreather 100 04/06/17 15:00 86 24 101/56 95 Non-Rebreather 100 04/06/17 14:00 88 26 88/57 95 Non-Rebreather 100 04/06/17 13:00 88 24 90/57 95 Non-Rebreather 100 04/06/17 12:53 90 20 86 Bi-pap 100 04/06/17 12:47 88 26 89 Non-Rebreather 15.0 100 04/06/17 12:30 84 24 95/42 95 Non-Rebreather 100 04/06/17 12:00 81 04/06/17 12:00 97.0 85 22 107/74 95 Non-Rebreather 100 04/06/17 11:30 91 24 143/95 95 Non-Rebreather 100 04/06/17 11:00 91 23 123/95 95 Non-Rebreather 100 04/06/17 10:43 92/64 04/06/17 10:30 120 22 80/51 95 Non-Rebreather 100 04/06/17 10:10 92/63 04/06/17 10:00 84 22 92/63 95 Non-Rebreather 100 Height (Feet): 5 Height (Inches): 5.00 Weight (Pounds): 160 HEENT: anicteric Respiratory/Chest: no accessory muscle use Cardiovascular: no gallop/murmur Abdomen: non distended Microbiology Date/Time Source Procedure Growth Status 04/06/17 09:30 Urine,Clean Catch Urine Culture - Preliminary Resulted Current Medications Medications (Trade) Dose Ordered Sig/Rita Route PRN Reason Start Time Stop Time Status Last Admin Dose Admin Acetaminophen (Tylenol) 650 mg Q4H PRN ORAL FEVER 04/07/17 07:00 05/07/17 06:59 Albuterol Sulfate (Proventil) 2.5 mg Q6HRT HHN 04/07/17 07:00 04/12/17 06:59 04/07/17 07:43 Chlorhexidine Gluconate (Joana-Hex 2%) 1 applic QHS TOPIC 04/07/17 21:00 05/07/17 20:59 Clotrimazole (Lotrimin) 1 applic EVERY 12 HOURS TOPIC 04/07/17 09:00 05/07/17 08:59 Dextrose (Dextrose 50%) STAT PRN IV Hypoglycemia 04/07/17 15:00 05/07/17 14:59 Levofloxacin 150 ml @ 100 mls/hr Q48H IVPB 04/08/17 22:00 04/11/17 21:59 Levothyroxine Sodium (Synthroid) 25 mcg ACBREAKFAST ORAL 04/07/17 06:30 05/07/17 06:29 Lorazepam (Ativan 2mg/ml 1ml) 2 mg Q2H PRN IV For Anxiety 04/07/17 07:00 04/14/17 06:59 Meropenem/Sodium Chloride (Merrem/Sodium Chloride) 110 ml @ 220 mls/hr Q12HR@0600,1800 IVPB 04/07/17 06:00 04/12/17 05:59 04/07/17 06:00 Morphine Sulfate (Morphine Sulfate) 4 mg Q4H PRN IVP Severe Pain (Pain Scale 7-10) 04/07/17 07:00 04/14/17 06:59 SB JADE M.D. Apr 07, 2017 09:32
[2017-04-07 10:21] LABS: ALANINE AMINOTRANSFERASE 5 U/L (3-33); ALBUMIN/GLOBULIN RATIO 0.8 (1.0-2.7); ASPARTATE AMINO TRANSFERASE 13 U/L (5-40); CARBON DIOXIDE 18 mEQ/L (20-30); CHLORIDE 108 mEQ/L (98-107); CREATININE 0.4 mg/dL (0.5-0.9); HEMOLYSIS 3; PHOSPHORUS 1.3 mg/dL (2.5-4.8); SODIUM 143 mEQ/L (135-145); URIC ACID 5.2 mg/dL (3.0-7.5)
[2017-04-07 10:27] LABS: ANION GAP 17 (5-15)
[2017-04-07 10:51] LABS: CALCIUM 5.8 mg/dL (8.6-10.2); POTASSIUM 2.6 mEQ/L (3.4-4.9)
--- NOTE | 2017-04-07 11:48 | Cardiology Progress Note ---
Assessment/Plan Assessment/Plan Extensive R upper lung infiltrate - pneumonia and ? malignancy Pulmonary edema. AF - She is now in SR w/ ventricular rate 80s dnr pulm treatmen diruetics given will see if needs tomorrow kcl supplement Subjective Cardiovascular: Denies: chest pain, irregular heart rate, lightheadedness Respiratory: Denies: shortness of breath Gastrointestinal/Abdominal: Denies: abdominal pain Genitourinary: Denies: burning Objective Last 24 Hour Vital Signs Date Time Temp Pulse Resp B/P Pulse Ox O2 Delivery O2 Flow Rate FiO2 04/07/17 08:09 96.5 84 19 95/58 84 Non-Rebreather 15.0 04/07/17 07:49 84 20 83 Non-Rebreather 15.0 100 04/07/17 07:43 86 20 92 Non-Rebreather 15.0 100 04/07/17 07:43 92 Non-Rebreather 15.0 100 04/07/17 07:43 Non-Rebreather 15.0 100 04/07/17 05:00 84 22 57/43 95 Non-Rebreather 100 04/07/17 04:00 97.1 83 23 88/70 98 Non-Rebreather 100 04/07/17 04:00 86 04/07/17 03:00 83 23 74/49 82 Non-Rebreather 100 04/07/17 02:00 83 24 74/55 88 Non-Rebreather 100 04/07/17 01:18 82 19 92 Non-Rebreather 15.0 100 04/07/17 01:10 84 25 93 Non-Rebreather 15.0 100 04/07/17 01:00 81 28 78/35 96 Non-Rebreather 100 04/07/17 00:00 97.1 80 26 112/69 78 Non-Rebreather 100 04/07/17 00:00 81 04/06/17 23:00 84 22 93/62 84 Non-Rebreather 100 04/06/17 22:00 86 24 93/45 84 Non-Rebreather 100 04/06/17 21:00 86 25 85/71 81 Non-Rebreather 100 04/06/17 20:00 87 04/06/17 20:00 97.1 86 24 99/64 83 Non-Rebreather 100 04/06/17 19:18 94 24 85 Non-Rebreather 15.0 100 04/06/17 19:08 86 23 85 Non-Rebreather 15.0 100 04/06/17 19:08 85 Non-Rebreather 15.0 100 04/06/17 19:08 Non-Rebreather 15.0 100 04/06/17 19:00 89 23 108/61 95 Non-Rebreather 100 04/06/17 18:00 86 24 121/63 94 Non-Rebreather 100 04/06/17 17:00 84 24 140/58 96 Non-Rebreather 100 04/06/17 16:00 87 04/06/17 16:00 97.1 88 24 103/55 95 Non-Rebreather 100 04/06/17 15:00 86 24 101/56 95 Non-Rebreather 100 04/06/17 14:00 88 26 88/57 95 Non-Rebreather 100 04/06/17 13:00 88 24 90/57 95 Non-Rebreather 100 04/06/17 12:53 90 20 86 Bi-pap 100 04/06/17 12:47 88 26 89 Non-Rebreather 15.0 100 04/06/17 12:30 84 24 95/42 95 Non-Rebreather 100 04/06/17 12:00 81 04/06/17 12:00 97.0 85 22 107/74 95 Non-Rebreather 100 General Appearance: no apparent distress Neck: supple Cardiovascular: normal rate, regular rhythm Respiratory/Chest: other - expiratory sounds / rhonci Abdomen: non tender, soft Extremities: trace edema Intake and Output 04/06/17 04/07/17 19:00 07:00 Intake Total 160 ml 450 ml Output Total 440 ml 975 ml Balance -280 ml -525 ml IV Total 160 ml 450 ml Output Urine Total 440 ml 975 ml Laboratory Tests Test 04/07/17 09:30 Sodium Level 143 mEQ/L (135-145) Potassium Level 2.6 mEQ/L (3.4-4.9) *L Chloride Level 108 mEQ/L (98-107) H Carbon Dioxide Level 18 mEQ/L (20-30) L Anion Gap 17 (5-15) H Blood Urea Nitrogen 9 mg/dL (7-23) Creatinine 0.4 mg/dL (0.5-0.9) L Estimat Glomerular Filtration Rate mL/min (>60) Glucose Level 63 mg/dL (74-106) L Plasma/Serum Osmolality Pending Uric Acid 5.2 mg/dL (3.0-7.5) Calcium Level 5.8 mg/dL (8.6-10.2) #*L Phosphorus Level 1.3 mg/dL (2.5-4.8) L Magnesium Level 1.0 mg/dL (1.7-2.5) L Total Bilirubin 0.3 mg/dL (0.0-1.2) Aspartate Amino Transf (AST/SGOT) 13 U/L (5-40) Alanine Aminotransferase (ALT/SGPT) 5 U/L (3-33) Alkaline Phosphatase 32 U/L (35-104) L Total Protein 4.0 g/dL (6.6-8.7) L Albumin 1.8 g/dL (3.5-5.2) L Globulin 2.2 g/dL Albumin/Globulin Ratio 0.8 (1.0-2.7) L Microbiology Date/Time Source Procedure Growth Status 04/06/17 09:30 Urine,Clean Catch Urine Culture - Preliminary Resulted TERE BEGUM Apr 07, 2017 11:48
--- NOTE | 2017-04-07 14:35 | General Progress Note ---
Assessment/Plan Status: unchanged, deteriorating Assessment/Plan Status; (1) Acute encephalopathy (2) Sepsis (3) Pneumonia (4) Lung mass (5) Aspiration pneumonia (6) Atrial fibrillation Low Na; likely Hypotonic solution administration Other points: Low Alb , Low K , Anemia , normal BUN and Cr , no Ua Available Plan; DC Hypotonic Solution K and Mag and Phos supplements U na U Os TSH , Phos Uric Acid Now DNR and DNI Subjective ROS Limited/Unobtainable: Yes Allergies: Coded Allergies: No Known Allergies (Unverified , 03/23/17) Objective Last 24 Hour Vital Signs Date Time Temp Pulse Resp B/P Pulse Ox O2 Delivery O2 Flow Rate FiO2 04/07/17 13:19 86 20 91 Non-Rebreather 15.0 100 04/07/17 13:14 89 20 93 Non-Rebreather 15.0 100 04/07/17 12:09 96.5 95 20 80/53 78 Non-Rebreather 15.0 04/07/17 08:09 96.5 84 19 95/58 84 Non-Rebreather 15.0 04/07/17 07:49 84 20 83 Non-Rebreather 15.0 100 04/07/17 07:43 86 20 92 Non-Rebreather 15.0 100 04/07/17 07:43 92 Non-Rebreather 15.0 100 04/07/17 07:43 Non-Rebreather 15.0 100 04/07/17 05:00 84 22 57/43 95 Non-Rebreather 100 04/07/17 04:00 97.1 83 23 88/70 98 Non-Rebreather 100 04/07/17 04:00 86 04/07/17 03:00 83 23 74/49 82 Non-Rebreather 100 04/07/17 02:00 83 24 74/55 88 Non-Rebreather 100 04/07/17 01:18 82 19 92 Non-Rebreather 15.0 100 04/07/17 01:10 84 25 93 Non-Rebreather 15.0 100 04/07/17 01:00 81 28 78/35 96 Non-Rebreather 100 04/07/17 00:00 97.1 80 26 112/69 78 Non-Rebreather 100 04/07/17 00:00 81 04/06/17 23:00 84 22 93/62 84 Non-Rebreather 100 04/06/17 22:00 86 24 93/45 84 Non-Rebreather 100 04/06/17 21:00 86 25 85/71 81 Non-Rebreather 100 04/06/17 20:00 87 04/06/17 20:00 97.1 86 24 99/64 83 Non-Rebreather 100 04/06/17 19:18 94 24 85 Non-Rebreather 15.0 100 04/06/17 19:08 86 23 85 Non-Rebreather 15.0 100 04/06/17 19:08 85 Non-Rebreather 15.0 100 04/06/17 19:08 Non-Rebreather 15.0 100 04/06/17 19:00 89 23 108/61 95 Non-Rebreather 100 04/06/17 18:00 86 24 121/63 94 Non-Rebreather 100 04/06/17 17:00 84 24 140/58 96 Non-Rebreather 100 04/06/17 16:00 87 04/06/17 16:00 97.1 88 24 103/55 95 Non-Rebreather 100 04/06/17 15:00 86 24 101/56 95 Non-Rebreather 100 Intake and Output 04/06/17 04/07/17 19:00 07:00 Intake Total 160 ml 450 ml Output Total 440 ml 975 ml Balance -280 ml -525 ml IV Total 160 ml 450 ml Output Urine Total 440 ml 975 ml Laboratory Tests 04/07/17 09:30: Sodium Level 143, Potassium Level 2.6*L, Chloride Level 108H, Carbon Dioxide Level 18L, Anion Gap 17H, Blood Urea Nitrogen 9, Creatinine 0.4L, Estimat Glomerular Filtration Rate , Glucose Level 63L, Plasma/Serum Osmolality [Pending ], Uric Acid 5.2, Calcium Level 5.8#*L, Phosphorus Level 1.3L, Magnesium Level 1.0L, Total Bilirubin 0.3, Aspartate Amino Transf (AST/SGOT) 13, Alanine Aminotransferase (ALT/SGPT) 5, Alkaline Phosphatase 32L, Total Protein 4.0L, Albumin 1.8L, Globulin 2.2, Albumin/Globulin Ratio 0.8L Height (Feet): 5 Height (Inches): 5.00 Weight (Pounds): 160 General Appearance: lethargic, confused, mild distress, other - low BP EENT: other - on O2 mask Neck: limited range of motion Cardiovascular: tachycardia Respiratory/Chest: decreased breath sounds Abdomen: distended ELLIOT ROCHE Apr 07, 2017 14:35
[2017-04-07] MEDS ORDERED: Potassium Phosphate 30 MM in NS 275 ML IV ONE (18:00)
[2017-04-07] MEDS ORDERED: Dyna-Hex 2% Top Sol 8oz TOPIC SCH (21:00)
[2017-04-08] VITALS: BP 79/34
[2017-04-08] MEDS: Albuterol ud Inhalation HHN SCH ×2 (01:00→07:33)
[2017-04-08 06:48] LABS: MEAN CORPUSCULAR HGB CONC 31.5 G/DL (32.0-36.0); MEAN CORPUSCULAR VOLUME 102 FL (80-99); MEAN PLATELET VOLUME 8.8 FL (6.5-10.1); PLATELET COUNT 184 K/UL (150-450); RED BLOOD COUNT 3.68 M/UL (4.20-5.40); WHITE BLOOD COUNT 9.9 K/UL (4.8-10.8)
--- NOTE | 2017-04-08 07:20 | General Progress Note ---
Progress Note Progress Note Pt has some SOB, the rt subclavian catheter is functioning well. Edmund Braun MD Apr 08, 2017 07:20
[2017-04-08 08:00] VITALS: BP 129/67
[2017-04-08 08:34] LABS: ALANINE AMINOTRANSFERASE 8 U/L (3-33); ALBUMIN/GLOBULIN RATIO 0.8 (1.0-2.7); ANION GAP 14 (5-15); ASPARTATE AMINO TRANSFERASE 21 U/L (5-40); CALCIUM 8.9 mg/dL (8.6-10.2); CARBON DIOXIDE 25 mEQ/L (20-30); CHLORIDE 99 mEQ/L (98-107); CREATININE 0.8 mg/dL (0.5-0.9); HEMOLYSIS 4; POTASSIUM 5.6 mEQ/L (3.4-4.9); SODIUM 138 mEQ/L (135-145); TOTAL PROTEIN 5.8 g/dL (6.6-8.7); URIC ACID 8.5 mg/dL (3.0-7.5)
[2017-04-08 10:52] LABS: BAND NEUTROPHILS % (MANUAL) 0 % (0-8); BASOPHILS % (MANUAL) 0 % (0-2); EOSINOPHILS % (MANUAL) 0 % (0-3); LYMPHOCYTES % (MANUAL) 11 % (20-45); NEUTROPHILS % (MANUAL) 81 % (45-75); PLATELET ESTIMATE ADEQUATE; PLATELET MORPHOLOGY NORMAL; TOTAL CELLS COUNTED 100
--- NOTE | 2017-04-08 11:17 | Cardiology Progress Note ---
Assessment/Plan Assessment/Plan Extensive R upper lung infiltrate - pneumonia and ? malignancy Pulmonary edema. AF - She is now in SR w/ ventricular rate 80s dnr pulm treatmen angie today Subjective ROS Limited/Unobtainable: Yes Objective Last 24 Hour Vital Signs Date Time Temp Pulse Resp B/P Pulse Ox O2 Delivery O2 Flow Rate FiO2 04/08/17 08:00 79 20 129/67 84 Non-Rebreather 15.0 04/08/17 07:33 Non-Rebreather 15.0 100 04/08/17 07:33 90 Non-Rebreather 15.0 100 04/08/17 07:33 79 90 04/08/17 07:33 Non-Rebreather 15.0 100 04/08/17 01:21 75 84 Non-Rebreather 100 04/08/17 01:20 Non-Rebreather 04/08/17 00:00 97.9 90 20 79/34 90 Nasal Cannula 15.0 04/07/17 20:00 96.9 83 20 135/77 91 Nasal Cannula 15.0 04/07/17 19:26 88 26 88 Non-Rebreather 15.0 100 04/07/17 19:25 Non-Rebreather 15.0 100 04/07/17 19:20 90 Non-Rebreather 15.0 100 04/07/17 19:20 86 26 90 Non-Rebreather 15.0 100 04/07/17 16:06 96.1 71 19 93/53 80 Non-Rebreather 15.0 04/07/17 13:19 86 20 91 Non-Rebreather 15.0 100 04/07/17 13:14 89 20 93 Non-Rebreather 15.0 100 04/07/17 12:09 96.5 95 20 80/53 78 Non-Rebreather 15.0 Intake and Output 04/07/17 04/08/17 19:00 07:00 Output Total 375 ml Balance -375 ml Output Urine Total 375 ml Laboratory Tests Test 04/08/17 05:00 White Blood Count 9.9 K/UL (4.8-10.8) Red Blood Count 3.68 M/UL (4.20-5.40) L Hemoglobin 11.8 G/DL (12.0-16.0) L Hematocrit 37.4 % (37.0-47.0) Mean Corpuscular Volume 102 FL (80-99) H Mean Corpuscular Hemoglobin 32.0 PG (27.0-31.0) H Mean Corpuscular Hemoglobin Concent 31.5 G/DL (32.0-36.0) L Red Cell Distribution Width 14.0 % (11.6-14.8) Platelet Count 184 K/UL (150-450) Mean Platelet Volume 8.8 FL (6.5-10.1) Neutrophils (%) (Auto) % (45.0-75.0) Lymphocytes (%) (Auto) % (20.0-45.0) Monocytes (%) (Auto) % (1.0-10.0) Eosinophils (%) (Auto) % (0.0-3.0) Basophils (%) (Auto) % (0.0-2.0) Differential Total Cells Counted 100 Neutrophils % (Manual) 81 % (45-75) H Lymphocytes % (Manual) 11 % (20-45) L Monocytes % (Manual) 8 % (1-10) Eosinophils % (Manual) 0 % (0-3) Basophils % (Manual) 0 % (0-2) Band Neutrophils 0 % (0-8) Platelet Estimate Adequate Platelet Morphology Normal Red Blood Cell Morphology Normal Sodium Level 138 mEQ/L (135-145) Potassium Level 5.6 mEQ/L (3.4-4.9) #H Chloride Level 99 mEQ/L (98-107) Carbon Dioxide Level 25 mEQ/L (20-30) Anion Gap 14 (5-15) Blood Urea Nitrogen 15 mg/dL (7-23) Creatinine 0.8 mg/dL (0.5-0.9) # Estimat Glomerular Filtration Rate mL/min (>60) Glucose Level 86 mg/dL (74-106) Uric Acid 8.5 mg/dL (3.0-7.5) H Calcium Level 8.9 mg/dL (8.6-10.2) # Phosphorus Level 5.0 mg/dL (2.5-4.8) H Magnesium Level 3.0 mg/dL (1.7-2.5) H Total Bilirubin 0.4 mg/dL (0.0-1.2) Aspartate Amino Transf (AST/SGOT) 21 U/L (5-40) Alanine Aminotransferase (ALT/SGPT) 8 U/L (3-33) Alkaline Phosphatase 56 U/L (35-104) Total Protein 5.8 g/dL (6.6-8.7) #L Albumin 2.7 g/dL (3.5-5.2) L Globulin 3.1 g/dL Albumin/Globulin Ratio 0.8 (1.0-2.7) L Microbiology Date/Time Source Procedure Growth Status 04/06/17 09:30 Urine,Clean Catch Urine Culture - Preliminary YEAST Resulted TERE BEGUM Apr 08, 2017 11:17
--- NOTE | 2017-04-08 11:23 | Pulmonology Progress Note ---
Assessment/Plan Assessment/Plan ASSESSMENT sepsis aspiration PNA ( extensive and persistent RUL infiltrate) possible lung mass acute hypoxemic hypercapnic respiratory failure acute toxic metabolic encephalopathy 2 to sepsis Afib with RVR CHF with diastolic dysfunction pulmonary edema electrolyte abnormalities ( hypo K, hypo Mg, hypo P) hypothyroidism with elevated TSH hypoalbuminemia moderate pulmonary HTN PLAN OF CARE initially in ICU on 100% NRM ABG with acute respiratory acidosis and hypercapnia CXR with RUL infiltrate hemodynamic support with pressor ( Dopamine) Venous Duplex BLE negative abx ID follows blood cx preliminary negative ,sputum cx not collected cardiology follows on Amiodarone, initially on BB and CCB as well but BB and CCB dc due to hypotension no a/coagulation 2 to unstable status ECHO with EF n60% and RVSP of 38 c/w moderate pulmonary HTN , moderate TR and diastolic dysfunction s/p Lasix x 1 nephro follows e/lyte replaced hypo Na due to hypotonic solution, , off hypotonic solution Synthroid dose increased s/p Albumin x 1 fup CXR s with persistent RUL PNA , worsening, pulmonary edema long discussion with family who decided against intubation and choose comfort measures/palliative care code status changed to DNR/DNI pressor discontinue transferred to private room [place] floor for comfort measures O2 via 100 NNM suction prn pulmonary toilet s/p diuretic x1 this am as per cardio pain management, comfort measures prognosis grave and imminent DNR/DNI status case discussed and evaluated by supervising physician Subjective Allergies: Coded Allergies: No Known Allergies (Unverified , 03/23/17) Subjective transferred to [place] floor DNR/DNI status now e/lyte imbalance ( low K, Mg, P, Ca) Objective Last 24 Hour Vital Signs Date Time Temp Pulse Resp B/P Pulse Ox O2 Delivery O2 Flow Rate FiO2 04/08/17 08:00 79 20 129/67 84 Non-Rebreather 15.0 04/08/17 07:33 Non-Rebreather 15.0 100 04/08/17 07:33 90 Non-Rebreather 15.0 100 04/08/17 07:33 79 90 04/08/17 07:33 Non-Rebreather 15.0 100 04/08/17 01:21 75 84 Non-Rebreather 100 04/08/17 01:20 Non-Rebreather 04/08/17 00:00 97.9 90 20 79/34 90 Nasal Cannula 15.0 04/07/17 20:00 96.9 83 20 135/77 91 Nasal Cannula 15.0 04/07/17 19:26 88 26 88 Non-Rebreather 15.0 100 04/07/17 19:25 Non-Rebreather 15.0 100 04/07/17 19:20 90 Non-Rebreather 15.0 100 04/07/17 19:20 86 26 90 Non-Rebreather 15.0 100 04/07/17 16:06 96.1 71 19 93/53 80 Non-Rebreather 15.0 04/07/17 13:19 86 20 91 Non-Rebreather 15.0 100 04/07/17 13:14 89 20 93 Non-Rebreather 15.0 100 04/07/17 12:09 96.5 95 20 80/53 78 Non-Rebreather 15.0 Intake and Output 04/07/17 04/08/17 19:00 07:00 Output Total 375 ml Balance -375 ml Output Urine Total 375 ml Objective General Appearance: elderly, weak, lethargic bedridden female in mild respiratory distress HEENT: normocephalic, atraumatic, 100% NRM on Respiratory/Chest: rhonchi bilaterally, more on the right side, tachypneic, intermittent use of intercostal muscles Cardiovascular: normal peripheral pulses, normal rate, irregularly irregular, Abdomen: soft, non tender Extremities: trace edema BLE Neurologic/Psychiatric: abnormal gait - bedridden , lethargic Musculoskeletal: atrophy - BLE Microbiology Date/Time Source Procedure Growth Status 04/06/17 09:30 Urine,Clean Catch Urine Culture - Preliminary YEAST Resulted Laboratory Tests 04/08/17 05:00: White Blood Count 9.9, Red Blood Count 3.68L, Hemoglobin 11.8L, Hematocrit 37.4 , Mean Corpuscular Volume 102H, Mean Corpuscular Hemoglobin 32.0H, Mean Corpuscular Hemoglobin Concent 31.5L, Red Cell Distribution Width 14.0, Platelet Count 184, Mean Platelet Volume 8.8, Neutrophils (%) (Auto) , Lymphocytes (%) (Auto) , Monocytes (%) (Auto) , Eosinophils (%) (Auto) , Basophils (%) (Auto) , Differential Total Cells Counted 100, Neutrophils % ( Manual) 81H, Lymphocytes % (Manual) 11L, Monocytes % (Manual) 8, Eosinophils % ( Manual) 0, Basophils % (Manual) 0, Band Neutrophils 0, Platelet Estimate Adequate, Platelet Morphology Normal, Red Blood Cell Morphology Normal, Sodium Level 138, Potassium Level 5.6#H, Chloride Level 99, Carbon Dioxide Level 25, Anion Gap 14, Blood Urea Nitrogen 15, Creatinine 0.8#, Estimat Glomerular Filtration Rate , Glucose Level 86, Uric Acid 8.5H, Calcium Level 8.9#, Phosphorus Level 5.0H, Magnesium Level 3.0H, Total Bilirubin 0.4, Aspartate Amino Transf (AST/SGOT) 21, Alanine Aminotransferase (ALT/SGPT) 8, Alkaline Phosphatase 56, Total Protein 5.8#L, Albumin 2.7L, Globulin 3.1, Albumin/ Globulin Ratio 0.8L Current Medications Medications (Trade) Dose Ordered Sig/Rita Route PRN Reason Start Time Stop Time Status Last Admin Dose Admin Acetaminophen (Tylenol) 650 mg Q4H PRN ORAL FEVER 04/07/17 07:00 05/07/17 06:59 Albuterol Sulfate (Proventil) 2.5 mg Q6HRT HHN 04/07/17 07:00 04/12/17 06:59 04/07/17 19:19 Chlorhexidine Gluconate (Joana-Hex 2%) 1 applic QHS TOPIC 04/07/17 21:00 05/07/17 20:59 Clotrimazole (Lotrimin) 1 applic EVERY 12 HOURS TOPIC 04/07/17 09:00 05/07/17 08:59 04/07/17 09:00 Dextrose (Dextrose 50%) STAT PRN IV Hypoglycemia 04/07/17 15:00 05/07/17 14:59 Levothyroxine Sodium (Synthroid) 50 mcg ACBREAKFAST ORAL 04/08/17 06:30 05/08/17 06:29 Lorazepam (Ativan 2mg/ml 1ml) 2 mg Q2H PRN IV For Anxiety 04/07/17 07:00 04/14/17 06:59 04/07/17 20:43 Morphine Sulfate (Morphine Sulfate) 4 mg Q4H PRN IVP Severe Pain (Pain Scale 7-10) 04/07/17 07:00 04/14/17 06:59 Mathew Welsh),Tisha JOHANSEN Apr 08, 2017 11:23
--- NOTE | 2017-04-08 11:42 | General Progress Note ---
Assessment/Plan Status: unchanged Status Narrative deteriorating Assessment/Plan Status; (1) Acute encephalopathy (2) Sepsis (3) Pneumonia (4) Lung mass (5) Aspiration pneumonia (6) Atrial fibrillation Low Na; likely Hypotonic solution administration Other points: Low Alb , Low K , Anemia , normal BUN and Cr , no Ua Available Plan; DC Hypotonic Solution K and Mag and Phos supplements U na U Os TSH , Phos Uric Acid Now DNR and DNI Subjective ROS Limited/Unobtainable: No Allergies: Coded Allergies: No Known Allergies (Unverified , 03/23/17) Objective Last 24 Hour Vital Signs Date Time Temp Pulse Resp B/P Pulse Ox O2 Delivery O2 Flow Rate FiO2 04/08/17 08:00 79 20 129/67 84 Non-Rebreather 15.0 04/08/17 07:33 Non-Rebreather 15.0 100 04/08/17 07:33 90 Non-Rebreather 15.0 100 04/08/17 07:33 79 90 04/08/17 07:33 Non-Rebreather 15.0 100 04/08/17 01:21 75 84 Non-Rebreather 100 04/08/17 01:20 Non-Rebreather 04/08/17 00:00 97.9 90 20 79/34 90 Nasal Cannula 15.0 04/07/17 20:00 96.9 83 20 135/77 91 Nasal Cannula 15.0 04/07/17 19:26 88 26 88 Non-Rebreather 15.0 100 04/07/17 19:25 Non-Rebreather 15.0 100 04/07/17 19:20 90 Non-Rebreather 15.0 100 04/07/17 19:20 86 26 90 Non-Rebreather 15.0 100 04/07/17 16:06 96.1 71 19 93/53 80 Non-Rebreather 15.0 04/07/17 13:19 86 20 91 Non-Rebreather 15.0 100 04/07/17 13:14 89 20 93 Non-Rebreather 15.0 100 04/07/17 12:09 96.5 95 20 80/53 78 Non-Rebreather 15.0 Intake and Output 04/07/17 04/08/17 19:00 07:00 Output Total 375 ml Balance -375 ml Output Urine Total 375 ml Laboratory Tests 04/08/17 05:00: White Blood Count 9.9, Red Blood Count 3.68L, Hemoglobin 11.8L, Hematocrit 37.4 , Mean Corpuscular Volume 102H, Mean Corpuscular Hemoglobin 32.0H, Mean Corpuscular Hemoglobin Concent 31.5L, Red Cell Distribution Width 14.0, Platelet Count 184, Mean Platelet Volume 8.8, Neutrophils (%) (Auto) , Lymphocytes (%) (Auto) , Monocytes (%) (Auto) , Eosinophils (%) (Auto) , Basophils (%) (Auto) , Differential Total Cells Counted 100, Neutrophils % ( Manual) 81H, Lymphocytes % (Manual) 11L, Monocytes % (Manual) 8, Eosinophils % ( Manual) 0, Basophils % (Manual) 0, Band Neutrophils 0, Platelet Estimate Adequate, Platelet Morphology Normal, Red Blood Cell Morphology Normal, Sodium Level 138, Potassium Level 5.6#H, Chloride Level 99, Carbon Dioxide Level 25, Anion Gap 14, Blood Urea Nitrogen 15, Creatinine 0.8#, Estimat Glomerular Filtration Rate , Glucose Level 86, Uric Acid 8.5H, Calcium Level 8.9#, Phosphorus Level 5.0H, Magnesium Level 3.0H, Total Bilirubin 0.4, Aspartate Amino Transf (AST/SGOT) 21, Alanine Aminotransferase (ALT/SGPT) 8, Alkaline Phosphatase 56, Total Protein 5.8#L, Albumin 2.7L, Globulin 3.1, Albumin/ Globulin Ratio 0.8L Height (Feet): 5 Height (Inches): 5.00 Weight (Pounds): 160 General Appearance: lethargic, mild distress Cardiovascular: tachycardia Respiratory/Chest: decreased breath sounds Abdomen: distended ELLIOT ROCHE Apr 08, 2017 11:42
--- NOTE | 2017-04-08 12:56 | Infectious Diseases Prog Note ---
Assessment/Plan Assessment/Plan ASSESSMENT: 81 y/o female with: Multilobar PNA - SCx, UAgs pending - CXR 04/03: Increased infiltrate at the right lung base. Increased left pleural effusion, over one day. Possibly increased interstitial infiltrates at the left lung base as well. Sepsis improved Leukocytosis - resolved, afebrile hx of UTI UCx : P.stuartii , repeat UCx : yeast ( colonizer ) Acute hypoxic respiratory failure / BiPAP--> high flow oxygen Lethargy - improved Afib/flutter CHF hypothyroidism [place] resident NKDA Full Code PLAN: monitor pt off of AB Rx ( 04/07 SP DC IV Vanco , Merrem and Levaquin d# 7 / 7 ) ( 03/29 SP Cefepime and Vanco d# 6 ) Monitor CBC, temperatures Monitor BMP Monitor Cxray Monitor Ucx Subjective Allergies: Coded Allergies: No Known Allergies (Unverified , 03/23/17) Subjective no new complain Objective Vital Signs Last 24 Hour Vital Signs Date Time Temp Pulse Resp B/P Pulse Ox O2 Delivery O2 Flow Rate FiO2 04/08/17 08:00 79 20 129/67 84 Non-Rebreather 15.0 04/08/17 07:33 Non-Rebreather 15.0 100 04/08/17 07:33 90 Non-Rebreather 15.0 100 04/08/17 07:33 79 90 04/08/17 07:33 Non-Rebreather 15.0 100 04/08/17 01:21 75 84 Non-Rebreather 100 04/08/17 01:20 Non-Rebreather 04/08/17 00:00 97.9 90 20 79/34 90 Nasal Cannula 15.0 04/07/17 20:00 96.9 83 20 135/77 91 Nasal Cannula 15.0 04/07/17 19:26 88 26 88 Non-Rebreather 15.0 100 04/07/17 19:25 Non-Rebreather 15.0 100 04/07/17 19:20 90 Non-Rebreather 15.0 100 04/07/17 19:20 86 26 90 Non-Rebreather 15.0 100 04/07/17 16:06 96.1 71 19 93/53 80 Non-Rebreather 15.0 04/07/17 13:19 86 20 91 Non-Rebreather 15.0 100 04/07/17 13:14 89 20 93 Non-Rebreather 15.0 100 Height (Feet): 5 Height (Inches): 5.00 Weight (Pounds): 160 HEENT: mucous membranes moist Respiratory/Chest: no respiratory distress Cardiovascular: normal rate Abdomen: no organomegaly Microbiology Date/Time Source Procedure Growth Status 04/06/17 09:30 Urine,Clean Catch Urine Culture - Preliminary YEAST Resulted Laboratory Tests Test 04/08/17 05:00 White Blood Count 9.9 K/UL (4.8-10.8) Red Blood Count 3.68 M/UL (4.20-5.40) L Hemoglobin 11.8 G/DL (12.0-16.0) L Hematocrit 37.4 % (37.0-47.0) Mean Corpuscular Volume 102 FL (80-99) H Mean Corpuscular Hemoglobin 32.0 PG (27.0-31.0) H Mean Corpuscular Hemoglobin Concent 31.5 G/DL (32.0-36.0) L Red Cell Distribution Width 14.0 % (11.6-14.8) Platelet Count 184 K/UL (150-450) Mean Platelet Volume 8.8 FL (6.5-10.1) Neutrophils (%) (Auto) % (45.0-75.0) Lymphocytes (%) (Auto) % (20.0-45.0) Monocytes (%) (Auto) % (1.0-10.0) Eosinophils (%) (Auto) % (0.0-3.0) Basophils (%) (Auto) % (0.0-2.0) Differential Total Cells Counted 100 Neutrophils % (Manual) 81 % (45-75) H Lymphocytes % (Manual) 11 % (20-45) L Monocytes % (Manual) 8 % (1-10) Eosinophils % (Manual) 0 % (0-3) Basophils % (Manual) 0 % (0-2) Band Neutrophils 0 % (0-8) Platelet Estimate Adequate Platelet Morphology Normal Red Blood Cell Morphology Normal Sodium Level 138 mEQ/L (135-145) Potassium Level 5.6 mEQ/L (3.4-4.9) #H Chloride Level 99 mEQ/L (98-107) Carbon Dioxide Level 25 mEQ/L (20-30) Anion Gap 14 (5-15) Blood Urea Nitrogen 15 mg/dL (7-23) Creatinine 0.8 mg/dL (0.5-0.9) # Estimat Glomerular Filtration Rate mL/min (>60) Glucose Level 86 mg/dL (74-106) Uric Acid 8.5 mg/dL (3.0-7.5) H Calcium Level 8.9 mg/dL (8.6-10.2) # Phosphorus Level 5.0 mg/dL (2.5-4.8) H Magnesium Level 3.0 mg/dL (1.7-2.5) H Total Bilirubin 0.4 mg/dL (0.0-1.2) Aspartate Amino Transf (AST/SGOT) 21 U/L (5-40) Alanine Aminotransferase (ALT/SGPT) 8 U/L (3-33) Alkaline Phosphatase 56 U/L (35-104) Total Protein 5.8 g/dL (6.6-8.7) #L Albumin 2.7 g/dL (3.5-5.2) L Globulin 3.1 g/dL Albumin/Globulin Ratio 0.8 (1.0-2.7) L Current Medications Medications (Trade) Dose Ordered Sig/Rita Route PRN Reason Start Time Stop Time Status Last Admin Dose Admin Acetaminophen (Tylenol) 650 mg Q4H PRN ORAL FEVER 04/07/17 07:00 05/07/17 06:59 Albuterol Sulfate (Proventil) 2.5 mg Q6HRT HHN 04/07/17 07:00 04/12/17 06:59 04/07/17 19:19 Chlorhexidine Gluconate (Joana-Hex 2%) 1 applic QHS TOPIC 04/07/17 21:00 05/07/17 20:59 Clotrimazole (Lotrimin) 1 applic EVERY 12 HOURS TOPIC 04/07/17 09:00 05/07/17 08:59 04/08/17 09:00 Dextrose (Dextrose 50%) STAT PRN IV Hypoglycemia 04/07/17 15:00 05/07/17 14:59 Levothyroxine Sodium (Synthroid) 50 mcg ACBREAKFAST ORAL 04/08/17 06:30 05/08/17 06:29 Lorazepam (Ativan 2mg/ml 1ml) 2 mg Q2H PRN IV For Anxiety 04/07/17 07:00 04/14/17 06:59 04/07/17 20:43 Morphine Sulfate (Morphine Sulfate) 4 mg Q4H PRN IVP Severe Pain (Pain Scale 7-10) 04/07/17 07:00 04/14/17 06:59 SB JADE M.D. Apr 08, 2017 12:56
[2017-04-08] MEDS ORDERED: Tubing IV Secondary IV ONE ×2 (16:29)
[2017-04-08] MEDS ORDERED: 1/2 NS 1000ml IV ONE (16:29)
[2017-04-08] MEDS ORDERED: NS 550ML IV ONE (16:29)
[2017-04-08] MEDS ORDERED: NS 275ml ONE ×2 (16:29)
[2017-04-08] MEDS ORDERED: NS Irrig 1000ml ONE (16:29)
--- NOTE | 2017-04-12 11:34 | Discharge Summary ---
Discharge Summary Hospital Course Date of Admission Mar 31, 2017 at 16:00 Date of Discharge Apr 08, 2017 at 16:30 Admitting Diagnosis PNEUMONIA HPI Kaelyn Maloney is a 81 year old female who was admitted on Mar 31, 2017 at 16: 00 for Pneumonia Hospital Course dc summary ##[id number] Discharge Discharge Disposition Patient Discharge Diagnoses: Mathew ([facility])Tisha NP Apr 12, 2017 11:34
--- NOTE | 2017-04-13 00:45 | Discharge Summary 2 SIG ---
DATE OF ADMISSION: 03/31/2017 DATE OF DISCHARGE: 04/08/2017 SUMMARY DATE OF EXPIRATION: 04/08/2017 REASON FOR ADMISSION: This is an 81-year-old female, who was recently discharged with diagnosis of pneumonia to senior care facility, who was sent for evaluation due to the drop in oxygen saturation to 80%. The patient was receiving IV antibiotic at the facility as a continuation of her care. The patient also has a history of lung mass and congestive heart failure. The patient herself denied any complaint at that time. She was coughing. Paramedics placed her on a nonrebreathing mask and she was saturated 95% on 100% nonrebreathing mask. Physical examination revealed rhonchi and in the emergency department, the patient was given a nebulizing treatment. The patient was started on gentle IV hydration and restarted antibiotics. X-ray revealed right upper lobe infiltrate. WBC was 14.6. Lactic acid 2.2. The patient was tachypneic. EKG shows atrial flutter with a variable block. The patient was admitted for further management. ADMITTING DIAGNOSES: Includes: 1. Sepsis. 2. Pneumonia. 3. Lung mass. 4. Acute hypoxemic respiratory failure. Hospital Stay: The patient was admitted initially to intensive care unit. The patient required pressors. The patient initially admitted to telemetry, but in telemetry her blood pressure dropped overnight and she was transferred to ICU for pressors to support her hemodynamic status. The patient was on 100% nonrebreathing mask. At that time, the patient was on Full Code. The patient was followed up with ABGs and pulmonary toilet. Chest x-ray was followed up. The patient was found to have increased infiltrate in the right lung mass. The patient was on empiric antibiotic. ID followed. Blood culture negative. Urine culture positive for Fiordaliza. At 06:29, the patient's condition was not improving and subsequently, the ABG on 04/05/2017 showed acidosis with hypercapnia, pH 7.29, pCO2 52.4, and pO2 67.9 on 100% nonrebreathing mask. Subsequently, long discussion with the patient's daughter, took place. According to family wishes, they decided on comfort care avoiding any artificial breathing, feeding, or pressors. Therefore, the code status was changed to DNR/DNI, dopamine drip was discontinued, and the patient was transferred to Med/Surg floor. Venous duplex of bilateral lower extremity was negative. Pin Puller followed. The patient was on amiodarone, initially on beta-eleuterio and calcium eleuterio as well, but beta-eleuterio and calcium-channel eleuterio were discontinued due to hypotension. No anticoagulation secondary to unstable status. Echocardiogram revealed ejection fraction of 60% and right ventricular systolic pressure of 38 consistent with moderate pulmonary hypertension, moderate tricuspid regurgitation, and diastolic dysfunction. The retort firer was giving Lasix as needed daily. Steam Finisher followed. Electrolytes were replaced. Renal parameters and electrolytes were closely monitored. Hyponatremia was likely due to hypotonic solution. The patient is off hypotonic solution. Noted elevated TSH. Synthroid dose increased. The patient had albumin x1. Follow up chest x-ray revealed persistent right upper lobe pneumonia and worsening pulmonary edema. That was the day when family decided to against the intubation to the comfort measures/palliative care. Supplemental oxygen provided on 100% nonrebreathing mask. Suction provided as needed. Pulmonary toilet provided as needed. Pain management addressed. Comfort measure implemented. Prognosis was grave and imminent. Family realized that. The patient was pronounced on 04/08/2017 at 12 p.m. Cause of , cardiopulmonary arrest. FINAL DIAGNOSES: Includes: 1. Sepsis. 2. Aspiration pneumonia (extensive and persistent right upper lobe infiltrate). 3. Likely lung mass. 4. Acute hypoxemic hypercapnic respiratory failure. 5. Acute toxic metabolic encephalopathy secondary to sepsis. 6. Atrial fibrillation with rapid ventricular response. 7. Congestive heart failure with diastolic dysfunction. 8. Pulmonary edema. 9. Electrolyte abnormality (hypokalemia, hypomagnesemia, and hypophosphatemia). 10. Hypothyroidism with elevated thyroid stimulating hormone. 11. Hypoalbuminemia. 12. Moderate pulmonary hypertension. Jose Angel Call M.D. I have been assigned to dictate discharge summary on this account and I was not involved in the patient's management. Tisha Luucolumbia university irving medical centerNate NNelliePNellie DR: PRATIBHA JOB#: [id number] CC:
== END 2017-04-08 16:30 | disposition expired | DRG 871 ==
LOC: EDUNIT# 15:25 → EDBD 15:25 → EMR 15:36 → EDBEDREQ 15:57 → 2E 16:00 → EDBEDREQ 16:05 → 2E 22:05 → ICU 04-01 13:16 → 4W 04-07 05:51
PROC: 05H533Z Insertion of Infusion Device into Right Subclavian Vein, Percutaneous Approach (ICD-10-PCS; principal; 2017-03-31)
PROC: 5A09357 Assistance with Respiratory Ventilation, Less than 24 Consecutive Hours, Continuous Positive Airway Pressure (ICD-10-PCS; 2017-04-01)
DX: A41.9 Sepsis, unspecified organism (principal); J69.0 Pneumonitis due to inhalation of food and vomit; J96.01 Acute respiratory failure with hypoxia; J96.02 Acute respiratory failure with hypercapnia; G92 Toxic encephalopathy; I50.30 Unspecified diastolic (congestive) heart failure; I27.2 Other secondary pulmonary hypertension; E88.09 Other disorders of plasma-protein metabolism, not elsewhere classified; I48.92 Unspecified atrial flutter; Z51.5 Encounter for palliative care; R91.8 Other nonspecific abnormal finding of lung field; I48.91 Unspecified atrial fibrillation; Z66 Do not resuscitate; I07.1 Rheumatic tricuspid insufficiency; E87.6 Hypokalemia; E83.42 Hypomagnesemia; E83.39 Other disorders of phosphorus metabolism; E03.9 Hypothyroidism, unspecified; F03.90 Unspecified dementia, unspecified severity, without behavioral disturbance, psychotic disturbance, mood disturbance, and anxiety
CPT/HCPCS: 36415; 36600; 71010; 80053; 80061; 80069; 80202; 81001; 82550; 82803; 83605; 83735; 83880; 83930; 84100; 84300; 84443; 84484; 84550; 85007; 85025; 85379; 85610; 85730; 87040; 87086; 93005; 93970; 94640; 94660; 94664; 94760; J7620